=== PATIENT | male | born 1955 | race Two or more races ===

== ENCOUNTER 2020-05-31 10:53 | Outpatient (REF) | payer MEDICARE, SELFPAY ==
[2020-05-31 13:50] LABS: Hematocrit 40.1 % (42-52); Hemoglobin 13.6 g/dl (14.0-18.0); Mean Corpuscular HGB Conc 33.9 g/dl (31.0-36.0); Mean Corpuscular Hemoglobin 29.6 pg (27.0-33.0); Mean Corpuscular Volume 87.4 fL (80-98); Mean Platelet Volume 9.8 fL (9.4-12.4); Platelet Count 224 X10*3/uL (160-400); Red Blood Count 4.59 X10*6/uL (4.60-5.80); Red Cell Distribution Width 12.1 % (11.0-16.0); White Blood Count 5.6 X10*3/uL (4.8-10.8)
[2020-05-31 14:18] LABS: Alanine Aminotransferase 18 U/L (0-40); Albumin Level 4.2 g/dL (3.5-5.0); Alkaline Phosphatase 51 U/L (39-117); Amylase 64 U/L (28-100); Aspartate Amino Transferase 23 U/L (5-37); Bilirubin Direct 0.2 mg/dL (0.0-0.5); Bilirubin Total 0.4 mg/dL (0.0-1.0); Lipase 28 U/L (8-78)
== END 2020-05-31 10:54 | disposition home or self-care (01) ==
LOC: HO.10HDL 10:53
PROVIDERS: Visit Provider Internal Medicine Gastroenterology
DX: R10.9 Unspecified abdominal pain (principal)
CPT/HCPCS: 36415; 80076; 82150; 83690; 85027

== ENCOUNTER 2020-06-09 15:01 | Outpatient (REF) | payer MEDICARE, SELFPAY | END 2020-06-09 15:02 | disposition home or self-care (01) | LOC: HO.LAB 15:01 | PROVIDERS: Visit Provider Internal Medicine | DX: Z20.822 Contact with and (suspected) exposure to COVID-19 (principal) | CPT/HCPCS: 36415; C9803; U0003 ==

== ENCOUNTER 2020-12-20 09:57 | Outpatient (REF) | payer MEDICARE, SELFPAY ==
[2020-12-20 14:44] LABS: PSA,Total (Free>4and<10) 0.65 ng/mL (0.00-4.00)
== END 2020-12-20 09:58 | disposition home or self-care (01) ==
LOC: HO.10HDL 09:57
PROVIDERS: Visit Provider Urology
DX: Z12.5 Encounter for screening for malignant neoplasm of prostate (principal); N40.0 Benign prostatic hyperplasia without lower urinary tract symptoms
CPT/HCPCS: 36415; 84153

== ENCOUNTER 2020-12-27 07:37 | Outpatient (REF) | payer MEDICARE, SELFPAY ==
--- NOTE | ~2020-12-27 | US_ITS ---
EXAMINATION: US ABDOMEN COMPLETE CLINICAL INFORMATION: Right upper quadrant pain. COMPARISON: Ultrasound abdomen complete 03/03/2017. Renal ultrasound 05/02/2015. KUB 11/17/2013. CT abdomen and pelvis 10/28/2012. TECHNIQUE: Real-time imaging of the abdominal viscera. FINDINGS: PANCREAS: The entire pancreas is obscured by overlying gas. ABDOMINAL AORTA: The proximal and distal abdominal aorta is normal caliber. The midsegment aorta is not seen. INFERIOR VENA CAVA: Visualized portions are normal. LIVER: Normal. The liver is normal in size. The liver contour is normal. Parenchymal echogenicity is normal. No focal hepatic lesion. There is no intrahepatic biliary duct dilatation seen. GALLBLADDER: The gallbladder is physiologically distended. Multiple mobile gallstones are present. No evidence of gallbladder wall thickening or pericholecystic fluid. There are small non-shadowing nonmobile echogenic areas in the gallbladder wall measuring 2 to 3 mm suggestive of adenomyomatosis. COMMON BILE DUCT: Normal in caliber measuring 0.6 cm in diameter. RIGHT KIDNEY: Normal. No hydronephrosis. No renal calculi or focal parenchymal lesions. The kidney measures 11.0 cm in maximum dimension. LEFT KIDNEY: No hydronephrosis or renal calculi. The kidney measures 10.7 cm in maximum dimension. There are anechoic cyst. A lower pole cyst measures 0.4 x 0.3 x 0.3 cm. A midpole cyst measures 0.6 x 1.2 x 0.8 cm. SPLEEN: Normal. The spleen measures 9.3 cm in maximum dimension. FREE FLUID: None. US/US abdomen complete IMPRESSION: Left renal cysts. No echogenic stones. Gallstones. Adenomyomatosis of gallbladder. Rest of the abdominal ultrasound is unremarkable.
== END 2020-12-27 07:38 | disposition home or self-care (01) ==
LOC: HO.US 07:37
PROVIDERS: Visit Provider Internal Medicine Gastroenterology
DX: R10.11 Right upper quadrant pain (principal)
CPT/HCPCS: 76700

== ENCOUNTER → 2020-12-28 12:58 | Outpatient (BNVA) | payer MEDICARE, SELFPAY | PROVIDERS: Visit Provider Urology | DX: N40.1 Benign prostatic hyperplasia with lower urinary tract symptoms (principal); R35.1 Nocturia | CPT/HCPCS: 99212 ==

== ENCOUNTER → 2021-02-02 11:11 | Outpatient (BNVA) | payer MEDICARE, SELFPAY | PROVIDERS: PCP General Practice; Visit Provider Surgery | DX: R10.32 Left lower quadrant pain (principal) | CPT/HCPCS: 99202 ==

== ENCOUNTER 2021-02-13 09:43 | Outpatient (REF) | payer MEDICARE, SELFPAY ==
[2021-02-13 11:24] LABS: Blood Urea Nitrogen 12 mg/dL (9-16); Estimated Glomerular Filt Rate > 60
== END 2021-02-13 09:44 | disposition home or self-care (01) ==
LOC: HO.LAB 09:43
PROVIDERS: PCP General Practice; Referring Provider Surgery; Visit Provider Surgery
DX: R10.32 Left lower quadrant pain (principal)
CPT/HCPCS: 36415; 82565; 84520

== ENCOUNTER 2021-02-19 11:01 | Outpatient (REF) | payer MEDICARE, SELFPAY ==
--- NOTE | ~2021-02-19 | CT_ITS ---
EXAMINATION: CT ABDOMEN AND PELVIS WITH CONTRAST CLINICAL INFORMATION: Left lower quadrant pain COMPARISON: Previous abdominal ultrasound December 2020 CT of the abdomen and pelvis October 2012 TECHNIQUE: Multidetector volumetric images were obtained from the superior aspect of the liver through the pubic symphysis following administration 85 mL of Omnipaque 350 intravenous contrast. Sagittal and coronal reformatted images were obtained on the technologist's workstation. Oral contrast: Yes This CT examination was performed using dose optimization techniques as appropriate, variously including the following: *Automated exposure control *Adjustment of mA and/or kV according to patient size (this includes techniques or standardized protocols for targeted exams where dose is matched to indication/reason for exam; i.e. extremities or head) *Use of iterative reconstruction technique DLP: 533 mGy-cm FINDINGS: LUNG BASES: The visualized lung bases are unremarkable. LIVER, GALLBLADDER, AND BILIARY TREE: The liver is normal in size, shape, and attenuation. No focal hepatic lesion or biliary ductal dilatation is present. There is a gallstone in the gallbladder. The gallbladder is otherwise unremarkable. PANCREAS: Unremarkable. SPLEEN: Unremarkable. ADRENAL GLANDS: Unremarkable. KIDNEYS AND URETERS: There is a 1 cm low-attenuation lesion in the midpole the left kidney probably representing a cyst. Unchanged from prior exams. No imaging follow-up dedicated. BLADDER: There may be a TURP defect. The bladder is otherwise unremarkable. GASTROINTESTINAL TRACT: There is stool throughout the colon suggestive of constipation. Small and large bowel is otherwise unremarkable. The appendix is unremarkable. ABDOMINAL WALL: No significant hernia is appreciated. LYMPH NODES: Normal. VASCULAR: Unremarkable. PELVIC VISCERA: There is a mobile TURP defect. The prostate gland is slightly enlarged measuring 4 x 4 0.5 cm in AP and transverse dimension. OSSEOUS STRUCTURES: There are degenerative changes of the spine and hip joints. CT/CT abdomen pelvis w con IMPRESSION: Gallstone. Small left renal cyst. Stool throughout the colon suggestive of constipation.
[2021-02-19] MEDS: iohexoL 350 MG/ML 100 ML INFUS..BTL IV (14:53)
[2021-02-19] MEDS: Barium Sulfate Oral (Berry) 450 ML ORAL.SUSP 900 ML PO (14:55)
== END 2021-02-19 11:02 | disposition home or self-care (01) ==
LOC: HO.CT 11:01
PROVIDERS: PCP General Practice; Visit Provider Surgery
DX: R10.32 Left lower quadrant pain (principal)
CPT/HCPCS: 74177; Q9967

== ENCOUNTER → 2021-03-02 09:23 | Outpatient (BNVA) | payer MEDICARE, SELFPAY | PROVIDERS: PCP General Practice; Referring Provider General Practice; Visit Provider Surgery | DX: R10.32 Left lower quadrant pain (principal) | CPT/HCPCS: 99212 ==

== ENCOUNTER 2021-04-13 13:05 | Outpatient (REF) | payer MEDICARE, SELFPAY | END 2021-04-13 13:06 | disposition home or self-care (01) | LOC: HO.LAB 13:05 | PROVIDERS: PCP General Practice; Visit Provider Internal Medicine | DX: Z20.822 Contact with and (suspected) exposure to COVID-19 (principal) | CPT/HCPCS: C9803; U0003; U0005 ==

== ENCOUNTER → 2021-06-29 13:07 | Outpatient (BNVA) | payer MEDICARE, SELFPAY | PROVIDERS: Visit Provider Urology | DX: N40.1 Benign prostatic hyperplasia with lower urinary tract symptoms (principal); R35.1 Nocturia | CPT/HCPCS: 51798; 99212 ==

== ENCOUNTER → 2021-07-24 12:39 | Outpatient (BNVA) | payer MEDICARE, SELFPAY | PROVIDERS: PCP General Practice; Visit Provider Urology | DX: N40.1 Benign prostatic hyperplasia with lower urinary tract symptoms (principal); R35.1 Nocturia; N52.9 Male erectile dysfunction, unspecified | CPT/HCPCS: 52000; 99212 ==

== ENCOUNTER 2021-08-02 09:48 | Outpatient (REF) | payer MEDICARE, SELFPAY ==
--- NOTE | ~2021-08-02 | XR_ITS ---
EXAMINATION: XR knee LT 3V CLINICAL INFORMATION: Pain COMPARISON: None TECHNIQUE: 3 views of the knee XR/XR knee LT 3V FINDINGS/IMPRESSION: No acute fracture or dislocation. Joint spaces are maintained. Quadriceps tendon enthesopathy. Small suprapatellar joint effusion. Soft tissues are unremarkable.
== END 2021-08-02 09:49 | disposition home or self-care (01) ==
LOC: HO.XRAY 09:48
PROVIDERS: PCP General Practice; Visit Provider General Practice
DX: M25.562 Pain in left knee (principal)
CPT/HCPCS: 73562

== ENCOUNTER 2021-12-01 04:40 | Emergency (ER) | payer OTHER, SELFPAY ==
--- NOTE | ~2021-12-01 | XR_ITS ---
EXAMINATION: XR LUMBOSACRAL SPINE CLINICAL INFORMATION: Pain COMPARISON: 03/01/2021 TECHNIQUE: Three views of the lumbosacral spine. FINDINGS: There is anatomic alignment of the lumbar vertebral bodies and posterior elements. Vertebral body heights are maintained. No acute fracture is seen. There is mild disc space narrowing of the lower lumbar spine. Mild multilevel endplate osteophytes are present. There is suspected mild facet arthropathy in the lower lumbar spine. XR/XR lumbar spine 2-3V IMPRESSION: No acute findings identified. Mild degenerative changes.
--- NOTE | ~2021-12-01 | XR_ITS ---
EXAMINATION: XR PELVIS CLINICAL INFORMATION: Left-sided pain COMPARISON: 02/19/2021 TECHNIQUE: AP view of the pelvis. FINDINGS: Alignment across the hips is anatomic. There is mild joint space narrowing bilaterally and osteophyte formation along the acetabula and right femoral head. No acute fracture is seen. Sacroiliac joints and pubic symphysis are intact. XR/XR pelvis 1-2V IMPRESSION: No acute findings identified. Chronic appearing/degenerative changes.
[2021-12-01 05:01] VITALS: BP 158/84; PULSE 69; RESP 18; TEMP 36.4; O2SAT 97; BMI 27.2
--- NOTE | 2021-12-01 07:12 | ED.BACK ---
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 Symptoms started about 2 weeks ago as low back pain radiates down to the left buttock and left thigh and left leg, patient declined any recent back injury, no recent heavy lifting. No urinary or stool incontinence, no weakness to the left lower extremities feeling tingling to the lateral aspect of the left lower part of the leg. Related Data Home Medications Medication Instructions Recorded Confirmed amlodipine 2.5 mg tablet 2.5 mg PO DAILY 12/28/20 12/28/20 aspirin 81 mg tablet,delayed 81 mg PO DAILY 12/28/20 12/28/20 release cholecalciferol (vitamin D3) 50 0 mcg PO 12/28/20 12/28/20 mcg (2,000 unit) capsule cyanocobalamin (vitamin B-12) 1,000 mcg IM 12/28/20 12/28/20 1,000 mcg/mL injection solution fluticasone propionate 50 2 spray intranasal BEDTIME 12/28/20 12/28/20 mcg/actuation nasal spray,suspension lisinopril 30 mg tablet 30 mg PO DAILY 12/28/20 12/28/20 loratadine 10 mg tablet 10 mg PO DAILY 12/28/20 12/28/20 omeprazole 20 mg capsule,delayed 20 mg PO QAM 12/28/20 12/28/20 release pravastatin 40 mg tablet 40 mg PO BEDTIME 12/28/20 12/28/20 tamsulosin 0.4 mg capsule 0.4 mg PO DAILY 12/28/20 12/28/20 sennosides 8.6 mg tablet (senna) 17.2 mg PO DAILY PRN constipation 06/29/21 Previous Rx's Medication Instructions Recorded polyethylene glycol 3350 17 17 g PO BID Constipation 1 month 03/02/21 gram/dose oral powder (Miralax) #1,020 grams oxycodone 5 mg tablet 5 mg PO TID PRN pain #10 tabs 12/01/21 prednisone 20 mg tablet 20 mg PO BID #10 tabs 12/01/21 Allergies Allergy/AdvReac Type Severity Reaction Status Date / Time No Known Allergies Allergy Verified 07/24/21 12:50 [No Known Allergies*] Review of Systems Review of Systems: A all other systems are reviewed and are negative Constitutional: Reports as per HPI and Reports no additional constitutional complaints Eyes: Reports as per HPI and Reports no additional eye complaints Reports system reviewed and no additional complaints, except as documented Cardiovascular: Reports as per HPI and Reports no additional cardiovascular complaints Respiratory: Reports as per HPI and Reports no additional respiratory complaints Gastrointestinal: Reports as per HPI and Reports no additional gastrointestinal complaints Genitourinary: Reports no additional female genitourinary complaints Musculoskeletal: Reports no additional musculoskeletal complaints Skin/Breast: Reports system reviewed and no additional complaints, except as docu Psychiatric: Reports no additional psychiatric complaints Endocrine: Reports no additional endocrine complaints Hematologic/Lymphatic: Reports no additional hematologic/lymphatic complaints Allergic/Immunologic: Reports no additional allergic/immunologic complaints Reports system reviewed and no additional complaints, except as documented and Reports Abnormal speech present [facility] Past Medical History Medical History BPH w/o urinary obs/LUTS Epididymitis Erectile dysfunction History of kidney stones HTN (hypertension) Hyperlipidemia Nocturia Surgical History History of extraction of renal calculus History of surgery Social History Social History Patient Tobacco Use Status: Never used Tobacco Advance Directives: No Advance Directives Information Provided: Yes Physical Exam Vital Signs: Vital Signs: Last Vital Signs Temp 97.6 F 12/01/21 05:01 Pulse 69 12/01/21 05:01 Resp 18 12/01/21 05:01 BP 158/84 H 12/01/21 05:01 Pulse Ox 97 12/01/21 05:01 O2 Del Method 12/01/21 05:01 BMI result Body Mass Index 27.2 Vital signs have been reviewed as appeared to be correct. Blood pressure normal. Heart rate normal. Respiration rate normal. Temperature normal. Oxygen saturation normal. Appearance: Alert. Oriented X3. No acute distress. Head: Normal external exam. Normocephalic. Atraumatic. No Alba signs noted. No raccoon eyes noted Eyes: PERRLA. EOMI. Conjunctiva and sclera normal. Eyelids normal. ENT: TM's Normal. Pharynx normal. Uvula midline. Moist mucous membranes. No trismus noted. No drooling noted. No muffled voice noted. Neck: Normal inspection. Neck supple. FROM. No adenopathy. Thyroid Normal. No meningeal signs. No neck mass noted. CVS: Normal heart rate and rhythm. Heart sound normal. No murmurs noted. Pulses normal throughout. Respiratory: No respiratory distress. Painless inspiration. Breath sounds normal. No wheezes/rales/rhonchi noted. Chest nontender. No accessory muscle usage noted or decreased air movement noted. Abdomen: Soft and nontender. Bowel sounds normal in all 4 quadrants. No distention noted. No organomegaly noted. No visible injury noted. Back: No CVA tenderness. Full range of motion noted. Skin: Skin warm and dry. Normal skin color. Normal skin turgor. No rashes/lesions/lacerations noted. Extremities: No lower extremity edema. Extremities exhibit normal range of motion. Extremities nontender. Neuro: Oriented X 3. Cranial nerve exam: II-XII are grossly intact No motor deficit. No sensory deficit. Reflexes normal. Able to ambulate on toes and heels, perianal sensation is intact. Course Course Course Narrative: Assessment and plan. 66-year-old male presented with left lower back pain radiating down to the left lower extremities physical exam and history are consistent with lumbar radiculopathy. As discussed with the patient to bedrest using short course of steroid/pain medication. MDM - Back Pain/Injury Imaging Data Lumbar spine/pelvis x-ray: Attestation: I personally reviewed and interpreted this imaging study as follows: Radiologist's impression: No acute findings identified. Chronic appearing/degenerative changes. Discharge Plan Discharge Clinical Impression: Lumbar radiculopathy Patient Disposition: Home, Self-Care Instructions: Lumbar Radiculopathy (ED) Prescriptions: New prednisone 20 mg tablet 20 mg PO BID Qty: 10 0RF oxycodone 5 mg tablet 5 mg PO TID PRN (Reason: pain) Qty: 10 0RF Rx Instructions: Partial Fill upon patient request. No Action omeprazole 20 mg capsule,delayed release(DR/EC) 20 mg PO QAM cholecalciferol (vitamin D3) 50 mcg (2,000 unit) capsule 0 mcg PO fluticasone propionate 50 mcg/actuation spray,suspension 2 spray intranasal BEDTIME lisinopril 30 mg tablet 30 mg PO DAILY amlodipine 2.5 mg tablet 2.5 mg PO DAILY cyanocobalamin (vitamin B-12) 1,000 mcg/mL solution 1,000 mcg IM pravastatin 40 mg tablet 40 mg PO BEDTIME tamsulosin 0.4 mg capsule 0.4 mg PO DAILY aspirin 81 mg tablet,delayed release (DR/EC) 81 mg PO DAILY loratadine 10 mg tablet 10 mg PO DAILY sennosides [senna] 8.6 mg tablet 17.2 mg PO DAILY PRN (Reason: constipation) polyethylene glycol 3350 [Miralax] 17 gram/dose powder 17 g PO BID 30 Days Qty: 1020 0RF Rx Instructions: Hold for diarrhea Referrals: Romina Staples MD [Primary Care Provider] -
[2021-12-01] MEDS: predniSONE 20 MG TABLET PO (07:26)
[2021-12-01] MEDS: oxyCODONE HCl Immed Release 5 MG TABLET PO (07:26)
[2021-12-01] MEDS: Ibuprofen 600 MG TABLET PO (07:27)
[2021-12-01 07:28] VITALS: BP 155/75; PULSE 59; O2SAT 96
--- NOTE | 2021-12-01 07:34 | PC.NURSE ---
PT C/O 10/10 LL BACK PAIN THAT HAS BEEN GOING ON FOR ABOUT 3 WKS AND HAS BEEN GETTING WORSE OVER TIME. DENIES FALL/ANY INJURIES.
== END 2021-12-01 07:45 | disposition home or self-care (01) ==
PROVIDERS: Emergency Provider Emergency Medicine; PCP General Practice
DX: M54.16 Radiculopathy, lumbar region (principal); I10 Essential (primary) hypertension; E78.5 Hyperlipidemia, unspecified; Z87.442 Personal history of urinary calculi; Z79.82 Long term (current) use of aspirin; Z79.899 Other long term (current) drug therapy; Z79.02 Long term (current) use of antithrombotics/antiplatelets
CPT/HCPCS: 72100; 72170; 99283; 99284

== ENCOUNTER 2021-12-09 05:37 | Emergency (ER) | payer MEDICARE, SELFPAY ==
[2021-12-09 05:43] VITALS: BP 162/90; PULSE 79; O2SAT 96
[2021-12-09 05:52] VITALS: BP 116/70; PULSE 73; RESP 16; TEMP 36.5; O2SAT 97; BMI 28.2
--- NOTE | 2021-12-09 08:26 | ED_ITS ---
HPI - General Adult General Chief complaint: Extremity Problem Stated complaint: leg pain Time Seen by Provider: 12/09/21 08:13 History of Present Illness HPI narrative: 66 years old male presented to the emergency department with a chief complaint of left lower extremity pain, the pain started in the left gluteal area and radiated to the left lower extremity down to the foot. He arrives ambulatory to the emergency department, he was seen in the emergency department on December 01 and the urgent care on December 05 the pain continue. Onset (ago): week(s) (3) Location: lower extremity (Left lower extremity) Severity: moderate Quality: burning Pain Consistency: constant Relieving factors: none Exacerbating factors: none Related Data Home Medications Medication Instructions Recorded Confirmed amlodipine 2.5 mg tablet 2.5 mg PO DAILY 12/28/20 12/28/20 aspirin 81 mg tablet,delayed 81 mg PO DAILY 12/28/20 12/28/20 release cholecalciferol (vitamin D3) 50 0 mcg PO 12/28/20 12/28/20 mcg (2,000 unit) capsule cyanocobalamin (vitamin B-12) 1,000 mcg IM 12/28/20 12/28/20 1,000 mcg/mL injection solution fluticasone propionate 50 2 spray intranasal BEDTIME 12/28/20 12/28/20 mcg/actuation nasal spray,suspension lisinopril 30 mg tablet 30 mg PO DAILY 12/28/20 12/28/20 loratadine 10 mg tablet 10 mg PO DAILY 12/28/20 12/28/20 omeprazole 20 mg capsule,delayed 20 mg PO QAM 12/28/20 12/28/20 release pravastatin 40 mg tablet 40 mg PO BEDTIME 12/28/20 12/28/20 tamsulosin 0.4 mg capsule 0.4 mg PO DAILY 12/28/20 12/28/20 sennosides 8.6 mg tablet (senna) 17.2 mg PO DAILY PRN constipation 06/29/21 Previous Rx's Medication Instructions Recorded polyethylene glycol 3350 17 17 g PO BID Constipation 1 month 03/02/21 gram/dose oral powder (Miralax) #1,020 grams oxycodone 5 mg tablet 5 mg PO TID PRN pain #10 tabs 12/01/21 prednisone 20 mg tablet 20 mg PO BID #10 tabs 12/01/21 cyclobenzaprine 10 mg tablet 10 mg PO BEDTIME #14 tabs 12/07/21 meloxicam 15 mg tablet 15 mg PO DAILY #14 tabs 12/07/21 oxycodone 5 mg capsule 5 mg PO Q8H PRN pain #12 caps 12/09/21 Allergies Allergy/AdvReac Type Severity Reaction Status Date / Time No Known Allergies Allergy Verified 12/05/21 15:39 [No Known Allergies*] Review of Systems ENT: Reports system reviewed and no additional complaints, except as documented Musculoskeletal: Musculoskeletal: Denies numbness Integumentary/Breasts: Skin/Breast: Reports system reviewed and no additional complaints, except as docu Neurologic: Denies focal weakness, Denies numbness and Reports radicular pain PMFSH Past Medical History Medical History BPH w/o urinary obs/LUTS Epididymitis Erectile dysfunction History of kidney stones HTN (hypertension) Hyperlipidemia Nocturia Surgical History History of extraction of renal calculus History of surgery Social History Social History Alcohol intake: never Patient Tobacco Use Status: Never used Tobacco Advance Directives: No Advance Directives Information Provided: Yes Physical Exam ED Vital Signs: Vital Signs - 24 hr 12/09/21 05:52 12/09/21 08:54 Temperature 97.7 F Pulse Rate 73 61 Respiratory Rate 16 Blood Pressure 116/70 138/74 Pulse Oximetry 97 99 Oxygen Delivery Method Room Air Room Air BMI result Body Mass Index 28.2 Const Other: No toxic-appearing Orientation/consciousness: patient oriented x3 Limitations: no limitations HENMT Head: Yes normal to inspection Face and sinus: Yes normal facial exam Mouth: Normal oral and palatal mucosa present Neck Neck: Yes normal visual inspection Chest Chest palpation & inspection: normal inspection of the chest Resp Effort & Inspection: normal respiratory effort Auscultation: clear to auscultation bilaterally Cardio Jugular venous distension: no JVD Rate: regular rate Rhythm: regular rhythm GI Inspection: Yes normal to inspection Palpation (GI): Soft to palpation, not firm, nontender and no guarding Skin General skin exam: no rashes or lesions noted Neuro Other: On neuro examination he is able to ambulate without any problem, no deficit in strength noted in the lower extremity, he has symmetrical reflexes, left straight leg raising test is positive 45 degree General: patient oriented x3 Course Reevaluation(s) Reevaluation #1: I did speak with the covering primary care physician Teresa Hernández NP he will stephanie the pt and arrange follow up and schedule outpatient MRI. I think it is a very resonable plan,I do not think he need one done To he is able to walk ,he has no deficit of strenght and sensation and he has no bladder/bowel incontinence. and pt are very confortable with this plan of care. Medical Decision Making MDM Narrative Medical decision making narrative: Clearly this patient has left radicular pain consistent with sciatica, however he is able to ambulate, he has no deficit in strength or sensation he has reflexes present. Clearly he will need an MRI at some point which I think it can be done as outpatient given the lack of weakness and numbness at this point; I have paged his primary care physician to discuss the case. Lab Data Result diagrams: 12/09/21 09:27 12/09/21 09:27 Labs: Lab Results 12/09/21 12/09/21 Range/Units 09:27 09:27 WBC 9.1 (4.8-10.8) X10*3/uL RBC 4.91 (4.60-5.80) X10*6/uL Hgb 14.1 (14.0-18.0) g/dl Hct 42.6 (42.0-52.0) % MCV 86.8 (80.0-98.0) fL MCH 28.7 (27.0-33.0) pg MCHC 33.1 (31.0-36.0) g/dl RDW 12.6 (11.0-16.0) % Plt Count 220 (160-400) X10*3/uL MPV 8.9 L (9.4-12.4) fL Immature Gran % (Auto) 1.0 H (0.0-0.4) % Neut % (Auto) 60.4 (45-73) % Lymph % (Auto) 28.8 (20-40) % [place] % (Auto) 7.5 (2-11) % Eos % (Auto) 2.1 (0-4) % Baso % (Auto) 0.2 (0-2) % Lymph # (Auto) 2.6 (1.2-4.9) X10*3/uL [place] # (Auto) 0.7 (0.1-1.2) X10*3/uL Eos # (Auto) 0.2 (0.0-0.4) X10*3/uL Baso # (Auto) 0.0 (0.0-0.2) X10*3/uL Abs Immat Gran (auto) 0.09 H (0.00-0.03) X10*3/uL Absolute Neuts (auto) 5.5 (2.0-8.3) x10*3/uL Absolute Nucleated RBC 0.000 (0.0-0.012) X10*3/uL Nucleated RBC % (auto) 0.0 (0.0-0.2) /100WBC Sodium 139 (135-145) mmol/L Potassium 4.3 (3.3-5.1) mmol/L Chloride 101 (96-108) mmol/L Carbon Dioxide 35 H (22-29) mmol/L Anion Gap 7 L (12-20) BUN 17 H (9-16) mg/dL Creatinine 0.91 (0.5-1.4) mg/dL Estim Creat Clear Calc 79.5 Estimated GFR > 60 Random Glucose 96 (60-115) mg/dL Calcium 8.8 (8.4-10.2) mg/dL Total Bilirubin 0.2 (0.0-1.0) mg/dL AST 32 (5-37) U/L ALT 31 (0-40) U/L Alkaline Phosphatase 49 (39-117) U/L Total Protein 6.7 (6.5-8.0) g/dL Albumin 3.9 (3.5-5.0) g/dL Discharge Plan Discharge Clinical Impression: Sciatica of left side Patient Disposition: Home, Self-Care Instructions: Sciatica (ED) Additional Instructions: Follow-up with your primary care physician tomorrow we did speak with you primary care physician, they will schedule an MRI as outpatient return if you worse review of of weakness in the legs numbness in the legs, incontinence to urine or stools Prescriptions: New oxycodone 5 mg capsule 5 mg PO Q8H PRN (Reason: pain) Qty: 12 0RF Rx Instructions: Partial Fill upon patient request. No Action meloxicam 15 mg tablet 15 mg PO DAILY Qty: 14 0RF cyclobenzaprine 10 mg tablet 10 mg PO BEDTIME Qty: 14 0RF prednisone 20 mg tablet 20 mg PO BID Qty: 10 0RF oxycodone 5 mg tablet 5 mg PO TID PRN (Reason: pain) Qty: 10 0RF Rx Instructions: Partial Fill upon patient request. omeprazole 20 mg capsule,delayed release(DR/EC) 20 mg PO QAM cholecalciferol (vitamin D3) 50 mcg (2,000 unit) capsule 0 mcg PO fluticasone propionate 50 mcg/actuation spray,suspension 2 spray intranasal BEDTIME lisinopril 30 mg tablet 30 mg PO DAILY amlodipine 2.5 mg tablet 2.5 mg PO DAILY cyanocobalamin (vitamin B-12) 1,000 mcg/mL solution 1,000 mcg IM pravastatin 40 mg tablet 40 mg PO BEDTIME tamsulosin 0.4 mg capsule 0.4 mg PO DAILY aspirin 81 mg tablet,delayed release (DR/EC) 81 mg PO DAILY loratadine 10 mg tablet 10 mg PO DAILY sennosides [senna] 8.6 mg tablet 17.2 mg PO DAILY PRN (Reason: constipation) polyethylene glycol 3350 [Miralax] 17 gram/dose powder 17 g PO BID 30 Days Qty: 1020 0RF Rx Instructions: Hold for diarrhea Referrals: Romina Staples MD [Primary Care Provider] - 1 day Interventions: ED Discharge Assessment Last Done: 12/09/21 10:57 Discharge Date/Time: 12/09/21 10:57
[2021-12-09 08:54] VITALS: BP 138/74; PULSE 61; O2SAT 99
[2021-12-09] MEDS: oxyCODONE HCl Immed Release 5 MG TABLET 10 MG PO (08:56)
[2021-12-09 09:31] LABS: MANUAL DIFF FLAG NO
[2021-12-09 09:50] LABS: Basophils Percent Auto 0.2 % (0-2); Eosinophils Absolute Auto 0.2 X10*3/uL (0.0-0.4); Eosinophils Percent Auto 2.1 % (0-4); Hematocrit 42.6 % (42.0-52.0); Hemoglobin 14.1 g/dl (14.0-18.0); Imm Gran Abs Auto 0.09 X10*3/uL (0.00-0.03); Lymphocytes Absolute Auto 2.6 X10*3/uL (1.2-4.9); Lymphocytes Percent Auto 28.8 % (20-40); Mean Corpuscular HGB Conc 33.1 g/dl (31.0-36.0); Mean Corpuscular Hemoglobin 28.7 pg (27.0-33.0); Mean Corpuscular Volume 86.8 fL (80.0-98.0); Mean Platelet Volume 8.9 fL (9.4-12.4); Monocytes Absolute Auto 0.7 X10*3/uL (0.1-1.2); Monocytes Percent Auto 7.5 % (2-11); Neutrophils Absolute Auto 5.5 x10*3/uL (2.0-8.3); Neutrophils Percent Auto 60.4 % (45-73); Platelet Count 220 X10*3/uL (160-400); Red Blood Count 4.91 X10*6/uL (4.60-5.80); Red Cell Distribution Width 12.6 % (11.0-16.0); White Blood Count 9.1 X10*3/uL (4.8-10.8)
[2021-12-09 10:05] LABS: Alanine Aminotransferase 31 U/L (0-40); Albumin Level 3.9 g/dL (3.5-5.0); Alkaline Phosphatase 49 U/L (39-117); Anion Gap 7 (12-20); Aspartate Amino Transferase 32 U/L (5-37); Bilirubin Total 0.2 mg/dL (0.0-1.0); Blood Urea Nitrogen 17 mg/dL (9-16); Calcium 8.8 mg/dL (8.4-10.2); Carbon Dioxide 35 mmol/L (22-29); Chloride 101 mmol/L (96-108); Creatinine Clr Calc Pharmacy 79.5; Estimated Glomerular Filt Rate > 60; Glucose Random 96 mg/dL (60-115); Potassium 4.3 mmol/L (3.3-5.1); Sodium 139 mmol/L (135-145); Total Protein 6.7 g/dL (6.5-8.0)
== END 2021-12-09 10:57 | disposition home or self-care (01) ==
PROVIDERS: Emergency Provider Emergency Medicine; PCP General Practice
DX: M54.42 Lumbago with sciatica, left side (principal); Z79.899 Other long term (current) drug therapy
CPT/HCPCS: 36415; 80053; 85025; 99284

== ENCOUNTER 2021-12-17 11:35 | Outpatient (REF) | payer OTHER, SELFPAY ==
--- NOTE | ~2021-12-17 | XR_ITS ---
EXAMINATION: ORBITS CLINICAL INFORMATION: Pre-MRI COMPARISON: None TECHNIQUE: 3 views orbits FINDINGS: No Radiopaque metallic foreign bodies are seen overlying the orbits. Dental implants are present. The visualized paranasal sinuses are well aerated. No bony destructive lesions. XR/XR pre mri screening IMPRESSION: No radiopaque metallic foreign bodies.
--- NOTE | ~2021-12-17 | MR_ITS ---
MR LUMBAR SPINE WITHOUT IV CONTRAST CLINICAL INFORMATION: Lumbago with left-sided sciatica. COMPARISON: Lumbar spine radiographs 12/01/2021. TECHNIQUE: MRI of the lumbar spine was obtained using routine sequences without contrast. FINDINGS: There is transitional anatomy. For the purposes of this report, S1 is lumbarized, sharing a nearly completely developed intervertebral disc with S2 and L1 exhibits an articulating transverse process on the left side. There are 5 lumbar type vertebral bodies. Please correlate with plain films prior to any percutaneous or surgical intervention. There is grade 1 retrolisthesis of L2 on L3, L3 on L4, and L4 and L5. Bone marrow signal is homogenous and normal. Multilevel endplate osteophytes. There is moderate disc volume loss at L5-S1. Disc desiccation at all lumbar levels. No bone marrow edema. No acute fractures. Modic type II endplate signal changes at L5-S1. Conus terminates at the L1-L2 level. No significant extraspinal soft tissue findings. L1-L2: Small right paracentral annular fissure. No significant disc contour abnormality. No central canal stenosis and no foraminal stenosis. L2-L3: Shallow central disc protrusion mildly narrows the central canal. Background annular disc bulge. No foraminal stenosis. L3-L4: Diffuse annular disc bulge exhibiting a dorsal annular fissure and mild bilateral facet arthropathy and ligamentum flavum thickening. No central canal stenosis. Mild foraminal encroachment bilaterally. L4-L5: There is an inferiorly migrating left paracentral disc extrusion that compresses the traversing left L5 nerve root within the left L5 lateral recess on image 21 of series 5. Background annular disc bulge and moderate bilateral facet arthropathy and ligamentum flavum thickening. Mild narrowing of the central canal. Mild to moderate bilateral foraminal stenosis. L5-S1: Diffuse annular disc bulges in part disc osteophyte with a superimposed right lateral disc osteophyte protrusion that along with facet arthropathy result in severe right-sided foraminal stenosis with compression of the exiting right L5 nerve root. Mild left foraminal encroachment. S1-S2: At the transitional level, there is a small far right lateral disc osteophyte protrusion and a background annular disc bulge along with mild bilateral facet arthropathy. No central canal stenosis and no foraminal stenosis. MR/MR lumbar spine wo con IMPRESSION: - There is transitional anatomy. For the purposes of this report, S1 is lumbarized, sharing a nearly completely developed intervertebral disc with S2 and L1 exhibits an articulating transverse process on the left side. There are 5 lumbar type vertebral bodies. Please correlate with plain films prior to any percutaneous or surgical intervention. - Using this counting system, at L4-L5 there is an inferiorly migrating left paracentral disc extrusion that compresses the traversing left L5 nerve root within the left L5 lateral recess on image 21 of series 5. - At L5-S1, a right lateral disc osteophyte protrusion results in severe right-sided foraminal stenosis with compression of the exiting right L5 nerve root
== END 2021-12-17 11:36 | disposition home or self-care (01) ==
LOC: HO.MRI 11:35
PROVIDERS: PCP General Practice; Visit Provider Internal Medicine
DX: M54.42 Lumbago with sciatica, left side (principal)
CPT/HCPCS: 72148

== ENCOUNTER 2021-12-25 07:59 | Emergency (ER) | payer OTHER, MEDICAID, SELFPAY ==
[2021-12-25 08:40] VITALS: BP 155/77; PULSE 80; RESP 16; TEMP 36.8; O2SAT 97; BMI 27.2
[2021-12-25] MEDS: oxyCODONE HCl Immed Release 5 MG TABLET PO (09:45)
[2021-12-25] MEDS: predniSONE 20 MG TABLET 60 MG PO (09:45)
[2021-12-25] MEDS: Ketorolac Tromethamine 30 MG/ML VIAL IM (09:46)
--- NOTE | 2021-12-25 09:46 | ED_ITS ---
HPI - General Adult General Chief complaint: Back Pain/Injury Stated complaint: L flank pain Time Seen by Provider: 12/25/21 09:26 Source: patient Mode of arrival: ambulatory Limitations: no limitations History of Present Illness HPI narrative: 66-year-old male with history of sciatica and lumbar radiculopathy presents to the ED for medication refill and back pain. Patient states left lower back gluteal pain radiating down legs without any exacerbation. Patient states he ran out of his oxycodone prescription from his primary care provider and would like a refill. Patient has appointment with back surgeon this upcoming Friday. Patient denies any urinary/bowel incontinence. Patient denies any dysuria, he maturia, flank pain, nausea, vomiting, abdominal pain. Patient denies any recent trauma. Patient denies any history of IV drug use or immunocompromise diseases. Related Data Home Medications Medication Instructions Recorded Confirmed amlodipine 2.5 mg tablet 2.5 mg PO DAILY 12/28/20 12/28/20 aspirin 81 mg tablet,delayed 81 mg PO DAILY 12/28/20 12/28/20 release cholecalciferol (vitamin D3) 50 0 mcg PO 12/28/20 12/28/20 mcg (2,000 unit) capsule cyanocobalamin (vitamin B-12) 1,000 mcg IM 12/28/20 12/28/20 1,000 mcg/mL injection solution fluticasone propionate 50 2 spray intranasal BEDTIME 12/28/20 12/28/20 mcg/actuation nasal spray,suspension lisinopril 30 mg tablet 30 mg PO DAILY 12/28/20 12/28/20 loratadine 10 mg tablet 10 mg PO DAILY 12/28/20 12/28/20 omeprazole 20 mg capsule,delayed 20 mg PO QAM 12/28/20 12/28/20 release pravastatin 40 mg tablet 40 mg PO BEDTIME 12/28/20 12/28/20 tamsulosin 0.4 mg capsule 0.4 mg PO DAILY 12/28/20 12/28/20 sennosides 8.6 mg tablet (senna) 17.2 mg PO DAILY PRN constipation 06/29/21 Previous Rx's Medication Instructions Recorded polyethylene glycol 3350 17 17 g PO BID Constipation 1 month 03/02/21 gram/dose oral powder (Miralax) #1,020 grams oxycodone 5 mg tablet 5 mg PO TID PRN pain #10 tabs 12/01/21 prednisone 20 mg tablet 20 mg PO BID #10 tabs 12/01/21 cyclobenzaprine 10 mg tablet 10 mg PO BEDTIME #14 tabs 12/07/21 meloxicam 15 mg tablet 15 mg PO DAILY #14 tabs 12/07/21 oxycodone 5 mg capsule 5 mg PO Q8H PRN pain #12 caps 12/09/21 ketorolac 10 mg tablet 10 mg PO QID PRN pain 5 days #20 12/25/21 tabs oxycodone 5 mg capsule 5 mg PO TID PRN pain 3 days #9 caps 12/25/21 prednisone 20 mg tablet 40 mg PO DAILY 5 days #10 tabs 12/25/21 Allergies Allergy/AdvReac Type Severity Reaction Status Date / Time No Known Allergies Allergy Verified 12/05/21 15:39 [No Known Allergies*] Review of Systems Review of Systems: Sciatica exacerbation Yes all other systems are reviewed and are negative PMFSH Past Medical History Medical History BPH w/o urinary obs/LUTS Epididymitis Erectile dysfunction History of kidney stones HTN (hypertension) Hyperlipidemia Nocturia Surgical History History of extraction of renal calculus History of surgery Social History Social History Alcohol intake: never Patient Tobacco Use Status: Never used Tobacco Advance Directives: Yes Advance Directives Information Provided: Yes Advance Directives on File: No Physical Exam ED Vital Signs: Vital Signs - 24 hr 12/25/21 08:40 Temperature 98.3 F Pulse Rate 80 Respiratory Rate 16 Blood Pressure 155/77 H Pulse Oximetry 97 Oxygen Delivery Method Room Air BMI result Body Mass Index 27.2 Const General: cooperative, healthy appearing, well developed, alert, awake, Physically active and acute distress mild Orientation/consciousness: patient oriented x3 HENMT Head: Yes normal to inspection, Yes No palpable skull fracture present, Yes no rmocephalic and Yes atraumatic Eyes General: appearance normal, both eyes and all related structures Neck Neck: Yes normal visual inspection, Yes full ROM, Yes no lymphadenopathy, Yes no meningeal signs, Yes trachea midline, Yes supple, No anterior neck swelling and No tender Chest Chest palpation & inspection: normal inspection of the chest and normal palpation of entire chest wall Resp Effort & Inspection: normal respiratory effort and able to speak in complete sentences Auscultation: clear to auscultation bilaterally Cardio Jugular venous distension: no JVD Heart sounds: S1 normal heart sound present and S2 normal heart sound present GI Inspection: Yes normal to inspection and No abdominal wall ecchymosis Palpation (GI): Soft to palpation, not firm, nontender, no guarding and not rigid General: No CVA tenderness and Yes no CVA tenderness Back/Spine/Pelvis Other: positive for left straight leg test Back: no CVA tenderness, No CVA tenderness and No back tenderness Back/spine/pelvis image: 1. Positive for left gluteal francisco side for tenderness on palpation. Negative for erthyema, ecchymosis, fluctuant mass. Skin General skin exam: no rashes or lesions noted and elasticity normal Neuro General: patient oriented x3, gait normal, tone normal and no meningeal signs Cranial nerves: Yes CN's II-XII intact bilaterally Extrem General: Yes normal to inspection and Yes full ROM Psych Appearance: grossly normal, well kempt and not disheveled Course Course Course Narrative: No imaging needed. No new trauma. Not suspecting any cauda equinus syndrome or epidural abscess. Will order pain medication. Reevaluation(s) Reevaluation #1: Patient given Toradol, oxycodone, and prednisone Time: 21:52 Medical Decision Making [facility] Narrative Medical decision making narrative: Lumbar radiculopathy, Sciatica Discharge Plan Discharge Clinical Impression: Lumbar radiculopathy, Sciatica Patient Disposition: Home, Self-Care Instructions: Sciatica (ED), Lumbar Radiculopathy (ED) Additional Instructions: Please follow-up with the surgeon as soon as possible and primary care provider. Will be discharged with pain medication and steroids. Return to the ED immediately for any urinary/bowel incontinence, abdominal pain, nausea, vomiting, flank pain, fever, chills, dysuria, hematuria, paralysis of lower extremities, severe back pain, rash, or any other concerning symptoms. Prescriptions: New oxycodone 5 mg capsule 5 mg PO TID PRN (Reason: pain) 3 Days Qty: 9 0RF Rx Instructions: Partial Fill upon patient request. side effect is drowsiness. Do not take at work or while driving. prednisone 20 mg tablet 40 mg PO DAILY 5 Days Qty: 10 0RF ketorolac 10 mg tablet 10 mg PO QID PRN (Reason: pain) 5 Days Qty: 20 0RF Rx Instructions: Patient received 30mg IM toradol in the ED. No Action meloxicam 15 mg tablet 15 mg PO DAILY Qty: 14 0RF cyclobenzaprine 10 mg tablet 10 mg PO BEDTIME Qty: 14 0RF prednisone 20 mg tablet 20 mg PO BID Qty: 10 0RF oxycodone 5 mg tablet 5 mg PO TID PRN (Reason: pain) Qty: 10 0RF Rx Instructions: Partial Fill upon patient request. oxycodone 5 mg capsule 5 mg PO Q8H PRN (Reason: pain) Qty: 12 0RF Rx Instructions: Partial Fill upon patient request. omeprazole 20 mg capsule,delayed release(DR/EC) 20 mg PO QAM cholecalciferol (vitamin D3) 50 mcg (2,000 unit) capsule 0 mcg PO fluticasone propionate 50 mcg/actuation spray,suspension 2 spray intranasal BEDTIME lisinopril 30 mg tablet 30 mg PO DAILY amlodipine 2.5 mg tablet 2.5 mg PO DAILY cyanocobalamin (vitamin B-12) 1,000 mcg/mL solution 1,000 mcg IM pravastatin 40 mg tablet 40 mg PO BEDTIME tamsulosin 0.4 mg capsule 0.4 mg PO DAILY aspirin 81 mg tablet,delayed release (DR/EC) 81 mg PO DAILY loratadine 10 mg tablet 10 mg PO DAILY sennosides [senna] 8.6 mg tablet 17.2 mg PO DAILY PRN (Reason: constipation) polyethylene glycol 3350 [Miralax] 17 gram/dose powder 17 g PO BID 30 Days Qty: 1020 0RF Rx Instructions: Hold for diarrhea Interventions: ED Discharge Assessment Last Done: 12/25/21 10:38 Discharge Date/Time: 12/25/21 10:40 Print Language: Citizen Of [place]
== END 2021-12-25 10:40 | disposition home or self-care (01) ==
PROVIDERS: Emergency Provider Student in an Organized Health Care Education/Training Program; PCP General Practice
DX: M54.16 Radiculopathy, lumbar region (principal); M54.42 Lumbago with sciatica, left side
CPT/HCPCS: 96372; 99283; 99284; J1885

== ENCOUNTER 2022-01-01 14:11 | Emergency (ER) | payer OTHER, SELFPAY ==
[2022-01-01] VITALS (7 sets, daily range): BP systolic 128–162; BP diastolic 74–86; PULSE 68–81; RESP 16–18; TEMP 37.1; O2SAT 96–98; BMI 26.6
--- NOTE | ~2022-01-01 | CT_ITS ---
EXAMINATION: CT ABDOMEN AND PELVIS WITHOUT CONTRAST CLINICAL INFORMATION: Upper abdominal pain COMPARISON: CT abdomen pelvis 02/19/2021 TECHNIQUE: Multidetector volumetric imaging was performed from the superior aspect of the liver through the pubic symphysis. Sagittal and coronal reformatted images were obtained on the technologist's workstation. This CT examination was performed using dose optimization techniques as appropriate, variously including the following: *Automated exposure control *Adjustment of mA and/or kV according to patient size (this includes techniques or standardized protocols for targeted exams where dose is matched to indication/reason for exam; i.e. extremities or head) *Use of iterative reconstruction technique DLP: 603 mGy-cm FINDINGS: LUNG BASES: The lung bases are clear. The heart size is normal. LIVER, GALLBLADDER, AND BILIARY TREE: The liver is normal in size, shape, and attenuation. No focal hepatic lesion or biliary ductal dilatation is present. The gallbladder is nondistended with small radiopaque gallstone. No wall thickening seen. PANCREAS: Unremarkable. SPLEEN: The spleen is unremarkable. A small accessory splenule along the superior pole of the spleen similar previous study. ADRENAL GLANDS: Unremarkable. KIDNEYS AND URETERS: The kidneys are normal in size, shape, and attenuation. No hydronephrosis, hydroureter, or calculi seen. No perinephric stranding. BLADDER: Unremarkable. GASTROINTESTINAL TRACT: There is moderate scattered stool seen throughout the entire colon without distention. The small bowel loops are normal caliber. No free air or free fluid seen. There is no inflammatory process. ABDOMINAL WALL: No significant hernia is appreciated. LYMPH NODES: There are small shotty lymph nodes in the retroperitoneum. VASCULAR: There is atherosclerotic calcification abdominal aorta. PELVIC VISCERA: The prostate is mildly enlarged with central gland calcification. No free fluid seen. No abnormal pelvic or inguinal lymph nodes. No evidence of hernia. OSSEOUS STRUCTURES: Degenerative L4-L5 disc changes with ventral spondylosis. Mild ventral spondylosis mid to lower dorsal spine. No aggressive lytic or sclerotic process seen. CT/CT abdomen pelvis wo con IMPRESSION: No acute intra-abdominal process seen Moderate constipation without obstruction. No radiopaque urolith or hydroureteronephrosis. Solitary gallstone without wall thickening. It is unchanged to previous CT exam 02/21/2021. Fleischner guidelines were followed.
[2022-01-01 15:08] LABS: MANUAL DIFF FLAG NO
[2022-01-01 15:10] LABS: Basophils Percent Auto 0.4 % (0-2); Eosinophils Absolute Auto 0.2 X10*3/uL (0.0-0.4); Eosinophils Percent Auto 2.1 % (0-4); Hematocrit 42.1 % (42.0-52.0); Hemoglobin 14.4 g/dl (14.0-18.0); Imm Gran Abs Auto 0.27 X10*3/uL (0.00-0.03); Imm Gran Pct Auto 2.9 % (0.0-0.4); Lymphocytes Absolute Auto 2.1 X10*3/uL (1.2-4.9); Lymphocytes Percent Auto 22.8 % (20-40); Mean Corpuscular HGB Conc 34.2 g/dl (31.0-36.0); Mean Corpuscular Hemoglobin 28.9 pg (27.0-33.0); Mean Corpuscular Volume 84.4 fL (80.0-98.0); Mean Platelet Volume 8.9 fL (9.4-12.4); Monocytes Absolute Auto 0.8 X10*3/uL (0.1-1.2); Monocytes Percent Auto 8.1 % (2-11); Neutrophils Percent Auto 63.7 % (45-73); Platelet Count 276 X10*3/uL (160-400); Red Blood Count 4.99 X10*6/uL (4.60-5.80); Red Cell Distribution Width 12.4 % (11.0-16.0); White Blood Count 9.4 X10*3/uL (4.8-10.8)
[2022-01-01 15:16] LABS: Appearance Urine Clear; Color Urine Yellow; Glucose Urine UA Negative (Negative); Leukocyte Esterase Urine Negative (Negative); Nitrite Urine Negative (Negative); PH 7.5 (5.0-8.0); Urine Blood Small (1+) (Negative); Urine Ketones Negative (Negative); Urine Protein Negative (Neg-Trace)
[2022-01-01 15:22] LABS: Bacteria Urine None Seen (None Seen); Hyaline Casts Urine 0-2 /LPF (0-2); Squamous Epithelial Cell Urine 0-2 /HPF (0-2); WBC Urine 0-5 /HPF (0-5)
[2022-01-01 15:25] LABS: Alanine Aminotransferase 20 U/L (0-40); Alkaline Phosphatase 55 U/L (39-117); Anion Gap 15 (12-20); Aspartate Amino Transferase 14 U/L (5-37); Bilirubin Direct < 0.2 mg/dL (0.0-0.5); Bilirubin Total 0.2 mg/dL (0.0-1.0); Blood Urea Nitrogen 16 mg/dL (9-16); Calcium 8.6 mg/dL (8.4-10.2); Carbon Dioxide 27 mmol/L (22-29); Chloride 98 mmol/L (96-108); Creatinine Clr Calc Pharmacy 78.5; Estimated Glomerular Filt Rate > 60; Glucose Random 117 mg/dL (60-115); Sodium 136 mmol/L (135-145)
--- NOTE | 2022-01-01 18:55 | ED.ABDPAIN ---
HPI - Abdominal Pain General Chief Complaint: Abdominal Pain Stated Complaint: ABD PAIN Time Seen by Provider: 01/01/22 18:55 Source: patient and family Mode of arrival: ambulatory Limitations: no limitations History of Present Illness HPI narrative: Patient history of chronic back pain been followed by pain clinic on oxycodone which he finished today complaining of increasing pain for last few days also does not feel hungry no without any appetite has constipation diffuse abdominal discomfort++ no fever or chills Related Data Home Medications Medication Instructions Recorded Confirmed amlodipine 2.5 mg tablet 2.5 mg PO DAILY 12/28/20 12/28/20 aspirin 81 mg tablet,delayed 81 mg PO DAILY 12/28/20 12/28/20 release cholecalciferol (vitamin D3) 50 0 mcg PO 12/28/20 12/28/20 mcg (2,000 unit) capsule cyanocobalamin (vitamin B-12) 1,000 mcg IM 12/28/20 12/28/20 1,000 mcg/mL injection solution fluticasone propionate 50 2 spray intranasal BEDTIME 12/28/20 12/28/20 mcg/actuation nasal spray,suspension lisinopril 30 mg tablet 30 mg PO DAILY 12/28/20 12/28/20 loratadine 10 mg tablet 10 mg PO DAILY 12/28/20 12/28/20 omeprazole 20 mg capsule,delayed 20 mg PO QAM 12/28/20 12/28/20 release pravastatin 40 mg tablet 40 mg PO BEDTIME 12/28/20 12/28/20 tamsulosin 0.4 mg capsule 0.4 mg PO DAILY 12/28/20 12/28/20 sennosides 8.6 mg tablet (senna) 17.2 mg PO DAILY PRN constipation 06/29/21 Previous Rx's Medication Instructions Recorded polyethylene glycol 3350 17 17 g PO BID Constipation 1 month 03/02/21 gram/dose oral powder (Miralax) #1,020 grams oxycodone 5 mg tablet 5 mg PO TID PRN pain #10 tabs 12/01/21 prednisone 20 mg tablet 20 mg PO BID #10 tabs 12/01/21 cyclobenzaprine 10 mg tablet 10 mg PO BEDTIME #14 tabs 12/07/21 meloxicam 15 mg tablet 15 mg PO DAILY #14 tabs 12/07/21 oxycodone 5 mg capsule 5 mg PO Q8H PRN pain #12 caps 12/09/21 ketorolac 10 mg tablet 10 mg PO QID PRN pain 5 days #20 12/25/21 tabs oxycodone 5 mg capsule 5 mg PO TID PRN pain 3 days #9 caps 12/25/21 prednisone 20 mg tablet 40 mg PO DAILY 5 days #10 tabs 12/25/21 oxycodone-acetaminophen 5 mg-325 1 tab PO Q6H PRN pain #30 tabs 01/01/22 mg tablet (Percocet) Allergies Allergy/AdvReac Type Severity Reaction Status Date / Time No Known Allergies Allergy Verified 12/05/21 15:39 [No Known Allergies*] Review of Systems Review of Systems Yes all other systems are reviewed and are negative [facility] Past Medical History Medical History BPH w/o urinary obs/LUTS Epididymitis Erectile dysfunction History of kidney stones HTN (hypertension) Hyperlipidemia Nocturia Surgical History History of extraction of renal calculus History of surgery Social History Social History Alcohol intake: never Patient Tobacco Use Status: Never used Tobacco Use of substances other than those prescribed or required for medical reasons: No Advance Directives: No Advance Directives Information Provided: No Physical Exam ED Vital Signs: Vital Signs - 24 hr 01/01/22 14:43 01/01/22 19:23 01/01/22 19:24 Temperature 98.7 F Pulse Rate 72 75 72 Respiratory Rate 18 18 Blood Pressure 132/78 135/77 140/78 H Pulse Oximetry 96 98 Oxygen Delivery Method Room Air Room Air 01/01/22 19:25 01/01/22 19:26 01/01/22 21:05 Temperature Pulse Rate 80 81 68 Respiratory Rate 16 Blood Pressure 146/86 H 146/82 H 128/74 Pulse Oximetry 96 Oxygen Delivery Method Room Air BMI result Body Mass Index 26.6 Appearance: Alert. Oriented X3. No acute distress. Eyes: No pallor ENT: Pharynx normal. Oral Mucosa moist Neck: Normal inspection. Neck supple. CVS: Normal heart rate and rhythm. Pulses normal. Respiratory: No respiratory distress. Equal air entry bilateral, no wheezing/rales/rhonchi Abdomen: Soft mild epigastric tenderness Bowel sounds are present, no mass palpable, no CVA tenderness Skin: Skin warm and dry. Normal skin color. Normal skin turgor. Extremities: No lower extremity edema. No calf tenderness diffuse lumbar spine tenderness Neuro: Oriented X 3. No motor deficit. No sensory deficit.No cerebellar signs , cranial nerves II-XII intact patient ambulatory MDM - Abdominal Pain MDM Narrative Medical decision making narrative: Patient chronic back pain CT scan abdomen done which essentially negative except for constipation discharge patient home on Percocet and Dulcolax patient already has MiraLax at home Lab Data Attestation: I reviewed the patient's lab results. Result diagrams: 01/01/22 14:57 01/01/22 14:57 Labs: Lab Results 01/01/22 01/01/22 01/01/22 Range/Units 14:57 14:57 14:57 WBC 9.4 (4.8-10.8) X10*3/uL RBC 4.99 (4.60-5.80) X10*6/uL Hgb 14.4 (14.0-18.0) g/dl Hct 42.1 (42.0-52.0) % MCV 84.4 (80.0-98.0) fL MCH 28.9 (27.0-33.0) pg MCHC 34.2 (31.0-36.0) g/dl RDW 12.4 (11.0-16.0) % Plt Count 276 D (160-400) X10*3/uL MPV 8.9 L (9.4-12.4) fL Immature Gran % (Auto) 2.9 H (0.0-0.4) % Neut % (Auto) 63.7 (45-73) % Lymph % (Auto) 22.8 (20-40) % [place] % (Auto) 8.1 (2-11) % Eos % (Auto) 2.1 (0-4) % Baso % (Auto) 0.4 (0-2) % Lymph # (Auto) 2.1 (1.2-4.9) X10*3/uL [place] # (Auto) 0.8 (0.1-1.2) X10*3/uL Eos # (Auto) 0.2 (0.0-0.4) X10*3/uL Baso # (Auto) 0.0 (0.0-0.2) X10*3/uL Abs Immat Gran (auto) 0.27 H (0.00-0.03) X10*3/uL Absolute Neuts (auto) 6.0 (2.0-8.3) x10*3/uL Absolute Nucleated RBC 0.000 (0.0-0.012) X10*3/uL Nucleated RBC % (auto) 0.0 (0.0-0.2) /100WBC Sodium 136 (135-145) mmol/L Potassium 4.0 (3.3-5.1) mmol/L Chloride 98 (96-108) mmol/L Carbon Dioxide 27 (22-29) mmol/L Anion Gap 15 (12-20) BUN 16 (9-16) mg/dL Creatinine 0.83 (0.5-1.4) mg/dL Estim Creat Clear Calc 78.5 Estimated GFR > 60 Random Glucose 117 H (60-115) mg/dL Calcium 8.6 (8.4-10.2) mg/dL Total Bilirubin 0.2 (0.0-1.0) mg/dL Direct Bilirubin < 0.2 (0.0-0.5) mg/dL AST 14 D (5-37) U/L ALT 20 (0-40) U/L Alkaline Phosphatase 55 (39-117) U/L Total Protein 7.0 (6.5-8.0) g/dL Albumin 4.0 (3.5-5.0) g/dL Lipase 22 (8-78) U/L Urine Color Yellow Urine Appearance Clear Urine pH 7.5 (5.0-8.0) Ur Specific [place] 1.010 (1.005-1.025) Urine Protein Negative (Neg-Trace) mg/dL Urine Glucose (UA) Negative (Negative) mg/dL Urine Ketones Negative (Negative) mg/dL Urine Blood Small (1+) H (Negative) Urine Nitrite Negative (Negative) Ur Leukocyte Esterase Negative (Negative) Urine RBC 6-10 H (0-2) /HPF Urine WBC 0-5 (0-5) /HPF Ur Squamous Epith Cells 0-2 (0-2) /HPF Urine Bacteria None Seen (None Seen) Hyaline Casts 0-2 (0-2) /LPF Discharge Plan Discharge Clinical Impression: Chronic back pain, Constipation Patient Disposition: Home, Self-Care Instructions: Constipation (ED), Chronic Back Pain (DC) Additional Instructions: Drink plenty of fluids Stool softener as advised Pain medication as prescribed Follow-up with PCP Beace currieo l?quido Suavizante de heces seg?n lo recomendado Medicamentos para el dolor seg?n lo prescrito Seguimiento con PCP Prescriptions: New oxycodone-acetaminophen [Percocet] 5-325 mg tablet 1 tab PO Q6H PRN (Reason: pain) Qty: 30 0RF Rx Instructions: Partial Fill upon patient request. No Action meloxicam 15 mg tablet 15 mg PO DAILY Qty: 14 0RF cyclobenzaprine 10 mg tablet 10 mg PO BEDTIME Qty: 14 0RF prednisone 20 mg tablet 20 mg PO BID Qty: 10 0RF oxycodone 5 mg tablet 5 mg PO TID PRN (Reason: pain) Qty: 10 0RF Rx Instructions: Partial Fill upon patient request. oxycodone 5 mg capsule 5 mg PO Q8H PRN (Reason: pain) Qty: 12 0RF Rx Instructions: Partial Fill upon patient request. oxycodone 5 mg capsule 5 mg PO TID PRN (Reason: pain) 3 Days Qty: 9 0RF Rx Instructions: Partial Fill upon patient request. side effect is drowsiness. Do not take at work or while driving. prednisone 20 mg tablet 40 mg PO DAILY 5 Days Qty: 10 0RF ketorolac 10 mg tablet 10 mg PO QID PRN (Reason: pain) 5 Days Qty: 20 0RF Rx Instructions: Patient received 30mg IM toradol in the ED. omeprazole 20 mg capsule,delayed release(DR/EC) 20 mg PO QAM cholecalciferol (vitamin D3) 50 mcg (2,000 unit) capsule 0 mcg PO fluticasone propionate 50 mcg/actuation spray,suspension 2 spray intranasal BEDTIME lisinopril 30 mg tablet 30 mg PO DAILY amlodipine 2.5 mg tablet 2.5 mg PO DAILY cyanocobalamin (vitamin B-12) 1,000 mcg/mL solution 1,000 mcg IM pravastatin 40 mg tablet 40 mg PO BEDTIME tamsulosin 0.4 mg capsule 0.4 mg PO DAILY aspirin 81 mg tablet,delayed release (DR/EC) 81 mg PO DAILY loratadine 10 mg tablet 10 mg PO DAILY sennosides [senna] 8.6 mg tablet 17.2 mg PO DAILY PRN (Reason: constipation) polyethylene glycol 3350 [Miralax] 17 gram/dose powder 17 g PO BID 30 Days Qty: 1020 0RF Rx Instructions: Hold for diarrhea Print Language: Nepalese
[2022-01-01 19:35] LABS: Lipase 22 U/L (8-78)
[2022-01-01] MEDS: oxyCODONE HCl Immed Release 5 MG TABLET PO (19:48)
[2022-01-01] MEDS: Magnesium Hydrox/Alum Hydrox 30 ML ORAL.SUSP PO (19:48)
[2022-01-01] MEDS: Milk of Magnesia 30 ML ORAL.SUSP PO (22:23)
== END 2022-01-01 22:30 | disposition home or self-care (01) ==
PROVIDERS: Emergency Provider Internal Medicine; PCP General Practice
DX: M54.50 Low back pain, unspecified (principal); K59.00 Constipation, unspecified; R10.9 Unspecified abdominal pain; Z79.899 Other long term (current) drug therapy
CPT/HCPCS: 36415; 74176; 80048; 80076; 81001; 83690; 85025; 99284

== ENCOUNTER 2022-01-07 06:18 | Emergency (ER) | payer OTHER, SELFPAY ==
--- NOTE | ~2022-01-07 | XR_ITS ---
EXAMINATION: XR CHEST CLINICAL INFORMATION: Chest pain, acid reflux, anxiety. COMPARISON: 09/04/2016 chest radiographs. TECHNIQUE: 2 views of the chest were obtained. FINDINGS: No significant abnormality is noted involving the heart, lungs, mediastinum, bony thorax or soft tissues. XR/XR chest 2V IMPRESSION: No acute cardiopulmonary process.
--- NOTE | 2022-01-07 06:25 | ECG_ITS ---
Test Reason : GERD Blood Pressure : / mmHG Vent. Rate : 071 BPM Atrial Rate : 071 BPM P-R Int : 186 ms QRS Dur : 092 ms QT Int : 386 ms P-R-T Axes : 014 -49 017 degrees QTc Int : 419 ms Normal sinus rhythm Left anterior fascicular block Moderate voltage criteria for LVH, may be normal variant ( R in aVL , [place] product ) Abnormal ECG When compared with ECG of 28-SEP-2018 19:24, QRS axis Shifted left Heart rate has increased Referred By: Generic ED Physician Electronically Signed By:RHETT VANN
[2022-01-07 06:33] VITALS: BP 155/80; PULSE 74; RESP 16; TEMP 36.8; O2SAT 97; BMI 18.8
--- NOTE | 2022-01-07 10:02 | ECG_ITS ---
Test Reason : palpitations Blood Pressure : / mmHG Vent. Rate : 078 BPM Atrial Rate : 078 BPM P-R Int : 146 ms QRS Dur : 084 ms QT Int : 396 ms P-R-T Axes : 069 051 025 degrees QTc Int : 451 ms Normal sinus rhythm Right atrial enlargement Nonspecific ST abnormality Abnormal ECG When compared with ECG of 07-JAN-2022 06:34, Left anterior fascicular block is no longer Present Non-specific change in ST segment in Inferior leads Referred By: Ashwini Nelson Electronically Signed By:
[2022-01-07] MEDS: hydrOXYzine HCL 50 MG TABLET PO (10:16)
[2022-01-07] MEDS: Ondansetron ODT 4 MG TAB.RAPDIS TRANSLINGU (10:17)
[2022-01-07 10:18] VITALS: BP 150/82; PULSE 69; RESP 20; TEMP 36.6; O2SAT 95
--- NOTE | 2022-01-07 10:20 | PC.NURSE ---
patient assessed with use of data processing consultant . patient a/ox4 . pearrla . heart rate regular 68. lungs clear . skin moist , appropriate for ethnicity . abdomen soft non tender . positive bowel sounds . patient reports 0/10 pain level . reports stopping oxycoden last week for back pain because he didn't like the way he felt tacking the medication and has progressively felt worse over the week . now being able to sleep or eat . very anxious . patient medicated with atarax and zofran . patient aware of plan of care .
[2022-01-07 11:21] LABS: Appearance Urine Clear; Color Urine Yellow; Glucose Urine UA 100 mg/dL (Negative); Leukocyte Esterase Urine Negative (Negative); Nitrite Urine Negative (Negative); Specific Gravity - Urine 1.015 (1.005-1.025); Urine Blood Moderate (2+) (Negative); Urine Ketones Negative (Negative); Urine Protein Negative (Neg-Trace)
[2022-01-07 11:27] LABS: Bacteria Urine None Seen (None Seen); Hyaline Casts Urine 0-2 /LPF (0-2); Squamous Epithelial Cell Urine 0-2 /HPF (0-2); WBC Urine 0-5 /HPF (0-5)
--- NOTE | 2022-01-07 11:39 | ED_ITS ---
HPI - Anxiety General Chief Complaint: Abdominal Pain Stated Complaint: acid reflex through nose Time Seen by Provider: 01/07/22 09:51 Source: patient and family ( at bedside) Mode of arrival: ambulatory Limitations: language barrier (Sammarinese-speaking) History of Present Illness HPI narrative: 67-year-old male with a past medical history of BPH, epididymitis, erectile dysfunction, kidney stones, hypertension, hyperlipidemia, nocturia and chronic back pain with sciatica presenting to the ED with complaints of chest burning sensation/acid reflex over the past week worse in the past 3 days. Reports that he was being treated with oxycodone 5 mg every 6-8 hours over the past few weeks for his sciatica/chronic back pain and he did not want to continue taking the oxycodone due to his pain was improved therefore he abruptly stop this oxycodone after taking it for approximately 2-3 weeks daily every 6-8 hours. He reports since then he has been having acid reflex, unable to eat, chest burning sensation across entire chest and restlessness. He reports he has never felt this way. He reports he is currently on omeprazole though not taking as prescribed reports it is not helping his symptoms and it never has. Reports associated nausea. He denies any fevers, chills, dizziness, headaches, neck pain/stiffness, trouble swallowing or breathing, vomiting, dyspnea on exertion, orthopnea, palpitations, paresthesias, abdominal pain, back pain, flank pain, radiation of the chest pain, diarrhea constipation, black or bloody stools, lower extremity edema or calf tenderness, recent travel or sick contacts, SI/HI/auditory visualizations thoughts of self-injury, IV drug use, alcohol usage, recent travel or sick contacts, rashes, recent falls or trauma or any other symptoms complaints concerns at this time MD complaint: anxiety and heart racing Onset (ago): week(s) (One week worsened past 3 days) Symptoms: chest pain and other (See above) Severity: mild Quality: constant Place: home History of similar episodes: No Provoking factors: medication change (See above) Relieving factors: nothing Exacerbating factors: nothing Associated symptoms: chest pain Related Data Home Medications Medication Instructions Recorded Confirmed amlodipine 2.5 mg tablet 2.5 mg PO DAILY 12/28/20 12/28/20 aspirin 81 mg tablet,delayed 81 mg PO DAILY 12/28/20 12/28/20 release cholecalciferol (vitamin D3) 50 0 mcg PO 12/28/20 12/28/20 mcg (2,000 unit) capsule cyanocobalamin (vitamin B-12) 1,000 mcg IM 12/28/20 12/28/20 1,000 mcg/mL injection solution fluticasone propionate 50 2 spray intranasal BEDTIME 12/28/20 12/28/20 mcg/actuation nasal spray,suspension lisinopril 30 mg tablet 30 mg PO DAILY 12/28/20 12/28/20 loratadine 10 mg tablet 10 mg PO DAILY 12/28/20 12/28/20 omeprazole 20 mg capsule,delayed 20 mg PO QAM 12/28/20 12/28/20 release pravastatin 40 mg tablet 40 mg PO BEDTIME 12/28/20 12/28/20 tamsulosin 0.4 mg capsule 0.4 mg PO DAILY 12/28/20 12/28/20 sennosides 8.6 mg tablet (senna) 17.2 mg PO DAILY PRN constipation 06/29/21 Previous Rx's Medication Instructions Recorded polyethylene glycol 3350 17 17 g PO BID Constipation 1 month 03/02/21 gram/dose oral powder (Miralax) #1,020 grams oxycodone 5 mg tablet 5 mg PO TID PRN pain #10 tabs 12/01/21 prednisone 20 mg tablet 20 mg PO BID #10 tabs 12/01/21 cyclobenzaprine 10 mg tablet 10 mg PO BEDTIME #14 tabs 12/07/21 meloxicam 15 mg tablet 15 mg PO DAILY #14 tabs 12/07/21 oxycodone 5 mg capsule 5 mg PO Q8H PRN pain #12 caps 12/09/21 ketorolac 10 mg tablet 10 mg PO QID PRN pain 5 days #20 12/25/21 tabs oxycodone 5 mg capsule 5 mg PO TID PRN pain 3 days #9 caps 12/25/21 prednisone 20 mg tablet 40 mg PO DAILY 5 days #10 tabs 12/25/21 oxycodone-acetaminophen 5 mg-325 1 tab PO Q6H PRN pain #30 tabs 01/01/22 mg tablet (Percocet) hydroxyzine HCl 50 mg tablet 50 mg PO Q8H PRN anxiety #14 tabs 01/07/22 ondansetron 4 mg disintegrating 4 mg PO Q8H #14 tabs 01/07/22 tablet Allergies Allergy/AdvReac Type Severity Reaction Status Date / Time No Known Allergies Allergy Verified 01/07/22 06:33 [No Known Allergies*] Review of Systems Review of Systems: Constitutional : No Weight loss, No Fever, No Chills, No Night Sweats, No Fatigue, No Malaise ENT/Mouth : No Hearing loss, No Ear Pain, No Nasal Congestion, No Sinus Pain, No Hoarseness, No sore throat, No Rhinorrhea, No Swallowing Difficulty Eyes: No Eye Pain, No Swelling, No Redness, No Foreign Body, No Discharge, No Vision Changes Cardiovascular : + Chest Pain, No SOB, No Dyspnea on Exertion, No Orthopnea, No Edema, No Palpitations Respiratory : No Cough, No Sputum, No Wheezing, No Smoke Exposure, No Dyspnea Gastrointestinal : + Nausea, No Vomiting, No Diarrhea, No Constipation, No abdominal Pain, No Hematochezia, No Melena Genitourinary : no irregular bleeding, No Dysuria, No Urinary Frequency, No Hematuria, No Urinary Incontinence, No Urgency, No Flank Pain, No Urinary Flow Changes, No Hesitancy Musculoskeletal : No joint pain, No Myalgias, No Joint Swelling Skin : No Skin Lesions, No rash Neuro : No Weakness, No Numbness, No Paresthesias, No Loss of Consciousness, No Dizziness, No Headache Psych : + Anxiety/Panic, No Depression, No SI/HI/AH/VH, No Social Issues, Heme/Lymph: No Bruising, No Bleeding,No Lymphadenopathy Endocrine : No Polyuria, No Polydipsia, No Temperature Intolerance Yes all other systems are reviewed and are negative FORMERLY [facility], [facility] Past Medical History Attestation statement: The following information was validated with the patient. Source: old records reviewed and nursing notes reviewed Medical History BPH w/o urinary obs/LUTS Epididymitis Erectile dysfunction History of kidney stones HTN (hypertension) Hyperlipidemia Nocturia Surgical History History of extraction of renal calculus History of surgery Social History Social History Alcohol intake: never Patient Tobacco Use Status: Never used Tobacco Advance Directives: No Advance Directives Information Provided: Yes Physical Exam Vital Signs: Vital Signs: Last Vital Signs Temp 98.4 F 01/07/22 11:51 Pulse 68 01/07/22 11:51 Resp 17 01/07/22 11:51 BP 135/73 01/07/22 11:51 Pulse Ox 97 01/07/22 11:51 O2 Del Method 01/07/22 11:51 BMI result Body Mass Index 18.8 vital signs have been reviewed as normal and appeared to be correct. Blood pressure 155/80. Heart rate normal. Respiration rate normal. Temperature normal. Oxygen saturation normal. Appearance: Alert. Oriented X3. No acute distress. Head: Normal external exam. Normocephalic. Atraumatic. Eyes: PERRLA. EOMI. Conjunctiva and sclera normal. Eyelids normal. ENT: Pharynx normal. Uvula midline. Moist mucous membranes. No lesions/ulcerations or masses noted on the tongue. Normal voice. No trismus noted. No drooling noted. No muffled voice noted. Neck: Normal inspection. Neck supple. FROM. No adenopathy. Thyroid Normal. No tracheal deviation noted. No crepitus is noted. No meningeal signs. No neck mass noted. No signs of trauma noted. CVS: Normal heart rate and rhythm. Heart sound normal. Pulses normal throughout. No murmurs/rales/gallops. Respiratory: No respiratory distress. Painless inspiration. Breath sounds normal. No wheezes/rales/rhonchi noted. Chest nontender. No crepitus is noted. No accessory muscle usage noted or decreased air movement noted. Abdomen: Soft and nontender. Bowel sounds normal in all 4 quadrants. No distention noted. No organomegaly noted. No visible injury noted. Back: No CVA tenderness. Full range of motion noted. Nontender. No signs of trauma. Patient neuro intact bilaterally and distally on all 4 extremities. Patient's reflexes intact bilaterally and distally on all 4 extremities. No rashes/lesion/induration/fluctuance or signs of infection noted. Skin: Skin warm and dry. Normal skin color. Normal skin turgor. No rashes/lesions/lacerations noted. Extremities: No lower extremity edema. No calf tenderness is noted. Extremiti es exhibit normal range of motion and nontender. Neuro: Oriented X 3. No motor deficit. No sensory deficit. Reflexes normal. Normal steady gait. No focal neuro deficits noted. CN's II-XII intact bilaterally? Vascular: + radial pulses/+ 2 distal pedal pulses/+2 dorsalis pedis b/l. Normal cap refill. No cyanosis noted to upper extremity nails and lower extremity toes nails. Course Course Course Narrative: 10am - 67-year-old male with a past medical history of BPH, epididymitis, erectile dysfunction, kidney stones, hypertension, hyperlipidemia, nocturia and chronic back pain with sciatica presenting to the ED with complaints of chest burning sensation/acid reflex over the past week worse in the past 3 days. Reports that he was being treated with oxycodone 5 mg every 6-8 hours over the past few weeks for his sciatica/chronic back pain and he did not want to continue taking the oxycodone due to his pain was improved therefore he abruptly stop this oxycodone after taking it for approximately 2-3 weeks daily every 6-8 hours. He reports since then he has been having acid reflex, unable to eat, chest burning sensation across entire chest and restlessness. Reports associated nausea. He reports he has never felt this way. He reports he is currently on omeprazole though not taking as prescribed reports it is not helping his symptoms and it never has. I believe that the patient may be suffering from opioid withdrawal. Plan: Will obtain labs, chest x-ray, EKG. Provide Zofran 4 mg, Atarax and re- evaluate. Reevaluation(s) Reevaluation #1: - labs reviewed and all labs are within normal limits. Negative troponin. Patient's urine revealed 100 glucose and moderate blood otherwise no evidence of UTI. - chest x-ray within normal limits no acute processes noted. - therefore patient most likely anxiety/opioid withdrawal. Patient reports he feels much better after the Atarax He no longer feels anxiety and does not have any tremors. Will d/c home with zofran and and Atarax and instructions return if any new or worsening symptoms follow up with primary care provider. Patient and at bedside understand agree this plan. Time: 12:38 MDM - Anxiety Medical Records Attestation: I reviewed the patient's medical records. Lab Data Attestation: I reviewed the patient's lab results. Result diagrams: 08/22/22 11:48 01/07/22 11:48 Labs: Lab Results 01/07/22 01/07/22 01/07/22 Range/Units 11:08 11:48 11:48 WBC 10.7 (4.8-10.8) X10*3/uL RBC 4.94 (4.60-5.80) X10*6/uL Hgb 14.2 (14.0-18.0) g/dl Hct 41.2 L (42.0-52.0) % MCV 83.4 (80.0-98.0) fL MCH 28.7 (27.0-33.0) pg MCHC 34.5 (31.0-36.0) g/dl RDW 12.0 (11.0-16.0) % Plt Count 220 (160-400) X10*3/uL MPV 8.7 L (9.4-12.4) fL Immature Gran % (Auto) 0.5 H (0.0-0.4) % Neut % (Auto) 73.0 (45-73) % Lymph % (Auto) 19.6 L (20-40) % Barber % (Auto) 6.0 (2-11) % Eos % (Auto) 0.7 (0-4) % Baso % (Auto) 0.2 (0-2) % Lymph # (Auto) 2.1 (1.2-4.9) X10*3/uL Barber # (Auto) 0.6 (0.1-1.2) X10*3/uL Eos # (Auto) 0.1 (0.0-0.4) X10*3/uL Baso # (Auto) 0.0 (0.0-0.2) X10*3/uL Abs Immat Gran (auto) 0.05 H (0.00-0.03) X10*3/uL Absolute Neuts (auto) 7.8 (2.0-8.3) x10*3/uL Absolute Nucleated RBC 0.000 (0.0-0.012) X10*3/uL Nucleated RBC % (auto) 0.0 (0.0-0.2) /100WBC Sodium 139 (135-145) mmol/L Potassium 4.4 (3.3-5.1) mmol/L Chloride 101 (96-108) mmol/L Carbon Dioxide 30 H (22-29) mmol/L Anion Gap 12 (12-20) BUN 13 (9-16) mg/dL Creatinine 0.94 (0.5-1.4) mg/dL Estim Creat Clear Calc 55.6 Estimated GFR > 60 Random Glucose 104 (60-115) mg/dL Calcium 9.1 (8.4-10.2) mg/dL Magnesium 1.9 (1.6-2.6) mg/dL Total Bilirubin 0.7 (0.0-1.0) mg/dL AST 15 (5-37) U/L ALT 16 (0-40) U/L Alkaline Phosphatase 53 (39-117) U/L Troponin I High Sens (<3.5-35.0) ng/L Total Protein 6.7 (6.5-8.0) g/dL Albumin 4.0 (3.5-5.0) g/dL Urine Color Yellow Urine Appearance Clear Urine pH 7.0 (5.0-8.0) Ur Specific [place] 1.015 (1.005-1.025) Urine Protein Negative (Neg-Trace) mg/dL Urine Glucose (UA) 100 H (Negative) mg/dL Urine Ketones Negative (Negative) mg/dL Urine Blood Moderate (2+) H (Negative) Urine Nitrite Negative (Negative) Ur Leukocyte Esterase Negative (Negative) Urine RBC 6-10 H (0-2) /HPF Urine WBC 0-5 (0-5) /HPF Ur Squamous Epith Cells 0-2 (0-2) /HPF Urine Bacteria None Seen (None Seen) Hyaline Casts 0-2 (0-2) /LPF 01/07/22 Range/Units 11:48 WBC (4.8-10.8) X10*3/uL RBC (4.60-5.80) X10*6/uL Hgb (14.0-18.0) g/dl Hct (42.0-52.0) % MCV (80.0-98.0) fL MCH (27.0-33.0) pg MCHC (31.0-36.0) g/dl RDW (11.0-16.0) % Plt Count (160-400) X10*3/uL MPV (9.4-12.4) fL Immature Gran % (Auto) (0.0-0.4) % Neut % (Auto) (45-73) % Lymph % (Auto) (20-40) % Barber % (Auto) (2-11) % Eos % (Auto) (0-4) % Baso % (Auto) (0-2) % Lymph # (Auto) (1.2-4.9) X10*3/uL Barber # (Auto) (0.1-1.2) X10*3/uL Eos # (Auto) (0.0-0.4) X10*3/uL Baso # (Auto) (0.0-0.2) X10*3/uL Abs Immat Gran (auto) (0.00-0.03) X10*3/uL Absolute Neuts (auto) (2.0-8.3) x10*3/uL Absolute Nucleated RBC (0.0-0.012) X10*3/uL Nucleated RBC % (auto) (0.0-0.2) /100WBC Sodium (135-145) mmol/L Potassium (3.3-5.1) mmol/L Chloride (96-108) mmol/L Carbon Dioxide (22-29) mmol/L Anion Gap (12-20) BUN (9-16) mg/dL Creatinine (0.5-1.4) mg/dL Estim Creat Clear Calc Estimated GFR Random Glucose (60-115) mg/dL Calcium (8.4-10.2) mg/dL Magnesium (1.6-2.6) mg/dL Total Bilirubin (0.0-1.0) mg/dL AST (5-37) U/L ALT (0-40) U/L Alkaline Phosphatase (39-117) U/L Troponin I High Sens < 3.5 (<3.5-35.0) ng/L Total Protein (6.5-8.0) g/dL Albumin (3.5-5.0) g/dL Urine Color Urine Appearance Urine pH (5.0-8.0) Ur Specific [place] (1.005-1.025) Urine Protein (Neg-Trace) mg/dL Urine Glucose (UA) (Negative) mg/dL Urine Ketones (Negative) mg/dL Urine Blood (Negative) Urine Nitrite (Negative) Ur Leukocyte Esterase (Negative) Urine RBC (0-2) /HPF Urine WBC (0-5) /HPF Ur Squamous Epith Cells (0-2) /HPF Urine Bacteria (None Seen) Hyaline Casts (0-2) /LPF Imaging Data Chest x-ray: Attestation: I personally reviewed and interpreted this imaging study as follows: Radiologist's impression: FINDINGS: No significant abnormality is noted involving the heart, lungs, mediastinum, bony thorax or soft tissues. XR/XR chest 2V IMPRESSION: No acute cardiopulmonary process. ECG Data Attestation: I personally reviewed and interpreted this ECG as follows: ECG interpretation date: 01/07/22 ECG interpretation time: 06:34 Interpretation: Normal sinus rhythm with ventricular rate of 71 with left anterior fascicular block and moderate voltage criteria for LVH may be normal variant otherwise no acute ischemic change are noted. Similar compared to prior EKG 09/28/2018. Critical Care Time Critical Care Time Critical Care Time: Yes Total Critical Care Time: 60 Attestation: I personally attest to this time spent taking care of the patient Discharge Plan Discharge Clinical Impression: Anxiety, Opioid withdrawal, GERD (gastroesophageal reflux disease) Patient Disposition: Home, Self-Care Instructions: Gastroesophageal Reflux Disease (ED), Opioid Withdrawal (ED), Anxiety (ED) Prescriptions: New ondansetron 4 mg tablet,disintegrating 4 mg PO Q8H Qty: 14 0RF hydroxyzine HCl 50 mg tablet 50 mg PO Q8H PRN (Reason: anxiety) Qty: 14 0RF No Action meloxicam 15 mg tablet 15 mg PO DAILY Qty: 14 0RF cyclobenzaprine 10 mg tablet 10 mg PO BEDTIME Qty: 14 0RF prednisone 20 mg tablet 20 mg PO BID Qty: 10 0RF oxycodone 5 mg tablet 5 mg PO TID PRN (Reason: pain) Qty: 10 0RF Rx Instructions: Partial Fill upon patient request. oxycodone-acetaminophen [Percocet] 5-325 mg tablet 1 tab PO Q6H PRN (Reason: pain) Qty: 30 0RF Rx Instructions: Partial Fill upon patient request. oxycodone 5 mg capsule 5 mg PO Q8H PRN (Reason: pain) Qty: 12 0RF Rx Instructions: Partial Fill upon patient request. oxycodone 5 mg capsule 5 mg PO TID PRN (Reason: pain) 3 Days Qty: 9 0RF Rx Instructions: Partial Fill upon patient request. side effect is drowsiness. Do not take at work or while driving. prednisone 20 mg tablet 40 mg PO DAILY 5 Days Qty: 10 0RF ketorolac 10 mg tablet 10 mg PO QID PRN (Reason: pain) 5 Days Qty: 20 0RF Rx Instructions: Patient received 30mg IM toradol in the ED. omeprazole 20 mg capsule,delayed release(DR/EC) 20 mg PO QAM cholecalciferol (vitamin D3) 50 mcg (2,000 unit) capsule 0 mcg PO fluticasone propionate 50 mcg/actuation spray,suspension 2 spray intranasal BEDTIME lisinopril 30 mg tablet 30 mg PO DAILY amlodipine 2.5 mg tablet 2.5 mg PO DAILY cyanocobalamin (vitamin B-12) 1,000 mcg/mL solution 1,000 mcg IM pravastatin 40 mg tablet 40 mg PO BEDTIME tamsulosin 0.4 mg capsule 0.4 mg PO DAILY aspirin 81 mg tablet,delayed release (DR/EC) 81 mg PO DAILY loratadine 10 mg tablet 10 mg PO DAILY sennosides [senna] 8.6 mg tablet 17.2 mg PO DAILY PRN (Reason: constipation) polyethylene glycol 3350 [Miralax] 17 gram/dose powder 17 g PO BID 30 Days Qty: 1020 0RF Rx Instructions: Hold for diarrhea Referrals: Romina Staples MD [Primary Care Provider] - 2 days Print Language: Sammarinese
[2022-01-07 11:51] VITALS: BP 135/73; PULSE 68; RESP 17; TEMP 36.9; O2SAT 97
[2022-01-07 11:51] LABS: MANUAL DIFF FLAG NO
[2022-01-07 11:56] LABS: Basophils Percent Auto 0.2 % (0-2); Eosinophils Absolute Auto 0.1 X10*3/uL (0.0-0.4); Eosinophils Percent Auto 0.7 % (0-4); Hematocrit 41.2 % (42.0-52.0); Hemoglobin 14.2 g/dl (14.0-18.0); Imm Gran Abs Auto 0.05 X10*3/uL (0.00-0.03); Imm Gran Pct Auto 0.5 % (0.0-0.4); Lymphocytes Absolute Auto 2.1 X10*3/uL (1.2-4.9); Lymphocytes Percent Auto 19.6 % (20-40); Mean Corpuscular HGB Conc 34.5 g/dl (31.0-36.0); Mean Corpuscular Hemoglobin 28.7 pg (27.0-33.0); Mean Corpuscular Volume 83.4 fL (80.0-98.0); Mean Platelet Volume 8.7 fL (9.4-12.4); Monocytes Absolute Auto 0.6 X10*3/uL (0.1-1.2); Neutrophils Absolute Auto 7.8 x10*3/uL (2.0-8.3); Platelet Count 220 X10*3/uL (160-400); Red Blood Count 4.94 X10*6/uL (4.60-5.80); White Blood Count 10.7 X10*3/uL (4.8-10.8)
[2022-01-07 12:15] LABS: Alanine Aminotransferase 16 U/L (0-40); Alkaline Phosphatase 53 U/L (39-117); Anion Gap 12 (12-20); Aspartate Amino Transferase 15 U/L (5-37); Bilirubin Total 0.7 mg/dL (0.0-1.0); Blood Urea Nitrogen 13 mg/dL (9-16); Calcium 9.1 mg/dL (8.4-10.2); Carbon Dioxide 30 mmol/L (22-29); Chloride 101 mmol/L (96-108); Creatinine Clr Calc Pharmacy 55.6; Estimated Glomerular Filt Rate > 60; Glucose Random 104 mg/dL (60-115); Magnesium 1.9 mg/dL (1.6-2.6); Potassium 4.4 mmol/L (3.3-5.1); Sodium 139 mmol/L (135-145); Total Protein 6.7 g/dL (6.5-8.0)
[2022-01-07 12:18] LABS: Troponin-I High Sensitivity < 3.5 ng/L (<3.5-35.0)
== END 2022-01-07 13:13 | disposition home or self-care (01) ==
PROVIDERS: Physician Assistant Medical; Emergency Provider Emergency Medicine; PCP General Practice
DX: F11.93 Opioid use, unspecified with withdrawal (principal); K21.9 Gastro-esophageal reflux disease without esophagitis; F41.9 Anxiety disorder, unspecified; I10 Essential (primary) hypertension; E78.5 Hyperlipidemia, unspecified
CPT/HCPCS: 36415; 71046; 80053; 81001; 83735; 84484; 85025; 93005; 99283; 99284

== ENCOUNTER 2022-01-29 12:50 | Outpatient (REF) | payer OTHER, SELFPAY | END 2022-01-29 12:51 | disposition home or self-care (01) | LOC: HO.LAB 12:50 | PROVIDERS: PCP General Practice; Visit Provider Urology | DX: N40.0 Benign prostatic hyperplasia without lower urinary tract symptoms (principal) | CPT/HCPCS: 51798; 99212 ==

== ENCOUNTER 2022-01-29 16:56 | Outpatient (REF) | payer OTHER, SELFPAY ==
[2022-01-29 16:59] LABS: Urine Cytology See Pathology rpt
== END 2022-01-29 16:57 | disposition home or self-care (01) ==
LOC: HO.LNP 16:56
PROVIDERS: Visit Provider Urology
DX: R31.29 Other microscopic hematuria (principal)
CPT/HCPCS: 88112

== ENCOUNTER 2022-03-05 09:11 | Outpatient (REF) | payer OTHER, SELFPAY ==
--- NOTE | ~2022-03-05 | FL_ITS ---
EXAMINATION: XR GI SERIES CLINICAL INFORMATION: Gastroesophageal reflux disease without esophagitis. COMPARISON: None TECHNIQUE: Routine upper GI air-contrast study was performed. FINDINGS: Following oral administration of thick barium and effervescent granules there is normal propagation bolus from the oral cavity through the pharynx, esophagus into stomach without any evidence of obstruction, narrowing or stricture. There is evidence of fundoplication with narrowing patent GE junction. No gastroesophageal reflux or hiatal hernia seen. On placing the patient supine and lying prone, the course, caliber and peristalsis of stomach, duodenal bulb and the sweep is normal. There is no gastroesophageal reflux or hiatal hernia. FLUOROSCOPY TIME: 2.5 minutes DOSE AREA PRODUCT: 24.5 uGy-m2 (microgray-meter squared) FL/FL upper GI series IMPRESSION: Evidence of previous fundoplication. No gastroesophageal reflux or hiatal hernia seen. The upper GI exam appears unremarkable.
== END 2022-03-05 09:12 | disposition home or self-care (01) ==
LOC: HO.XRAY 09:11
PROVIDERS: Visit Provider Internal Medicine Gastroenterology
DX: K21.9 Gastro-esophageal reflux disease without esophagitis (principal)
CPT/HCPCS: 74240

== ENCOUNTER → 2022-04-10 10:10 | Outpatient (REF) | payer OTHER, SELFPAY ==
--- NOTE | 2022-04-10 10:13 | CA_ITS ---
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 The visually estimated ejection fraction is between 55-60%. - Trace to mild aortic regurgitation. - There is mild tricuspid valve regurgitation. - There is mild dilatation of the ascending aorta measuring 4.00 cm. Findings Left Ventricle Normal left ventricular cavity size. The left ventricular systolic function is normal. The visually estimated ejection fraction is between 55-60%. There is no evidence of regional wall motion abnormalities. Diastolic function is normal for age. There is mild septal asymmetric hypertrophy. Right Ventricle Normal right ventricular cavity size and systolic function. Atria Both atria are normal in size. Aortic Valve There is a normal trileaflet aortic valve. There is no aortic valve stenosis. Trace to mild aortic regurgitation. Mitral Valve The mitral valve appears normal. There is no mitral valve regurgitation. There is no mitral valve stenosis. Pulmonic Valve The pulmonic valve is likely normal. Tricuspid Valve There is mild tricuspid valve regurgitation. There is no evidence of pulmonary hypertension. Great Vessels There is mild dilatation of the ascending aorta measuring 4.00 cm. Venous The inferior vena cava is normal in size and collapses greater than 50% with inspiration. Pericardium/Pleural There is no evidence of pericardial effusion. Prior Study Comparison Changes noted compared to prior study dated: 01/26/2020. Slight increase in ascending aortic size. Measurements 2D Linear Measurements IVSd: 1.10 0.6-0.9/0.6-1.0 cm LVIDd: 3.84 3.9-5.3/4.2-5.9 cm LVIDd Index: 2.03 2.4-3.2/2.2-3.1 cm/m2 LVIDs: 3.14 2.0-3.6 cm LVPWd: 0.95 0.7-1.1 cm LA Diam: 2.60 2.7-3.8/3.0-4.0 cm LAIDs Index: 1.38 1.5-2.3 cm/m2 LV Mass: 153.30 67-162/88-224 g LV Mass Index: 81.11 43-95/49-115 g/m2 LVOT Diam: 2.00 3.0+(-)1.3 cm 2D Systolic Function EF 4C: 53.80 >55% EF 2C: 56.80 >55% EF BiP: 55.00 >55% Mitral Valve MV Pk E: 0.90 MV PK A: 0.94 MV Decel Time: 252.00 E/A: 1.00 E'Lateral: 8.38 E'Medial: 6.31 E/E' Med: 14.30 E/E' Lat: 10.70 PHT: 74.00 MVA PHT: 2.97 Decel Larimer: 3.58 Aortic Valve AoV Pk Jerzy: 1.71 AoV Mn Jerzy: 1.11 AoV VTI: 0.36 AoV Pk Grad: 12.00 Aov Mn Grad: 6.00 LEVI Cont.VTI: 2.12 AI Pk Jerzy: 3.95 AI Larimer: 1.67 LVOT LVOT Pk Jerzy: 1.20 LVOT Mn Jerzy: 0.83 LVOT VTI: 0.24 LVOT Pk Grad: 6.00 LVOT Mn Grad: 3.00 LVOT Diam: 2.00 LVOT Area: 3.14 Diastolic Function MV Pk E: 0.90 MV Pk A: 0.94 E/A: 1.00 E'Medial: 6.31 E/E' Med: 14.30 E' Laterial: 8.38 E/E' Lat: 10.70 Right Ventricle TAPSE (mm): 20.70 TVS' Jerzy: 11.00 Tricuspid Valve TR Pk Jerzy: 2.36 TR Pk Grad: 22.00 RA Press: 3.00 RVSP: 25.00 Great Vessels Aorta Sinus of Valsalva: 4.00 2.0-3.5 cm Ao Asc: 4.00 2.1-3.4 cm Pulmonary Valve PV Pk Jerzy: 1.21 Peak PV Grad: 6.00 Updated in Other Vendor System with Status of Final Kalyan Pittman MD electronically signed on 04/13/2022 1:22:39 PM with status of Final
== END ==
LOC: HO.CARD 10:10
PROVIDERS: PCP General Practice; Visit Provider General Practice
DX: R01.1 Cardiac murmur, unspecified (principal)
CPT/HCPCS: 93306

== ENCOUNTER 2022-04-15 12:19 | Outpatient (REF) | payer OTHER, SELFPAY ==
[2022-04-15 12:39] LABS: COVID-19 Test Positive (Negative); IDNOW Serial# BCCEAD1C
== END 2022-04-15 12:20 | disposition home or self-care (01) ==
LOC: HO.LAB 12:19
PROVIDERS: Visit Provider Internal Medicine
DX: Z20.822 Contact with and (suspected) exposure to COVID-19 (principal)
CPT/HCPCS: 87635; C9803

== ENCOUNTER 2022-04-16 21:15 | Emergency (ER) | payer OTHER, SELFPAY ==
--- NOTE | ~2022-04-16 | US_ITS ---
EXAMINATION: US ABDOMEN LIMITED CLINICAL INFORMATION: Pain, gallbladder stones. COMPARISON: CT 01/01/2022 TECHNIQUE: Real-time imaging of the right upper quadrant abdominal viscera with attention to the gallbladder. FINDINGS: GALLBLADDER: Single gallstone measuring 1.2 cm identified towards the gallbladder fundus. Gallbladder wall thickness is within normal limits. No pericholecystic fluid. Comet tail artifact noted along the gallbladder wall near the fundus, in keeping with adenomyomatosis. COMMON BILE DUCT: Normal in caliber measuring 0.4 cm in diameter. FREE FLUID: None. US/US abdomen limited IMPRESSION: Cholelithiasis without additional specific findings of cholecystitis.
[2022-04-16 21:41] VITALS: BP 183/104; PULSE 94; RESP 20; TEMP 36.7; O2SAT 97; BMI 26.6
--- OUTSIDE RECORDS SUMMARY | 2022-04-16 21:52 | XMS_ITS | Continuity of Care Document ---
:1955 Author Organization [address], [address] [place] [address]- Care Team Providers Name Role Phone Romina Staples MD Primary Care Physician [place] [facility] [place](s): 01/03/22 - 02/02/[address], [address] [place], [place] [address] Allergies, Adverse Reactions, Alerts No Known Allergies Medications Aspirin Low Dose 81 mg oral enteric coated tablet 1 tablet = 81 mg, By Mouth, Daily, 0 Refills, Maintenance, 12/16/13 13:30:05 Start Date: 12/16/13 Status: OrderedFlomax Capsule 0.4 mg, By Mouth, Daily, Maintenance, 06/21/11 11:13:14 Start Date: 06/21/11 Status: Orderedlisinopril 20 mg oral tablet 1 tablet = 20 mg, By Mouth, Daily, # 30 tablet, 0 Refills, Maintenance, 10/14/13 11:14:40, Tablet Start Date: 10/14/13 Status: Orderednortriptyline 10 mg oral capsule 10 mg, 1, capsule, By Mouth, Daily at bedtime, # 30 capsule, Refills 11, Tot. Refills 11, Maintenance, 11/01/15 15:14:16, Route to Pharmacy Electronically, [id number], [facility]/pharmacy #[id number] Start Date: 11/01/15 Stop Date: 10/26/16 Status: OrderedZocor 20 mg oral tablet 1 tablet = 20 mg, By Mouth, Daily at bedtime, 0 Refills, Maintenance Start Date: 02/27/10 Status: Ordered Problem List Condition Effective Dates Status Health Status Informant Mcguire's esophagus(Confirmed) Active Hypertension(Confirmed) Active BPH(Confirmed) Active Reflux(Confirmed) Active Social History Social History Type Response Tobacco Other: Lifetime non-smoker. Sex Care Team PersonnelName: Romina Staples MD [address]: [address] [place] [address]
--- OUTSIDE RECORDS SUMMARY | 2022-04-16 21:52 | XMS_ITS | Continuity of Care Document ---
:1955 Author Organization [address], [address] [place] [address]- Care Team Providers Name Role Phone Jhoan SIMONS, Romina Fields Primary Care Physician Encounter [facility] [place] Date(s): 04/08/22 - 04/15/[address], [address] [place], [place] [address] Attending Physician: Damaso SIMONS, Kem Valdivia Allergies, Adverse Reactions, Alerts No Known Allergies Medications Aspirin Low Dose 81 mg oral enteric coated tablet 1 tablet = 81 mg, By Mouth, Daily, 0 Refills, Maintenance, 12/16/13 13:30:05 Start Date: 12/16/13 Status: OrderedB Complex 100 0 Refills, Maintenance, 02/11/22 11:47:00 EDT, Partial fill upon patient request if the prescriptionis for a schedule II opioid drug. Start Date: 02/11/22 Status: OrderedFlomax Capsule 0.4 mg, By Mouth, Daily, Maintenance, 06/21/11 11:13:14 Start Date: 06/21/11 Status: Orderedlisinopril 20 mg oral tablet 1 tablet = 20 mg, By Mouth, Daily, # 30 tablet, 0 Refills, Maintenance, 10/14/13 11:14:40, Tablet Start Date: 10/14/13 Status: OrderedMedrol 4 mg oral tablet 1 pack/packet, By Mouth, Daily, as directed on package labeling, # 21 tablet, 0 Refills, Maintenance, 02/11/22 12:16:00 EDT, Tablet, [facility]/pharmacy #[id number], Partial fill upon patient request if the prescription is for a schedule II opioid drug., 168, cm,... Start Date: 02/11/22 Stop Date: 02/17/22 Status: Orderednortriptyline 10 mg oral capsule 10 mg, 1, capsule, By Mouth, Daily at bedtime, # 30 capsule, Refills 11, Tot. Refills 11, Maintenance, 11/01/15 15:14:16, Route to Pharmacy Electronically, [id number], [facility]/pharmacy #[id number] Start Date: 11/01/15 Stop Date: 10/26/16 Status: OrderedPantoprazole Daily, 0 Refills, Maintenance, 02/11/22 11:47:00 EDT Start Date: 02/11/22 Status: OrderedZocor 20 mg oral tablet 1 tablet = 20 mg, By Mouth, Daily at bedtime, 0 Refills, Maintenance Start Date: 02/27/10 Status: Ordered Problem List Condition Confirmation Course Effective Dates Status Health Stat us Informant Mcguire's esophagus Confirmed Active Hypertension Confirmed Active BPH Confirmed Active Reflux Confirmed Active Vital Signs Most recent to oldest [Reference Range]: 1 Height 168 cm (04/08/22 3:30 PM) Weight 77 kg (04/08/22 3:30 PM) Body Mass Index [18.5-24.99 kg/m2] 27.28 kg/m2 *H* (04/08/22 3:30 PM) Social History Social History Type Response Tobacco Other: Lifetime non-smoker. Sex Patient Care team information Care Team PersonnelName: Romina Staples MD Position: [facility] Physician (General Medicine) Member Role: PCP Address: Address: [address] [place] [address]- Care Team Related PersonsName: REESE GASTELUM Name: KJ GRIFFIN Address: home [address] [place] [address]
--- OUTSIDE RECORDS SUMMARY | 2022-04-16 21:52 | XMS_ITS | Continuity of Care Document ---
:1955 Author Organization [address], [address] [place] [address]- Care Team Providers Name Role Phone Romina Staples MD Primary Care Physician [place] [facility] [place] 12/31/21 - 01/07/[address], [address] [place], [place] [address] Attending Physician: Kem Petit MD Referring Physician: Romina Staples MD Allergies, Adverse Reactions, Alerts No Known Allergies [...] Maintenance, 11/01/15 15:14:16, Route to Pharmacy Electronically, [id number], [facility]/pharmacy #[id number] Start Date: 11/01/15 Stop Date: 10/26/16 Status: OrderedOxycodone By Mouth, 0 Refills, Maintenance, 12/31/21 13:19:00 EDT, Partial fill upon patient request if the prescription is for a schedule II opioid drug. Start Date: 12/31/21 Status: OrderedZocor 20 mg oral tablet 1 tablet = 20 mg, By Mouth, Daily at bedtime, 0 Refills, Maintenance Start Date: 02/27/10 Status: Ordered Problem List Condition Effective Dates Status Health Status Informant Mcguire's esophagus(Confirmed) Active Reflux(Confirmed) Active Vital Signs Most recent to oldest [Reference Range]: 1 Height 170.00 cm (12/31/21 1:14 PM) Weight 79 kg (12/31/21 1:14 PM) Body Mass Index [18.5-24.99] 27.34 *H* (12/31/21 1:14 PM) Social History Social History Type Response Smoking Status Never smoker entered on: 11/29/14 Sex
--- OUTSIDE RECORDS SUMMARY | 2022-04-16 21:52 | XMS_ITS | Continuity of Care Document ---
:1955 Author Organization [facility] Address [address] [place] [address]- Care Team Providers Name Role Phone Jhoan SIMONS, Romina Fields Primary Care Physician [place] [facility] [id number] Date(s): 01/01/22 - 01/31/22 [facility] [address] [place], [place] [address] Attending Physician: Jamie Hackett MD Admitting Physician: Jamie Hackett MD Allergies, Adverse Reactions, Alerts No Known [...] Maintenance, 11/01/15 15:14:16, Route to Pharmacy Electronically, [id number], [facility]/pharmacy #[id number] Start Date: 11/01/15 Stop Date: 10/26/16 Status: [...] Care Team PersonnelName: Romina Staples MD Address: [address] [place] [address]
--- OUTSIDE RECORDS SUMMARY | 2022-04-16 21:52 | XMS_ITS | Continuity of Care Document ---
:1955 Author Organization [address], [address] [place] [address]- Care Team Providers Name Role Phone Romina Staples MD Primary Care Physician [place] [facility] [place](s): 02/11/22 - 02/18/[address], [address] [place], [place] [address] Attending Physician: Not on Staff, Attending MD Referring Physician: Romina Staples MD Allergies, [...] 0 Refills, Maintenance, 02/11/22 12:16:00 EDT, Tablet, [facility]/pharmacy #[id number], Partial fill upon patient request if the prescription is for a schedule II opioid drug., 168, cm,... Start Date: 02/11/22 Stop Date: 02/17/22 Status: Orderednortriptyline 10 mg oral capsule 10 mg, 1, capsule, By Mouth, Daily at bedtime, # 30 capsule, Refills 11, Tot. Refills 11, Maintenance, 11/01/15 15:14:16, Route to Pharmacy Electronically, [id number], [facility]/pharmacy #[id number] Start Date: 11/01/15 Stop Date: 10/26/16 Status: [...] oldest [Reference Range]: 1 Height 168 cm (02/11/22 11:46 AM) Weight 77 kg (02/11/22 11:46 AM) Body Mass Index [18.5-24.99 kg/m2] 27.28 kg/m2 *H* (02/11/22 11:46 AM) Social History Social History Type Response Tobacco Other: Lifetime non-smoker. Sex Patient Care team information PersonnelName: Romina Stapels MD Address: Address: [address] [place] [address]
--- OUTSIDE RECORDS SUMMARY | 2022-04-16 21:52 | XMS_ITS | Continuity of Care Document ---
:1955 Author Organization [address], [address] [place] [address]- Care Team Providers Name Role Phone Romina Staples MD Primary Care Physician Encounter [facility] [place] Date(s): 02/11/22 - 03/13/[address], [address] [place], [place] [address] Attending Physician: Jaqueline Grubbs Admitting Physician: Jaqueline Grubbs Referring Physician: AdmtrJaqueline Allergies, Adverse Reactions, Alerts No Known Allergies [...] Maintenance, 11/01/15 15:14:16, Route to Pharmacy Electronically, [id number], [facility]/pharmacy #[id number] Start Date: 11/01/15 Stop Date: 10/26/16 Status: [...] Active BPH Confirmed Active Reflux Confirmed Active Social History Social History Type Response Tobacco Other: Lifetime non-smoker. Sex Patient Care team information PersonnelName: Romina Staples MD Address: Address: [address] [place] [address]
--- OUTSIDE RECORDS SUMMARY | 2022-04-16 21:52 | XMS_ITS ---
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 4 96344808 Problem Constipation, K59.00 Active 166789 08 unspecified constipation type Problem Barretts esophagus K22.70 Active 3 05463663 without dysplasia Problem Gastroesophageal K21.9 Active reflux disease without esophagitis Problem Mcguire's esophagus K22.70 Active without dysplasia Problem Right upper quadrant R10.11 Active 677387809 pain ALLERGIES No Known Allergies ENCOUNTERS Encounter Location Date Diagnosis [address] Feb, [facility] [address] [place] [address] [place] [address] Jan, [facility] [address] [place] [address] Jan, [facility] [address] [place] disease [place] thout esophagitis [address] K21.9 ; Constipa tion, unspecified cons tipation type K59.00 and Gustatory rhinitis J31.[address] [place] [address] Dec, [facility] [address] [place] [address] [facility] [address] Nov, [facility] [address] [place] [address] [facility] [address] Nov, [facility] [address] [place] disease wi thout esophagitis [address] K21.9 and Right upper quadrant pain R1 0.11 [facility] [address] May, [facility] [address] [place] [address] [facility] [address] May, Mcguire' s esophagus without [facility] [address] [place] dysplasia K22.70 and [address] Gastroesophageal reflux disease without esophagitis K21.9 [facility] [address] May, [facility] [address] [place] [address] [facility] [address] September, [facility] [address] [place] disease [place] thout esophagitis [address] K21.9 [facility] Outpatient [address] [place] [address] Jul, [place] [id number] [facility] [address] Apr, Barretts esophagus without [facility] [address] [place] dysplasia K22.70 and Colon [address] cancer screening Z12.11 [facility] [address] Jan, [facility] [address] [place] [address] [facility] [address] Jan, [facility] [address] [place] disease wi thout esophagitis [address] K21.9 and Left u pper quadrant pain R1 0.12 [facility] [address] Jul, [facility] [address] [place] disease wi thout esophagitis [address] K21.9 [facility] [address] Apr, [facility] [address] [place] disease wi thout esophagitis [address] K21.9 IMMUNIZATIONS No Known Immunizations SOCIAL HISTORY Never Assessed REASON FOR REFERRAL FUNCTIONAL STATUS PLAN OF CARE Activity Details Follow Up 1 Year Reason: Pending Test XR GI SERIES Pending Test LIVER PROFILE Pending Test LIPASE Pending Test CBC w/o DIFF Future/Pending Procedure UPPER GI ENDOSCOPY [id number] Future/Pending Procedure COLONOSCOPY [id number] VITAL SIGNS Weight 173 lbs 2022-01-31 Weight 169 lbs 2020-11-30 Weight 178 lbs 2020-05-31 Weight 169 lbs 2018-10-14 Weight 173 lbs 2018-05-07 Weight 175 lbs 2017-02-13 Weight 170 lbs 2016-08-08 Weight 171 lbs 2016-05-02 Height 67 in 2022-01-31 Height 67 in 2020-11-30 Height 67 in 2020-05-31 Height 67 in 2018-10-14 Height 67 in 2018-05-07 Height 67 in 2017-02-13 Height 67 in 2016-08-08 Height 67 in 2016-05-02 BMI 27.09 kg/m2 2022-01-31 BMI 26.47 kg/m2 2020-11-30 BMI 27.88 kg/m2 2020-05-31 BMI 26.47 kg/m2 2018-10-14 BMI 27.09 kg/m2 2018-05-07 BMI 27.41 kg/m2 2017-02-13 BMI 26.62 kg/m2 2016-08-08 BMI 26.78 kg/m2 2016-05-02 Heart Rate 64 /min 2016-05-02 Temperature 98.5 degrees Fahrenheit 2022-01-31 Temperature 98.4 degrees Fahrenheit 2020-11-30 Temperature 98.0 degrees Fahrenheit 2020-05-31 Blood pressure systolic 000 mm Hg 2022-01-31 Blood pressure diastolic 00 mm Hg 2022-01-31 MEDICATIONS Medication Instructions Dosage Frequency Start End Duration Statu s Date Date Vitamin D3 Active Tamsulosin HCl Active Lisinopril 20 MG Orally QD 1 24h Activ e Pravastatin Sodium Orally Once a 1 tablet 24h Active 40 MG day Loratadine Active Fluticasone Active Propionate Flomax 0.4 MG Orally Once a 1 capsule 24h Ac tive day 30 minutes after the same meal each day Pantoprazole Orally Once a 1 tablet 24h Jan, day(s) Ac tive Sodium 40 MG day 2021 Aspir-81 81 MG Orally Once a 1 tablet 24h Ac tive day Cyanocobalamin Active amLODIPine Active Besylate PROCEDURES Procedure Date Ordered Result Body Site COLORECTAL CA SCREEN DOC REV Jan 31, 2022 BP SCR PRFRM RCMDD DEFIND SCR INTVL October 14, 2018 COLORECTAL CA SCREEN DOC REV November 30, 2020 COLORECTAL CA SCREEN DOC REV October 14, 2018 DOC RSN FOR NOT SCREEN/REC F/U HBP November 30, 2020 TOBACCO NON-USER May 31, 2020 DOC MEDS VERIFIED W/PT OR RE Jan 31, 2022 DOC MEDS VERIFIED W/PT OR RE October 14, 2018 DOC MEDS VERIFIED W/PT OR RE November 30, 2020 COLORECTAL CA SCREEN DOC REV May 31, 2020 BP NOT ASSESS PATIENT NOT ELIGIBLE May 31, 2020 TOBACCO NON-USER October 14, 2018 Pt scrn tbco id as non user November 30, 2020 Pt scrn tbco id as non user Jan 31, 2022 DOC MEDS VERIFIED W/PT OR RE May 31, 2020 RESULTS Name Result Date Reference Range FL upper GI series 2022-03-05 US abdomen complete 2020-12-27 Complete Blood Count no Diff 2020-05-31 White Blood Count 5.6 4.8-10.8 Red Blood Count 4.59 4.60-5.80 Hemoglobin 13.6 14.0-18.0 Hematocrit 40.1 42-52 Mean Corpuscular Volume 87.4 80-98 Mean Corpuscular Hemoglobin 29.6 27.0 -33.0 Mean Corpuscular HGB Conc 33.9 31.0-3 6.0 Red Cell Distribution Width 12.1 11.0 -16.0 Platelet Count 224 160-400 Mean Platelet Volume 9.8 9.4-12.4 NRBC Pct Auto 0.0 0.0-0.2 NRBC Abs Auto 0.000 0.0-0.012 Liver Panel 2020-05-31 Bilirubin Total 0.4 0.0-1.0 Bilirubin Direct 0.2 0.0-0.5 Aspartate Amino Transferase 23 5-37 Alanine Aminotransferase 18 0-40 Total Protein 7.0 6.5-8.0 Albumin Level 4.2 3.5-5.0 Alkaline Phosphatase 51 39-117 Amylase 2020-05-31 Amylase 64 28-100 Lipase 2020-05-31 Lipase 28 8-78 GI BIOPSY 2018-08-14 G.I. BIOPSY US ABD 2017-03-04 REASON FOR VISIT GI series, ov recall, Patient presents today for acid coming out of his nose everytime he eats. , ultrasound, ov recall, PATIENT PRESENTS TODAY FOR abdominal pain, labs, patient presents today for abd pain. meds not working, COVBAR [place]. , patient presents today for Barretts, Barretts, screening, PATIENT PRESENTS TODAY FOR Yearly follow up, Put on one year OV follow up, patient presents today for 6 month f/u reflux, patient presents today for 3 month follow up gerd, patient presents today for CHRONICGERD Insurance Providers [facility] Health Health Member Patient Patient Patient Patient Patient Subscriber Subscriber Subscriber Group Insurance Plan Plan Plan Plan ID Relationship Address Phone Name Date of ID Name Date of No Type Insurance Insurance Insurance Coverage to Subscriber Address Phone Name Dates [place] [phone] [place] self [place] 1 [id number] [facility] [place] [address] [facility] [address] O MEDICARE [address] MEDICARE self [place] [id number] [place] [address] [place] [address] O MEDICAID [address] MEDICAID self [place] [id number] OF [facility] [id number] [address] O [facility] [id number] HEALTH NEW self [place] [id number] GARY MONARCH [address] [facility] [address] [place] [address]
--- OUTSIDE RECORDS SUMMARY | 2022-04-16 21:52 | XMS_ITS | Continuity of Care Document ---
:1955 Author Organization [facility] Address [address] [place] [address]- Care Team Providers Name Role Phone Romina Staples MD Primary Care Physician Encounter [facility] [place] Date(s): 01/15/22 - 01/15/[address] [address]- Discharge Disposition: A-D/C Home Attending Physician: Kem Petit MD Admitting Physician: Kem Petit MD Referring Physician: Kem Petit MD Allergies, Adverse Reactions, Alerts No Known Allergies Medications acetaminophen-hydrocodone 325 mg-10 mg oral tablet 1 tablet, By Mouth, Every 6 hours, PRN as needed for pain, for 7 days, tablets can be cut in half ifneeded, # 28 tablet, 0 Refills, Acute 01/22/22 11:38:00 EDT, 01/15/22 11:38:00 EDT, Tablet, [facility] 3, Partial fill upon patient reques... Start Date: 01/15/22 Stop Date: 01/22/22 Status: OrderedAspirin Low Dose 81 mg oral enteric coated [...] Maintenance, 11/01/15 15:14:16, Route to Pharmacy Electronically, [id number], [facility]/pharmacy #[id number] Start Date: 11/01/15 Stop Date: 10/26/16 Status: OrderedZocor 20 mg oral tablet 1 tablet = 20 mg, By Mouth, Daily at bedtime, 0 Refills, Maintenance Start Date: 02/27/10 Status: Ordered Problem List Condition Effective Dates Status Health Status Informant Mcguire's esophagus(Confirmed) Active Hypertension(Confirmed) Active BPH(Confirmed) Active Reflux(Confirmed) Active Results Radiology Reports Exam Date Time Procedure Performing Provider Status 01/15/22 8:00 AM C-Arm > 1 Hour Junie Neal; Delfina (Veri ed) Notes:(C-Arm > 1 Hour) Reason For Exam: Left Stenosis [id number] FT:5.3 2.52 mGYRESULT: C-Arm > 1 Hour Spine Single View, C-Arm > 1 Hour INDICATION: Left Stenosis Lumbar COMPARISONS: MRI lumbar spine 06/29/2014. TECHNIQUE: Fluoroscopy support was provided. There was no radiologist in attendance. FLUOROSCOPY TIME: 5.3 seconds EXPOSURE: 2.52 mGy TECHNOLOGIST TIME: 1 hour 10 minutes FINDINGS: Single fluoroscopic images obtained during posterior approach partial medial facetectomy and microdiscectomy. Instrumentation projecting posteriorly at L3-L4 disc level. Please see operative report for detail. IMPRESSION: See above. I have personally reviewed the images and I agree with this report. WSN: [id number] Ordering Physician: Kem Petit Dictated By: Sindhu Ortega DO Dictated Date/Time: 01/15/22 11:15 a Reviewed By: Omero Bolivar MD Signed By: Omero Bolivar MD Signed Date/Time: 01/15/22 11:20 am Transcribed By: AURORA Transcribed Date/Time: 01/15/22 11:00 am Exam Date Time Procedure Performing Provider Status 01/15/22 8:00 AM Spine Single View Junie Neal; Delfina ([facility]) Notes:(Spine Single View) Reason For Exam: Left Stenosis Lumbar Metrix [id number] FT:5.3sec 2.52 mGyRESULT: Spine Single View Spine Single View, C-Arm > 1 Hour INDICATION: Left Stenosis Lumbar COMPARISONS: MRI lumbar spine 06/29/2014. TECHNIQUE: Fluoroscopy support was provided. There was no radiologist in attendance. FLUOROSCOPY TIME: 5.3 seconds EXPOSURE: 2.52 mGy TECHNOLOGIST TIME: 1 hour 10 minutes FINDINGS: Single fluoroscopic images obtained during posterior approach partial medial facetectomy and microdiscectomy. Instrumentation projecting posteriorly at L3-L4 disc level. Please see operative report for detail. IMPRESSION: See above. I have personally reviewed the images and I agree with this report. WSN: [id number] Ordering Physician: Kem Petit Dictated By: Sindhu Ortega DO Dictated Date/Time: 01/15/22 11:15 a Reviewed By: Omero Bolivar MD Signed By: Omero Bolivar MD Signed Date/Time: 01/15/22 11:20 am Transcribed By: AURORA Transcribed Date/Time: 01/15/22 11:00 am Vital Signs Most recent to oldest 1 2 3 [Reference Range]: Oxygen Saturation [94-100 %] 100 % 98 % 98 % (01/15/22 11:00 AM) (01/15/22 10:15 AM) (01/15/22 1 0:00 AM) Pulse Rate [55-90 bpm] 62 bpm (01/15/22 7:13 AM) Blood Pressure [90-138/55-84 135/79 mm Hg 140/83 mm Hg 134 /88 mm Hg mm Hg] (01/15/22 11:00 AM) *H* (01/15/22 10:0 0 AM) (01/15/22 10:15 AM) Respiratory Rate [16-30 20 br/min 16 br/min 10 br/mi n br/min] (01/15/22 11:00 AM) (01/15/22 10:15 AM) *L* (01/15/22 10:00 A M) Temperature [96.8-100.4 98.0 DegF 98 DegF 98.2 Deg F DegF] (01/15/22 11:00 AM) (01/15/22 10:00 AM) (01/15/22 9 :00 AM) Liters per Minute 6 L/min (01/15/22 9:00 AM) Mode of Delivery (Oxygen) Room air Room air Room a ir (01/15/22 11:00 AM) (01/15/22 10:00 AM) (01/15/22 9 :15 AM) Blood pressure sites Arm, right Arm, right Arm, right (01/15/22 10:15 AM) (01/15/22 10:00 AM) (01/15/22 9 :45 AM) Temperature Route Temporal Temporal Temporal (01/15/22 10:00 AM) (01/15/22 9:00 AM) (01/15/22 7: 13 AM) Dry Weight 75.6 kg (01/15/22 7:13 AM) Dry Weight Obtained Via Standing scale (01/15/22 7:13 AM) Social History Social History Type Response Tobacco Other: Lifetime non-smoker. Sex Note [facility] , CIS S: TRANSCRIBE Omero Bolivar MD: VERIFY Sindhu Ortega DO P: SIGN Event Display: Result: Authored Date: Spine Single View, C-Arm > 1 Hour INDICATION: Left Stenosis Lumbar COMPARISONS: MRI lumbar spine 06/29/2014. TECHNIQUE: Fluoroscopy support was provided. There was no radiologist in attendance. FLUOROSCOPY TIME: 5.3 seconds EXPOSURE: 2.52 mGy TECHNOLOGIST TIME: 1 hour 10 minutes FINDINGS: Single fluoroscopic images obtained during posterior approach partial medial facetectomy and microdiscectomy. Instrumentation projecting posteriorly at L3-L4 disc level. Please see operative report for detail. IMPRESSION: See above. I have personally reviewed the images and I agree with this report. WSN: [id number] Ordering Physician: Kem Petit Dictated By: Sindhu Ortega DO Dictated Date/Time: 01/15/22 11:15 a Reviewed By: Omero Bolivar MD Signed By: Omero Bolivar MD Signed Date/Time: 01/15/22 11:20 am Transcribed By: AURORA Transcribed Date/Time: 01/15/22 11:00 amBHSPowerscribe , CIS S: TRANSCRIBE Omero Bolivar MD: VERIFY Sindhu Ortega DO P: SIGN Event Display: Result: Authored Date: [id number] Spine Single View, C-Arm > 1 Hour INDICATION: Left Stenosis Lumbar COMPARISONS: MRI lumbar spine 06/29/2014. TECHNIQUE: Fluoroscopy support was provided. There was no radiologist in attendance. FLUOROSCOPY TIME: 5.3 seconds EXPOSURE: 2.52 mGy TECHNOLOGIST TIME: 1 hour 10 minutes FINDINGS: Single fluoroscopic images obtained during posterior approach partial medial facetectomy and microdiscectomy. Instrumentation projecting posteriorly at L3-L4 disc level. Please see operative report for detail. IMPRESSION: See above. I have personally reviewed the images and I agree with this report. WSN: [id number] Ordering Physician: Kem Petit Dictated By: Sindhu Ortega DO Dictated Date/Time: 01/15/22 11:15 a Reviewed By: Omero Bolivar MD Signed By: Omero Bolivar MD Signed Date/Time: 01/15/22 11:20 am Transcribed By: AURORA Transcribed Date/Time: 01/15/22 11:00 am Care Team PersonnelName: Romina Staples MD Address: [address] [place] [address]
--- OUTSIDE RECORDS SUMMARY | 2022-04-16 21:52 | XMS_ITS | Continuity of Care Document ---
:1955 Author Organization [facility] Address [address] [place] [address]- Care Team Providers Name Role Phone Jhoan SIMONS, Romina Fields Primary Care Physician Encounter [facility] [place] Date(s): 01/11/22 - 02/10/22 [facility] [address] [place] [address] Attending Physician: Jaqueline Grubbs Admitting Physician: AdmJaqueline walker Referring Physician: AdmtrJaqueline Allergies, Adverse Reactions, Alerts [...] Maintenance, 11/01/15 15:14:16, Route to Pharmacy Electronically, [id number], [facility]/pharmacy #[id number] Start Date: 11/01/15 Stop Date: 10/26/16 Status: [...] Care Team PersonnelName: Romina Staples MD Address: [address] [place] [address]
[2022-04-16 22:01] LABS: MANUAL DIFF FLAG NO
[2022-04-16 22:02] LABS: Basophils Percent Auto 0.3 % (0-2); Eosinophils Absolute Auto 0.3 X10*3/uL (0.0-0.4); Eosinophils Percent Auto 3.8 % (0-4); Hematocrit 42.2 % (42.0-52.0); Hemoglobin 14.8 g/dl (14.0-18.0); Imm Gran Abs Auto 0.03 X10*3/uL (0.00-0.03); Imm Gran Pct Auto 0.4 % (0.0-0.4); Lymphocytes Absolute Auto 1.6 X10*3/uL (1.2-4.9); Lymphocytes Percent Auto 23.8 % (20-40); Mean Corpuscular HGB Conc 35.1 g/dl (31.0-36.0); Mean Corpuscular Hemoglobin 29.7 pg (27.0-33.0); Mean Corpuscular Volume 84.6 fL (80.0-98.0); Mean Platelet Volume 9.1 fL (9.4-12.4); Monocytes Absolute Auto 0.5 X10*3/uL (0.1-1.2); Monocytes Percent Auto 7.1 % (2-11); Neutrophils Absolute Auto 4.4 x10*3/uL (2.0-8.3); Neutrophils Percent Auto 64.6 % (45-73); Platelet Count 219 X10*3/uL (160-400); Red Blood Count 4.99 X10*6/uL (4.60-5.80); Red Cell Distribution Width 12.2 % (11.0-16.0); White Blood Count 6.8 X10*3/uL (4.8-10.8)
[2022-04-16 22:04] LABS: Appearance Urine Clear; Color Urine Yellow; Glucose Urine UA Negative (Negative); Leukocyte Esterase Urine Negative (Negative); Nitrite Urine Negative (Negative); UMIC TRIGGER UACC YES; Urine Blood Moderate (2+) (Negative); Urine Ketones Negative (Negative); Urine Protein Negative (Neg-Trace)
[2022-04-16 22:07] LABS: Bacteria Urine None Seen (None Seen); Hyaline Casts Urine 0-2 /LPF (0-2); Squamous Epithelial Cell Urine 0-2 /HPF (0-2); WBC Urine 0-5 /HPF (0-5)
[2022-04-16 22:18] LABS: Alanine Aminotransferase 24 U/L (0-40); Albumin Level 4.4 g/dL (3.5-5.0); Alkaline Phosphatase 70 U/L (39-117); Anion Gap 15 (12-20); Aspartate Amino Transferase 27 U/L (5-37); Bilirubin Total 0.2 mg/dL (0.0-1.0); Blood Urea Nitrogen 19 mg/dL (9-16); Calcium 9.5 mg/dL (8.4-10.2); Carbon Dioxide 28 mmol/L (22-29); Chloride 100 mmol/L (96-108); Creatinine Clr Calc Pharmacy 69.3; Estimated Glomerular Filt Rate > 60; Glucose Random 203 mg/dL (60-115); Lipase 35 U/L (8-78); Potassium 4.1 mmol/L (3.3-5.1); Sodium 139 mmol/L (135-145); Total Protein 7.9 g/dL (6.5-8.0)
[2022-04-17 00:15] VITALS: BP 166/80; PULSE 87; RESP 20; TEMP 36.6; O2SAT 97
--- NOTE | 2022-04-17 00:41 | ED.ABDPAIN ---
HPI - Abdominal Pain General Chief Complaint: Abdominal Pain Stated Complaint: right side pain Time Seen by Provider: 04/17/22 00:03 Source: patient Mode of arrival: ambulatory Limitations: no limitations History of Present Illness HPI narrative: Patient has a gallstone complaining of right upper quadrant abdominal pain for last 2 days no nausea no vomiting no fever or chills patient able to eat since yesterday no abdominal fullness been constipated otherwise for last few days Related Data Home Medications Medication Instructions Recorded Confirmed amlodipine 2.5 mg tablet 2.5 mg PO DAILY 12/28/20 12/28/20 aspirin 81 mg tablet,delayed 81 mg PO DAILY 12/28/20 12/28/20 release cholecalciferol (vitamin D3) 50 0 mcg PO 12/28/20 12/28/20 mcg (2,000 unit) capsule cyanocobalamin (vitamin B-12) 1,000 mcg IM 12/28/20 12/28/20 1,000 mcg/mL injection solution fluticasone propionate 50 2 spray intranasal BEDTIME 12/28/20 12/28/20 mcg/actuation nasal spray,suspension lisinopril 30 mg tablet 30 mg PO DAILY 12/28/20 12/28/20 loratadine 10 mg tablet 10 mg PO DAILY 12/28/20 12/28/20 omeprazole 20 mg capsule,delayed 20 mg PO QAM 12/28/20 12/28/20 release pravastatin 40 mg tablet 40 mg PO BEDTIME 12/28/20 12/28/20 tamsulosin 0.4 mg capsule 0.4 mg PO DAILY 12/28/20 12/28/20 sennosides 8.6 mg tablet (senna) 17.2 mg PO DAILY PRN constipation 06/29/21 sertraline 25 mg tablet 25 mg PO DAILY 01/29/22 Previous Rx's Medication Instructions Recorded polyethylene glycol 3350 17 17 g PO BID Constipation 1 month 03/02/21 gram/dose oral powder (Miralax) #1,020 grams oxycodone 5 mg tablet 5 mg PO TID PRN pain #10 tabs 12/01/21 prednisone 20 mg tablet 20 mg PO BID #10 tabs 12/01/21 cyclobenzaprine 10 mg tablet 10 mg PO BEDTIME #14 tabs 12/07/21 meloxicam 15 mg tablet 15 mg PO DAILY #14 tabs 12/07/21 oxycodone 5 mg capsule 5 mg PO Q8H PRN pain #12 caps 12/09/21 ketorolac 10 mg tablet 10 mg PO QID PRN pain 5 days #20 12/25/21 tabs oxycodone 5 mg capsule 5 mg PO TID PRN pain 3 days #9 caps 12/25/21 prednisone 20 mg tablet 40 mg PO DAILY 5 days #10 tabs 12/25/21 oxycodone-acetaminophen 5 mg-325 1 tab PO Q6H PRN pain #30 tabs 01/01/22 mg tablet (Percocet) hydroxyzine HCl 50 mg tablet 50 mg PO Q8H PRN anxiety #14 tabs 01/07/22 ondansetron 4 mg disintegrating 4 mg PO Q8H #14 tabs 01/07/22 tablet omeprazole 40 mg capsule,delayed 40 mg PO DAILY #30 caps 04/17/22 release tramadol 50 mg tablet 50 mg PO Q6H PRN pain #20 tabs 04/17/22 Allergies Allergy/AdvReac Type Severity Reaction Status Date / Time No Known Allergies Allergy Verified 04/16/22 21:44 [No Known Allergies*] Review of Systems Review of Systems Yes all other systems are reviewed and are negative PMFSH Past Medical History Medical History BPH w/o urinary obs/LUTS Epididymitis Erectile dysfunction History of kidney stones HTN (hypertension) Hyperlipidemia Nocturia Surgical History History of extraction of renal calculus History of surgery Social History Social History Alcohol intake: former Patient Tobacco Use Status: Never used Tobacco Smoked in Last 30 Days: No Use of substances other than those prescribed or required for medical reasons: No Advance Directives: No Physical Exam ED Vital Signs: Vital Signs - 24 hr 04/16/22 21:41 04/17/22 00:15 Temperature 98.1 F 97.8 F Pulse Rate 94 87 Respiratory Rate 20 20 Blood Pressure 183/104 H 166/80 H Pulse Oximetry 97 97 Oxygen Delivery Method Room Air Room Air BMI result Body Mass Index 26.6 Appearance: Alert. Oriented X3. No acute distress. Eyes: No pallor or icterus ENT: Pharynx normal. Oral Mucosa moist Neck: Normal inspection. Neck supple. CVS: Normal heart rate and rhythm. Pulses normal. Respiratory: No respiratory distress. Equal air entry bilateral, no wheezing/rales/rhonchi Abdomen: Soft tenderness right upper quadrant no rebound tenderness or guarding. Bowel sounds are present, no mass palpable, no CVA tenderness Skin: Skin warm and dry. Normal skin color. Normal skin turgor. Extremities: No lower extremity edema. No calf tenderness Neuro: Oriented X 3. No motor deficit. Medications Administered Discontinued Medications Generic Name Dose Route Start Last Admin Trade Name Freq PRN Reason Stop Dose Admin Famotidine 20 mg 04/17/22 00:47 04/17/22 01:01 Famotidine/Pf 20 Mg/2 Ml Vial IVPUSH 04/17/22 00:48 20 mg ONCE ONE Administration Sodium Chloride 1,000 mls @ 999 mls/hr 04/17/22 00:44 04/17/22 01:02 Ns IV 04/17/22 01:44 999 mls/hr .Q1H1M ONE Administration Ketorolac Tromethamine 30 mg 04/17/22 00:44 04/17/22 01:01 Ketorolac Tromethamine 30 Mg/Ml Vial IVPUSH 04/17/22 00:45 30 mg ONCE ONE Administration MDM - Abdominal Pain MDM Narrative Medical decision making narrative: Patient ultrasound revealed cholelithiasis without any changes of cholecystitis labs are stable patient has this pain for few months advised to follow with surgeon Differential Diagnosis Differential diagnosis: Likely abdominal pain Medical Records Attestation: I reviewed the patient's medical records. Lab Data Attestation: I reviewed the patient's lab results. Result diagrams: 04/16/22 21:47 04/16/22 21:47 Labs: Lab Results 04/16/22 04/16/22 04/16/22 Range/Units 21:47 21:47 21:54 WBC 6.8 (4.8-10.8) X10*3/uL RBC 4.99 (4.60-5.80) X10*6/uL Hgb 14.8 (14.0-18.0) g/dl Hct 42.2 (42.0-52.0) % MCV 84.6 (80.0-98.0) fL MCH 29.7 (27.0-33.0) pg MCHC 35.1 (31.0-36.0) g/dl RDW 12.2 (11.0-16.0) % Plt Count 219 (160-400) X10*3/uL MPV 9.1 L (9.4-12.4) fL Immature Gran % (Auto) 0.4 (0.0-0.4) % Neut % (Auto) 64.6 (45-73) % Lymph % (Auto) 23.8 (20-40) % Nicholas % (Auto) 7.1 (2-11) % Eos % (Auto) 3.8 (0-4) % Baso % (Auto) 0.3 (0-2) % Lymph # (Auto) 1.6 (1.2-4.9) X10*3/uL Nicholas # (Auto) 0.5 (0.1-1.2) X10*3/uL Eos # (Auto) 0.3 (0.0-0.4) X10*3/uL Baso # (Auto) 0.0 (0.0-0.2) X10*3/uL Abs Immat Gran (auto) 0.03 (0.00-0.03) X10*3/uL Absolute Neuts (auto) 4.4 (2.0-8.3) x10*3/uL Absolute Nucleated RBC 0.000 (0.0-0.012) X10*3/uL Nucleated RBC % (auto) 0.0 (0.0-0.2) /100WBC Sodium 139 (135-145) mmol/L Potassium 4.1 (3.3-5.1) mmol/L Chloride 100 (96-108) mmol/L Carbon Dioxide 28 (22-29) mmol/L Anion Gap 15 (12-20) BUN 19 H (9-16) mg/dL Creatinine 0.94 (0.5-1.4) mg/dL Estim Creat Clear Calc 69.3 Estimated GFR > 60 Random Glucose 203 H D (60-115) mg/dL Calcium 9.5 (8.4-10.2) mg/dL Total Bilirubin 0.2 (0.0-1.0) mg/dL AST 27 D (5-37) U/L ALT 24 (0-40) U/L Alkaline Phosphatase 70 D (39-117) U/L Total Protein 7.9 (6.5-8.0) g/dL Albumin 4.4 (3.5-5.0) g/dL Lipase 35 (8-78) U/L Urine Color Yellow Urine Appearance Clear Urine pH 6.0 (5.0-9.0) Ur Specific [place] 1.020 (1.005-1.025) Urine Protein Negative (Neg-Trace) mg/dL Urine Glucose (UA) Negative (Negative) mg/dL Urine Ketones Negative (Negative) mg/dL Urine Blood Moderate (2+) H (Negative) Urine Nitrite Negative (Negative) Ur Leukocyte Esterase Negative (Negative) Urine RBC 6-10 H (0-2) /HPF Urine WBC 0-5 (0-5) /HPF Ur Squamous Epith Cells 0-2 (0-2) /HPF Urine Bacteria None Seen (None Seen) Hyaline Casts 0-2 (0-2) /LPF Discharge Plan Discharge Clinical Impression: Gall stones Patient Disposition: Home, Self-Care Instructions: Gallstones (ED) Additional Instructions: Drink plenty of fluids Avoid fried food Pain medication as prescribed Report to the ER if worsening of the pain/vomiting/fever Follow-up with surgeon Yoon jhaveri?quido Estefany la comida frita Medicamentos para el dolor seg?n lo prescrito Informar a urgencias si empeora el dolor/v?mitos/fiebre Seguimiento con el cirujano Prescriptions: New tramadol 50 mg tablet 50 mg PO Q6H PRN (Reason: pain) Qty: 20 0RF omeprazole 40 mg capsule,delayed release(DR/EC) 40 mg PO DAILY Qty: 30 0RF No Action meloxicam 15 mg tablet 15 mg PO DAILY Qty: 14 0RF cyclobenzaprine 10 mg tablet 10 mg PO BEDTIME Qty: 14 0RF prednisone 20 mg tablet 20 mg PO BID Qty: 10 0RF oxycodone 5 mg tablet 5 mg PO TID PRN (Reason: pain) Qty: 10 0RF Rx Instructions: Partial Fill upon patient request. oxycodone-acetaminophen [Percocet] 5-325 mg tablet 1 tab PO Q6H PRN (Reason: pain) Qty: 30 0RF Rx Instructions: Partial Fill upon patient request. oxycodone 5 mg capsule 5 mg PO Q8H PRN (Reason: pain) Qty: 12 0RF Rx Instructions: Partial Fill upon patient request. oxycodone 5 mg capsule 5 mg PO TID PRN (Reason: pain) 3 Days Qty: 9 0RF Rx Instructions: Partial Fill upon patient request. side effect is drowsiness. Do not take at work or while driving. prednisone 20 mg tablet 40 mg PO DAILY 5 Days Qty: 10 0RF ketorolac 10 mg tablet 10 mg PO QID PRN (Reason: pain) 5 Days Qty: 20 0RF Rx Instructions: Patient received 30mg IM toradol in the ED. ondansetron 4 mg tablet,disintegrating 4 mg PO Q8H Qty: 14 0RF hydroxyzine HCl 50 mg tablet 50 mg PO Q8H PRN (Reason: anxiety) Qty: 14 0RF omeprazole 20 mg capsule,delayed release(DR/EC) 20 mg PO QAM cholecalciferol (vitamin D3) 50 mcg (2,000 unit) capsule 0 mcg PO fluticasone propionate 50 mcg/actuation spray,suspension 2 spray intranasal BEDTIME lisinopril 30 mg tablet 30 mg PO DAILY amlodipine 2.5 mg tablet 2.5 mg PO DAILY cyanocobalamin (vitamin B-12) 1,000 mcg/mL solution 1,000 mcg IM pravastatin 40 mg tablet 40 mg PO BEDTIME tamsulosin 0.4 mg capsule 0.4 mg PO DAILY aspirin 81 mg tablet,delayed release (DR/EC) 81 mg PO DAILY loratadine 10 mg tablet 10 mg PO DAILY sennosides [senna] 8.6 mg tablet 17.2 mg PO DAILY PRN (Reason: constipation) polyethylene glycol 3350 [Miralax] 17 gram/dose powder 17 g PO BID 30 Days Qty: 1020 0RF Rx Instructions: Hold for diarrhea sertraline 25 mg tablet 25 mg PO DAILY Referrals: Robert Neal MD [Physician] - 2 weeks Discharge Date/Time: 04/17/22 02:58 Print Language: Estonian
[2022-04-17] MEDS: Ketorolac Tromethamine 30 MG/ML VIAL IVPUSH (01:01)
[2022-04-17] MEDS: Famotidine/PF 20 MG/2 ML VIAL IVPUSH (01:01)
[2022-04-17] MEDS: 0.9 % Sodium Chloride 1,000 ML 999 ML IV (01:02)
== END 2022-04-17 02:58 | disposition home or self-care (01) ==
PROVIDERS: Emergency Provider Internal Medicine
DX: K80.20 Calculus of gallbladder without cholecystitis without obstruction (principal); R10.11 Right upper quadrant pain; Z79.899 Other long term (current) drug therapy
CPT/HCPCS: 36415; 76705; 80053; 81001; 83690; 85025; 96374; 96375; 99284; 99285; J1885

== ENCOUNTER → 2022-04-22 09:48 | Outpatient (BNVA) | payer OTHER, SELFPAY | PROVIDERS: PCP General Practice; Visit Provider Surgery | DX: K80.20 Calculus of gallbladder without cholecystitis without obstruction (principal); R73.09 Other abnormal glucose; N40.0 Benign prostatic hyperplasia without lower urinary tract symptoms; M54.30 Sciatica, unspecified side; M94.0 Chondrocostal junction syndrome [Tietze] | CPT/HCPCS: 99202 ==

== ENCOUNTER → 2022-05-21 12:47 | Outpatient (BNVA) | payer OTHER, SELFPAY | PROVIDERS: PCP General Practice; Visit Provider Surgery | DX: K80.20 Calculus of gallbladder without cholecystitis without obstruction (principal); M94.0 Chondrocostal junction syndrome [Tietze]; I10 Essential (primary) hypertension; E78.5 Hyperlipidemia, unspecified | CPT/HCPCS: 99212 ==

== ENCOUNTER → 2022-06-20 13:58 | Outpatient (BNVA) | payer OTHER, SELFPAY | PROVIDERS: PCP General Practice; Referring Provider General Practice; Visit Provider Internal Medicine Cardiovascular Disease | DX: I71.20 Thoracic aortic aneurysm, without rupture, unspecified (principal); I10 Essential (primary) hypertension | CPT/HCPCS: 99202 ==

== ENCOUNTER → 2022-07-11 15:28 | Outpatient (REF) | payer OTHER, SELFPAY | LOC: HO.SL 15:28 | PROVIDERS: PCP Internal Medicine; Visit Provider Internal Medicine Cardiovascular Disease | DX: G47.10 Hypersomnia, unspecified (principal); R06.81 Apnea, not elsewhere classified; I10 Essential (primary) hypertension | CPT/HCPCS: 95806 ==

== ENCOUNTER 2022-07-23 12:51 | Outpatient (REF) | payer OTHER, SELFPAY ==
[2022-07-23 15:31] LABS: Estimated Average Glucose 126 mg/dL; Hemoglobin A1C 148.4888 umol/L
== END 2022-07-23 12:52 | disposition home or self-care (01) ==
LOC: HO.LAB 12:51
PROVIDERS: PCP General Practice; Visit Provider Surgery
DX: M94.0 Chondrocostal junction syndrome [Tietze] (principal); K80.20 Calculus of gallbladder without cholecystitis without obstruction; R73.09 Other abnormal glucose; R10.32 Left lower quadrant pain; I10 Essential (primary) hypertension; E78.5 Hyperlipidemia, unspecified
CPT/HCPCS: 36415; 83036; 99212

== ENCOUNTER 2022-07-28 16:12 | Emergency (ER) | payer OTHER, SELFPAY ==
--- NOTE | ~2022-07-28 | XR_ITS ---
EXAMINATION: PORTABLE CHEST 1 VIEW CLINICAL INFORMATION: chest pain . COMPARISON: 01/07/2022. TECHNIQUE: Portable frontal view of the chest was obtained. FINDINGS: The lungs are hypoexpanded with minimal basilar atelectasis. No focal infiltrate, effusion, edema, or pneumothorax. Cardiac and mediastinal silhouettes are within normal limits for technique. No acute bony abnormality seen. Degenerative changes in the spine and shoulders. XR/XR chest 1V IMPRESSION: Hypoexpanded with minimal basilar atelectasis.
--- NOTE | ~2022-07-28 | CT_ITS ---
EXAMINATION: CT ABDOMEN AND PELVIS WITHOUT CONTRAST CLINICAL INFORMATION: upper abd pain . COMPARISON: 01/01/2022. TECHNIQUE: Multidetector volumetric imaging was performed from the superior aspect of the liver through the pubic symphysis without contrast per request. Sagittal and coronal reformatted images were obtained on the technologist workstation. This CT examination was performed using dose optimization techniques as appropriate, variously including the following: *Automated exposure control *Adjustment of mA and/or kV according to patient size (this includes techniques or standardized protocols for targeted exams where dose is matched to indication/reason for exam; i.e. extremities or head) *Use of iterative reconstruction technique DLP: 556 mGy-cm. FINDINGS: LUNG BASES: Minimal dependent atelectasis. LIVER, GALLBLADDER, BILIARY TREE: The non-contrast liver is normal in size, shape, and attenuation. No focal hepatic lesion or biliary ductal dilatation is present. Tiny gallstone seen within the contracted but otherwise unremarkable gallbladder. No gallbladder wall thickening or pericholecystic inflammatory changes. PANCREAS: Unremarkable. SPLEEN: Unremarkable. ADRENAL GLANDS: Unremarkable. KIDNEYS AND URETERS: Punctate intrarenal calculi seen bilaterally. I do not appreciate any obstructive changes. No hydronephrosis or hydroureter. No perinephric stranding. No ureteric calculi. BLADDER: Unremarkable. GASTROINTESTINAL TRACT: The small and large bowel are unremarkable. The appendix is unremarkable. ABDOMINAL WALL: No significant hernia is appreciated. LYMPHOVASCULAR STRUCTURES: Mild vascular calcification within the aorta iliac system. No bulky adenopathy.. PELVIC VISCERA: Unremarkable. OSSEUS STRUCTURES: Degenerative changes in the spine more so at L4/L5, similar to the prior study. No acute bony abnormality. CT/CT abdomen pelvis wo IV con IMPRESSION: Chronic appearing changes similar to the 01/01/2022 study. I do not appreciate any acute intra-abdominal process.
--- NOTE | 2022-07-28 16:15 | ED.CHESTPAIN ---
HPI - Chest Pain General Chief Complaint: Chest Pain <LETICIA Ferreira - Last Filed: 07/28/22 16:19> Stated Complaint: chest pain <LETICIA Ferreira - Last Filed: 07/28/22 16:19> Time Seen by Provider: 07/28/22 16:58 <LETICIA Ferreira - Last Filed: 07/28/22 16:19> Source: patient, family (Spouse) and historical interpreter <Maira Dobson MD - Last Filed: 07/28/22 20:12> Mode of arrival: ambulatory <Maira Dobson MD - Last Filed: 07/28/22 20:12> Limitations: no limitations <Maira Dobson MD - Last Filed: 07/28/22 20:12> History of Present Illness HPI narrative: 67 year male walked in complaining upper abdominal pain/lower chest wall pain for the past 6 days, pain is constant for the past 6 days but wean and wax, pain is usually getting worse with regular food pain is localized to bilateral upper abdominal quadrant area and radiates down to both sides of the abdomen worsening with food nothing relieves the pain, <Maira Dobson MD - Last Filed: 07/28/22 20:12> Related Data Home Medications: Home Medications Medication Instructions Recorded Confirmed aspirin 81 mg tablet,delayed 81 mg PO DAILY 12/28/20 06/20/22 release cholecalciferol (vitamin D3) 50 0 mcg PO 12/28/20 06/20/22 mcg (2,000 unit) capsule cyanocobalamin (vitamin B-12) 1,000 mcg IM 12/28/20 06/20/22 1,000 mcg/mL injection solution fluticasone propionate 50 2 spray intranasal BEDTIME 12/28/20 06/20/22 mcg/actuation nasal spray,suspension lisinopril 30 mg tablet 30 mg PO DAILY 12/28/20 06/20/22 tamsulosin 0.4 mg capsule 0.4 mg PO DAILY 12/28/20 06/20/22 pantoprazole 40 mg tablet,delayed 40 mg PO DAILY 04/22/22 06/20/22 release meloxicam 7.5 mg tablet 7.5 mg PO DAILY 07/23/22 Previous Rx's Medication Instructions Recorded polyethylene glycol 3350 17 17 g PO BID Constipation 1 month 03/02/21 gram/dose oral powder (Miralax) #1,020 grams amlodipine 5 mg tablet 5 mg PO DAILY #30 tabs 06/20/22 <LETICIA Ferreira - Last Filed: 07/28/22 16:19> Allergies/Adverse Reactions: Allergies Allergy/AdvReac Type Severity Reaction Status Date / Time No Known Allergies Allergy Verified 07/23/22 12:59 [No Known Allergies*] <LETICIA Ferreira - Last Filed: 07/28/22 16:19> Review of Systems Review of Systems: All other systems are reviewed and are negative Constitutional: Reports as per HPI and Reports no additional constitutional complaints Eyes: Reports as per HPI and Reports no additional eye complaints Reports system reviewed and no additional complaints, except as documented Cardiovascular: Reports as per HPI and Reports no additional cardiovascular complaints Respiratory: Reports as per HPI and Reports no additional respiratory complaints Gastrointestinal: Reports as per HPI and Reports no additional gastrointestinal complaints Genitourinary: Reports no additional female genitourinary complaints Musculoskeletal: Reports no additional musculoskeletal complaints Skin/Breast: Reports system reviewed and no additional complaints, except as docu Psychiatric: Reports no additional psychiatric complaints Endocrine: Reports no additional endocrine complaints Hematologic/Lymphatic: Reports no additional hematologic/lymphatic complaints Allergic/Immunologic: Reports no additional allergic/immunologic complaints Reports system reviewed and no additional complaints, except as documented and Reports Abnormal speech present <Maira Dobson MD - Last Filed: 07/28/22 20:12> [facility] Past Medical History Medical History: Medical History BPH w/o urinary obs/LUTS Epididymitis Erectile dysfunction History of kidney stones HTN (hypertension) Hyperlipidemia Nocturia <LETICIA Ferreira - Last Filed: 07/28/22 16:19> Surgical History: Surgical History History of extraction of renal calculus History of surgery <LETICIA Ferreira - Last Filed: 07/28/22 16:19> Social History Social History: Social History Alcohol intake: never Patient Tobacco Use Status: Never used Tobacco Smoked in Last 30 Days: No Use of substances other than those prescribed or required for medical reasons: No Advance Directives: No Advance Directives Information Provided: No <LETICIA Ferreira - Last Filed: 07/28/22 16:19> Physical Exam Vital Signs: Vital Signs: Last Vital Signs Temp 98.3 F 07/28/22 19:51 Pulse 74 07/28/22 19:51 Resp 16 07/28/22 19:51 BP 138/72 07/28/22 19:51 Pulse Ox 98 07/28/22 19:51 O2 Del Method 07/28/22 19:51 BMI result Body Mass Index 28.0 <LETICIA Ferreira - Last Filed: 07/28/22 16:19> Vital Signs: Last Vital Signs Temp 98.3 F 07/28/22 19:51 Pulse 74 07/28/22 19:51 Resp 16 07/28/22 19:51 BP 138/72 07/28/22 19:51 Pulse Ox 98 07/28/22 19:51 O2 Del Method 07/28/22 19:51 BMI result Body Mass Index 28.0 Vital signs have been reviewed as appeared to be correct. Blood pressure normal. Heart rate normal. Respiration rate normal. Temperature normal. Oxygen saturation normal. <Maira Dobson MD - Last Filed: 07/28/22 20:12> Appearance: Alert. Oriented X3. No acute distress. Head: Normal external exam. Normocephalic. Atraumatic. No Alba signs noted. No raccoon eyes noted Eyes: PERRLA. EOMI. Conjunctiva and sclera normal. Eyelids normal. ENT: TM's Normal. Pharynx normal. Uvula midline. Moist mucous membranes. No trismus noted. No drooling noted. No muffled voice noted. Neck: Normal inspection. Neck supple. FROM. No adenopathy. Thyroid Normal. No meningeal signs. No neck mass noted. CVS: Normal heart rate and rhythm. Heart sound normal. No murmurs noted. Pulses normal throughout. Respiratory: No respiratory distress. Painless inspiration. Breath sounds normal. No wheezes/rales/rhonchi noted. Chest nontender. No accessory muscle usage noted or decreased air movement noted. Abdomen: Soft and nontender. Bowel sounds normal in all 4 quadrants. No distention noted. No organomegaly noted. No visible injury noted. Back: No CVA tenderness. Full range of motion noted. Skin: Skin warm and dry. Normal skin color. Normal skin turgor. No rashes/lesions/lacerations noted. Extremities: No lower extremity edema. Extremities exhibit normal range of motion. Extremities nontender. Neuro: Oriented X 3. Cranial nerve exam: II-XII are grossly intact No motor deficit. No sensory deficit. Reflexes normal. <Maira Dobson MD - Last Filed: 07/28/22 20:12> Course Course Course Narrative: RME - 67 y/o Sami speaking male with history of HTN, HLD, thoracic aortic aneurysm, sciatica, & BPH who presents to the ER for evaluation of bilateral rib pain, feeling sick when he eats and chest pains along with runny nose, palpitations w/ increased anxiety for the last 1.5 weeks. Reports lower rib pain bilaterally right now, radiates down into the abdomen. BP 180/80s in triage, HR 90s. No fever. Plan: start w/ EKG, CXR, basic lab workup. <LETICIA Ferreira - Last Filed: 07/28/22 16:19> Medical Decision Making Differential Diagnosis Differential Diagnoses: The differential diagnosis associated with the presentation includes (ACS, pneumonia, pancreatitis, gallbladder disease, kidney stones, kidney infection.) <Maira Dobson MD - Last Filed: 07/28/22 20:12> Lab Data MDM Lab Attestation statement: I reviewed the patient's lab results. <Maira Dobson MD - Last Filed: 07/28/22 20:12> Result Diagrams: 07/28/22 16:54 07/28/22 16:54 <LETICIA Ferreira - Last Filed: 07/28/22 16:19> Labs: Lab Results 07/28/22 07/28/22 07/28/22 Range/Units 16:53 16:54 16:54 WBC 8.5 (4.8-10.8) X10*3/uL RBC 5.18 (4.60-5.80) X10*6/uL Hgb 15.0 (14.0-18.0) g/dl Hct 44.1 (42.0-52.0) % MCV 85.1 (80.0-98.0) fL MCH 29.0 (27.0-33.0) pg MCHC 34.0 (31.0-36.0) g/dl RDW 12.4 (11.0-16.0) % Plt Count 266 (160-400) X10*3/uL MPV 9.3 L (9.4-12.4) fL Immature Gran % (Auto) 1.2 H (0.0-0.4) % Neut % (Auto) 78.1 H (45-73) % Lymph % (Auto) 14.4 L (20-40) % [place] % (Auto) 5.4 (2-11) % Eos % (Auto) 0.5 (0-4) % Baso % (Auto) 0.4 (0-2) % Lymph # (Auto) 1.2 (1.2-4.9) X10*3/uL [place] # (Auto) 0.5 (0.1-1.2) X10*3/uL Eos # (Auto) 0.0 (0.0-0.4) X10*3/uL Baso # (Auto) 0.0 (0.0-0.2) X10*3/uL Abs Immat Gran (auto) 0.10 H (0.00-0.03) X10*3/uL Absolute Neuts (auto) 6.6 (2.0-8.3) x10*3/uL Absolute Nucleated RBC 0.000 (0.0-0.012) X10*3/uL Nucleated RBC % (auto) 0.0 (0.0-0.2) /100WBC PT 12.9 (10.0-13.1) SEC INR 1.1 (0.9-1.1) APTT 28.8 (26.0-36.4) SEC Sodium (135-145) mmol/L Potassium (3.3-5.1) mmol/L Chloride (96-108) mmol/L Carbon Dioxide (22-29) mmol/L Anion Gap (12-20) BUN (9-16) mg/dL Creatinine (0.5-1.4) mg/dL Estim Creat Clear Calc Estimated GFR Random Glucose (60-115) mg/dL Calcium (8.4-10.2) mg/dL Magnesium (1.6-2.6) mg/dL Total Bilirubin (0.0-1.0) mg/dL Direct Bilirubin (0.0-0.5) mg/dL AST (5-37) U/L ALT (0-40) U/L Alkaline Phosphatase (39-117) U/L Troponin I High Sens (<3.5-35.0) ng/L Total Protein (6.5-8.0) g/dL Albumin (3.5-5.0) g/dL Lipase (8-78) U/L Urine Color Urine Appearance Urine pH (5.0-9.0) Ur Specific [place] (1.005-1.025) Urine Protein (Neg-Trace) mg/dL Urine Glucose (UA) (Negative) mg/dL Urine Ketones (Negative) mg/dL Urine Blood (Negative) Urine Nitrite (Negative) Ur Leukocyte Esterase (Negative) Urine RBC (0-2) /HPF Urine WBC (0-5) /HPF Ur Squamous Epith Cells (0-2) /HPF Urine Bacteria (None Seen) Hyaline Casts (0-2) /LPF COVID-19 (JANICE) (Negative) COVID-19 Clin Com 07/28/22 07/28/22 07/28/22 Range/Units 16:54 16:57 17:16 WBC (4.8-10.8) X10*3/uL RBC (4.60-5.80) X10*6/uL Hgb (14.0-18.0) g/dl Hct (42.0-52.0) % MCV (80.0-98.0) fL MCH (27.0-33.0) pg MCHC (31.0-36.0) g/dl RDW (11.0-16.0) % Plt Count (160-400) X10*3/uL MPV (9.4-12.4) fL Immature Gran % (Auto) (0.0-0.4) % Neut % (Auto) (45-73) % Lymph % (Auto) (20-40) % [place] % (Auto) (2-11) % Eos % (Auto) (0-4) % Baso % (Auto) (0-2) % Lymph # (Auto) (1.2-4.9) X10*3/uL [place] # (Auto) (0.1-1.2) X10*3/uL Eos # (Auto) (0.0-0.4) X10*3/uL Baso # (Auto) (0.0-0.2) X10*3/uL Abs Immat Gran (auto) (0.00-0.03) X10*3/uL Absolute Neuts (auto) (2.0-8.3) x10*3/uL Absolute Nucleated RBC (0.0-0.012) X10*3/uL Nucleated RBC % (auto) (0.0-0.2) /100WBC PT (10.0-13.1) SEC INR (0.9-1.1) APTT (26.0-36.4) SEC Sodium 138 (135-145) mmol/L Potassium 4.3 (3.3-5.1) mmol/L Chloride 103 (96-108) mmol/L Carbon Dioxide 25 (22-29) mmol/L Anion Gap 14 (12-20) BUN 14 (9-16) mg/dL Creatinine 0.85 (0.5-1.4) mg/dL Estim Creat Clear Calc 83.6 Estimated GFR > 60 Random Glucose 160 H (60-115) mg/dL Calcium 8.8 D (8.4-10.2) mg/dL Magnesium 2.0 (1.6-2.6) mg/dL Total Bilirubin 0.3 (0.0-1.0) mg/dL Direct Bilirubin < 0.2 (0.0-0.5) mg/dL AST 22 (5-37) U/L ALT 26 (0-40) U/L Alkaline Phosphatase 64 (39-117) U/L Troponin I High Sens (<3.5-35.0) ng/L Total Protein 7.1 (6.5-8.0) g/dL Albumin 4.1 (3.5-5.0) g/dL Lipase 27 (8-78) U/L Urine Color Yellow Urine Appearance Clear Urine pH 7.0 (5.0-9.0) Ur Specific [place] 1.015 (1.005-1.025) Urine Protein Negative (Neg-Trace) mg/dL Urine Glucose (UA) Negative (Negative) mg/dL Urine Ketones Negative (Negative) mg/dL Urine Blood Moderate (2+) H (Negative) Urine Nitrite Negative (Negative) Ur Leukocyte Esterase Negative (Negative) Urine RBC 6-10 H (0-2) /HPF Urine WBC 0-5 (0-5) /HPF Ur Squamous Epith Cells 0-2 (0-2) /HPF Urine Bacteria None Seen (None Seen) Hyaline Casts 3-5 (0-2) /LPF COVID-19 (JANICE) Negative (Negative) COVID-19 Clin Com See Note 07/28/22 Range/Units 17:16 WBC (4.8-10.8) X10*3/uL RBC (4.60-5.80) X10*6/uL Hgb (14.0-18.0) g/dl Hct (42.0-52.0) % MCV (80.0-98.0) fL MCH (27.0-33.0) pg MCHC (31.0-36.0) g/dl RDW (11.0-16.0) % Plt Count (160-400) X10*3/uL MPV (9.4-12.4) fL Immature Gran % (Auto) (0.0-0.4) % Neut % (Auto) (45-73) % Lymph % (Auto) (20-40) % [place] % (Auto) (2-11) % Eos % (Auto) (0-4) % Baso % (Auto) (0-2) % Lymph # (Auto) (1.2-4.9) X10*3/uL [place] # (Auto) (0.1-1.2) X10*3/uL Eos # (Auto) (0.0-0.4) X10*3/uL Baso # (Auto) (0.0-0.2) X10*3/uL Abs Immat Gran (auto) (0.00-0.03) X10*3/uL Absolute Neuts (auto) (2.0-8.3) x10*3/uL Absolute Nucleated RBC (0.0-0.012) X10*3/uL Nucleated RBC % (auto) (0.0-0.2) /100WBC PT (10.0-13.1) SEC INR (0.9-1.1) APTT (26.0-36.4) SEC Sodium (135-145) mmol/L Potassium (3.3-5.1) mmol/L Chloride (96-108) mmol/L Carbon Dioxide (22-29) mmol/L Anion Gap (12-20) BUN (9-16) mg/dL Creatinine (0.5-1.4) mg/dL Estim Creat Clear Calc Estimated GFR Random Glucose (60-115) mg/dL Calcium (8.4-10.2) mg/dL Magnesium (1.6-2.6) mg/dL Total Bilirubin (0.0-1.0) mg/dL Direct Bilirubin (0.0-0.5) mg/dL AST (5-37) U/L ALT (0-40) U/L Alkaline Phosphatase (39-117) U/L Troponin I High Sens < 3.5 (<3.5-35.0) ng/L Total Protein (6.5-8.0) g/dL Albumin (3.5-5.0) g/dL Lipase (8-78) U/L Urine Color Urine Appearance Urine pH (5.0-9.0) Ur Specific [place] (1.005-1.025) Urine Protein (Neg-Trace) mg/dL Urine Glucose (UA) (Negative) mg/dL Urine Ketones (Negative) mg/dL Urine Blood (Negative) Urine Nitrite (Negative) Ur Leukocyte Esterase (Negative) Urine RBC (0-2) /HPF Urine WBC (0-5) /HPF Ur Squamous Epith Cells (0-2) /HPF Urine Bacteria (None Seen) Hyaline Casts (0-2) /LPF COVID-19 (JANICE) (Negative) COVID-19 Clin Com <LETICIA Ferreira - Last Filed: 07/28/22 16:19> Lab Results 07/28/22 07/28/22 07/28/22 Range/Units 16:53 16:54 16:54 WBC 8.5 (4.8-10.8) X10*3/uL RBC 5.18 (4.60-5.80) X10*6/uL Hgb 15.0 (14.0-18.0) g/dl Hct 44.1 (42.0-52.0) % MCV 85.1 (80.0-98.0) fL MCH 29.0 (27.0-33.0) pg MCHC 34.0 (31.0-36.0) g/dl RDW 12.4 (11.0-16.0) % Plt Count 266 (160-400) X10*3/uL MPV 9.3 L (9.4-12.4) fL Immature Gran % (Auto) 1.2 H (0.0-0.4) % Neut % (Auto) 78.1 H (45-73) % Lymph % (Auto) 14.4 L (20-40) % [place] % (Auto) 5.4 (2-11) % Eos % (Auto) 0.5 (0-4) % Baso % (Auto) 0.4 (0-2) % Lymph # (Auto) 1.2 (1.2-4.9) X10*3/uL [place] # (Auto) 0.5 (0.1-1.2) X10*3/uL Eos # (Auto) 0.0 (0.0-0.4) X10*3/uL Baso # (Auto) 0.0 (0.0-0.2) X10*3/uL Abs Immat Gran (auto) 0.10 H (0.00-0.03) X10*3/uL Absolute Neuts (auto) 6.6 (2.0-8.3) x10*3/uL Absolute Nucleated RBC 0.000 (0.0-0.012) X10*3/uL Nucleated RBC % (auto) 0.0 (0.0-0.2) /100WBC PT 12.9 (10.0-13.1) SEC INR 1.1 (0.9-1.1) APTT 28.8 (26.0-36.4) SEC Sodium (135-145) mmol/L Potassium (3.3-5.1) mmol/L Chloride (96-108) mmol/L Carbon Dioxide (22-29) mmol/L Anion Gap (12-20) BUN (9-16) mg/dL Creatinine (0.5-1.4) mg/dL Estim Creat Clear Calc Estimated GFR Random Glucose (60-115) mg/dL Calcium (8.4-10.2) mg/dL Magnesium (1.6-2.6) mg/dL Total Bilirubin (0.0-1.0) mg/dL Direct Bilirubin (0.0-0.5) mg/dL AST (5-37) U/L ALT (0-40) U/L Alkaline Phosphatase (39-117) U/L Troponin I High Sens (<3.5-35.0) ng/L Total Protein (6.5-8.0) g/dL Albumin (3.5-5.0) g/dL Lipase (8-78) U/L Urine Color Urine Appearance Urine pH (5.0-9.0) Ur Specific [place] (1.005-1.025) Urine Protein (Neg-Trace) mg/dL Urine Glucose (UA) (Negative) mg/dL Urine Ketones (Negative) mg/dL Urine Blood (Negative) Urine Nitrite (Negative) Ur Leukocyte Esterase (Negative) Urine RBC (0-2) /HPF Urine WBC (0-5) /HPF Ur Squamous Epith Cells (0-2) /HPF Urine Bacteria (None Seen) Hyaline Casts (0-2) /LPF COVID-19 (JANICE) (Negative) COVID-19 Clin Com 07/28/22 07/28/22 07/28/22 Range/Units 16:54 16:57 17:16 WBC (4.8-10.8) X10*3/uL RBC (4.60-5.80) X10*6/uL Hgb (14.0-18.0) g/dl Hct (42.0-52.0) % MCV (80.0-98.0) fL MCH (27.0-33.0) pg MCHC (31.0-36.0) g/dl RDW (11.0-16.0) % Plt Count (160-400) X10*3/uL MPV (9.4-12.4) fL Immature Gran % (Auto) (0.0-0.4) % Neut % (Auto) (45-73) % Lymph % (Auto) (20-40) % [place] % (Auto) (2-11) % Eos % (Auto) (0-4) % Baso % (Auto) (0-2) % Lymph # (Auto) (1.2-4.9) X10*3/uL [place] # (Auto) (0.1-1.2) X10*3/uL Eos # (Auto) (0.0-0.4) X10*3/uL Baso # (Auto) (0.0-0.2) X10*3/uL Abs Immat Gran (auto) (0.00-0.03) X10*3/uL Absolute Neuts (auto) (2.0-8.3) x10*3/uL Absolute Nucleated RBC (0.0-0.012) X10*3/uL Nucleated RBC % (auto) (0.0-0.2) /100WBC PT (10.0-13.1) SEC INR (0.9-1.1) APTT (26.0-36.4) SEC Sodium 138 (135-145) mmol/L Potassium 4.3 (3.3-5.1) mmol/L Chloride 103 (96-108) mmol/L Carbon Dioxide 25 (22-29) mmol/L Anion Gap 14 (12-20) BUN 14 (9-16) mg/dL Creatinine 0.85 (0.5-1.4) mg/dL Estim Creat Clear Calc 83.6 Estimated GFR > 60 Random Glucose 160 H (60-115) mg/dL Calcium 8.8 D (8.4-10.2) mg/dL Magnesium 2.0 (1.6-2.6) mg/dL Total Bilirubin 0.3 (0.0-1.0) mg/dL Direct Bilirubin < 0.2 (0.0-0.5) mg/dL AST 22 (5-37) U/L ALT 26 (0-40) U/L Alkaline Phosphatase 64 (39-117) U/L Troponin I High Sens (<3.5-35.0) ng/L Total Protein 7.1 (6.5-8.0) g/dL Albumin 4.1 (3.5-5.0) g/dL Lipase 27 (8-78) U/L Urine Color Yellow Urine Appearance Clear Urine pH 7.0 (5.0-9.0) Ur Specific [place] 1.015 (1.005-1.025) Urine Protein Negative (Neg-Trace) mg/dL Urine Glucose (UA) Negative (Negative) mg/dL Urine Ketones Negative (Negative) mg/dL Urine Blood Moderate (2+) H (Negative) Urine Nitrite Negative (Negative) Ur Leukocyte Esterase Negative (Negative) Urine RBC 6-10 H (0-2) /HPF Urine WBC 0-5 (0-5) /HPF Ur Squamous Epith Cells 0-2 (0-2) /HPF Urine Bacteria None Seen (None Seen) Hyaline Casts 3-5 (0-2) /LPF COVID-19 (JANICE) Negative (Negative) COVID-19 Clin Com See Note 07/28/22 Range/Units 17:16 WBC (4.8-10.8) X10*3/uL RBC (4.60-5.80) X10*6/uL Hgb (14.0-18.0) g/dl Hct (42.0-52.0) % MCV (80.0-98.0) fL MCH (27.0-33.0) pg MCHC (31.0-36.0) g/dl RDW (11.0-16.0) % Plt Count (160-400) X10*3/uL MPV (9.4-12.4) fL Immature Gran % (Auto) (0.0-0.4) % Neut % (Auto) (45-73) % Lymph % (Auto) (20-40) % [place] % (Auto) (2-11) % Eos % (Auto) (0-4) % Baso % (Auto) (0-2) % Lymph # (Auto) (1.2-4.9) X10*3/uL [place] # (Auto) (0.1-1.2) X10*3/uL Eos # (Auto) (0.0-0.4) X10*3/uL Baso # (Auto) (0.0-0.2) X10*3/uL Abs Immat Gran (auto) (0.00-0.03) X10*3/uL Absolute Neuts (auto) (2.0-8.3) x10*3/uL Absolute Nucleated RBC (0.0-0.012) X10*3/uL Nucleated RBC % (auto) (0.0-0.2) /100WBC PT (10.0-13.1) SEC INR (0.9-1.1) APTT (26.0-36.4) SEC Sodium (135-145) mmol/L Potassium (3.3-5.1) mmol/L Chloride (96-108) mmol/L Carbon Dioxide (22-29) mmol/L Anion Gap (12-20) BUN (9-16) mg/dL Creatinine (0.5-1.4) mg/dL Estim Creat Clear Calc Estimated GFR Random Glucose (60-115) mg/dL Calcium (8.4-10.2) mg/dL Magnesium (1.6-2.6) mg/dL Total Bilirubin (0.0-1.0) mg/dL Direct Bilirubin (0.0-0.5) mg/dL AST (5-37) U/L ALT (0-40) U/L Alkaline Phosphatase (39-117) U/L Troponin I High Sens < 3.5 (<3.5-35.0) ng/L Total Protein (6.5-8.0) g/dL Albumin (3.5-5.0) g/dL Lipase (8-78) U/L Urine Color Urine Appearance Urine pH (5.0-9.0) Ur Specific [place] (1.005-1.025) Urine Protein (Neg-Trace) mg/dL Urine Glucose (UA) (Negative) mg/dL Urine Ketones (Negative) mg/dL Urine Blood (Negative) Urine Nitrite (Negative) Ur Leukocyte Esterase (Negative) Urine RBC (0-2) /HPF Urine WBC (0-5) /HPF Ur Squamous Epith Cells (0-2) /HPF Urine Bacteria (None Seen) Hyaline Casts (0-2) /LPF COVID-19 (JANICE) (Negative) COVID-19 Clin Com <Maira Dobson MD - Last Filed: 07/28/22 20:12> Independent Interpretation I performed an independent interpretation of an: EKG (Normal sinus rhythm at 83 beats per minutes, LVH, left axis deviation, normal intervals, no change from previous EKG.) and CT Scan (Abdomen and pelvis: No acute pathology.) <Maira Dobson MD - Last Filed: 07/28/22 20:12> Radiology Impression Discussion of test interpretation with radiology: I have reviewed the radiologist's reading. <Maira Dobson MD - Last Filed: 07/28/22 20:12> Discharge Plan Discharge Clinical Impression: Abdominal pain <LETICIA Ferreira - Last Filed: 07/28/22 16:19> Patient Disposition: Home, Self-Care <LETICIA Ferreira - Last Filed: 07/28/22 16:19> Instructions: Abdominal Pain (ED) <LETICIA Ferreira - Last Filed: 07/28/22 16:19> Prescriptions: No Action cholecalciferol (vitamin D3) 50 mcg (2,000 unit) capsule 0 mcg PO fluticasone propionate 50 mcg/actuation spray,suspension 2 spray intranasal BEDTIME lisinopril 30 mg tablet 30 mg PO DAILY cyanocobalamin (vitamin B-12) 1,000 mcg/mL solution 1,000 mcg IM tamsulosin 0.4 mg capsule 0.4 mg PO DAILY aspirin 81 mg tablet,delayed release (DR/EC) 81 mg PO DAILY amlodipine 5 mg tablet 5 mg PO DAILY Qty: 30 3RF polyethylene glycol 3350 [Miralax] 17 gram/dose powder 17 g PO BID 30 Days Qty: 1020 0RF Rx Instructions: Hold for diarrhea pantoprazole 40 mg tablet,delayed release (DR/EC) 40 mg PO DAILY meloxicam 7.5 mg tablet 7.5 mg PO DAILY <LETICIA Ferreira - Last Filed: 07/28/22 16:19> Referrals: Romina Staples MD [Primary Care Provider] - <LETICIA Ferreira - Last Filed: 07/28/22 16:19>
[2022-07-28 16:17] VITALS: BP 184/87; PULSE 95; RESP 18; TEMP 36.5; O2SAT 97; BMI 28.0
--- NOTE | 2022-07-28 16:17 | ECG_ITS ---
Test Reason : CHEST PAIN Blood Pressure : / mmHG Vent. Rate : 083 BPM Atrial Rate : 083 BPM P-R Int : 194 ms QRS Dur : 088 ms QT Int : 358 ms P-R-T Axes : 013 -47 018 degrees QTc Int : 420 ms Normal sinus rhythm Left anterior fascicular block Moderate voltage criteria for LVH, may be normal variant ( R in aVL , Da product ) Septal infarct , age undetermined Abnormal ECG When compared with ECG of 07-JAN-2022 06:34, No significant change was found Referred By: Ashleigh Prater Electronically Signed By:Justin Norman
[2022-07-28 17:03] LABS: MANUAL DIFF FLAG NO
[2022-07-28 17:05] VITALS: PULSE 79
[2022-07-28 17:09] VITALS: BP 163/90; PULSE 93; RESP 20; O2SAT 96
[2022-07-28 17:11] LABS: Appearance Urine Clear; Color Urine Yellow; Glucose Urine UA Negative (Negative); Leukocyte Esterase Urine Negative (Negative); Nitrite Urine Negative (Negative); Specific Gravity - Urine 1.015 (1.005-1.025); UMIC TRIGGER UACC YES; Urine Blood Moderate (2+) (Negative); Urine Ketones Negative (Negative); Urine Protein Negative (Neg-Trace)
[2022-07-28 17:12] LABS: INTERNATIONAL NORM RATIO 1.1 (0.9-1.1); Prothrombin Time 12.9 SEC (10.0-13.1)
[2022-07-28 17:15] LABS: Partial Thromboplastin Time 28.8 SEC (26.0-36.4)
[2022-07-28 17:16] LABS: Bacteria Urine None Seen (None Seen); Squamous Epithelial Cell Urine 0-2 /HPF (0-2); WBC Urine 0-5 /HPF (0-5)
[2022-07-28 17:28] LABS: COVID-19 Test Negative (Negative); IDNOW Serial# 55D5AD1C
[2022-07-28 17:29] LABS: Basophils Percent Auto 0.4 % (0-2); Eosinophils Percent Auto 0.5 % (0-4); Hematocrit 44.1 % (42.0-52.0); Imm Gran Pct Auto 1.2 % (0.0-0.4); Lymphocytes Absolute Auto 1.2 X10*3/uL (1.2-4.9); Lymphocytes Percent Auto 14.4 % (20-40); Mean Corpuscular Volume 85.1 fL (80.0-98.0); Mean Platelet Volume 9.3 fL (9.4-12.4); Monocytes Absolute Auto 0.5 X10*3/uL (0.1-1.2); Monocytes Percent Auto 5.4 % (2-11); Neutrophils Absolute Auto 6.6 x10*3/uL (2.0-8.3); Neutrophils Percent Auto 78.1 % (45-73); Platelet Count 266 X10*3/uL (160-400); Red Blood Count 5.18 X10*6/uL (4.60-5.80); Red Cell Distribution Width 12.4 % (11.0-16.0); White Blood Count 8.5 X10*3/uL (4.8-10.8)
[2022-07-28 17:44] LABS: Troponin-I High Sensitivity < 3.5 ng/L (<3.5-35.0)
[2022-07-28 17:54] LABS: Alanine Aminotransferase 26 U/L (0-40); Albumin Level 4.1 g/dL (3.5-5.0); Alkaline Phosphatase 64 U/L (39-117); Anion Gap 14 (12-20); Aspartate Amino Transferase 22 U/L (5-37); Bilirubin Direct < 0.2 mg/dL (0.0-0.5); Bilirubin Total 0.3 mg/dL (0.0-1.0); Blood Urea Nitrogen 14 mg/dL (9-16); Calcium 8.8 mg/dL (8.4-10.2); Carbon Dioxide 25 mmol/L (22-29); Chloride 103 mmol/L (96-108); Creatinine Clr Calc Pharmacy 83.6; Estimated Glomerular Filt Rate > 60; Glucose Random 160 mg/dL (60-115); Potassium 4.3 mmol/L (3.3-5.1); Sodium 138 mmol/L (135-145); Total Protein 7.1 g/dL (6.5-8.0)
--- NOTE | 2022-07-28 19:14 | PC.NURSE ---
assumed care of pt pt ambulated to restroom independently/safely pt already in hospital attire prior to this nurse assuming care provided pt w/ no slip socks provided by [facility] aox4, no apparent distress, resting quietly while at bedside
[2022-07-28 19:47] LABS: Lipase 27 U/L (8-78)
[2022-07-28 19:51] VITALS: BP 138/72; PULSE 74; RESP 16; TEMP 36.8; O2SAT 98
--- NOTE | 2022-07-28 19:52 | MHC.EDTECH ---
PT VITALS SIGN TAKEN ,PT AT BED SIDE .
== END 2022-07-28 21:29 | disposition home or self-care (01) ==
PROVIDERS: Physician Assistant; Emergency Provider Emergency Medicine; PCP General Practice
DX: R07.89 Other chest pain (principal); R10.11 Right upper quadrant pain; Z79.899 Other long term (current) drug therapy; Z20.822 Contact with and (suspected) exposure to COVID-19; Z20.828 Contact with and (suspected) exposure to other viral communicable diseases
CPT/HCPCS: 36415; 71045; 74176; 80048; 80076; 81001; 83690; 83735; 84484; 85025; 85610; 85730; 87635; 93005; 99284

== ENCOUNTER 2022-08-03 12:20 | Emergency (ER) | payer OTHER, SELFPAY ==
[2022-08-03 12:27] VITALS: BP 145/81; PULSE 75; RESP 17; TEMP 36.7; O2SAT 96; BMI 28.1
--- NOTE | 2022-08-03 12:27 | ED.GENADULT ---
HPI - General Adult General Chief complaint: Abdominal Pain <LETICIA Kapoor - Last Filed: 08/03/22 12:28> Stated complaint: stomach pain, can't eat or drink <LETICIA Kapoor - Last Filed: 08/03/22 12:28> Time Seen by Provider: 08/03/22 13:11 <LETICIA Kapoor - Last Filed: 08/03/22 12:28> Source: patient and family (Spouse) <Maira Dobson MD - Last Filed: 08/03/22 16:42> Mode of arrival: ambulatory <Maira Dobson MD - Last Filed: 08/03/22 16:42> Limitations: no limitations <Maira Dobson MD - Last Filed: 08/03/22 16:42> History of Present Illness HPI narrative: 67-year-old male came in for evaluation of upper abdominal pain/epigastric pain, any food will make the pain worse, patient was seen and evaluated for similar symptoms last week has had CT of the abdomen and pelvis which was unremarkable patient was instructed to follow-up with treatment supervisor, patient has an appointment with the treatment supervisor in 2 weeks. Spouse stated that patient gets very anxious anemia as the pain, patient try not to eat because pain after food. <Maira Dobson MD - Last Filed: 08/03/22 16:42> Related Data Home medications: Home Medications Medication Instructions Recorded Confirmed aspirin 81 mg tablet,delayed 81 mg PO DAILY 12/28/20 06/20/22 release cholecalciferol (vitamin D3) 50 0 mcg PO 12/28/20 06/20/22 mcg (2,000 unit) capsule cyanocobalamin (vitamin B-12) 1,000 mcg IM 12/28/20 06/20/22 1,000 mcg/mL injection solution fluticasone propionate 50 2 spray intranasal BEDTIME 12/28/20 06/20/22 mcg/actuation nasal spray,suspension lisinopril 30 mg tablet 30 mg PO DAILY 12/28/20 06/20/22 tamsulosin 0.4 mg capsule 0.4 mg PO DAILY 12/28/20 06/20/22 pantoprazole 40 mg tablet,delayed 40 mg PO DAILY 04/22/22 06/20/22 release meloxicam 7.5 mg tablet 7.5 mg PO DAILY 07/23/22 Previous Rx's Medication Instructions Recorded polyethylene glycol 3350 17 17 g PO BID Constipation 1 month 03/02/21 gram/dose oral powder (Miralax) #1,020 grams amlodipine 5 mg tablet 5 mg PO DAILY #30 tabs 06/20/22 lorazepam 0.5 mg tablet (Ativan) 0.5 mg PO TID PRN anxiety #14 tabs 08/03/22 <LETICIA Kapoor - Last Filed: 08/03/22 12:28> Allergies/adverse reactions: Allergies Allergy/AdvReac Type Severity Reaction Status Date / Time No Known Allergies Allergy Verified 07/23/22 12:59 [No Known Allergies*] <LETICIA Kapoor - Last Filed: 08/03/22 12:28> Review of Systems Review of Systems: All other systems are reviewed and are negative Constitutional: Reports as per HPI and Reports no additional constitutional complaints Eyes: Reports as per HPI and Reports no additional eye complaints Reports system reviewed and no additional complaints, except as documented Cardiovascular: Reports as per HPI and Reports no additional cardiovascular complaints Respiratory: Reports as per HPI and Reports no additional respiratory complaints Gastrointestinal: Reports as per HPI and Reports no additional gastrointestinal complaints Genitourinary: Reports no additional female genitourinary complaints Musculoskeletal: Reports no additional musculoskeletal complaints Skin/Breast: Reports system reviewed and no additional complaints, except as docu Psychiatric: Reports no additional psychiatric complaints Endocrine: Reports no additional endocrine complaints Hematologic/Lymphatic: Reports no additional hematologic/lymphatic complaints Allergic/Immunologic: Reports no additional allergic/immunologic complaints Reports system reviewed and no additional complaints, except as documented and Reports Abnormal speech present <Maira Dobson MD - Last Filed: 08/03/22 16:42> [facility] Past Medical History Medical History: Medical History BPH w/o urinary obs/LUTS Epididymitis Erectile dysfunction History of kidney stones HTN (hypertension) Hyperlipidemia Nocturia <LETICIA Kapoor - Last Filed: 08/03/22 12:28> Surgical History: Surgical History History of extraction of renal calculus History of surgery <LETICIA Kapoor - Last Filed: 08/03/22 12:28> Social History Social History: Social History Alcohol intake: never Patient Tobacco Use Status: Never used Tobacco Use of substances other than those prescribed or required for medical reasons: No Advance Directives: No Advance Directives Information Provided: No <LETICIA Kapoor - Last Filed: 08/03/22 12:28> Physical Exam ED Vital Signs: Vital Signs - 24 hr 08/03/22 12:27 Temperature 98.0 F Pulse Rate 75 Respiratory Rate 17 Blood Pressure 145/81 H Pulse Oximetry 96 Oxygen Delivery Method Room Air BMI result Body Mass Index 28.1 <LETICIA Kapoor - Last Filed: 08/03/22 12:28> Vital Signs - 24 hr 08/03/22 12:27 Temperature 98.0 F Pulse Rate 75 Respiratory Rate 17 Blood Pressure 145/81 H Pulse Oximetry 96 Oxygen Delivery Method Room Air BMI result Body Mass Index 28.1 Vital signs have been reviewed as appeared to be correct. Blood pressure normal. Heart rate normal. Respiration rate normal. Temperature normal. Oxygen saturation normal. <Maira Dobson MD - Last Filed: 08/03/22 16:42> Appearance: Alert. Oriented X3. No acute distress. Head: Normal external exam. Normocephalic. Atraumatic. No [place] signs noted. No raccoon eyes noted Eyes: PERRLA. EOMI. Conjunctiva and sclera normal. Eyelids normal. ENT: TM's Normal. Pharynx normal. Uvula midline. Moist mucous membranes. No trismus noted. No drooling noted. No muffled voice noted. Neck: Normal inspection. Neck supple. FROM. No adenopathy. Thyroid Normal. No meningeal signs. No neck mass noted. CVS: Normal heart rate and rhythm. Heart sound normal. No murmurs noted. Pulses normal throughout. Respiratory: No respiratory distress. Painless inspiration. Breath sounds normal. No wheezes/rales/rhonchi noted. Chest nontender. No accessory muscle usage noted or decreased air movement noted. Abdomen: Soft and nontender. Bowel sounds normal in all 4 quadrants. No distention noted. No organomegaly noted. No visible injury noted. Back: No CVA tenderness. Full range of motion noted. Skin: Skin warm and dry. Normal skin color. Normal skin turgor. No rashes/lesions/lacerations noted. Extremities: No lower extremity edema. Extremities exhibit normal range of motion. Extremities nontender. Neuro: Oriented X 3. Cranial nerve exam: II-XII are grossly intact No motor deficit. No sensory deficit. Reflexes normal. <Maira Dobson MD - Last Filed: 08/03/22 16:42> Course Course Course Narrative: RME performed by Carolyn Liang PA-C. Patient is a 67 year old male presenting to the emergency department with abdominal pain. Patient states that the pain has gotten to the point where when he eats, it hurts much worse. Labs ordered. Patient placed back in the waiting room pending room availability and results. <LETICIA Kapoor - Last Filed: 08/03/22 12:28> Reevaluation(s) Reevaluation #1: 67-year-old male appear anxious presented for 2nd time for abdominal pain physical exam and workup is suggesting gastritis patient have an appointment with GI in 2 weeks. As per patient gets very agitated and anxious when he has the pain we will help with Ativan until he get fully evaluated by GI. <Maira Dobson MD - Last Filed: 08/03/22 16:42> Time: 16:42 <Maira Dobson MD - Last Filed: 08/03/22 16:42> Medications Administered Discontinued Medications Generic Name Dose Route Start Last Admin Trade Name Freq PRN Reason Stop Dose Admin Lorazepam 1 mg 08/03/22 13:35 08/03/22 13:46 Lorazepam 1 Mg Tablet PO 08/03/22 13:36 1 mg ONCE ONE Administration <LETICIA Kapoor - Last Filed: 08/03/22 12:28> Medications Administered Discontinued Medications Generic Name Dose Route Start Last Admin Trade Name Freq PRN Reason Stop Dose Admin Lorazepam 1 mg 08/03/22 13:35 08/03/22 13:46 Lorazepam 1 Mg Tablet PO 08/03/22 13:36 1 mg ONCE ONE Administration <Maira Dobson MD - Last Filed: 08/03/22 16:42> Medical Decision Making Differential Diagnosis Differential Diagnoses: The differential diagnosis associated with the presentation includes (Gastritis, electrolyte disturbance, dehydration, anemia, anxiety.) <Maira Dobson MD - Last Filed: 08/03/22 16:42> Lab Data MDM Lab Attestation statement: I reviewed the patient's lab results. <Maira Dobson MD - Last Filed: 08/03/22 16:42> Result Diagrams: 08/03/22 12:42 08/03/22 12:42 <LETICIA Kapoor - Last Filed: 08/03/22 12:28> Labs: Lab Results 08/03/22 08/03/22 08/03/22 Range/Units 12:42 12:42 12:42 WBC 8.4 (4.8-10.8) X10*3/uL RBC 5.02 (4.60-5.80) X10*6/uL Hgb 15.0 (14.0-18.0) g/dl Hct 42.0 (42.0-52.0) % MCV 83.7 (80.0-98.0) fL MCH 29.9 (27.0-33.0) pg MCHC 35.7 (31.0-36.0) g/dl RDW 12.6 (11.0-16.0) % Plt Count 268 (160-400) X10*3/uL MPV 9.3 L (9.4-12.4) fL Immature Gran % (Auto) 0.4 (0.0-0.4) % Neut % (Auto) 75.9 H (45-73) % Lymph % (Auto) 16.8 L (20-40) % [place] % (Auto) 5.7 (2-11) % Eos % (Auto) 1.0 (0-4) % Baso % (Auto) 0.2 (0-2) % Lymph # (Auto) 1.4 (1.2-4.9) X10*3/uL [place] # (Auto) 0.5 (0.1-1.2) X10*3/uL Eos # (Auto) 0.1 (0.0-0.4) X10*3/uL Baso # (Auto) 0.0 (0.0-0.2) X10*3/uL Abs Immat Gran (auto) 0.03 (0.00-0.03) X10*3/uL Absolute Neuts (auto) 6.3 (2.0-8.3) x10*3/uL Absolute Nucleated RBC 0.000 (0.0-0.012) X10*3/uL Nucleated RBC % (auto) 0.0 (0.0-0.2) /100WBC Sodium 139 (135-145) mmol/L Potassium 3.8 (3.3-5.1) mmol/L Chloride 103 (96-108) mmol/L Carbon Dioxide 27 (22-29) mmol/L Anion Gap 13 (12-20) BUN 12 (9-16) mg/dL Creatinine 0.96 (0.5-1.4) mg/dL Estim Creat Clear Calc 74.2 Estimated GFR > 60 Random Glucose 130 H (60-115) mg/dL Calcium 9.3 (8.4-10.2) mg/dL Magnesium 2.0 (1.6-2.6) mg/dL Total Bilirubin 0.5 (0.0-1.0) mg/dL AST 17 (5-37) U/L ALT 21 (0-40) U/L Alkaline Phosphatase 67 (39-117) U/L Total Protein 7.0 (6.5-8.0) g/dL Albumin 4.2 (3.5-5.0) g/dL Lipase 33 (8-78) U/L Urine Color Yellow Urine Appearance Clear Urine pH 7.5 (5.0-9.0) Ur Specific [place] 1.015 (1.005-1.025) Urine Protein Negative (Neg-Trace) mg/dL Urine Glucose (UA) Negative (Negative) mg/dL Urine Ketones Negative (Negative) mg/dL Urine Blood Small (1+) H (Negative) Urine Nitrite Negative (Negative) Ur Leukocyte Esterase Negative (Negative) Urine RBC 6-10 H (0-2) /HPF Urine WBC 0-5 (0-5) /HPF Ur Squamous Epith Cells 0-2 (0-2) /HPF Urine Bacteria None Seen (None Seen) Hyaline Casts 0-2 (0-2) /LPF <LETICIA Kapoor - Last Filed: 08/03/22 12:28> Lab Results 08/03/22 08/03/22 08/03/22 Range/Units 12:42 12:42 12:42 WBC 8.4 (4.8-10.8) X10*3/uL RBC 5.02 (4.60-5.80) X10*6/uL Hgb 15.0 (14.0-18.0) g/dl Hct 42.0 (42.0-52.0) % MCV 83.7 (80.0-98.0) fL MCH 29.9 (27.0-33.0) pg MCHC 35.7 (31.0-36.0) g/dl RDW 12.6 (11.0-16.0) % Plt Count 268 (160-400) X10*3/uL MPV 9.3 L (9.4-12.4) fL Immature Gran % (Auto) 0.4 (0.0-0.4) % Neut % (Auto) 75.9 H (45-73) % Lymph % (Auto) 16.8 L (20-40) % [place] % (Auto) 5.7 (2-11) % Eos % (Auto) 1.0 (0-4) % Baso % (Auto) 0.2 (0-2) % Lymph # (Auto) 1.4 (1.2-4.9) X10*3/uL [place] # (Auto) 0.5 (0.1-1.2) X10*3/uL Eos # (Auto) 0.1 (0.0-0.4) X10*3/uL Baso # (Auto) 0.0 (0.0-0.2) X10*3/uL Abs Immat Gran (auto) 0.03 (0.00-0.03) X10*3/uL Absolute Neuts (auto) 6.3 (2.0-8.3) x10*3/uL Absolute Nucleated RBC 0.000 (0.0-0.012) X10*3/uL Nucleated RBC % (auto) 0.0 (0.0-0.2) /100WBC Sodium 139 (135-145) mmol/L Potassium 3.8 (3.3-5.1) mmol/L Chloride 103 (96-108) mmol/L Carbon Dioxide 27 (22-29) mmol/L Anion Gap 13 (12-20) BUN 12 (9-16) mg/dL Creatinine 0.96 (0.5-1.4) mg/dL Estim Creat Clear Calc 74.2 Estimated GFR > 60 Random Glucose 130 H (60-115) mg/dL Calcium 9.3 (8.4-10.2) mg/dL Magnesium 2.0 (1.6-2.6) mg/dL Total Bilirubin 0.5 (0.0-1.0) mg/dL AST 17 (5-37) U/L ALT 21 (0-40) U/L Alkaline Phosphatase 67 (39-117) U/L Total Protein 7.0 (6.5-8.0) g/dL Albumin 4.2 (3.5-5.0) g/dL Lipase 33 (8-78) U/L Urine Color Yellow Urine Appearance Clear Urine pH 7.5 (5.0-9.0) Ur Specific [place] 1.015 (1.005-1.025) Urine Protein Negative (Neg-Trace) mg/dL Urine Glucose (UA) Negative (Negative) mg/dL Urine Ketones Negative (Negative) mg/dL Urine Blood Small (1+) H (Negative) Urine Nitrite Negative (Negative) Ur Leukocyte Esterase Negative (Negative) Urine RBC 6-10 H (0-2) /HPF Urine WBC 0-5 (0-5) /HPF Ur Squamous Epith Cells 0-2 (0-2) /HPF Urine Bacteria None Seen (None Seen) Hyaline Casts 0-2 (0-2) /LPF <Maira Dobson MD - Last Filed: 08/03/22 16:42> Discharge Plan Discharge Clinical Impression: Abdominal pain, Gastritis, Anxiety <LETCIIA Kapoor - Last Filed: 08/03/22 12:28> Patient Disposition: Home, Self-Care <LETICIA Kapoor - Last Filed: 08/03/22 12:28> Instructions: Gastritis (ED) <LETICIA Kapoor - Last Filed: 08/03/22 12:28> Prescriptions: New lorazepam [Ativan] 0.5 mg tablet 0.5 mg PO TID PRN (Reason: anxiety) Qty: 14 0RF No Action cholecalciferol (vitamin D3) 50 mcg (2,000 unit) capsule 0 mcg PO fluticasone propionate 50 mcg/actuation spray,suspension 2 spray intranasal BEDTIME lisinopril 30 mg tablet 30 mg PO DAILY cyanocobalamin (vitamin B-12) 1,000 mcg/mL solution 1,000 mcg IM tamsulosin 0.4 mg capsule 0.4 mg PO DAILY aspirin 81 mg tablet,delayed release (DR/EC) 81 mg PO DAILY amlodipine 5 mg tablet 5 mg PO DAILY Qty: 30 3RF polyethylene glycol 3350 [Miralax] 17 gram/dose powder 17 g PO BID 30 Days Qty: 1020 0RF Rx Instructions: Hold for diarrhea pantoprazole 40 mg tablet,delayed release (DR/EC) 40 mg PO DAILY meloxicam 7.5 mg tablet 7.5 mg PO DAILY <LETICIA Kapoor - Last Filed: 08/03/22 12:28> Referrals: Carol Leon MD [Physician] - Romina Staples MD [Primary Care Provider] - <LETICIA Kapoor - Last Filed: 08/03/22 12:28>
--- NOTE | 2022-08-03 12:28 | ECG_ITS ---
Test Reason : ABD PAIN Blood Pressure : / mmHG Vent. Rate : 068 BPM Atrial Rate : 068 BPM P-R Int : 188 ms QRS Dur : 090 ms QT Int : 368 ms P-R-T Axes : -10 -48 018 degrees QTc Int : 391 ms Sinus rhythm with Premature supraventricular complexes Left anterior fascicular block Moderate voltage criteria for LVH, may be normal variant ( R in aVL , [place] product ) Septal infarct (cited on or before 28-JUL-2022) Abnormal ECG When compared with ECG of 28-JUL-2022 16:32, Premature supraventricular complexes are now Present Referred By: Carolyn Liang Electronically Signed By:Justin Norman
[2022-08-03 12:46] LABS: MANUAL DIFF FLAG NO
[2022-08-03 12:47] LABS: Basophils Percent Auto 0.2 % (0-2); Eosinophils Absolute Auto 0.1 X10*3/uL (0.0-0.4); Imm Gran Abs Auto 0.03 X10*3/uL (0.00-0.03); Imm Gran Pct Auto 0.4 % (0.0-0.4); Lymphocytes Absolute Auto 1.4 X10*3/uL (1.2-4.9); Lymphocytes Percent Auto 16.8 % (20-40); Mean Corpuscular HGB Conc 35.7 g/dl (31.0-36.0); Mean Corpuscular Hemoglobin 29.9 pg (27.0-33.0); Mean Corpuscular Volume 83.7 fL (80.0-98.0); Mean Platelet Volume 9.3 fL (9.4-12.4); Monocytes Absolute Auto 0.5 X10*3/uL (0.1-1.2); Monocytes Percent Auto 5.7 % (2-11); Neutrophils Absolute Auto 6.3 x10*3/uL (2.0-8.3); Neutrophils Percent Auto 75.9 % (45-73); Platelet Count 268 X10*3/uL (160-400); Red Blood Count 5.02 X10*6/uL (4.60-5.80); Red Cell Distribution Width 12.6 % (11.0-16.0); White Blood Count 8.4 X10*3/uL (4.8-10.8)
[2022-08-03 12:56] LABS: Appearance Urine Clear; Color Urine Yellow; Glucose Urine UA Negative (Negative); Leukocyte Esterase Urine Negative (Negative); Nitrite Urine Negative (Negative); PH 7.5 (5.0-9.0); Specific Gravity - Urine 1.015 (1.005-1.025); UMIC TRIGGER UACC YES; Urine Blood Small (1+) (Negative); Urine Ketones Negative (Negative); Urine Protein Negative (Neg-Trace)
[2022-08-03 12:58] LABS: Bacteria Urine None Seen (None Seen); Hyaline Casts Urine 0-2 /LPF (0-2); Squamous Epithelial Cell Urine 0-2 /HPF (0-2); WBC Urine 0-5 /HPF (0-5)
[2022-08-03 13:02] LABS: Alanine Aminotransferase 21 U/L (0-40); Albumin Level 4.2 g/dL (3.5-5.0); Alkaline Phosphatase 67 U/L (39-117); Anion Gap 13 (12-20); Aspartate Amino Transferase 17 U/L (5-37); Bilirubin Total 0.5 mg/dL (0.0-1.0); Blood Urea Nitrogen 12 mg/dL (9-16); Calcium 9.3 mg/dL (8.4-10.2); Carbon Dioxide 27 mmol/L (22-29); Chloride 103 mmol/L (96-108); Creatinine Clr Calc Pharmacy 74.2; Estimated Glomerular Filt Rate > 60; Glucose Random 130 mg/dL (60-115); Potassium 3.8 mmol/L (3.3-5.1); Sodium 139 mmol/L (135-145)
[2022-08-03] MEDS: LORazepam 1 MG TABLET PO (13:46)
[2022-08-03 13:56] LABS: Lipase 33 U/L (8-78)
[2022-08-03 16:49] VITALS: BP 145/85; PULSE 64; RESP 17; O2SAT 97
== END 2022-08-04 10:30 | disposition home or self-care (01) ==
PROVIDERS: Physician Assistant Medical; Emergency Provider Emergency Medicine; PCP General Practice
DX: R10.10 Upper abdominal pain, unspecified (principal); K29.70 Gastritis, unspecified, without bleeding; F41.9 Anxiety disorder, unspecified; I10 Essential (primary) hypertension; E78.5 Hyperlipidemia, unspecified; Z79.899 Other long term (current) drug therapy; Z79.82 Long term (current) use of aspirin
CPT/HCPCS: 36415; 80053; 81001; 83690; 83735; 85025; 93005; 99283; 99284

== ENCOUNTER → 2022-08-22 13:24 | Outpatient (BNVA) | payer OTHER, SELFPAY | PROVIDERS: PCP Internal Medicine; Referring Provider Internal Medicine; Visit Provider Nurse Practitioner Family | DX: I71.20 Thoracic aortic aneurysm, without rupture, unspecified (principal); I10 Essential (primary) hypertension | CPT/HCPCS: 99212 ==

== ENCOUNTER → 2022-08-23 10:30 | Day surgery (SDC) | payer OTHER, SELFPAY ==
[2022-08-23 11:05] VITALS: BMI 27.3
[2022-08-23] MEDS: Lactated Ringers 1,000 ML 50 ML IVCONT (11:21)
[2022-08-23 11:28] VITALS: BP 153/78; PULSE 67; RESP 18; TEMP 36.4; O2SAT 97
--- NOTE | 2022-08-23 11:58 | P.CONAN_ITS ---
[facility] Active Problems Active Problems: All Active Problems (Updated 08/22/22 @ 12:47 by Lizett Murcia RN) Nocturia more than twice per night (Acute) Left lower quadrant abdominal pain (Acute) Sciatica (Acute) Gallstones (Acute) Elevated glucose level (Acute) Costochondritis (Acute) Thoracic aortic aneurysm (Acute) Hyperlipidemia (Acute) HTN (hypertension) (Acute) BPH w/o urinary obs/LUTS (Acute) Past Medical History Medical History BPH (benign prostatic hyperplasia) BPH w/o urinary obs/LUTS Epididymitis Erectile dysfunction History of eye prosthesis History of kidney stones HTN (hypertension) Hyperlipidemia Nocturia Pernicious anemia Seasonal allergies Surgical History Surgical History H/O colonoscopy History of back surgery History of extraction of renal calculus History of Darrius fundoplication History of surgery Social History Social History Alcohol intake: never Patient Tobacco Use Status: Never used Tobacco Are you DNR?: No Advance Directives: No Advance Directives Information Provided: Yes Nutrition Risks: No Nutritional Risk Meds Allergies Allergy/AdvReac Type Severity Reaction Status Date / Time No Known Allergies Allergy Verified 08/23/22 11:07 [No Known Allergies*] Active Medications: Current Medications Lactated Ringer's (Lr) 1,000 mls @ 50 mls/hr IVCONT .Q20H KHURRAM Last Admin: 08/23/22 11:21 Dose: 50 mls/hr Home Medications Medication Instructions Recorded Confirmed Last Taken Type aspirin 81 mg tablet,delayed 81 mg PO DAILY 12/28/20 08/23/22 08/18/22 History release cholecalciferol (vitamin D3) 50 0 mcg PO 12/28/20 08/22/22 Unknown History mcg (2,000 unit) capsule cyanocobalamin (vitamin B-12) 1,000 mcg IM 12/28/20 08/22/22 Unknown History 1,000 mcg/mL injection solution fluticasone propionate 50 2 spray intranasal BEDTIME 12/28/20 08/23/22 Unknown History mcg/actuation nasal spray,suspension lisinopril 30 mg tablet 30 mg PO DAILY 12/28/20 08/23/2208/23/23 History tamsulosin 0.4 mg capsule 0.4 mg PO DAILY 12/28/20 08/23/22 Unknown History pantoprazole 40 mg tablet,delayed 40 mg PO DAILY 04/22/22 08/23/22 Unknown History release Exam Exam Date and Time: August 23, 2022 1158 Height,Weight and Vital Signs: Height 5 ft 7 in Weight 79.379 kg Last Vital Signs Temp 97.6 F 08/23/22 11:28 Pulse 67 08/23/22 11:28 Resp 18 08/23/22 11:28 BP 153/78 H 08/23/22 11:28 Pulse Ox 97 08/23/22 11:28 O2 Del Method Room Air 08/23/22 11:28 Airway Mallampati Class: II TM Dist: >3cm Neck ROM: Full Loose/Missing/Broken Teeth: Yes and Upper Heart: RRR
--- NOTE | 2022-08-23 12:17 | HO.ANESPROP2 ---
[facility] Active Problems Active Problems: All Active Problems Nocturia more than twice per night (Acute) Left lower quadrant abdominal pain (Acute) Sciatica (Acute) Gallstones (Acute) Elevated glucose level (Acute) Costochondritis (Acute) Thoracic aortic aneurysm (Acute) Hyperlipidemia (Acute) HTN (hypertension) (Acute) BPH w/o urinary obs/LUTS (Acute) Past Medical History Medical History BPH (benign prostatic hyperplasia) BPH w/o urinary obs/LUTS Epididymitis Erectile dysfunction History of eye prosthesis History of kidney stones HTN (hypertension) Hyperlipidemia Nocturia Pernicious anemia Seasonal allergies Surgical History Surgical History H/O colonoscopy History of back surgery History of extraction of renal calculus History of Darrius fundoplication History of surgery History of Problems with Anesthesia: No Social History Social History Alcohol intake: never Patient Tobacco Use Status: Never used Tobacco Are you DNR?: No Advance Directives: No Advance Directives Information Provided: Yes Nutrition Risks: No Nutritional Risk Meds Allergies Allergy/AdvReac Type Severity Reaction Status Date / Time No Known Allergies Allergy Verified 08/23/22 11:07 [No Known Allergies*] Active Medications: Current Medications Lactated Ringer's (Lr) 1,000 mls @ 50 mls/hr IVCONT .Q20H KHURRAM Last Admin: 08/23/22 11:21 Dose: 50 mls/hr Home Medications Medication Instructions Recorded Confirmed Last Taken Type aspirin 81 mg tablet,delayed 81 mg PO DAILY 12/28/20 08/23/22 08/18/22 History release cholecalciferol (vitamin D3) 50 0 mcg PO 12/28/20 08/22/22 Unknown History mcg (2,000 unit) capsule cyanocobalamin (vitamin B-12) 1,000 mcg IM 12/28/20 08/22/22 Unknown History 1,000 mcg/mL injection solution fluticasone propionate 50 2 spray intranasal BEDTIME 12/28/20 08/23/22 Unknown History mcg/actuation nasal spray,suspension lisinopril 30 mg tablet 30 mg PO DAILY 12/28/20 08/23/22 08/23/22 History tamsulosin 0.4 mg capsule 0.4 mg PO DAILY 12/28/20 08/23/22 Unknown History pantoprazole 40 mg tablet,delayed 40 mg PO DAILY 04/22/22 08/23/22 Unknown History release Exam Exam Date and Time: August 23, 2022 1217 Height,Weight and Vital Signs: Height 5 ft 7 in Weight 79.379 kg Last Vital Signs Temp 97.6 F 08/23/22 11:28 Pulse 67 08/23/22 11:28 Resp 18 08/23/22 11:28 BP 153/78 H 08/23/22 11:28 Pulse Ox 97 08/23/22 11:28 O2 Del Method Room Air 08/23/22 11:28 Airway Mallampati Class: II TM Dist: >3cm Neck ROM: Full Loose/Missing/Broken Teeth: Yes and Upper Heart: RRR Lungs: CTA Assessment and Plan Assessment Anesthesia Assessment: Anesthesia Plan Discussed and Chart Reviewed Final Anesthetic Review History of Problems with Anesthesia: No NPO: Yes ASA Class: II Final Preanesthetic Review: Meds/Allgs Chart Reviewed, Consent Obtained/Reviewed and Anes Risks/Benef Reviewed Patient Risk: Low Procedure Risk: Intermediate Anesthetic Plan Anesthetic Plan: MAC: Disposition: Standard PACU
--- NOTE | 2022-08-23 12:40 | MHC.SHP ---
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 No changes have occurred unless specified. Time Spent With Patient Time: Total time managing care of this patient today ____ minutes.
--- NOTE | 2022-08-23 13:07 | PM.OP ---
Brief Operative Note Date of Service: 08/23/22 Pre-op diagnosis: gerd Post-op diagnosis: same Procedure: egd Surgeon: Nicola Nolasco Anesthesia: MAC Was an Candy Catcher used for this Procedure?: No Estimated blood loss (mL): 5 Pathology: other Condition: stable Disposition: PACU
[2022-08-23 13:10] VITALS: BP 115/59; PULSE 61; RESP 18; TEMP 36.9; O2SAT 100
[2022-08-23 13:31] VITALS: BP 126/69; PULSE 73; RESP 18; TEMP 36.9; O2SAT 100
--- NOTE | 2022-08-23 13:43 | OP_ITS ---
DATE OF SERVICE: 08/23/2022 SURGEON: Nicola Nolasco MD INDICATIONS: Gastroesophageal reflux disease. PREOPERATIVE DIAGNOSIS: POSTOPERATIVE DIAGNOSIS: PROCEDURE PERFORMED: Upper endoscopy with biopsy. ESTIMATED BLOOD LOSS: COMPLICATIONS: ANESTHESIA: Monitored anesthesia care. ASSISTANTS: SPECIMENS: DESCRIPTION OF PROCEDURE: A history and physical was performed. The risks and benefits of the procedure were explained to the patient. Informed consent was obtained. The patient was placed in the left lateral decubitus position. The Olympus video gastroscope was introduced into the esophagus, stomach, and duodenum. Examination was performed. The scope was removed. He tolerated the procedure well and was returned to the recovery area in stable condition. FINDINGS: Esophagus: The esophagus was normal. There was no esophagitis. There was a 1 cm area suspicious for possible underlying Mcguire esophagus. Biopsies were obtained at the EG junction at 37 cm. Stomach: The stomach was normal. Antral biopsies were obtained. Duodenum: The bulb and 2nd portion were normal. IMPRESSION: Gastroesophageal reflux disease. RECOMMENDATION: Follow up the biopsy results. MD BLANCA Lea/MODL / [id number]
== END | disposition home or self-care (01) ==
PROVIDERS: PCP General Practice; Visit Provider Internal Medicine Gastroenterology
PROC: 0DJ08ZZ Inspection of Upper Intestinal Tract, Via Natural or Artificial Opening Endoscopic (ICD-10-PCS; CPT 43235; principal; 2022-08-23 12:10)
DX: K22.70 Barrett's esophagus without dysplasia (principal); K21.9 Gastro-esophageal reflux disease without esophagitis; I10 Essential (primary) hypertension; E78.5 Hyperlipidemia, unspecified; D51.0 Vitamin B12 deficiency anemia due to intrinsic factor deficiency; J30.2 Other seasonal allergic rhinitis; N40.0 Benign prostatic hyperplasia without lower urinary tract symptoms; Z79.82 Long term (current) use of aspirin; Z79.899 Other long term (current) drug therapy; Z98.890 Other specified postprocedural states
CPT/HCPCS: 43239; 88305; 88342

== ENCOUNTER → 2022-09-03 13:13 | Outpatient (BNVA) | payer OTHER, SELFPAY | PROVIDERS: PCP General Practice; Visit Provider Surgery | DX: K80.20 Calculus of gallbladder without cholecystitis without obstruction (principal); E78.5 Hyperlipidemia, unspecified | CPT/HCPCS: 99212 ==

== ENCOUNTER 2022-09-03 22:51 | Emergency (ER) | payer OTHER, SELFPAY ==
--- NOTE | ~2022-09-03 | XR_ITS ---
EXAMINATION: XR CHEST CLINICAL INFORMATION: Shortness of breath COMPARISON: 07/28/2022 TECHNIQUE: Frontal view of the chest was obtained. FINDINGS: There is slight elevation of the left hemidiaphragm, similar to prior. No focal consolidation is seen. No evidence of pneumothorax, pleural effusion, or pulmonary edema. The cardiomediastinal contour is unremarkable. No acute osseous findings are seen. XR/XR chest 1V IMPRESSION: No acute cardiopulmonary findings.
[2022-09-03 22:52] VITALS: BP 174/90; PULSE 70; RESP 18; TEMP 36.3; O2SAT 95; BMI 23.6
--- NOTE | 2022-09-03 22:56 | ECG_ITS ---
Test Reason : CHEST PAIN Blood Pressure : / mmHG Vent. Rate : 070 BPM Atrial Rate : 070 BPM P-R Int : 182 ms QRS Dur : 090 ms QT Int : 388 ms P-R-T Axes : 021 -43 036 degrees QTc Int : 419 ms Normal sinus rhythm Left axis deviation Moderate voltage criteria for LVH, may be normal variant ( R in aVL , [place] product ) Abnormal ECG (seems duplicate identical EKG, identical time) Referred By: Ashlyn Youssef Electronically Signed By:JACQUELINE GARCIA
[2022-09-03 23:29] LABS: MANUAL DIFF FLAG NO
[2022-09-03 23:36] LABS: Basophils Percent Auto 0.3 % (0-2); Eosinophils Absolute Auto 0.1 X10*3/uL (0.0-0.4); Eosinophils Percent Auto 1.1 % (0-4); Hematocrit 39.7 % (42.0-52.0); Hemoglobin 13.9 g/dl (14.0-18.0); Imm Gran Abs Auto 0.02 X10*3/uL (0.00-0.03); Imm Gran Pct Auto 0.3 % (0.0-0.4); Lymphocytes Percent Auto 26.1 % (20-40); Mean Corpuscular Hemoglobin 29.2 pg (27.0-33.0); Mean Corpuscular Volume 83.4 fL (80.0-98.0); Mean Platelet Volume 9.2 fL (9.4-12.4); Monocytes Absolute Auto 0.5 X10*3/uL (0.1-1.2); Neutrophils Percent Auto 66.2 % (45-73); Platelet Count 233 X10*3/uL (160-400); Red Blood Count 4.76 X10*6/uL (4.60-5.80); Red Cell Distribution Width 12.6 % (11.0-16.0); White Blood Count 7.5 X10*3/uL (4.8-10.8)
[2022-09-03 23:42] LABS: Anion Gap 12 (12-20); Blood Urea Nitrogen 6 mg/dL (9-16); Calcium 9.1 mg/dL (8.4-10.2); Carbon Dioxide 27 mmol/L (22-29); Chloride 105 mmol/L (96-108); Creatinine Clr Calc Pharmacy 87.1; Estimated Glomerular Filt Rate > 60; Glucose Random 104 mg/dL (60-115); Potassium 3.7 mmol/L (3.3-5.1); Sodium 140 mmol/L (135-145)
[2022-09-03 23:56] LABS: Troponin-I High Sensitivity < 2.7 ng/L (<3.5-35.0)
--- NOTE | 2022-09-04 00:27 | ECG_ITS ---
Test Reason : CHEST PAIN Blood Pressure : / mmHG Vent. Rate : 070 BPM Atrial Rate : 070 BPM P-R Int : 182 ms QRS Dur : 090 ms QT Int : 388 ms P-R-T Axes : 021 -43 036 degrees QTc Int : 419 ms Normal sinus rhythm Left axis deviation Moderate voltage criteria for LVH, may be normal variant ( R in aVL , [place] product ) Abnormal ECG No previous ECGs available Referred By: Ashlyn Youssef Electronically Signed By:JACQUELINE GARCIA
--- NOTE | 2022-09-04 00:37 | ED_ITS ---
HPI - Chest Pain General Chief Complaint: Chest Pain Stated Complaint: High blood pressure Time Seen by Provider: 09/04/22 00:26 Source: patient Mode of arrival: ambulatory Limitations: no limitations History of Present Illness HPI narrative: Patient comes to the emergency room complaining of burning epigastric pain. Patient states that he has had this burning epigastric pain for several years. Patient states that he has had endoscopy, recently done by Dr. Nolasco. Patient was told that he has inflammation. Patient taking pantoprazole daily. Patient states that the acidity at night makes him feel extremely anxious and that is what happened tonight, came to the emergency room. Patient states that he has no chest pain. When patient is very anxious, he states that his blood pressure increases quite a bit. Patient takes lisinopril for blood pressure 30 mg. Related Data Home Medications Medication Instructions Recorded Confirmed aspirin 81 mg tablet,delayed 81 mg PO DAILY 12/28/20 09/03/22 release cholecalciferol (vitamin D3) 50 0 mcg PO 12/28/20 09/03/22 mcg (2,000 unit) capsule cyanocobalamin (vitamin B-12) 1,000 mcg IM 12/28/20 09/03/22 1,000 mcg/mL injection solution fluticasone propionate 50 2 spray intranasal BEDTIME 12/28/20 09/03/22 mcg/actuation nasal spray,suspension lisinopril 30 mg tablet 30 mg PO DAILY 12/28/20 09/03/22 tamsulosin 0.4 mg capsule 0.4 mg PO DAILY 12/28/20 09/03/22 pantoprazole 40 mg tablet,delayed 40 mg PO DAILY 04/22/22 09/03/22 release Previous Rx's Medication Instructions Recorded polyethylene glycol 3350 17 17 g PO BID Constipation 1 month 03/02/21 gram/dose oral powder (Miralax) #1,020 grams amlodipine 5 mg tablet 5 mg PO DAILY #30 tabs 06/20/22 lorazepam 0.5 mg tablet (Ativan) 0.5 mg PO TID PRN anxiety #14 tabs 08/03/22 Allergies Allergy/AdvReac Type Severity Reaction Status Date / Time No Known Allergies Allergy Verified 09/03/22 13:28 [No Known Allergies*] Review of Systems Review of Systems: Constitutional : No Weight loss, No Fever, No Chills, No Night Sweats, No Fatigue, No Malaise ENT/Mouth : No Hearing loss, No Ear Pain, No Nasal Congestion, No Sinus Pain, No Hoarseness, No sore throat, No Rhinorrhea, No Swallowing Difficulty Eyes: No Eye Pain, No Swelling, No Redness, No Foreign Body, No Discharge, No Vision Changes Cardiovascular : No Chest Pain, No SOB, No Dyspnea on Exertion, No Orthopnea, No Edema, No Palpitations Respiratory : No Cough, No Sputum, No Wheezing, No Smoke Exposure, No Dyspnea Gastrointestinal : Complaining of chronic reflux, No Nausea, No Vomiting, No Diarrhea, No Constipation, No abdominal Pain, No Hematochezia, No Melena Genitourinary : no irregular bleeding, No Dysuria, No Urinary Frequency, No Hematuria, No Urinary Incontinence, No Urgency, No Flank Pain, No Urinary Flow Changes, No Hesitancy Musculoskeletal : No joint pain, No Myalgias, No Joint Swelling Skin : No Skin Lesions, No rash Neuro : No Weakness, No Numbness, No Paresthesias, No Loss of Consciousness, No Dizziness, No Headache Psych : Complaining of anxiety No Depression, No SI/HI/AH/VH, No Social Issues, Heme/Lymph: No Bruising, No Bleeding,No Lymphadenopathy Endocrine : No Polyuria, No Polydipsia, No Temperature Intolerance PMFSH Past Medical History Medical History BPH (benign prostatic hyperplasia) BPH w/o urinary obs/LUTS Epididymitis Erectile dysfunction History of eye prosthesis History of kidney stones HTN (hypertension) Hyperlipidemia Nocturia Pernicious anemia Seasonal allergies Surgical History H/O colonoscopy History of back surgery History of extraction of renal calculus History of Darrius fundoplication History of surgery Social History Social History Alcohol intake: never Patient Tobacco Use Status: Never used Tobacco Advance Directives: No Advance Directives Information Provided: Yes Physical Exam Vital Signs: Vital Signs: Last Vital Signs Temp 97.3 F 09/03/22 22:52 Pulse 70 09/03/22 22:52 Resp 18 09/03/22 22:52 BP 174/90 H 09/03/22 22:52 Pulse Ox 95 09/03/22 22:52 O2 Del Method Room Air 09/03/22 22:52 BMI result Body Mass Index 23.6 Const: Other: Appearance: Alert. Oriented X3. No acute distress. Eyes: Pupils equal, round and reactive to light. ENT: Pharynx normal. Neck: Normal inspection. Neck supple. No lymph nodes noted. No crepitus CVS: Normal heart rate and rhythm. Pulses normal. Normal S1 and S2 Respiratory: No respiratory distress. Breath sounds normal. No Wheezing. No rales Abdomen: Soft and nontender. No rigidity. No distention. Skin: Skin warm and dry. Normal skin color. Normal skin turgor. Extremities: No lower extremity edema. No Lacerations. No Rash Neuro: Oriented X 3. No motor deficit. No sensory deficit. Moving all e xtremities. No slurred speech. CN 2 through 12 grossly intact Psych: calm, cooperative, normal affect Medications Administered Discontinued Medications Generic Name Dose Route Start Last Admin Trade Name Freq PRN Reason Stop Dose Admin Al Hydroxide/Mg Hydroxide 30 ml 09/04/22 00:35 09/04/22 00:59 Magnesium Hydrox/Alum Hydrox 30 Ml Oral.Susp PO 09/04/22 00:36 30 ml ONCE ONE Administration Lidocaine HCl 15 ml 09/04/22 00:35 09/04/22 00:59 Lidocaine Hcl Viscous 2 % 15 Ml Solution MUCOUS MEM 09/04/22 00:36 15 ml ONCE ONE Administration Lorazepam 1 mg 09/04/22 00:35 09/04/22 00:59 Lorazepam 1 Mg Tablet PO 09/04/22 00:36 1 mg ONCE ONE Administration Medical Decision Making Medical Decision Making MDM Narrative: -EKG interpreted by me: Sinus rhythm, 170, no ST segment depression or elevation, no T-wave inversion, QTC 419 --troponin negative, patient has been having chronic constant pain since the morning, almost 18 hours now. -patient getting Maalox, viscous lidocaine an Ativan. my interpretation of CXR: no pneumonia, no pneumothorax, rib fractures -patient's blood pressure initially 174/90, when patient got into his room in the main ED, down to 150 systolic. Patient reported no chest pain Lab Data 09/03/22 23:13 09/03/22 23:13 Labs: Lab Results 04/18/23 04/18/23 04/18/23 Range/Units 23:13 23:13 23:13 WBC 7.5 (4.8-10.8) X10*3/uL RBC 4.76 (4.60-5.80) X10*6/uL Hgb 13.9 L (14.0-18.0) g/dl Hct 39.7 L (42.0-52.0) % MCV 83.4 (80.0-98.0) fL MCH 29.2 (27.0-33.0) pg MCHC 35.0 (31.0-36.0) g/dl RDW 12.6 (11.0-16.0) % Plt Count 233 (160-400) X10*3/uL MPV 9.2 L (9.4-12.4) fL Immature Gran % (Auto) 0.3 (0.0-0.4) % Neut % (Auto) 66.2 (45-73) % Lymph % (Auto) 26.1 (20-40) % [place] % (Auto) 6.0 (2-11) % Eos % (Auto) 1.1 (0-4) % Baso % (Auto) 0.3 (0-2) % Lymph # (Auto) 2.0 (1.2-4.9) X10*3/uL [place] # (Auto) 0.5 (0.1-1.2) X10*3/uL Eos # (Auto) 0.1 (0.0-0.4) X10*3/uL Baso # (Auto) 0.0 (0.0-0.2) X10*3/uL Abs Immat Gran (auto) 0.02 (0.00-0.03) X10*3/uL Absolute Neuts (auto) 5.0 (2.0-8.3) x10*3/uL Absolute Nucleated RBC 0.000 (0.0-0.012) X10*3/uL Nucleated RBC % (auto) 0.0 (0.0-0.2) /100WBC Sodium 140 (135-145) mmol/L Potassium 3.7 (3.3-5.1) mmol/L Chloride 105 (96-108) mmol/L Carbon Dioxide 27 (22-29) mmol/L Anion Gap 12 (12-20) BUN 6 L (9-16) mg/dL Creatinine 0.80 (0.5-1.4) mg/dL Estim Creat Clear Calc 87.1 Estimated GFR > 60 Random Glucose 104 (60-115) mg/dL Calcium 9.1 (8.4-10.2) mg/dL Troponin I High Sens < 2.7 (<3.5-35.0) ng/L Independent Interpretation I performed an independent interpretation of an: Plain X-Ray Interpretation: FINDINGS: There is slight elevation of the left hemidiaphragm, similar to prior. No focal consolidation is seen. No evidence of pneumothorax, pleural effusion, or pulmonary edema. The cardiomediastinal contour is unremarkable. No acute osseous findings are seen. XR/XR chest 1V IMPRESSION: No acute cardiopulmonary findings. Discharge Plan Discharge Clinical Impression: Chronic gastroesophageal reflux disease, Anxiety Patient Disposition: Home, Self-Care Instructions: Diet for Stomach Ulcers and Gastritis (ED), Gastroesophageal Reflux Disease (ED), Anxiety (ED) Additional Instructions: Please follow-up with your primary care physician tomorrow. If you have any worsening or new symptoms, please return to the emergency room or call 911 Prescriptions: No Action lorazepam [Ativan] 0.5 mg tablet 0.5 mg PO TID PRN (Reason: anxiety) Qty: 14 0RF cholecalciferol (vitamin D3) 50 mcg (2,000 unit) capsule 0 mcg PO fluticasone propionate 50 mcg/actuation spray,suspension 2 spray intranasal BEDTIME lisinopril 30 mg tablet 30 mg PO DAILY cyanocobalamin (vitamin B-12) 1,000 mcg/mL solution 1,000 mcg IM tamsulosin 0.4 mg capsule 0.4 mg PO DAILY aspirin 81 mg tablet,delayed release (DR/EC) 81 mg PO DAILY amlodipine 5 mg tablet 5 mg PO DAILY Qty: 30 3RF polyethylene glycol 3350 [Miralax] 17 gram/dose powder 17 g PO BID 30 Days Qty: 1020 0RF Rx Instructions: Hold for diarrhea pantoprazole 40 mg tablet,delayed release (DR/EC) 40 mg PO DAILY
[2022-09-04] MEDS: LORazepam 1 MG TABLET PO (00:59)
[2022-09-04] MEDS: Lidocaine HCl Viscous 2 % 15 ML SOLUTION MUCOUS MEM (00:59)
[2022-09-04] MEDS: Magnesium Hydrox/Alum Hydrox 30 ML ORAL.SUSP PO (00:59)
[2022-09-04 01:29] VITALS: BP 132/72; PULSE 60; RESP 21; TEMP 36.4; O2SAT 96
== END 2022-09-04 01:57 | disposition home or self-care (01) ==
PROVIDERS: Emergency Provider Emergency Medicine; PCP General Practice
DX: R07.89 Other chest pain (principal); K21.9 Gastro-esophageal reflux disease without esophagitis; F41.1 Generalized anxiety disorder; F43.0 Acute stress reaction; Z79.899 Other long term (current) drug therapy
CPT/HCPCS: 36415; 71045; 80048; 84484; 85025; 93005; 99284

== ENCOUNTER → 2022-10-15 12:49 | Outpatient (BNVA) | payer OTHER, SELFPAY | PROVIDERS: PCP General Practice; Visit Provider Surgery | DX: K80.20 Calculus of gallbladder without cholecystitis without obstruction (principal); I10 Essential (primary) hypertension; E78.5 Hyperlipidemia, unspecified; I71.20 Thoracic aortic aneurysm, without rupture, unspecified; R73.09 Other abnormal glucose; R73.03 Prediabetes | CPT/HCPCS: 99212 ==

== ENCOUNTER 2023-01-15 14:56 | Outpatient (REF) | payer OTHER, SELFPAY ==
[2023-01-15 17:00] LABS: Prostate Specific Antigen 0.79 ng/mL (<0.05-4.0)
== END 2023-01-15 14:57 | disposition home or self-care (01) ==
LOC: HO.LAB 14:56
PROVIDERS: PCP General Practice; Visit Provider Urology
DX: Z12.5 Encounter for screening for malignant neoplasm of prostate (principal); N40.0 Benign prostatic hyperplasia without lower urinary tract symptoms
CPT/HCPCS: 36415; 84153

== ENCOUNTER 2023-01-29 13:29 | Outpatient (REF) | payer OTHER, SELFPAY ==
[2023-01-29 16:48] LABS: Urine Cytology See Pathology rpt
== END 2023-01-29 13:30 | disposition home or self-care (01) ==
LOC: HO.LAB 13:29
PROVIDERS: Visit Provider Urology
DX: R31.29 Other microscopic hematuria (principal); R35.1 Nocturia
CPT/HCPCS: 51798; 81003; 88112; 99212

== ENCOUNTER 2023-01-29 13:29 | Outpatient (AMB) | payer OTHER, SELFPAY ==
--- NOTE | 2023-01-29 13:33 | A.OFFVIS_ITS ---
Intake Intake Visit Reasons: 1Y PSA(set) Intake Note: Patient is present for PVR/PSA Urology Med: Tamsulosin Antibiotic Allergy: none Blood Thinner: Aspirin Pharmacy: [facility] PVR: 0ML Allergies No Known Allergies [No Known Allergies*] Allergy (Verified 01/29/23 13:39) HPI HPI Comments History of Present Illness Details Jovi is a pleasant male. He is a patient of Dr. Staples. He is seen for the following urologic conditions - lower urinary tract symptoms - erectile dysfunction English translation provided in office by his Significant improvement with nocturia following back surgery 2021 Had two herniated discs repaired at [facility] with Dr. Corado Currently nocturia x2 Would prefer to switch from tamsulosin capsule to another medication Will exchange for terazosin 5 mg 6 month follow-up Lower urinary tract symptoms Longstanding Prior laser prostatectomy Current medications tamsulosin 0.4 mg q.h.s. 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 Erectile dysfunction Not currently a concern [facility] Medical History BPH (benign prostatic hyperplasia) Pernicious anemia Seasonal allergies History of eye prosthesis Epididymitis History of kidney stones Nocturia Hyperlipidemia HTN (hypertension) Erectile dysfunction BPH w/o urinary obs/LUTS Surgical History H/O colonoscopy History of Darrius fundoplication History of back surgery History of surgery History of extraction of renal calculus Social History Alcohol intake: never Patient Tobacco Use Status: Never used Tobacco Review of Systems Const Denies chills and Denies fever(s) Card Reports no additional complaints and Denies syncope Resp Denies cough GI Denies abdominal pain and Denies heartburn Reports as per HPI and Denies change in libido Neuro Denies syncope Psych Denies change in libido Endo Denies change in libido Physical Exam Const General: cooperative, healthy appearing, comfortable and no acute distress Orientation/consciousness: patient oriented x3 HEENT Face and sinus: Yes normal facial exam Mouth: moist mucous membranes Neck Neck: Yes normal visual inspection, Yes full ROM and Yes trachea midline Chest Chest palpation & inspection: normal inspection of the chest Resp Effort & Inspection: normal respiratory effort, able to speak in complete sentences and no respiratory distress GI Inspection: Yes normal to inspection Back/Spine/Pelvis Cervical Spine: normal cervical lordosis Thoracic/Lumbar Spine: thoracic and lumbar spine normal to inspection Skin General skin exam: no rashes or lesions noted Neuro General: patient oriented x3, gait normal, tone normal and moves all extremities Extrem General: Yes normal to inspection and Yes capillary refill normal Office Procedures Post Void Residual Post Residual Void Post Void Residual (PVR): 0 30774-Ccap Void Residual by ultrasound Results AMB Urinalysis, Automated UA Leukoctes 0 Remberto/uL Last Edit by Liana Tavarez [facility] on 01/29/23 13:48 UA Nitrite Negative Last Edit by Liana Tavarez [facility] on 01/29/23 13:48 UA Urobilinogen 0.2 mg/dL Last Edit by Liana Tavarez [facility] on 01/29/23 13:4 8 UA Protein 15 mg/dL Last Edit by Liana Tavarez [facility] on 01/29/23 13:48 UA pH 6.0 Last Edit by Liana Tavarez [facility] on 01/29/23 13:48 UA Blood 200 Anshul/uL Last Edit by Liana Tavarez [facility] on 01/29/23 13:48 UA Specific [place] 1.020 Last Edit by Liana Tavarez [facility] on 01/29/23 13: 48 UA Ketone Negative Last Edit by Liana Tavarez [facility] on 01/29/23 13:48 UA Bilirubin 0 mg/dL Last Edit by Liana Tavarez [facility] on 01/29/23 13:48 UA Glucose 0 mg/dL Last Edit by Liana Tavarez [facility] on 01/29/23 13:48 Results Reviewed Results Reviewed: Laboratory Last Values Urine pH (Auto) 6.0 01/29/23 13:40 Specific [place] (Auto) 1.020 01/29/23 13:40 Urine Protein (Auto) 15 mg/dL 01/29/23 13:40 Glucose (UA)(Auto) 0 mg/dL 01/29/23 13:40 Urine Ketones (Auto) Negative 01/29/23 13:40 Urine Blood (Auto) 200 Anshul/uL 01/29/23 13:40 Urine Nitrite (Auto) Negative 01/29/23 13:40 Urine Bilirubin (Auto) 0 mg/dL 01/29/23 13:40 Urine Urobilinogen (Auto) 0.2 mg/dL 01/29/23 13:40 Leukocyte Esterase (Auto) 0 Remberto/uL 01/29/23 13:40 Assessment & Plan Assessment & Plan (1) Nocturia more than twice per night: Code(s): R35.1 - Nocturia Plan Switch to terazosin Orders: Orders AMB Post Void Residual by ultrasound Today R35.1 - Nocturia AMB Urinalysis Automated Today Z13.9 - Encounter for screening, unspecified Urine Cytology Today R31.29 - Other microscopic hematuria Patient Instructions: Imaging studies, laboratory and physical exam results were discussed and reviewed in detail. No major barriers to patient understanding were identified. An opportunity to ask questions regarding the treatment plan was provided. All questions were answered. The patient expressed understanding and agreement with the above treatment plan. The patient is aware they should contact our office by phone for worsening of their current condition or the appearance of new urologic symptoms. Compliance is encouraged with any medications and followup testing that is ordered. It is a privilege to participate in the urologic care of your patient. If you have any questions or concerns regarding treatment for the above conditions, or other urologic issues, please do not hesitate to contact me. The office telephone contact is [phone]. This note is constructed using voice recognition software. While every effort has been made to ensure accuracy dry cell battery assembler errors may have been included. Yours sincerely, Dr Tito Guerra MD, [facility] - Urology Providers of Expert, Compassionate Care for the Genitourinary System Coding Level of Care Code Est Pt Level 3 (16831) Diagnoses Nocturia more than twice per night R35.1 CPT Codes Post Residual Void - PVR CPT Code: 11760-Mstb Void Residual by ultrasound ([id number])
== END 2023-01-29 14:01 | disposition home or self-care (01) ==
PROVIDERS: PCP General Practice; Visit Provider Urology
DX: R35.1 Nocturia (principal); Z13.9 Encounter for screening, unspecified
CPT/HCPCS: 99213

== ENCOUNTER → 2023-04-07 13:36 | Outpatient (REF) | payer OTHER, SELFPAY ==
--- NOTE | 2023-04-07 13:42 | CA_ITS ---
Transthoracic Echocardiogram Patient (Last, First, Middle): Jovi Mcknight, Gender: Male Date of : 1955 Age: 68 Procedure Date: 04/07/2023 Procedure Type: Transthoracic Echocardiogram Location: OP Height: 167.64 cm Weight: 77.11 kg BSA: 1.87 m2 Heart Rate: bpm BP: 138 / 65 mmHg A R Specialist: ÁNGELA Referring MD: Valencia Rojas DIE PRESSERDainC Symptoms: I71.20 - Thoracic aortic aneurysm, without rupture, unspecified Study Quality: Fair ECG Rhythm: Sinus Conclusions: - The left ventricular systolic function is normal. The calculated ejection fraction is 57% by biplane method. - There is mild aortic valve regurgitation. - The aorta was not well visualized. Sinus of Valsalva about 4.4 cm and ascending aorta about 4.2 cm. - Consider chest CTA. Findings Left Ventricle Normal left ventricular cavity size. There is normal left ventricular wall thickness. The left ventricular systolic function is normal. The calculated ejection fraction is 57% by biplane method. There is no evidence of regional wall motion abnormalities. Diastolic function is normal for age. Right Ventricle Normal right ventricular cavity size and systolic function. Atria Both atria are normal in size. Aortic Valve There is a normal trileaflet aortic valve. There is no aortic valve stenosis. There is mild aortic valve regurgitation. Mitral Valve The mitral valve appears normal. There is trace mitral valve regurgitation. There is no mitral valve stenosis. Pulmonic Valve The pulmonic valve is likely normal. Tricuspid Valve There is mild tricuspid valve regurgitation. There is no evidence of pulmonary hypertension. Great Vessels The aorta was not well visualized. Sinus of Valsalva about 4.4 cm and ascending aorta about 4.2 cm. Venous The inferior vena cava was not well visualized. Pericardium/Pleural There is no evidence of pericardial effusion. Prior Study Comparison Changes noted compared to prior study dated: 04/10/2022. Increase in ascending aortic size but visualization is suboptimal. Measurements 2D Linear Measurements IVSd: 0.78 0.6-0.9/0.6-1.0 cm LVIDd: 3.79 3.9-5.3/4.2-5.9 cm LVIDd Index: 2.03 2.4-3.2/2.2-3.1 cm/m2 LVIDs: 2.92 2.0-3.6 cm LVPWd: 0.98 0.7-1.1 cm LA Diam: 3.40 2.7-3.8/3.0-4.0 cm LAIDs Index: 1.82 1.5-2.3 cm/m2 LV Mass: 120.60 67-162/88-224 g LV Mass Index: 64.49 43-95/49-115 g/m2 LVOT Diam: 1.90 3.0+(-)1.3 cm 2D Systolic Function EF 4C: 50.90 >55% EF 2C: 63.30 >55% EF BiP: 57.20 >55% Mitral Valve MV Pk E: 0.92 MV PK A: 0.90 MV Decel Time: 244.00 E/A: 1.00 E'Lateral: 7.18 E'Medial: 6.42 E/E' Med: 14.30 E/E' Lat: 12.80 PHT: 72.00 MVA PHT: 3.06 Decel Bradford: 3.75 Aortic Valve AoV Pk Jerzy: 1.50 AoV Mn Jerzy: 1.09 AoV VTI: 0.34 AoV Pk Grad: 9.00 Aov Mn Grad: 5.00 LEVI Cont.VTI: 2.08 AI Pk Jerzy: 4.17 AI Bradford: 2.46 LVOT LVOT Pk Jerzy: 1.23 LVOT Mn Jerzy: 0.89 LVOT VTI: 0.25 LVOT Pk Grad: 6.00 LVOT Mn Grad: 4.00 LVOT Diam: 1.90 LVOT Area: 2.84 Diastolic Function MV Pk E: 0.92 MV Pk A: 0.90 E/A: 1.00 E'Medial: 6.42 E/E' Med: 14.30 E' Laterial: 7.18 E/E' Lat: 12.80 Right Ventricle TAPSE (mm): 20.40 TVS' Jerzy: 11.60 Tricuspid Valve TR Pk Jerzy: 2.17 TR Pk Grad: 19.00 Great Vessels Aorta Sinus of Valsalva: 3.70 2.0-3.5 cm Ao Asc: 4.30 2.1-3.4 cm Pulmonary Valve PV Pk Jerzy: 1.09 Peak PV Grad: 5.00 Updated in Other Vendor System with Status of Final Kalyan Pittman MD electronically signed on 04/07/2023 4:25:17 PM with status of Final
== END ==
LOC: HO.CARD 13:36
PROVIDERS: PCP General Practice; Visit Provider Nurse Practitioner Family
DX: I71.20 Thoracic aortic aneurysm, without rupture, unspecified (principal); I10 Essential (primary) hypertension
CPT/HCPCS: 93306

== ENCOUNTER → 2023-04-07 13:42 | Outpatient (BNV) | payer OTHER, SELFPAY | PROVIDERS: PCP General Practice; Visit Provider Internal Medicine | DX: I36.1 Nonrheumatic tricuspid (valve) insufficiency (principal); I35.1 Nonrheumatic aortic (valve) insufficiency | CPT/HCPCS: 93306 ==

== ENCOUNTER 2023-04-12 11:29 | Emergency (ER) | payer OTHER, SELFPAY ==
--- NOTE | ~2023-04-12 | XR_ITS ---
EXAMINATION: XR CHEST CLINICAL INFORMATION: Dry cough COMPARISON: None available. TECHNIQUE: 2 views of the chest were obtained. FINDINGS: No significant abnormality is noted involving the heart, lungs, mediastinum, bony thorax or soft tissues. XR/XR chest 2V IMPRESSION: Unremarkable chest examination.
[2023-04-12 12:01] VITALS: BP 139/71; PULSE 81; RESP 16; TEMP 36.8; O2SAT 95; BMI 26.5
--- NOTE | 2023-04-12 12:01 | ED_ITS ---
HPI - General Adult General Chief complaint: Upper Respiratory Symptoms Stated complaint: throat pain Time Seen by Provider: 04/12/23 12:27 Source: patient, RN notes reviewed and old records reviewed Mode of arrival: ambulatory History of Present Illness HPI narrative: 68-year-old male with past medical history of BPH, and anemia, HLD, HTN, presenting to the ED complaining of sore throat, nasal congestion, postnasal drip, and dry cough x3 days. Reports chronic chest tightness/SOB, unchanged. Admits with similar symptoms. Denies fever, chills, recent travel, abdominal pain, pedal edema Related Data Home Medications Medication Instructions Recorded Confirmed aspirin 81 mg tablet,delayed 81 mg PO DAILY 12/28/20 01/29/23 release cholecalciferol (vitamin D3) 50 0 mcg PO 12/28/20 01/29/23 mcg (2,000 unit) capsule cyanocobalamin (vitamin B-12) 1,000 mcg IM 12/28/20 01/29/23 1,000 mcg/mL injection solution fluticasone propionate 50 2 spray intranasal BEDTIME 12/28/20 01/29/23 mcg/actuation nasal spray,suspension lisinopril 30 mg tablet 30 mg PO DAILY 12/28/20 01/29/23 pantoprazole 40 mg tablet,delayed 40 mg PO DAILY 04/22/22 01/29/23 release Previous Rx's Medication Instructions Recorded polyethylene glycol 3350 17 17 g PO BID Constipation 1 month 03/02/21 gram/dose oral powder (Miralax) #1,020 grams lorazepam 0.5 mg tablet (Ativan) 0.5 mg PO TID PRN anxiety #14 tabs 08/03/22 amlodipine 5 mg tablet 5 mg PO DAILY 90 days #90 tabs 12/18/22 terazosin 5 mg capsule 5 mg PO BEDTIME 90 days #90 caps 01/29/23 tamsulosin 0.4 mg capsule 0.4 mg PO BID 90 days #180 caps 02/28/23 benzonatate 100 mg capsule 100 mg PO TID PRN cough #14 caps 04/12/23 fluticasone propionate 50 2 spray intranasal DAILY #16 grams 04/12/23 mcg/actuation nasal spray,suspension (Flonase Allergy Relief) Allergies Allergy/AdvReac Type Severity Reaction Status Date / Time No Known Allergies Allergy Verified 04/12/23 12:05 [No Known Allergies*] Review of Systems Review of Systems: Constitutional: No Fever, No Chills ENT/Mouth: No Ear Pain, +Nasal Congestion, No Sinus Pain, No Hoarseness, + sore throat, + Rhinorrhea, No Swallowing Difficulty Cardiovascular: +Chest tightness (chronic), + SOB (chronic) Respiratory: + Cough, No Sputum, No Wheezing Gastrointestinal: No Nausea, No Vomiting, No Diarrhea, No Constipation, No Abdominal pain Musculoskeletal: No joint pain, No Myalgias, No Joint Swelling Skin: No Skin Lesions, No rash Neuro: No Weakness Yes all other systems are reviewed and are negative Constitutional: Constitutional: Reports as per [facility] Past Medical History Attestation statement: The following information was validated with the patient. Source: old records reviewed Medical History BPH (benign prostatic hyperplasia) Pernicious anemia Seasonal allergies History of eye prosthesis Epididymitis History of kidney stones Nocturia Hyperlipidemia HTN (hypertension) Erectile dysfunction BPH w/o urinary obs/LUTS Surgical History H/O colonoscopy History of Darrius fundoplication History of back surgery History of surgery History of extraction of renal calculus Social History Alcohol intake: never Patient Tobacco Use Status: Never used Tobacco Advance Directives: No Advance Directives Information Provided: Yes Physical Exam ED Vital Signs: Vital Signs - 24 hr 04/12/23 12:01 Temperature 98.2 F Pulse Rate 81 Respiratory Rate 16 Blood Pressure 139/71 Pulse Oximetry 95 Oxygen Delivery Method Room Air BMI result Body Mass Index 26.5 Const General: cooperative, healthy appearing and no acute distress Orientation/consciousness: patient oriented x3 Limitations: no limitations HENMT Head: Yes normal to inspection and Yes atraumatic Ears: hearing grossly normal bilaterally, external ears normal, TM's normal bilaterally and mastoids normal General nose exam: Normal external nose present Face and sinus: Yes normal facial exam Mouth: Normal oral and palatal mucosa present Throat: Yes tonsils normal, Yes uvula midline, No peritonsillar mass, Yes posterior oropharynx abnormal (Mildly erythematous), No uvula laterally displaced and No uvular edema Eyes General: appearance normal, both eyes and all related structures EOM: EOMs intact bilaterally Neck Neck: Yes normal visual inspection and Yes no meningeal signs Resp Effort & Inspection: normal respiratory effort, no respiratory distress and no stridor Auscultation: clear to auscultation bilaterally, no crackles, no rales, no rhonchi and no wheezes Cardio Rate: regular rate Heart sounds: S1 normal heart sound present and S2 normal heart sound present GI Inspection: Yes normal to inspection Palpation (GI): Soft to palpation, nontender, no guarding and not rigid Skin Rashes: no rashes Wounds: no wounds Neuro General: patient oriented x3, tone normal and no meningeal signs Cranial nerves: Yes CN's II-XII intact bilaterally Gait exam (Neuro): Normal gait present Extrem General: Yes normal to inspection Course Course Course Narrative: RME:?68 yo male with pmhx of HTN, BPH presents with sore throat, pain with swallowing, dry cough, nasal congestion, chest tightness x3 days. at home with same symptoms. Denies fever, chills, difficulty breathing, N/V. PE: lungs CTA b/l, posterior oropharynx with erythema, no edema or exudates. uvula midline. controlling secretions, speaking in complete sentences. Plan: serology, CXR Full HPI, ROS and PE to be performed by the primary ED provider. -RSV positive 1413--XR chest 2V IMPRESSION: Unremarkable chest examination Results discussed with patient including worrisome signs and symptoms and strict return precautions, and when to return to the emergency department. They verbalized understanding and feel safe for discharge at this time. Medical Decision Making Medical Decision Making [facility] Narrative: 68-year-old male with past medical history of BPH, and anemia, HLD, HTN, presenting to the ED complaining of sore throat, nasal congestion, postnasal drip, and dry cough x3 days. On exam vital signs stable, NAD, nontoxic appearing, lungs CTA, oropharynx mildly erythematous. Uvula midline, tonsils WNL, no stridor. Concern for viral illness. Rule out pneumonia vs bronchitis. Lower suspicion for ACS/PE with chronicity/unchanged symptoms. Unlikely dissection/DVT Plan: EKG, viral testing, CXR Please refer to course for remaining clinical decision making, interpretation of labs/imaging results, and discussions with consultants and/or family members. Differential Diagnosis Differential Diagnoses: The differential diagnosis associated with the presentation includes As above Lab Data MDM Lab Attestation statement: I reviewed the patient's lab results. Labs: Lab Results 04/12/23 Range/Units 12:19 Influenza Type A (PCR) NEGATIVE (Negative) Influenza Type B (PCR) NEGATIVE (Negative) RSV RNA Qual (PCR) POSITIVE A (Negative) SARS-CoV-2 RNA (RT-PCR) NEGATIVE (Negative) S. pyogenes GrpA ANTONELLA Negative (Negative) Independent Interpretation I performed an independent interpretation of an: EKG (My interpretation EKG normal sinus rhythm rate of 67. QRS 84. QTC 414. No STEMI) External Record Review External record reviewed: Inpatient record, Office record, Outpatient record, Prior outpatient labs, Prior outpatient radiology, Primary care record and Outside ED record Tests considered The following testing was considered but not selected: As above Prescription Management I considered prescription management with: Pain Medication, Antiviral and Antibiotic Chronic Conditions Patient?s care impacted by: Other Discharge Plan Discharge Clinical Impression: Respiratory syncytial virus (RSV) Patient Disposition: Home, Self-Care Instructions: Respiratory Syncytial Virus (ED) Additional Instructions: You have RSV. This is a contagious virus. Wash her hands, cover her mouth Tessalon Perles over cough when take as needed Flonase is a nasal decongestant Follow-up up with her doctor If symptoms persist or worsen return to the ED Tienes VRS. Rika es un virus contagioso. L?vese las emma, t?pese la boca. Tessalon Perles para la tos cuando se kalli seg?n sea necesario Flonase es un descongestionante nasal Seguimiento con quiles m?dico. Si los s?ntomas persisten o empeoran, regrese al servicio de urgencias. Prescriptions: New benzonatate 100 mg capsule 100 mg PO TID PRN (Reason: cough) Qty: 14 0RF fluticasone propionate [Flonase Allergy Relief] 50 mcg/actuation spray,ariana pension 2 spray intranasal DAILY Qty: 16 0RF Rx Instructions: administer into each nostril No Action amlodipine 5 mg tablet 5 mg PO DAILY 90 Days Qty: 90 3RF tamsulosin 0.4 mg capsule 0.4 mg PO BID 90 Days Qty: 180 1RF lorazepam [Ativan] 0.5 mg tablet 0.5 mg PO TID PRN (Reason: anxiety) Qty: 14 0RF cholecalciferol (vitamin D3) 50 mcg (2,000 unit) capsule 0 mcg PO fluticasone propionate 50 mcg/actuation spray,suspension 2 spray intranasal BEDTIME lisinopril 30 mg tablet 30 mg PO DAILY cyanocobalamin (vitamin B-12) 1,000 mcg/mL solution 1,000 mcg IM aspirin 81 mg tablet,delayed release (DR/EC) 81 mg PO DAILY polyethylene glycol 3350 [Miralax] 17 gram/dose powder 17 g PO BID 30 Days Qty: 1020 0RF Rx Instructions: Hold for diarrhea terazosin 5 mg capsule 5 mg PO BEDTIME 90 Days Qty: 90 1RF pantoprazole 40 mg tablet,delayed release (DR/EC) 40 mg PO DAILY Referrals: Romina Staples MD [Primary Care Provider] - 5 days Print Language: Slovak
--- NOTE | 2023-04-12 12:06 | ECG_ITS ---
Test Reason : SOB Blood Pressure : / mmHG Vent. Rate : 067 BPM Atrial Rate : 067 BPM P-R Int : 194 ms QRS Dur : 084 ms QT Int : 392 ms P-R-T Axes : 013 -37 004 degrees QTc Int : 414 ms Normal sinus rhythm Left anterior fascicular block Abnormal ECG When compared with ECG of 03-SEP-2022 23:05, No significant change was found Referred By: Iwona Barajas Electronically Signed By:NONA PARSONS MD
[2023-04-12 12:40] LABS: IDNOW Serial# 6674DD1D; Strep A Nucleic Acid Negative (Negative)
[2023-04-12 13:07] LABS: Influenza A PCR NEGATIVE (Negative); Influenza B PCR NEGATIVE (Negative); Resp Syncy Virus RNA Qual PCR POSITIVE (Negative); SARS COV2 PCR INHOUSE NEGATIVE (Negative)
[2023-04-12 14:40] VITALS: BP 138/74; PULSE 80; RESP 20; TEMP 36.8; O2SAT 97
== END 2023-04-12 14:56 | disposition home or self-care (01) ==
PROVIDERS: Physician Assistant Medical; Emergency Provider Emergency Medicine; PCP General Practice
DX: R05.9 Cough, unspecified (principal); B97.4 Respiratory syncytial virus as the cause of diseases classified elsewhere; Z20.822 Contact with and (suspected) exposure to COVID-19; Z20.828 Contact with and (suspected) exposure to other viral communicable diseases; I10 Essential (primary) hypertension; J02.9 Acute pharyngitis, unspecified; E78.5 Hyperlipidemia, unspecified; Z79.82 Long term (current) use of aspirin; Z79.899 Other long term (current) drug therapy
CPT/HCPCS: 0241U; 71046; 87651; 93005; 99283

== ENCOUNTER 2023-04-21 10:27 | Outpatient (REF) | payer OTHER, SELFPAY ==
[2023-04-21 10:44] LABS: MANUAL DIFF FLAG NO
[2023-04-21 11:04] LABS: Basophils Percent Auto 0.3 % (0-2); Eosinophils Absolute Auto 0.2 X10*3/uL (0.0-0.4); Eosinophils Percent Auto 3.2 % (0-4); Hematocrit 43.2 % (42.0-52.0); Hemoglobin 14.7 g/dl (14.0-18.0); Imm Gran Abs Auto 0.04 X10*3/uL (0.00-0.03); Imm Gran Pct Auto 0.5 % (0.0-0.4); Lymphocytes Percent Auto 27.9 % (20-40); Mean Corpuscular Hemoglobin 28.8 pg (27.0-33.0); Mean Corpuscular Volume 84.7 fL (80.0-98.0); Mean Platelet Volume 9.5 fL (9.4-12.4); Monocytes Absolute Auto 0.5 X10*3/uL (0.1-1.2); Neutrophils Absolute Auto 4.5 x10*3/uL (2.0-8.3); Neutrophils Percent Auto 61.1 % (45-73); Platelet Count 241 X10*3/uL (160-400); Red Cell Distribution Width 12.5 % (11.0-16.0); White Blood Count 7.3 X10*3/uL (4.8-10.8)
[2023-04-21 11:31] LABS: Alanine Aminotransferase 13 U/L (0-40); Alkaline Phosphatase 73 U/L (39-117); Aspartate Amino Transferase 17 U/L (5-37); Bilirubin Direct 0.1 mg/dL (0.0-0.5); Bilirubin Total 0.4 mg/dL (0.0-1.0); Blood Urea Nitrogen 10 mg/dL (9-16); Estimated Glomerular Filt Rate > 60; Lipase 27 U/L (8-78); Total Protein 7.2 g/dL (6.5-8.0)
== END 2023-04-21 10:28 | disposition home or self-care (01) ==
LOC: HO.LAB 10:27
PROVIDERS: PCP General Practice; Visit Provider Internal Medicine Gastroenterology
DX: R10.9 Unspecified abdominal pain (principal)
CPT/HCPCS: 36415; 80076; 82565; 83690; 84520; 85025

== ENCOUNTER 2023-04-22 11:11 | Outpatient (REF) | payer OTHER, SELFPAY ==
--- NOTE | ~2023-04-22 | CT_ITS ---
EXAMINATION: CTA OF THE CHEST WITHOUT AND WITH CONTRAST CLINICAL INFORMATION: Aortic aneurysm. COMPARISON: Chest x-ray 04/12/2023. CT abdomen 07/28/2022. TECHNIQUE: CT angiography of the chest was performed without and with contrast. 80 mL Omnipaque 350 administered intravenously without complication. 3D POSTPROCESSIN-D MIP images were processed from the initial data set by the senior nuclear medicine technologist on the technologist workstation under concurrent physician supervision. DOSE LOWERING TECHNIQUES: This CT examination was performed using dose optimization techniques as appropriate, variously including the following: - Automated exposure control - Adjustment of mA and/or kV according to patient size (this includes techniques or standardized protocols for targeted exams where dose is matched to indication/reason for exam; i.e. extremities or head) - Use of iterative construction technique DOSE-LENGTH PRODUCT: 122 mGycm FINDINGS: CORONARY ARTERIES: No significant calcium demonstrated. ASCENDING AORTA: The ascending aorta measures approximately 4.0 x 3.7 cm with some limitation due to pulsation artifact. AORTIC ARCH: Normal caliber. Three-vessel aortic arch with minimal atherosclerotic disease. No hemodynamically significant stenosis. DESCENDING AORTA: Normal caliber with minimal atherosclerosis. INCLUDED UPPER ABDOMINAL AORTA: Normal caliber. PULMONARY ARTERIES: The exam was performed in the systemic arterial phase and not timed to evaluate the pulmonary arteries. NONVASCULAR: Arterial phase imaging limits evaluation of nonvascular structures. LUNG: No suspicious lung nodules. No focal consolidation. PLEURA: No pleural effusion or pneumothorax. MEDIASTINUM: No adenopathy. No pericardial effusion. CHEST WALL/AXILLA: No axillary or internal mammary lymphadenopathy. OSSEOUS STRUCTURES: Degenerative changes in the spine. UPPER ABDOMEN: Unremarkable. CT/CT angio chest aorta IMPRESSION: Mildly dilated ascending aorta measure 4.0 x 3.7 cm with some limitation in measurement due to pulsation artifact. Fleischner guidelines were followed.
[2023-04-22] MEDS: iohexoL 350 MG/ML 100 ML INFUS..BTL 80 ML IV (12:27)
== END 2023-04-22 11:12 | disposition home or self-care (01) ==
LOC: HO.CT 11:11
PROVIDERS: PCP General Practice; Visit Provider Nurse Practitioner Family
DX: I71.20 Thoracic aortic aneurysm, without rupture, unspecified (principal)
CPT/HCPCS: 71275; Q9967

== ENCOUNTER 2023-04-29 13:19 | Outpatient (AMB) | payer OTHER, SELFPAY ==
[2023-04-29 13:22] VITALS: BP 120/80; PULSE 70; BMI 26.6
--- NOTE | 2023-04-29 13:22 | MHC.OFFVIS ---
Intake Vital Signs 04/29/23 13:22 Height 5 ft 7 in Weight 169 lb 12.095 oz BMI 26.6 BP 120/80 Blood Pressure Location Lt brachial Position Sitting Pulse 70 Intake Visit Reasons: f/up echo in NOV per dc Intake Note: Follow-up after echo c/o daily chest pressure Boiler Attendant Required: Yes Boiler Attendant Name: Sandi trejo Airline Reservationist: Airline Reservationist Present Accompanied by: Spouse Allergies No Known Allergies [No Known Allergies*] Allergy (Verified 04/12/23 12:05) Medication List - Last Reconciled 04/29/23 by Isaac Zamorano MD amlodipine 5 mg PO DAILY 90 days aspirin 81 mg PO DAILY benzonatate 100 mg PO TID PRN cholecalciferol (vitamin D3) 0 mcg PO cyanocobalamin (vitamin B-12) 1,000 mcg IM esomeprazole magnesium mg PO fluticasone propionate 50 mcg/actuation (Flonase Allergy Relief) 2 sprays intranasal DAILY lisinopril 30 mg PO DAILY lorazepam (Ativan) 0.5 mg PO TID PRN polyethylene glycol 3350 (Miralax) 17 grams PO BID 1 month terazosin 5 mg PO BEDTIME 90 days HPI HPI Comments History of Present Illness Details Kem comes back after recent chest CTA due to suboptimal ascending aorta evaluation. History was obtained with help of welfare project manager. Patient says over the last few months he has been getting retrosternal chest discomfort which she describes as pressure like sensation but mostly happening at rest. Despite the welfare project manager he is not a very good historian very difficult to obtain history. The symptoms last for 5-10 minutes and then dissipate by itself. There is no clear aggravating or relieving factor. Multiple repeat questioning it is not clear if he is not having any exertional symptoms although this sounds like he is okay with exertion as per the . [facility] Medical History BPH (benign prostatic hyperplasia) Pernicious anemia Seasonal allergies History of eye prosthesis Epididymitis History of kidney stones Nocturia Hyperlipidemia HTN (hypertension) Erectile dysfunction BPH w/o urinary obs/LUTS Surgical History H/O colonoscopy History of Darrius fundoplication History of back surgery History of surgery History of extraction of renal calculus Social History Alcohol intake: never Patient Tobacco Use Status: Never used Tobacco Review of Systems Const Denies chills, Denies fatigue, Denies fever(s), Denies frequent falls, Denies weakness, Denies weight gain and Denies weight loss ENT Denies dizziness Card Denies chest pain, Denies leg edema, Denies lightheadedness, Denies palpitations, Denies dyspnea, Denies dyspnea on exertion, Denies orthopnea and Denies other (loss of consciousness) Resp Denies cough, Denies dyspnea and Denies dyspnea on exertion GI Denies hematochezia and Denies change in stool character Musc Denies abnormal gait, Denies muscle weakness, Denies numbness, Denies radiating pain into limb and Denies tingling Neuro Denies Abnormal speech present, Denies abnormal gait, Denies dizziness, Denies frequent falls, Denies numbness, Denies tingling and Denies weakness Endo Denies fatigue and Denies palpitations Physical Exam Vital Signs: Last Vital Signs Pulse 70 04/29/23 13:22 BP 120/80 04/29/23 13:22 BMI result Body Mass Index 26.6 Const General: cooperative, comfortable, no acute distress, alert, awake, Physically active and well groomed Nutritional Appearance: overweight Orientation/consciousness: patient oriented x3 Limitations: no limitations HEENT Head: Yes normocephalic and Yes atraumatic Neck Neck: Yes trachea midline, Yes supple and Yes no JVD Chest Chest palpation & inspection: normal inspection of the chest Resp Effort & Inspection: normal respiratory effort Auscultation: clear to auscultation bilaterally Cardio Jugular venous distension: no JVD Palpation: normal PMI Rate: regular rate Rhythm: regular rhythm Heart sounds: S1 normal heart sound present, S2 normal heart sound present, no click, no gallops, no murmurs and no rubs GI Auscultation: normal bowel sounds Skin General skin exam: no rashes or lesions noted Neuro General: patient oriented x3 and no focal motor deficits Speech: No Abnormal speech present Extrem General: Yes no clubbing, cyanosis or edema Assessment & Plan Assessment & Plan (1) Atypical chest pain: Code(s): R07.89 - Other chest pain Plan: Patient is atypical chest pain with recent onset precordial/retrosternal chest discomfort without any clear trigger events. Unsure if this is under stressful situation. He has multiple risk factors for coronary artery disease. Would suggest exercise myocardial perfusion imaging to further evaluate for his symptoms. Further treatment based on the findings. If this is within normal limits, alternative etiology for chest discomfort including GI etiology (2) Thoracic aortic aneurysm: Code(s): I71.20 - Thoracic aortic aneurysm, without rupture, unspecified Plan: Mild thoracic aortic aneurysm which has remained stable. No further interventions required from that perspective. Continue monitor annually by echocardiogram. Continue aggressive control blood pressure which is currently well optimized. Advised to monitor blood pressure at home maintain a log. Aggressive control of diabetes as well. Target goal LDL less than 70 mg/dL. Advised to avoid sudden strenuous isometric exercise. Will follow up in the clinic in 1 year's time, sooner p.r.n.. Thank you for allowing me to partake in his care Orders: Orders CA stress test 04/29/23 R07.89 - Other chest pain NM cardiolite stress test 2 Weeks R07.89 - Other chest pain CA echo transthoracic complete 50 Weeks I71.20 - Thoracic aortic aneurysm, without rupture, unspecified Medications: Changed From benzonatate 100 mg PO TID PRN 14 caps 0RF cough To benzonatate 100 mg PO TID PRN cough Coding Level of Care Code Est Pt Level 4 (28038) Diagnoses Atypical chest pain R07.89 Thoracic aortic aneurysm I71.20
== END 2023-04-29 14:34 | disposition home or self-care (01) ==
PROVIDERS: Visit Provider Internal Medicine Cardiovascular Disease
DX: R07.89 Other chest pain (principal); I71.20 Thoracic aortic aneurysm, without rupture, unspecified
CPT/HCPCS: 99214

== ENCOUNTER → 2023-04-29 13:19 | Outpatient (BNVA) | payer OTHER, SELFPAY | PROVIDERS: Visit Provider Internal Medicine Cardiovascular Disease | DX: I71.20 Thoracic aortic aneurysm, without rupture, unspecified (principal); R07.89 Other chest pain | CPT/HCPCS: 99212 ==

== ENCOUNTER 2023-05-07 13:23 | Outpatient (REF) | payer OTHER, SELFPAY ==
[2023-05-07 14:45] LABS: Appearance Urine Clear; Color Urine Yellow; Glucose Urine UA Negative (Negative); Leukocyte Esterase Urine Negative (Negative); Nitrite Urine Negative (Negative); PH 7.5 (5.0-9.0); Specific Gravity - Urine 1.015 (1.005-1.025); UMIC TRIGGER UA YES; Urine Blood Small (1+) (Negative); Urine Ketones Negative (Negative); Urine Protein Negative (Neg-Trace)
[2023-05-07 14:48] LABS: Bacteria Urine None Seen (None Seen); Hyaline Casts Urine 0-2 /LPF (0-2); Squamous Epithelial Cell Urine 0-2 /HPF (0-2); WBC Urine 0-5 /HPF (0-5)
== END 2023-05-07 13:24 | disposition home or self-care (01) ==
LOC: HO.LAB 13:23
PROVIDERS: Visit Provider Internal Medicine Gastroenterology
DX: R10.9 Unspecified abdominal pain (principal)
CPT/HCPCS: 81001

== ENCOUNTER 2023-05-08 13:42 | Outpatient (REF) | payer OTHER, SELFPAY ==
[2023-05-09 13:58] LABS: OBS Int Ctl Valid YES; OBS1 NEGATIVE (NEGATIVE)
[2023-05-09 13:59] LABS: OBS Lot 50322
== END 2023-05-08 13:43 | disposition home or self-care (01) ==
LOC: HO.LNP 13:42
PROVIDERS: Visit Provider Internal Medicine Gastroenterology
DX: Z13.89 Encounter for screening for other disorder (principal)
CPT/HCPCS: 82272

== ENCOUNTER 2023-05-08 17:43 | Outpatient (REF) | payer OTHER, SELFPAY | END 2023-05-08 17:44 | disposition home or self-care (01) | LOC: HO.LNP 17:43 | PROVIDERS: Visit Provider Emergency Medicine | DX: R30.0 Dysuria (principal) | CPT/HCPCS: 87086 ==

== ENCOUNTER → 2023-06-23 08:16 | Outpatient (REF) | payer OTHER, SELFPAY ==
--- NOTE | ~2023-06-23 | NM_ITS ---
EXERCISE MYOCARDIAL PERFUSION STUDY INDICATION: Chest pain, assess for coronary disease and ischemia TECHNIQUE: The patient was brought in for an exercise perfusion study on 06/23/2023. Patient performed exercise as per Esteban protocol and was injected 25 mCi of sestamibi once target heart rate was achieved. Images were obtained using the SPECT gamma camera interlaced with the gating device. Images were obtained in supine position. Resting perfusion study was performed on 06/25/2023. Patient was administered 25 mCi of sestamibi intravenously at rest. Images were then obtained in supine position. Images were processed with the software and compared side to side in short axis, horizontal long axis and vertical long axis views. Total DLP 81mGy-cm. FINDINGS: Raw images were reviewed. The stress perfusion study showed diminished tracer uptake in the basal inferoseptal wall. There is persistence with CT attenuation correction. The gated study shows normal LV systolic function with calculated LVEF of 72%. LV cavity is normal in size. The gated study shows basal inferoseptal akinesis. Resting study shows diminished tracer uptake in the basal part of inferoseptal wall but slightly improved. There is further improvement with CT attenuation correction and hence could have components of diaphragmatic attenuation artifact. Gating at rest reveals normal wall motion with ejection fraction at 68%. The findings are consistent with basal inferoseptal/inferior ischemia/infarct pattern. NM/NM cardiolite stress test IMPRESSION: 1. Myocardial perfusion imaging study shows mixed finding ischemia/infarct in the basal inferoseptal/inferior wall. 2. Gated LVEF is 72% during stress and 68% during rest. 3. Transient ischemic dilatation not present. EKG component of the test reported separately.
--- NOTE | 2023-06-23 08:21 | CA_ITS ---
Acquisition Time: 2023-06-23 08:32:01 Total Exercise Time: 00:06:29 Test Indications: CP Medications: SEE H Protocol: NANCY Max HR: 151 BPM 100% of Pred: 150 BPM Max BP: 170/064 mmHG Max Work Load: 7.7 METS Exercise stress test exercise 6 min 29 sec of Nancy protocol 102% MPHR, without anginal symptoms, with isolated PACs and PVCs, with normotensive response to exercise, without EKG changes. Nuclear images pending. Test reviewed with Dr. Pittman. Referred By: Isaac Zamorano Overread By: Cintia Stover
== END ==
LOC: HO.CARD 08:16
PROVIDERS: PCP General Practice; Visit Provider Internal Medicine Cardiovascular Disease
DX: R07.89 Other chest pain (principal)
CPT/HCPCS: 78452; 93017; A9500

== ENCOUNTER → 2023-06-23 08:21 | Outpatient (BNV) | payer OTHER, SELFPAY | PROVIDERS: PCP General Practice; Visit Provider Nurse Practitioner | DX: I25.10 Atherosclerotic heart disease of native coronary artery without angina pectoris (principal) | CPT/HCPCS: 78452; 93016; 93018 ==

== ENCOUNTER 2023-06-25 13:52 | Outpatient (REF) | payer OTHER, SELFPAY ==
[2023-06-25 15:36] LABS: Blood Urea Nitrogen 15 mg/dL (9-16); Estimated Glomerular Filt Rate > 60
== END 2023-06-25 13:53 | disposition home or self-care (01) ==
LOC: HO.LAB 13:52
PROVIDERS: Visit Provider Internal Medicine Gastroenterology
DX: R10.84 Generalized abdominal pain (principal)
CPT/HCPCS: 36415; 82565; 84520

== ENCOUNTER 2023-07-08 08:37 | Outpatient (REF) | payer OTHER, SELFPAY ==
[2023-07-08 09:58] LABS: Anion Gap 9 (12-20); Blood Urea Nitrogen 14 mg/dL (9-16); Calcium 9.4 mg/dL (8.4-10.2); Carbon Dioxide 33 mmol/L (22-29); Chloride 106 mmol/L (96-108); Estimated Glomerular Filt Rate > 60; Glucose Random 123 mg/dL (60-115); Potassium 4.1 mmol/L (3.3-5.1); Sodium 144 mmol/L (135-145)
== END 2023-07-08 08:38 | disposition home or self-care (01) ==
LOC: HO.LAB 08:37
PROVIDERS: PCP General Practice; Visit Provider Nurse Practitioner Family
DX: I10 Essential (primary) hypertension (principal); I71.20 Thoracic aortic aneurysm, without rupture, unspecified
CPT/HCPCS: 36415; 80048

== ENCOUNTER 2023-07-10 13:45 | Outpatient (REF) | payer OTHER, SELFPAY ==
--- NOTE | ~2023-07-10 | CT_ITS ---
EXAMINATION: CT ABDOMEN AND PELVIS WITH CONTRAST CLINICAL INFORMATION: Abdominal pain COMPARISON: None available. TECHNIQUE: Multidetector volumetric images were obtained from the superior aspect of the liver through the pubic symphysis following administration 85 mL of Omnipaque 350 intravenous contrast. Sagittal and coronal reformatted images were obtained on the technologist's workstation. Oral contrast: No This CT examination was performed using dose optimization techniques as appropriate, variously including the following: *Automated exposure control *Adjustment of mA and/or kV according to patient size (this includes techniques or standardized protocols for targeted exams where dose is matched to indication/reason for exam; i.e. extremities or head) *Use of iterative reconstruction technique DLP: 345 mGy-cm FINDINGS: GLUE CLAMP OPERATOR: Dilated stomach. Nonspecific bowel pattern. Fecal retention. LUNG BASES: The visualized lung bases are unremarkable. Heart size within normal limits. No pericardial effusion. LIVER, GALLBLADDER, AND BILIARY TREE: The liver is normal in size, shape, and attenuation. No focal hepatic lesion or biliary ductal dilatation is present. The gallbladder is decompressed with no evidence of radiopaque gallstones, gallbladder wall thickening, or obvious pericholecystic inflammatory changes. PANCREAS: Unremarkable. SPLEEN: Unremarkable. Splenule. ADRENAL GLANDS: Unremarkable. KIDNEYS AND URETERS: The kidneys are normal in size, shape, and attenuation. In comparison with previous studies, mild bilateral intrarenal collecting system fullness without hydronephrosis and mild left ureteral prominence. Vascular calcification again identified in the right kidney. No definite renal calculi. Too small to characterize renal hypodensities, likely cysts. No perinephric stranding. BLADDER: Decompressed but otherwise unremarkable. GASTROINTESTINAL TRACT: Distended contrast and debris filled stomach. Unchanged GE junction thickening. Nonobstructive bowel pattern. Unremarkable terminal ileum. No CT evidence of acute appendicitis. Severe fecal retention. Redundant sigmoid colon. ABDOMINAL WALL: No significant hernia is appreciated. LYMPH NODES: Normal. VASCULAR: Atherosclerotic calcifications nonaneurysmal aorta and tortuous iliac arteries. Unremarkable inferior vena cava and iliac veins. Patent portal system. PELVIC VISCERA: Unremarkable. OSSEOUS STRUCTURES: L4-L5 disc disease. CT/CT abdomen pelvis w IV con IMPRESSION: Severe fecal retention. In comparison with previous studies, mild bilateral intrarenal collecting system and left ureteral prominence. GE junction thickening and gastric distention. Fleischner guidelines were followed.
[2023-07-10] MEDS: iohexoL 350 MG/ML 100 ML INFUS..BTL IV (16:32)
[2023-07-10] MEDS: Barium Sulfate Oral (Berry) 450 ML ORAL.SUSP 900 ML PO (16:33)
== END 2023-07-10 13:46 | disposition home or self-care (01) ==
LOC: HO.CT 13:45
PROVIDERS: PCP General Practice; Visit Provider Internal Medicine Gastroenterology
DX: R10.9 Unspecified abdominal pain (principal)
CPT/HCPCS: 74177

== ENCOUNTER 2023-07-31 14:04 | Outpatient (AMB) | payer OTHER, SELFPAY ==
--- NOTE | 2023-07-31 14:09 | A.OFFVIS_ITS ---
Intake Intake Visit Reasons: 6m/PVR Intake Note: Patient presents today for a follow-up on PVR Meds- Terazosin Allergies to Antibiotic- No Known Allergies Blood Thinner- Aspirin Post Void Residual:0ml Spinner Cap Frame Required: Yes Accompanied by: and grandson Allergies No Known Allergies [No Known Allergies*] Allergy (Verified 07/31/23 21:29) Medication List - Last Reconciled 07/31/23 by MAURIZIO Quiñoenz-BLANCA amlodipine 5 mg PO DAILY 90 days aspirin 81 mg PO DAILY cholecalciferol (vitamin D3) 0 mcg PO cyanocobalamin (vitamin B-12) 1,000 mcg IM lisinopril 30 mg PO DAILY polyethylene glycol 3350 (Miralax) 17 grams PO BID 1 month terazosin 5 mg PO BEDTIME 90 days HPI HPI Comments History of Present Illness Details Jovi is a 68-year-old Argentine-speaking patient of Dr. Staples. He has a past medical history of BPH with prior prostate procedure, pernicious anemia, seasonal allergies, epididymitis, nephrolithiasis, nocturia, hyperlipidemia, hypertension, and erectile dysfunction. He presents to the office today for follow-up of his lower urinary tract symptoms. Of note, patient was last seen approximately [address] Guerra at which time his Flomax was changed to terazosin 5 mg at bedtime. In discussion with the patient today he reports to be happy with current voiding parameters. He does report intermittent episodes of nocturia however relates this to his consumption of fluid prior to bed. He otherwise denies urinary urgency, urinary frequency, incontinence, nocturia, hematuria, dysuria, foul smelling urine, changes to urinary stream, flank pain, fever, and or chills. In office urinalysis results reviewed with the patient today 3+ microscopic hematuria in review of patient's chart it appears cytology 02/08 Negative for high-grade urothelial carcinoma. When asked he denies any previous smoking history and or or any known chemical exposure. He otherwise denies any bothersome urinary issues or concerns. Lower urinary tract symptoms Longstanding Prior laser prostatectomy Current medications tamsulosin 0.4 mg q.h.s. 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 Erectile dysfunction Not currently a concern PFS Medical History BPH (benign prostatic hyperplasia) Pernicious anemia Seasonal allergies History of eye prosthesis Epididymitis History of kidney stones Nocturia Hyperlipidemia HTN (hypertension) Erectile dysfunction BPH w/o urinary obs/LUTS Surgical History H/O colonoscopy History of Darrius fundoplication History of back surgery History of surgery History of extraction of renal calculus Social History Alcohol intake: never Patient Tobacco Use Status: Never used Tobacco Review of Systems Const Reports no additional complaints Eyes Reports no additional complaints ENT Reports no additional complaints Card Reports as per HPI Resp Reports no additional complaints GI Reports as per HPI Reports as per HPI Musc Reports as per [facility] Neuro Reports no additional complaints Psych Reports no additional complaints Endo Reports no additional complaints Harshal/Lymph Reports no additional complaints Aller/Immun Reports as per [facility] Physical Exam Const General: cooperative, healthy appearing, comfortable, no acute distress, well developed, alert and awake Orientation/consciousness: patient oriented x3 Limitations: no limitations HEENT Head: Yes normal to inspection, Yes normocephalic and Yes atraumatic Ears: hearing grossly normal bilaterally Eyes General: appearance normal, both eyes and all related structures Neck Neck: Yes normal visual inspection and Yes trachea midline Chest Chest palpation & inspection: normal inspection of the chest Resp Effort & Inspection: normal respiratory effort and able to speak in complete sentences Cardio Rate: regular rate GI Inspection: Yes normal to inspection General: Yes no CVA tenderness Back/Spine/Pelvis Back: no CVA tenderness Skin General skin exam: no rashes or lesions noted Neuro General: patient oriented x3 Extrem General: Yes normal to inspection Psych Appearance: grossly normal and well kempt Mental Status: mental status grossly normal Speech and movement: Normal speech and movement present and Clear speech present Affect: normal affect Attitude: cooperative Thought process: Normal thought process present Thought content: Normal thought content present Insight: Fair insight present (Psych) Judgement: Fair judgement present (Psych) Office Procedures Post Void Residual Post Residual Void Post Void Residual (PVR): 0 [id number]-[id number] Void Residual by ultrasound Results AMB Urinalysis, Automated UA Leukoctes 0 Remberto/uL Last Edit by Flavia Alvarenga [facility] on 07/31/23 14 :31 UA Nitrite Negative Last Edit by Flavia Alvarenga [facility] on 07/31/23 14: 31 UA Urobilinogen 0.2 mg/dL Last Edit by Flavia Alvarenga [facility] on 4 14:31 UA Protein 15 mg/dL Last Edit by Flavia Alvarengacristina Alvarenga [facility] on 07/31/23 14:3 1 UA pH 6.0 Last Edit by Flavia Alvarenga [facility] on 07/31/23 14:31 UA Blood 200 Anshul/uL Last Edit by Flavia Alvarenga [facility] on 07/31/23 14:3 1 UA Specific Uehling 1.015 Last Edit by Flavia Alvarenga [facility] on 14:31 UA Ketone Negative Last Edit by Flavia Alvarenga [facility] on 07/31/23 14:3 1 UA Bilirubin 0 mg/dL Last Edit by Flavia Alvarenga [facility] on 07/31/23 14: 31 UA Glucose 0 mg/dL Last Edit by Flavia Alvarengacristina Alvarenga [facility] on 07/31/23 14:31 Results Reviewed Results Reviewed: Laboratory Last Values Urine pH (Auto) 6.0 07/31/23 14:28 Specific Uehling (Auto) 1.015 07/31/23 14:28 Urine Protein (Auto) 15 mg/dL 07/31/23 14:28 Glucose (UA)(Auto) 0 mg/dL 07/31/23 14:28 Urine Ketones (Auto) Negative 07/31/23 14:28 Urine Blood (Auto) 200 Anshul/uL 07/31/23 14:28 Urine Nitrite (Auto) Negative 07/31/23 14:28 Urine Bilirubin (Auto) 0 mg/dL 07/31/23 14:28 Urine Urobilinogen (Auto) 0.2 mg/dL 07/31/23 14:28 Leukocyte Esterase (Auto) 0 Remberto/uL 07/31/23 14:28 Assessment & Plan Assessment & Plan (1) Microscopic hematuria: Code(s): R31.29 - Other microscopic hematuria (2) Nocturia more than twice per night: Code(s): R35.1 - Nocturia (3) BPH w/o urinary obs/LUTS: Comment: Prior prostate laser Code(s): N40.0 - Benign prostatic hyperplasia without lower urinary tract symptoms Plan In office urinalysis results reviewed with the patient today will; as noted above; will send for urine cytology. Patient reports be happy with current voiding parameters on 5 mg of terazosin; will continue; refill provided. Patient denies any bothersome urinary issues or concerns. Discussed at length importance of limiting fluids 3-4 hours prior to bed to assist with decreasing episodes of nocturia. Discussed at length potential causes of microscopic hematuria Will obtain PSA in 6 months. Follow-up in 6 months with PSA to be completed prior and PVR at next office visit; or sooner with any issues, concerns, and or questions. Orders: Orders 2 AMB Post Void Residual by ultrasound Today R33.9 - Retention of urine, unspecified AMB Post Void Residual by ultrasound Today R33.9 - Retention of urine, unspecified AMB Urinalysis Automated Today R31.29 - Other microscopic hematuria Urine Cytology Today R31.29 - Other microscopic hematuria Patient Instructions: The patient had an opportunity to ask questions regarding the treatment plan. All questions were answered. Physical exam, labs, and imaging were discussed and reviewed in detail. As well as risks, benefits, and discussion of treatment choices. No major barriers to understanding were identified. The patient expressed understanding and agreement with the above treatment plan. The patient was made aware they should contact our office by phone for worsening of their current condition, the appearance of new symptoms, or with any questions or concerns. Compliance is encouraged with any medications and follow up testing that is ordered. It is a privilege to be allowed the opportunity to participate in? your urological care.? Again, if you have any questions or concerns If you have any questions or concerns please do not hesitate to contact me. The office is [phone]. This note is constructed using voice recognition software. While every effort has been made to ensure accuracy special agent errors may have been included. Yours sincerely, Maggi Strickland, BLOOM CONVEYOR OPERATOR-BC Coding Level of Care Code Est Pt Level 3 (75661) Diagnoses Microscopic hematuria R31.29 Nocturia more than twice per night R35.1 BPH w/o urinary obs/LUTS N40.0 CPT Codes Post Residual Void - PVR CPT Code: 92169-[id number] Void Residual by ultrasound ([id number])
== END 2023-07-31 14:43 | disposition home or self-care (01) ==
PROVIDERS: PCP General Practice; Visit Provider Nurse Practitioner Family
DX: R31.29 Other microscopic hematuria (principal); R35.1 Nocturia; N40.0 Benign prostatic hyperplasia without lower urinary tract symptoms
CPT/HCPCS: 99213

== ENCOUNTER 2023-07-31 14:04 | Outpatient (REF) | payer OTHER, SELFPAY ==
[2023-07-31 16:49] LABS: Urine Cytology See Pathology rpt
== END 2023-07-31 14:05 | disposition home or self-care (01) ==
LOC: HO.LAB 14:04
PROVIDERS: PCP General Practice; Visit Provider Nurse Practitioner Family
DX: R31.29 Other microscopic hematuria (principal); R33.9 Retention of urine, unspecified; R35.1 Nocturia; N40.0 Benign prostatic hyperplasia without lower urinary tract symptoms
CPT/HCPCS: 51798; 81003; 88112; 99212

== ENCOUNTER 2023-12-15 10:26 | Emergency (ER) | payer OTHER, SELFPAY ==
--- NOTE | ~2023-12-15 | CT_ITS ---
EXAMINATION: CT CERVICAL SPINE WITHOUT CONTRAST CLINICAL INFORMATION: Right-sided neck pain COMPARISON: X-ray cervical spine on 11/19/2012 TECHNIQUE: Multiple 2.0 mm axial images were obtained from base of skull to T1 levels without IV contrast enhancement. Sagittal and coronal 2.0 mm bone window images were reconstructed from axial image data. This CT examination was performed using dose optimization techniques as appropriate, variously including the following: *Automated exposure control *Adjustment of mA and/or kV according to patient size (this includes techniques or standardized protocols for targeted exams where dose is matched to indication/reason for exam; i.e. extremities or head) *Use of iterative reconstruction technique DLP: 353.64 mGy-cm FINDINGS: C1/C2: Bony structures are intact with normal alignment. There is no spinal stenosis. C2/C3: Bony structures are intact with normal alignment. There is no spinal stenosis. Bilateral C2/C3 neuroforamina are patent. Bilateral apophyseal joints are intact with normal alignment. C3/C4: Bony structures are intact with normal alignment. There is no spinal stenosis. Bilateral C3/C4 neuroforamina are patent. Bilateral apophyseal joints are intact with normal alignment. C4/C5: Bony structures are intact with normal alignment. Large sharp anterior inferior C4 syndesmophyte is present. There is no spinal stenosis. There is marked asymmetric left C4/C5 neural foraminal stenosis. Bilateral apophyseal joints are intact with normal alignment. C5/C6: Bony structures are intact with normal alignment. Large sharp anterior bridging syndesmophytes are present. There is no spinal stenosis. Bilateral C5/C6 neuroforamina are patent. Bilateral apophyseal joints are intact with normal alignment. C6/C7: Bony structures are intact with normal alignment. There is no spinal stenosis. Bilateral C6/C7 neuroforamina are patent. Bilateral apophyseal joints are intact with normal alignment. C7/T1: Bony structures are intact with normal alignment. There is no spinal stenosis. Bilateral C7/T1 neuroforamina are patent. Bilateral apophyseal joints are intact with normal alignment. Multilevel bilateral apophyseal joint and uncovertebral joint osteoarthritis with loss of joint space, sclerosis, facet hypertrophy and osteophytosis are seen. Prominent ossifications are seen in the ligamentum nuchae from C5 to C7. CT/CT cervical spine wo IV con IMPRESSION: 1. No evidence of acute fracture or dislocation. 2. 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 3. Sharp anterior syndesmophytes are seen from C4 to C6. Fleischner guidelines were followed.
[2023-12-15 11:18] VITALS: BP 159/70; PULSE 60; RESP 18; TEMP 36; O2SAT 98; BMI 27.5
--- NOTE | 2023-12-15 11:24 | ED_ITS ---
HPI - General Adult General Chief complaint: Neck Pain/Injury Stated complaint: L Side Neck Pain Time Seen by Provider: 12/15/23 11:26 Source: patient Mode of arrival: ambulatory Limitations: no limitations History of Present Illness ED Provider: Jose Prater PA-C HPI narrative: 68 year old man with a history of hypertension, hyperlipidemia, prediabetes, and BPH presents today with his with complaints about right upper shoulder and neck pain that radiates down to the clavicle. Patient states that he has had this pain for about 2 months and it seems to be worsening slightly. Over the last 2 months he has been lifting heavy bikes and restoring them more often as well as helping a friend move heavy boxes into storage areas that are above shoulder level. The states that he has been lifting heavy items repeatedly for the last 2 months even though she told him to slow down and stop lifting heavy objects so much . He states that 2 months ago he went to his PCP and he was diagnosed with an ear infection in which he was given oral antibiotics (Amoxicillin) and topical antibiotic eardrops to help with the ear infection. Patient states that he thought the antibiotics would help with the pain in the neck, but they did not. He is not endorsing any ear pain at this time. Patient states that the pain is constant, and when he moves the pain is slightly increased. 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 He states that there is not tingling or shooting pain, but upon PE he had slight shooting pain down his right arm. He does not endorse pain on the left upper extremity. He has taken aspirin for the pain, sometimes does a cold compression, but denies any other pain management. He currently is using a ice pack to help with the pain. MD complaint: Right sided neck pain, tightness Onset (ago): month(s) (2) Location: neck (right ) Radiation: neck (radaites from neck to lower clavicle on the right side) Severity: mild Severity scale (1-10): 7 Quality: stabbing, sharp and constant Pain Consistency: constant Relieving factors: none Exacerbating factors: movement Associated symptoms: denies other symptoms Treatments prior to arrival: aspirin and cold therapy Related Data Home Medications ?Medication ?Instructions ?Recorded ?Confirmed aspirin 81 mg tablet,delayed 81 mg PO DAILY 12/28/20 04/29/23 release cholecalciferol (vitamin D3) 50 0 mcg PO 12/28/20 04/29/23 mcg (2,000 unit) capsule cyanocobalamin (vitamin B-12) 1,000 mcg IM 12/28/20 04/29/23 1,000 mcg/mL injection solution lisinopril 30 mg tablet 30 mg PO DAILY 12/28/20 04/29/23 Previous Rx's ?Medication ?Instructions ?Recorded polyethylene glycol 3350 17 17 g PO BID Constipation 1 month 03/02/21 gram/dose oral powder (Miralax) #1,020 grams amlodipine 5 mg tablet 5 mg PO DAILY 90 days #90 tabs 12/18/22 terazosin 5 mg capsule 5 mg PO BEDTIME 90 days #90 caps 01/29/23 cyclobenzaprine 5 mg tablet 5 mg PO TID PRN muscle spasm #10 12/15/23 tabs lidocaine 5 % topical patch 1 patch topical DAILY #15 ea 12/15/23 naproxen 500 mg tablet 500 mg PO BID PRN pain #14 tabs 12/15/23 Allergies Allergy/AdvReac Type Severity Reaction Status Date / Time No Known Allergies Allergy Verified 12/15/23 11:23 [No Known Allergies*] Review of Systems Review of Systems: Yes all other systems are reviewed and are negative PMFSH Past Medical History Medical History BPH (benign prostatic hyperplasia) Pernicious anemia Seasonal allergies History of eye prosthesis Epididymitis History of kidney stones Nocturia Hyperlipidemia HTN (hypertension) Erectile dysfunction BPH w/o urinary obs/LUTS Surgical History H/O colonoscopy History of Darrius fundoplication History of back surgery History of surgery History of extraction of renal calculus Social History Social History Alcohol intake: never Patient Tobacco Use Status: Never used Tobacco Advance Directives: No Advance Directives Information Provided: Yes Do you have a plan to hurt others: No Plan Physical Exam ED Vital Signs: Vital Signs - 24 hr 12/15/23 11:18 12/15/23 14:47 Temperature 96.8 F 96.8 F Pulse Rate 60 54 Respiratory Rate 18 18 Blood Pressure 159/70 H 134/70 Pulse Oximetry 98 96 Oxygen Delivery Method Room Air Room Air BMI result Body Mass Index 27.5 Const General: cooperative, healthy appearing and comfortable Nutritional Appearance: average body habitus Orientation/consciousness: patient oriented x3 Limitations: no limitations HENMT Other: no difficulty breathing Neck Other: Neck pain with palpitation on the right side and radiating pain to lower right clavicle. Pain with radiculopathy with ROM of right upper extremity, endorses string muscle pain as well. No pain or radicular symptoms on left upper extremity. No difficulty breathing Neck: Yes normal visual inspection, Yes full ROM and Yes no lymphadenopathy Lymphatic: no lymphadenopathy noted Chest Chest palpation & inspection: normal inspection of the chest Resp Effort & Inspection: normal respiratory effort and able to speak in complete sentences Auscultation: clear to auscultation bilaterally Cardio Rate: regular rate Rhythm: regular rhythm Heart sounds: S1 normal heart sound present, S2 normal heart sound present and Murmur heart sound present (Slight regurgitation on auscultation, previous history of valve leak aorta ) Back/Spine/Pelvis Cervical Spine: normal cervical lordosis, cervical ROM normal and pain with cervical ROM Neuro General: patient oriented x3 Medications Administered Discontinued Medications Generic Name Dose Route Start Last Admin Trade Name Freq PRN Reason Stop Dose Admin Acetaminophen 975 mg 12/15/23 11:55 12/15/23 12:38 Acetaminophen 325 Mg Tablet PO 12/15/23 11:56 975 mg ONCE ONE Administration Ketorolac Tromethamine 15 mg 12/15/23 11:55 12/15/23 12:38 Ketorolac Tromethamine 15 Mg/Ml Vial IM 12/15/23 11:56 15 mg ONCE ONE Administration Lidocaine 1 patch 12/15/23 11:55 12/15/23 12:38 Lidocaine 4 % Patch Adh..Patch TRANSDERMA 12/15/23 11:56 1 patch ONCE ONE Administration Protocol Medical Decision Making Medical Decision Making MDM Narrative: 68 year old man with a history of hypertension, hyperlipidemia, prediabetes, and BPH presents today with his with complaints about right upper shoulder and neck pain that radiates down to the clavicle. Patient states that he has had this pain for about 2 months and it seems to be worsening slightly. Denies chest pain and tightness, no difficulty breathing. Heart and lungs sound normal to auscultation. Less likely cardiac related. It seems to be muscular based on physical exam, however there was radicular symptoms in the right upper extremity with movement. No pain or radicular symptoms in the left upper extremely. Could possibly be a pinched nerve or arthritis in the cervical region for overuse and lifting heavy objects, as well as increasing age. Will order CT scan to assess for nerve impingement or arthritis. CT scan showing neural foraminal stenosis on the left side and C4/5. This does not explain the patient's symptoms. His clinical presentation and examination are most consistent with muscle strain and spasm of the upper trapezius on the right side of the neck, soft tissue tenderness and spasm is present on examination. Will prescribe short course of NSAID and muscle relaxer. Encouraged follow up with his primary care doctor for further evaluation and treatment. Stable for discharge home Differential Diagnosis Differential Diagnoses: The differential diagnosis associated with the presentation includes Muscle pain, nerve impingement, Cervical arthritis, foramen narrowing causing nerve irritation, cervical radiculopathy, mass Independent Interpretation I performed an independent interpretation of an: CT Scan Interpretation: no appreciated cervical compression fx, agree w/ radiology read Radiology Impression Discussion of test interpretation with radiology: I have reviewed the radiologist's reading. Radiologist Impression: EXAMINATION: CT CERVICAL SPINE WITHOUT CONTRAST CLINICAL INFORMATION: Right-sided neck pain COMPARISON: X-ray cervical spine on 11/19/2012 TECHNIQUE: Multiple 2.0 mm axial images were obtained from base of skull to T1 levels without IV contrast enhancement. Sagittal and coronal 2.0 mm bone window images were reconstructed from axial image data. This CT examination was performed using dose optimization techniques as appropriate, variously including the following: *Automated exposure control *Adjustment of mA and/or kV according to patient size (this includes techniques or standardized protocols for targeted exams where dose is matched to indication/reason for exam; i.e. extremities or head) *Use of iterative reconstruction technique DLP: 353.64 mGy-cm FINDINGS: C1/C2: Bony structures are intact with normal alignment. There is no spinal stenosis. C2/C3: Bony structures are intact with normal alignment. There is no spinal stenosis. Bilateral C2/C3 neuroforamina are patent. Bilateral apophyseal joints are intact with normal alignment. C3/C4: Bony structures are intact with normal alignment. There is no spinal stenosis. Bilateral C3/C4 neuroforamina are patent. Bilateral apophyseal joints are intact with normal alignment. C4/C5: Bony structures are intact with normal alignment. Large sharp anterior inferior C4 syndesmophyte is present. There is no spinal stenosis. There is marked asymmetric left C4/C5 neural foraminal stenosis. Bilateral apophyseal joints are intact with normal alignment. C5/C6: Bony structures are intact with normal alignment. Large sharp anterior bridging syndesmophytes are present. There is no spinal stenosis. Bilateral C5/C6 neuroforamina are patent. Bilateral apophyseal joints are intact with normal alignment. C6/C7: Bony structures are intact with normal alignment. There is no spinal stenosis. Bilateral C6/C7 neuroforamina are patent. Bilateral apophyseal joints are intact with normal alignment. C7/T1: Bony structures are intact with normal alignment. There is no spinal stenosis. Bilateral C7/T1 neuroforamina are patent. Bilateral apophyseal joints are intact with normal alignment. Multilevel bilateral apophyseal joint and uncovertebral joint osteoarthritis with loss of joint space, sclerosis, facet hypertrophy and osteophytosis are seen. Prominent ossifications are seen in the ligamentum nuchae from C5 to C7. CT/CT cervical spine wo IV con IMPRESSION: 1. No evidence of acute fracture or dislocation. 2. 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 3. Sharp anterior syndesmophytes are seen from C4 to C6. Independent Historian Clinical information obtained from an independent historian. History obtained from or confirmed by: Spouse External Record Review External record reviewed: Outpatient record, Prior outpatient labs and Prior outpatient radiology Prescription Management I considered prescription management with: Pain Medication Chronic Conditions Patient?s care impacted by: Hypertension Critical Care Time Critical Care Time Critical Care Time: No Discharge Plan Discharge Clinical Impression: Cervical muscle strain Qualifiers: Encounter type: initial encounter Qualified Code(s): S16.1XXA - Strain of muscle, fascia and tendon at neck level, initial encounter Patient Disposition: Home, Self-Care Instructions: Cervical Strain (DC) Additional Instructions: Your pain is most likely due to muscle strain and spasm. Use ice several times per day for 20 minutes at a time for the next 48 hours and then change to heat. Take medications as prescribed to help with pain and discomfort. Follow up with your Primary Care Doctor this week. If you develop new or worsening symptoms call 911 or come back to the ER for further evaluation. CT/CT cervical spine wo IV con IMPRESSION: 1. No evidence of acute fracture or dislocation. 2. 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 3. Sharp anterior syndesmophytes are seen from C4 to C6. Prescriptions: New lidocaine 5 % adhesive patch,medicated 1 patch topical DAILY Qty: 15 0RF Rx Instructions: leave on most painful area for up to 12 hrs naproxen 500 mg tablet 500 mg PO BID PRN (Reason: pain) Qty: 14 0RF cyclobenzaprine 5 mg tablet 5 mg PO TID PRN (Reason: muscle spasm) Qty: 10 0RF No Action amlodipine 5 mg tablet 5 mg PO DAILY 90 Days Qty: 90 3RF cholecalciferol (vitamin D3) 50 mcg (2,000 unit) capsule 0 mcg PO lisinopril 30 mg tablet 30 mg PO DAILY cyanocobalamin (vitamin B-12) 1,000 mcg/mL solution 1,000 mcg IM aspirin 81 mg tablet,delayed release (DR/EC) 81 mg PO DAILY polyethylene glycol 3350 [Miralax] 17 gram/dose powder 17 g PO BID 30 Days Qty: 1020 0RF Rx Instructions: Hold for diarrhea terazosin 5 mg capsule 5 mg PO BEDTIME 90 Days Qty: 90 1RF Interventions: ED Discharge Assessment Last Done: 12/15/23 14:47 Discharge Date/Time: 12/15/23 14:48 Print Language: Indonesian
[2023-12-15] MEDS: Acetaminophen 325 MG TABLET 975 MG PO (12:38)
[2023-12-15] MEDS: Ketorolac Tromethamine 15 MG/ML VIAL IM (12:38)
[2023-12-15] MEDS: Lidocaine 4 % Patch ADH..PATCH 1 PATCH TRANSDERMA (12:38)
[2023-12-15 14:47] VITALS: BP 134/70; PULSE 54; RESP 18; TEMP 36; O2SAT 96
== END 2023-12-15 14:48 | disposition home or self-care (01) ==
PROVIDERS: Emergency Provider Emergency Medicine; PCP General Practice
DX: S16.1XXA Strain of muscle, fascia and tendon at neck level, initial encounter (principal); M54.2 Cervicalgia; I10 Essential (primary) hypertension; S19.9XXA Unspecified injury of neck, initial encounter; X50.0XXA Overexertion from strenuous movement or load, initial encounter; X50.9XXA Other and unspecified overexertion or strenuous movements or postures, initial encounter; Y93.89 Activity, other specified; Y92.89 Other specified places as the place of occurrence of the external cause; Y99.8 Other external cause status
CPT/HCPCS: 72125; 96372; 99283; 99284; J1885

== ENCOUNTER 2024-01-28 10:42 | Outpatient (REF) | payer OTHER, SELFPAY ==
[2024-01-28 12:32] LABS: Prostate Specific Antigen 0.82 ng/mL (<0.05-4.0)
== END 2024-01-28 10:43 | disposition home or self-care (01) ==
LOC: HO.LAB 10:42
PROVIDERS: PCP General Practice; Visit Provider Nurse Practitioner Family
DX: N40.0 Benign prostatic hyperplasia without lower urinary tract symptoms (principal); Z12.5 Encounter for screening for malignant neoplasm of prostate
CPT/HCPCS: 36415; 84153

== ENCOUNTER 2024-02-02 13:37 | Outpatient (REF) | payer OTHER, SELFPAY ==
[2024-02-02 17:00] LABS: Urine Cytology See Pathology rpt
== END 2024-02-02 13:38 | disposition home or self-care (01) ==
LOC: HO.LNP 13:37
PROVIDERS: PCP General Practice; Visit Provider Nurse Practitioner Family
DX: N40.1 Benign prostatic hyperplasia with lower urinary tract symptoms (principal); R31.29 Other microscopic hematuria; R35.1 Nocturia; N52.9 Male erectile dysfunction, unspecified; N13.8 Other obstructive and reflux uropathy; R35.0 Frequency of micturition; Z71.2 Person consulting for explanation of examination or test findings; Z79.899 Other long term (current) drug therapy
CPT/HCPCS: 51798; 81003; 88112; 99212

== ENCOUNTER 2024-02-02 13:37 | Outpatient (AMB) | payer OTHER, SELFPAY ==
--- NOTE | 2024-02-02 13:41 | A.OFFVIS_ITS ---
Intake Visit Reasons: 6m/PSA Intake Note: Patient presents today for a follow-up on: Nocturia, BPH, Microscopic Hematuria, and PSA lab results PSA: 0.82 Meds- Terazosin Allergies to Antibiotic- No Known Allergies Blood Thinner- Aspirin Post Void Residual: 48ml's Belt Fixer Required: Yes Belt Fixer Services: Belt Fixer Present Belt Fixer Name: MADIHA CASTAÑEDASLDAE Accompanied by: Allergies No Known Allergies [No Known Allergies*] Allergy (Verified 02/02/24 14:00) Medication List - Last Reconciled 02/02/24 by MAURIZIO Quiñonez- amlodipine 5 mg PO DAILY 90 days aspirin 81 mg PO DAILY cholecalciferol (vitamin D3) 0 mcg PO cyanocobalamin (vitamin B-12) 1,000 mcg IM cyclobenzaprine 5 mg PO TID PRN dicyclomine mg PO lidocaine 5% 1 patch topical DAILY lisinopril 30 mg PO DAILY loratadine 10 mg PO DAILY naproxen 500 mg PO BID PRN pantoprazole 40 mg PO DAILY polyethylene glycol 3350 (Miralax) 17 grams PO BID 1 month pravastatin 40 mg PO DAILY terazosin 5 mg PO BEDTIME 90 days HPI Comments Details: Jovi is a 69-year-old Citizen Of [place]-speaking patient of Dr. Staples who was accompanied by his significant other at today's office appointment. He has a past medical history of BPH with prior prostate procedure, pernicious anemia, seasonal allergies, epididymitis, nephrolithiasis, nocturia, hyperlipidemia, hypertension, and erectile dysfunction. He presents to the office today for follow-up of his lower urinary tract symptoms. In discussion with the patient today he reports since his last office visit here approximately 3 months ago he has since stopped terazosin as this made him dizzy. He switched back to Flomax. He discusses having attempt to increase Flomax to b.i.d. however felt this caused issues with GERD. He continues to report episodes of nocturia up to 4 times per night despite limiting fluids 3-4 hours prior to bed. He otherwise denies urinary urgency, urinary frequency, incontinence, nocturia, hematuria, dysuria, foul smelling urine, changes to urinary stream, flank pain, fever, and or chills. In office urinalysis results reviewed with the patient today 2+ microscopic hematuria otherwise within normal limits. PVR 48 mL. Urine cytology 02/08 and 02/09 Negative for high-grade urothelial carcinoma. When asked he denies any previous smoking history and or or any known chemical exposure. We discussed at length potential causes of nocturia as well as further treatment options. Recent PSA results reviewed with the patient today as noted and trended below. He otherwise denies any bothersome urinary issues or concerns. PSAs: 01/08 0.8, 02/09 0.8 Lower urinary tract symptoms Longstanding Prior laser prostatectomy Current medications tamsulosin 0.4 mg q.h.s. 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 Erectile dysfunction Not currently a concern [facility] Medical History BPH (benign prostatic hyperplasia) Pernicious anemia Seasonal allergies History of eye prosthesis Epididymitis History of kidney stones Nocturia Hyperlipidemia HTN (hypertension) Erectile dysfunction BPH w/o urinary obs/LUTS Surgical History H/O colonoscopy History of Darrius fundoplication History of back surgery History of surgery History of extraction of renal calculus Social History (Reviewed 07/31/23 @ 14:40 by Flavia Alvarenga [facility]) Alcohol intake: never Patient Tobacco Use Status: Never used Tobacco Review of Systems Const Reports no additional complaints Eyes Reports no additional complaints ENT Reports no additional complaints Card Reports as per HPI Resp Reports no additional complaints GI Reports as per HPI Reports as per HPI Musc Reports as per [facility] Neuro Reports no additional complaints Psych Reports no additional complaints Endo Reports no additional complaints Harshal/Lymph Reports no additional complaints Aller/Immun Reports as per HPI Physical Exam Const General: cooperative, healthy appearing, comfortable, no acute distress, well developed, alert and awake Orientation/consciousness: patient oriented x3 Limitations: no limitations HEENT Head: Yes normal to inspection, Yes normocephalic and Yes atraumatic Ears: hearing grossly normal bilaterally Eyes General: appearance normal, both eyes and all related structures Neck Neck: Yes normal visual inspection and Yes trachea midline Chest Chest palpation & inspection: normal inspection of the chest Resp Effort & Inspection: normal respiratory effort and able to speak in complete sentences Cardio Rate: regular rate GI Inspection: Yes normal to inspection General: Yes no CVA tenderness Back/Spine/Pelvis Back: no CVA tenderness Skin General skin exam: no rashes or lesions noted Neuro General: patient oriented x3 Extrem General: Yes normal to inspection Psych Appearance: grossly normal and well kempt Mental Status: mental status grossly normal Speech and movement: Normal speech and movement present and Clear speech present Affect: normal affect Attitude: cooperative Thought process: Normal thought process present Thought content: Normal thought content present Insight: Fair insight present (Psych) Judgement: Fair judgement present (Psych) Office Procedures Post Void Residual Post Residual Void Post Void Residual (PVR): 48 [id number] Void Residual by ultrasound Results AMB Urinalysis, Automated UA Leukoctes 0 Remberto/uL Last Edit by Waluzi on 02/02/24 14:05 UA Nitrite Last Edit by Waluzi on 02/02/24 14:05 UA Urobilinogen 0.2 mg/dL Last Edit by Waluzi on 02/02/24 14:05 UA Protein 15 mg/dL Last Edit by Waluzi on 02/02/24 14:05 UA pH 7.5 Last Edit by Waluzi on 02/02/24 14:05 UA Blood 80 Anshul/uL Last Edit by Waluzi on 02/02/24 14:05 UA Specific [place] 1.015 Last Edit by Waluzi on 02/02/24 14:05 UA Ketone Negative Last Edit by Waluzi on 02/02/24 14:05 UA Bilirubin 0 mg/dL Last Edit by Waluzi on 02/02/24 14:05 UA Glucose 0 mg/dL Last Edit by Waluzi on 02/02/24 14:05 Assessment & Plan Assessment & Plan (1) BPH w/o urinary obs/LUTS: Comment: Prior prostate laser Code(s): N40.0 - Benign prostatic hyperplasia without lower urinary tract symptoms Category: Medical (2) Nocturia more than twice per night: Code(s): R35.1 - Nocturia Category: Medical (3) Microscopic hematuria: Code(s): R31.29 - Other microscopic hematuria Category: Medical Plan In office urinalysis results reviewed with the patient today; as noted above. PVR 48 mL. Stop Flomax Start alfuzosin as discussed and prescribed. Continue limiting fluids 2-3 hours prior to bed to decrease episodes of nocturia. Discussed possible near future sleep study to rule out sleep apnea. Discussed at length potential causes of nocturia. Discussed bladder triggers/irritants. Follow-up in 3 months with PVR; or sooner with any issues, concerns, and or questions. Orders: Orders AMB Post Void Residual by ultrasound Today R35.1 - Nocturia AMB Urinalysis Automated Today Z13.9 - Encounter for screening, unspecified Medications: New alfuzosin ER administer after the same meal each day 10 mg PO DAILY 90 days 90 tabs 0RF N13.8 - Other obstructive and reflux uropathy, N40.1 - Benign prostatic hyperplasia with lower urinary tract symptoms Discontinued terazosin Discontinued Reason: Patient no longer taking 5 mg PO BEDTIME 90 days 90 caps 1RF N40.1 - Benign prostatic hyperplasia with lower urinary tract symptoms, R35.0 - Frequency of micturition, R35.1 - Nocturia Patient Instructions: The patient had an opportunity to ask questions regarding the treatment plan. All questions were answered. Physical exam, labs, and imaging were discussed and reviewed in detail. As well as risks, benefits, and discussion of treatment choices. No major barriers to understanding were identified. The patient expressed understanding and agreement with the above treatment plan. The patient was made aware they should contact our office by phone for worsening of their current condition, the appearance of new symptoms, or with any questions or concerns. Compliance is encouraged with any medications and follow up testing that is ordered. It is a privilege to be allowed the opportunity to participate in? your urological care.? Again, if you have any questions or concerns If you have any questions or concerns please do not hesitate to contact me. The office is [phone]. This note is constructed using voice recognition software. While every effort has been made to ensure accuracy kapok and cotton machine operator errors may have been included. Yours sincerely, SARITA Quiñonez Coding Level of Care Code Est Pt Level 4 (85010) Diagnoses BPH w/o urinary obs/LUTS N40.0 Nocturia more than twice per night R35.1 Microscopic hematuria R31.29 CPT Codes Post Residual Void - PVR CPT Code: 85026-Rjbi Void Residual by ultrasound ([id number])
== END 2024-02-02 14:12 | disposition home or self-care (01) ==
PROVIDERS: PCP General Practice; Visit Provider Nurse Practitioner Family
DX: N40.0 Benign prostatic hyperplasia without lower urinary tract symptoms (principal); R35.1 Nocturia; R31.29 Other microscopic hematuria; Z13.9 Encounter for screening, unspecified
CPT/HCPCS: 99214

== ENCOUNTER → 2024-04-13 12:54 | Outpatient (REF) | payer OTHER, SELFPAY ==
--- NOTE | 2024-04-13 12:57 | CA_ITS ---
Transthoracic Echocardiogram Patient (Last, First, Middle): Jovi Mcknight, Gender: Male Date of : 1955 Age: 69 Procedure Date: 04/13/2024 Procedure Type: Transthoracic Echocardiogram Location: OP Height: 170.18 cm Weight: 77.11 kg BSA: 1.89 m2 Heart Rate: bpm BP: 124 / 70 mmHg Control Cabinet Assembler: MARLO Referring MD: Isaac Zamorano MD Symptoms: I71.20 - Thoracic aortic aneurysm, without rupture, unspecified Study Quality: Adequate ECG Rhythm: Sinus Conclusions: - The left ventricular systolic function is normal. The calculated ejection fraction is 60% by biplane method. - There is mild to moderate tricuspid valve regurgitation. - There is mild dilatation of the ascending aorta measuring 4.20 cm. Findings Left Ventricle Normal left ventricular cavity size. There is normal left ventricular wall thickness. The left ventricular systolic function is normal. The calculated ejection fraction is 60% by biplane method. There is no evidence of regional wall motion abnormalities. Evidence suggests grade I (mild) diastolic dysfunction. Right Ventricle Mildly increased right ventricular cavity size. There is normal right ventricular systolic function. Atria Both atria are normal in size. Aortic Valve There is a normal trileaflet aortic valve. There is no aortic valve stenosis. There is mild aortic valve regurgitation. Mitral Valve The mitral valve appears normal. There is no mitral valve regurgitation. There is no mitral valve stenosis. Pulmonic Valve The pulmonic valve is likely normal. Tricuspid Valve Normal tricuspid valve structure. There is mild to moderate tricuspid valve regurgitation. There is no evidence of pulmonary hypertension. Great Vessels There is mild dilatation of the ascending aorta measuring 4.20 cm. Small plaque is seen in the sino tubular ridge. Venous The inferior vena cava is normal in size and collapses greater than 50% with inspiration. Pericardium/Pleural There is no evidence of pericardial effusion. Prior Study Comparison No significant change compared to prior study dated: 04/07/2023. Measurements 2D Linear Measurements IVSd: 0.92 0.6-0.9/0.6-1.0 cm LVIDd: 4.15 3.9-5.3/4.2-5.9 cm LVIDd Index: 2.20 2.4-3.2/2.2-3.1 cm/m2 LVIDs: 2.90 2.0-3.6 cm LVPWd: 0.91 0.7-1.1 cm LA Diam: 3.30 2.7-3.8/3.0-4.0 cm LAIDs Index: 1.75 1.5-2.3 cm/m2 LV Mass: 148.40 67-162/88-224 g LV Mass Index: 78.52 43-95/49-115 g/m2 LVOT Diam: 2.00 3.0+(-)1.3 cm 2D Systolic Function EF 4C: 59.20 >55% EF 2C: 58.20 >55% EF BiP: 59.50 >55% Mitral Valve MV Pk E: 1.09 MV PK A: 0.96 MV Decel Time: 203.00 E/A: 1.10 E'Lateral: 5.44 E'Medial: 6.31 E/E' Med: 17.30 E/E' Lat: 20.00 PHT: 59.00 MVA PHT: 3.73 Decel [place]: 5.37 Aortic Valve AoV Pk Jerzy: 1.55 AoV Mn Jerzy: 0.96 AoV VTI: 0.39 AoV Pk Grad: 10.00 Aov Mn Grad: 5.00 LEVI Cont.VTI: 2.39 LVOT LVOT Pk Jerzy: 1.27 LVOT Mn Jerzy: 0.79 LVOT VTI: 0.30 LVOT Pk Grad: 6.00 LVOT Mn Grad: 3.00 LVOT Diam: 2.00 LVOT Area: 3.14 Diastolic Function MV Pk E: 1.09 MV Pk A: 0.96 E/A: 1.10 E'Medial: 6.31 E/E' Med: 17.30 E' Laterial: 5.44 E/E' Lat: 20.00 Right Ventricle TAPSE (mm): 21.10 TVS' Jerzy: 12.50 Tricuspid Valve TR Pk Jerzy: 2.55 TR Pk Grad: 26.00 RA Press: 3.00 RVSP: 29.00 Great Vessels Aorta Sinus of Valsalva: 4.33 2.0-3.[address] [place]: 2.50 1.7-3.4 cm Ao Asc: 4.20 2.1-3.4 cm Updated in Other Vendor System with Status of Final Kalyan Pittman MD electronically signed on 04/15/2024 1:03:38 PM with status of Final
== END ==
LOC: HO.CARD 12:54
PROVIDERS: PCP General Practice; Visit Provider Internal Medicine Cardiovascular Disease
DX: I71.20 Thoracic aortic aneurysm, without rupture, unspecified (principal)
CPT/HCPCS: 93306

== ENCOUNTER → 2024-04-13 12:57 | Outpatient (BNV) | payer OTHER, SELFPAY | PROVIDERS: PCP General Practice; Visit Provider Internal Medicine | DX: I35.1 Nonrheumatic aortic (valve) insufficiency (principal); I36.1 Nonrheumatic tricuspid (valve) insufficiency; I51.89 Other ill-defined heart diseases | CPT/HCPCS: 93306 ==

== ENCOUNTER 2024-04-29 12:42 | Outpatient (AMB) | payer OTHER, SELFPAY ==
[2024-04-29 13:32] VITALS: BP 116/74; PULSE 66; BMI 28.2
--- NOTE | 2024-04-29 13:32 | A.OFFVIS_ITS ---
Vital Signs 04/29/24 13:32 Height 5 ft 5 in Weight 169 lb 12.095 oz BMI 28.2 BP 116/74 Blood Pressure Location Lt brachial Position Sitting Pulse 66 Intake Visit Reasons: 1 yr f/up Intake Note: 1 year follow-up with ekg feeling ok Plate Grainer Apprentice Required: Yes Plate Grainer Apprentice Services: Plate Grainer Apprentice Offered & Declined Fitter Machinist: Fitter Machinist Present Accompanied by: son in law Allergies No Known Allergies [No Known Allergies*] Allergy (Verified 02/02/24 14:00) Medication List - Last Reconciled 04/29/24 by Isaac Zamorano MD alfuzosin ER 10 mg PO DAILY 90 days amlodipine 5 mg PO DAILY 90 days aspirin 81 mg PO DAILY cholecalciferol (vitamin D3) 0 mcg PO cyanocobalamin (vitamin B-12) 1,000 mcg IM cyclobenzaprine 5 mg PO TID PRN dicyclomine mg PO lidocaine 5% 1 patch topical DAILY lisinopril 30 mg PO DAILY loratadine 10 mg PO DAILY naproxen 500 mg PO BID PRN pantoprazole 40 mg PO DAILY polyethylene glycol 3350 (Miralax) 17 grams PO BID 1 month HPI Comments Details: Jovi comes for follow-up, accompanied by his son-in-law. Patient complains of no new symptoms. He remains very active. Recent echocardiogram shows mildly enlarged thoracic aorta which is unchanged and [id number] tricuspid regurgitation. Denies any exertional chest pain or shortness of breath. Denies any prolonged palpitation irregular heartbeat. No heart failure symptoms. Takes all his medications. He said he has stopped taking pravastatin therapy due to GI side effects. [facility] Medical History BPH (benign prostatic hyperplasia) Pernicious anemia Seasonal allergies History of eye prosthesis Epididymitis History of kidney stones Nocturia Hyperlipidemia HTN (hypertension) Erectile dysfunction BPH w/o urinary obs/LUTS Surgical History H/O colonoscopy History of Darrius fundoplication History of back surgery History of surgery History of extraction of renal calculus Social History Alcohol intake: never Patient Tobacco Use Status: Never used Tobacco Review of Systems Const Denies chills, Denies fatigue, Denies fever(s), Denies frequent falls, Denies weakness, Denies weight gain and Denies weight loss ENT Denies dizziness Card Denies chest pain, Denies leg edema, Denies lightheadedness, Denies palpitations, Denies dyspnea, Denies dyspnea on exertion, Denies orthopnea and Denies other (loss of consciousness) Resp Denies cough, Denies dyspnea and Denies dyspnea on exertion GI Denies hematochezia and Denies change in stool character Musc Denies abnormal gait, Denies muscle weakness, Denies numbness, Denies radiating pain into limb and Denies tingling Neuro Denies Abnormal speech present, Denies abnormal gait, Denies dizziness, Denies frequent falls, Denies numbness, Denies tingling and Denies weakness Endo Denies fatigue and Denies palpitations Physical Exam Vital Signs: Last Vital Signs Pulse 66 04/29/24 13:32 BP 116/74 04/29/24 13:32 BMI result Body Mass Index 28.2 Const General: cooperative, comfortable, no acute distress, alert, awake, Physically active and well groomed Nutritional Appearance: overweight Orientation/consciousness: patient oriented x3 Limitations: no limitations HEENT Head: Yes normocephalic and Yes atraumatic Neck Neck: Yes trachea midline, Yes supple and Yes no JVD Chest Chest palpation & inspection: normal inspection of the chest Resp Effort & Inspection: normal respiratory effort Auscultation: clear to auscultation bilaterally Cardio Jugular venous distension: no JVD Palpation: normal PMI Rate: regular rate Rhythm: regular rhythm Heart sounds: S1 normal heart sound present, S2 normal heart sound present, no click, no gallops, no murmurs and no rubs GI Auscultation: normal bowel sounds Skin General skin exam: no rashes or lesions noted Neuro General: patient oriented x3 and no focal motor deficits Speech: No Abnormal speech present Extrem General: Yes no clubbing, cyanosis or edema Office Procedures EKG Details: EKG shows normal sinus rhythm with moderate voltage criteria for LVH [id number], Complete Assessment & Plan Assessment & Plan (1) Thoracic aortic aneurysm: Code(s): I71.20 - Thoracic aortic aneurysm, without rupture, unspecified Category: Medical Plan: Mild thoracic aortic aneurysm without any significant change in his size. We discussed about management. Continue aggressive medical management with aggressive blood pressure control, see below. Continue lipid modification. Will switch him to atorvastatin 10 mg a day to be taken the morning hours hopefully will prevent him from having GI side effects. Target goal LDL less than 100 mg/dL. Follow-up echocardiogram in 1 year's time. Follow-up lipid panel in 3 months time. Advised to avoid sudden strenuous isometric exercise. (2) HTN (hypertension): Code(s): I10 - Essential (primary) hypertension Category: Medical Plan: Hypertension which is currently well optimized advised to monitor blood pressure at home maintain a log. Goal blood pressure less than 130/84. Continue current therapy. Importance of good blood pressure control was discussed. Low-salt diet was discussed advised to maintain activity level as tolerated. Will follow up in the clinic in 1 year's time, sooner p.r.n.. Thank you for allowing me to partake in his care Coding Level of Care Code Est Pt Level 4 (94651) Complex EM visit Add On G2211 Diagnoses Thoracic aortic aneurysm I71.20 HTN (hypertension) I10 CPT Codes EKG - CPT: 58894-[id number], Complete ([id number])
== END 2024-04-29 13:59 | disposition home or self-care (01) ==
PROVIDERS: PCP General Practice; Visit Provider Internal Medicine Cardiovascular Disease
DX: I71.20 Thoracic aortic aneurysm, without rupture, unspecified (principal); I10 Essential (primary) hypertension
CPT/HCPCS: 93010; 99214; G2211

== ENCOUNTER → 2024-04-29 12:42 | Outpatient (BNVA) | payer OTHER, SELFPAY | PROVIDERS: PCP General Practice; Visit Provider Internal Medicine Cardiovascular Disease | DX: I71.20 Thoracic aortic aneurysm, without rupture, unspecified (principal); I10 Essential (primary) hypertension | CPT/HCPCS: 93005; 99212 ==

== ENCOUNTER 2024-05-03 15:37 | Outpatient (AMB) | payer OTHER, SELFPAY ==
--- NOTE | 2024-05-03 15:54 | A.OFFVIS_ITS ---
Intake Visit Reasons: 3 m PVR Intake Note: Patient presents today for a follow-up on: Nocturia, BPH, and Microscopic Hematuria Meds: Alfuzosin Allergies to Antibiotic- No Known Allergies Blood Thinner- Aspirin Post Void Residual: 25ml's Commander Internal Affairs Required: Yes Commander Internal Affairs Services: Commander Internal Affairs Present Commander Internal Affairs Name: Mic Accompanied by: Allergies No Known Allergies [No Known Allergies*] Allergy (Verified 05/03/24 20:12) Medication List - Last Reconciled 05/03/24 by MAURIZIO Quiñonez- amlodipine 5 mg PO DAILY 90 days aspirin 81 mg PO DAILY atorvastatin 10 mg PO DAILY cholecalciferol (vitamin D3) 0 mcg PO cyanocobalamin (vitamin B-12) 1,000 mcg IM cyclobenzaprine 5 mg PO TID PRN dicyclomine mg PO lidocaine 5% 1 patch topical DAILY lisinopril 30 mg PO DAILY loratadine 10 mg PO DAILY mirabegron ER (Myrbetriq) 25 mg PO DAILY 30 days naproxen 500 mg PO BID PRN pantoprazole 40 mg PO DAILY polyethylene glycol 3350 (Miralax) 17 grams PO BID 1 month HPI Comments Details: Jovi is a 69-year-old Wolof-speaking patient of Dr. Staples who was accompanied by his significant other at today's office appointment. He has a past medical history of BPH with prior prostate procedure, pernicious anemia, seasonal allergies, epididymitis, nephrolithiasis, nocturia, hyperlipidemia, hypertension, and erectile dysfunction. He presents to the office today for follow-up of his lower urinary tract symptoms. In discussion with the patient today he reports no improvement in nocturia and urinary frequency continues to experience. He has previously trialed terazosin and Flomax in the past however felt terazosin made him dizzy and Flomax caused issues with GERD. Therefore he was trialed on alfuzosin 10 mg daily however he continues to report today no improvement in lower urinary tract symptoms. He otherwise denies incontinence, nocturia, hematuria, dysuria, foul smelling urine, changes to urinary stream, flank pain, fever, and or chills. In office urinalysis results reviewed with the patient today 2+ microscopic hematuria otherwise within normal limits. PVR 25mL. Urine cytology 02/08 and 08/09 Negative for high-grade urothelial carcinoma. Urine cytology 02/09 Atypical urothelial cells. When asked he denies any previous smoking history and or or any known chemical exposure. We discussed at length potential causes of nocturia as well as further treatment options. Recent PSA results reviewed with the patient today as noted and trended below. He otherwise denies any bothersome urinary issues or concerns. PSAs: 01/08 0.8, 02/09 0.8 Lower urinary tract symptoms Longstanding Prior laser prostatectomy Current medications tamsulosin 0.4 mg q.h.s. 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 Erectile dysfunction Not currently a concern [facility] Medical History (Updated 05/03/24 @ 20:46 by Maggi Strickland [facility]) BPH (benign prostatic hyperplasia) Pernicious anemia Seasonal allergies History of eye prosthesis Epididymitis History of kidney stones Nocturia Hyperlipidemia HTN (hypertension) Erectile dysfunction BPH w/o urinary obs/LUTS Surgical History H/O colonoscopy History of Darrius fundoplication History of back surgery History of surgery History of extraction of renal calculus Social History Alcohol intake: never Patient Tobacco Use Status: Never used Tobacco Review of Systems Const Reports no additional complaints Eyes Reports no additional complaints ENT Reports no additional complaints Card Reports as per HPI Resp Reports no additional complaints GI Reports as per HPI Reports as per HPI Musc Reports as per HPI Neuro Reports no additional complaints Psych Reports no additional complaints Endo Reports no additional complaints Harhsal/Lymph Reports no additional complaints Aller/Immun Reports as per HPI Physical Exam Const General: cooperative, healthy appearing, comfortable, no acute distress, well d eveloped, alert and awake Orientation/consciousness: patient oriented x3 Limitations: no limitations HEENT Head: Yes normal to inspection, Yes normocephalic and Yes atraumatic Ears: hearing grossly normal bilaterally Eyes General: appearance normal, both eyes and all related structures Neck Neck: Yes normal visual inspection and Yes trachea midline Chest Chest palpation & inspection: normal inspection of the chest Resp Effort & Inspection: normal respiratory effort and able to speak in complete sentences Cardio Rate: regular rate GI Inspection: Yes normal to inspection General: Yes no CVA tenderness Back/Spine/Pelvis Back: no CVA tenderness Skin General skin exam: no rashes or lesions noted Neuro General: patient oriented x3 Extrem General: Yes normal to inspection Psych Appearance: grossly normal and well kempt Mental Status: mental status grossly normal Speech and movement: Normal speech and movement present and Clear speech present Affect: normal affect Attitude: cooperative Thought process: Normal thought process present Thought content: Normal thought content present Insight: Fair insight present (Psych) Judgement: Fair judgement present (Psych) Office Procedures Post Void Residual Post Residual Void Post Void Residual (PVR): 25 [id number] Void Residual by ultrasound Results AMB Urinalysis, Automated UA Leukoctes 0 Remberto/uL Last Edit by [employer] on 05/03/24 16:10 UA Nitrite Last Edit by [employer] on 05/03/24 16:10 UA Urobilinogen 0.2 mg/dL Last Edit by [employer] on 05/03/24 16:10 UA Protein 0 mg/dL Last Edit by [employer] on 05/03/24 16:10 UA pH 6.0 Last Edit by [employer] on 05/03/24 16:10 UA Blood 200 Anshul/uL Last Edit by [employer] on 05/03/24 16:10 UA Specific [place] 1.015 Last Edit by [employer] on 05/03/24 16:10 UA Ketone Last Edit by [employer] on 05/03/24 16:10 UA Bilirubin 0 mg/dL Last Edit by [employer] on 05/03/24 16:10 UA Glucose 0 mg/dL Last Edit by [employer] on 05/03/24 16:10 Results Reviewed Results Reviewed: Laboratory Last Values Urine pH (Auto) 6.0 05/03/24 16:09 Specific [place] (Auto) 1.015 05/03/24 16:09 Urine Protein (Auto) 0 mg/dL 05/03/24 16:09 Glucose (UA)(Auto) 0 mg/dL 05/03/24 16:09 Urine Blood (Auto) 200 Anshul/uL 05/03/24 16:09 Urine Bilirubin (Auto) 0 mg/dL 05/03/24 16:09 Urine Urobilinogen (Auto) 0.2 mg/dL 05/03/24 16:09 Leukocyte Esterase (Auto) 0 Remberto/uL 05/03/24 16:09 Assessment & Plan Assessment & Plan (1) Microscopic hematuria: Code(s): R31.29 - Other microscopic hematuria Category: Medical (2) BPH w/o urinary obs/LUTS: Comment: Prior prostate laser Code(s): N40.0 - Benign prostatic hyperplasia without lower urinary tract symptoms Category: Medical (3) Urinary frequency: Code(s): R35.0 - Frequency of micturition Category: Medical (4) Nocturia: Code(s): R35.1 - Nocturia Category: Medical Plan In office urinalysis results reviewed with the patient today; will send for urine cytology. PVR 25 mL Stop alfuzosin. Start Myrbetriq as discussed and prescribed. Discussed importance of limiting fluids 2-3 hours prior to bed to decrease episodes of nocturia. We discussed at length potential causes of lower urinary tract symptoms patient is experiencing. Discussed bladder triggers/irritants. Follow-up in 1-3 months with PVR; or sooner with any issues, concerns, and or questions. Orders: Orders AMB Urinalysis Automated Today Z13.9 - Encounter for screening, unspecified AMB Post Void Residual by ultrasound Today R35.1 - Nocturia Urine Cytology Today R31.29 - Other microscopic hematuria Medications: New mirabegron ER (Myrbetriq) 25 mg PO DAILY 30 days 30 tabs 3RF N30.10 - Interstitial cystitis (chronic) without hematuria, N32.81 - Overactive bladder, R35.1 - Nocturia, R39.15 - Urgency of urination Discontinued alfuzosin ER administer after the same meal each day Discontinued Reason: Doctor's Order 10 mg PO DAILY 90 days 90 tabs 0RF N13.8 - Other obstructive and reflux uropathy, N40.1 - Benign prostatic hyperplasia with lower urinary tract symptoms Patient Instructions: The patient had an opportunity to ask questions regarding the treatment plan. All questions were answered. Physical exam, labs, and imaging were discussed and reviewed in detail. As well as risks, benefits, and discussion of treatment choices. No major barriers to understanding were identified. The patient expressed understanding and agreement with the above treatment plan. The patient was made aware they should contact our office by phone for worsening of their current condition, the appearance of new symptoms, or with any questions or concerns. Compliance is encouraged with any medications and follow up testing that is ordered. It is a privilege to be allowed the opportunity to participate in? your urological care.? Again, if you have any questions or concerns If you have any questions or concerns please do not hesitate to contact me. The office is [phone]. This note is constructed using voice recognition software. While every effort has been made to ensure accuracy access service representative errors may have been included. Yours sincerely, SARITA Quiñonez Coding Level of Care Code Est Pt Level 4 (34231) Diagnoses Microscopic hematuria R31.29 BPH w/o urinary obs/LUTS N40.0 Urinary frequency R35.0 Nocturia R35.1 CPT Codes Post Residual Void - PVR CPT Code: 12656-Llbq Void Residual by ultrasound ([id number])
== END 2024-05-03 16:38 | disposition home or self-care (01) ==
PROVIDERS: PCP General Practice; Visit Provider Nurse Practitioner Family
DX: R31.29 Other microscopic hematuria (principal); N40.0 Benign prostatic hyperplasia without lower urinary tract symptoms; R35.0 Frequency of micturition; R35.1 Nocturia; Z13.9 Encounter for screening, unspecified
CPT/HCPCS: 99214

== ENCOUNTER 2024-05-03 15:37 | Outpatient (REF) | payer OTHER, SELFPAY ==
[2024-05-03 17:01] LABS: Urine Cytology See Pathology rpt
== END 2024-05-03 15:38 | disposition home or self-care (01) ==
LOC: HO.LNP 15:37
PROVIDERS: PCP General Practice; Visit Provider Nurse Practitioner Family
DX: N40.0 Benign prostatic hyperplasia without lower urinary tract symptoms (principal); R31.29 Other microscopic hematuria; R35.0 Frequency of micturition; R35.1 Nocturia
CPT/HCPCS: 51798; 81003; 88112; 99212

== ENCOUNTER 2024-06-01 21:45 | Emergency (ER) | payer OTHER, SELFPAY ==
--- NOTE | 2024-06-01 | ECG_ITS ---
Test Reason : CP Blood Pressure : */* mmHG Vent. Rate : 105 BPM Atrial Rate : 105 BPM P-R Int : 206 ms QRS Dur : 88 ms QT Int : 328 ms P-R-T Axes : 24 -35 56 degrees QTcB Int : 433 ms Sinus tachycardia Left axis deviation Moderate voltage criteria for LVH, may be normal variant ( R in aVL , [place] product ) Septal infarct (cited on or before 28-Jul-2022) Abnormal ECG When compared with ECG of 12-Apr-2023 14:28, Vent. rate has increased by 38 bpm Non-specific change in ST segment in Inferior leads Nonspecific T wave abnormality no longer evident in Inferior leads Referred By: Generic ED Physician Electronically Signed By: Justin Norman
--- NOTE | ~2024-06-01 | XR_ITS ---
CLINICAL HISTORY: chest pain 1 view chest x-ray Comparison: CT/OK/SR - CT ANGIO CHEST AORTA - 04/22/23 11:45 EST Findings: Prominent gaseous distention of the stomach with asymmetric elevation of the left hemidiaphragm. The lungs and pleural spaces are clear. Heart size normal. Bones intact. IMPRESSION: 1. No acute cardiopulmonary process. Prominent gaseous distention of the stomach with asymmetric elevation of the left hemidiaphragm. This document has been electronically signed by: Willy Trujillo MD on 06/01/2024 22:22:10
[2024-06-01 21:53] VITALS: BP 142/77; PULSE 103; RESP 18; TEMP 37.4; O2SAT 97; BMI 27.4
[2024-06-01 22:17] LABS: Hematocrit 41.9 % (42.0-52.0); Hemoglobin 14.9 g/dl (14.0-18.0); Mean Corpuscular HGB Conc 35.6 g/dl (31.0-36.0); Mean Corpuscular Hemoglobin 29.4 pg (27.0-33.0); Mean Corpuscular Volume 82.6 fL (80.0-98.0); Mean Platelet Volume 9.2 fL (9.4-12.4); Platelet Count 191 X10*3/uL (160-400); Red Blood Count 5.07 X10*6/uL (4.60-5.80); Red Cell Distribution Width 12.4 % (11.0-16.0); White Blood Count 13.9 X10*3/uL (4.8-10.8)
[2024-06-01 22:30] LABS: Alanine Aminotransferase 22 U/L (0-40); Albumin Level 4.3 g/dL (3.5-5.0); Alkaline Phosphatase 70 U/L (39-117); Anion Gap 12 (12-20); Aspartate Amino Transferase 31 U/L (5-37); Bilirubin Total 0.4 mg/dL (0.0-1.0); Blood Urea Nitrogen 20 mg/dL (9-16); Calcium 8.5 mg/dL (8.4-10.2); Carbon Dioxide 24 mmol/L (22-29); Chloride 104 mmol/L (96-108); Creatinine Clr Calc Pharmacy 67.5; Estimated Glomerular Filt Rate > 60; Glucose Random 225 mg/dL (60-115); Potassium 3.7 mmol/L (3.3-5.1); Sodium 136 mmol/L (135-145); Total Protein 7.4 g/dL (6.5-8.0)
[2024-06-01 22:37] LABS: Troponin-I High Sensitivity < 2.7 ng/L (<3.5-35.0)
[2024-06-01 22:37] LABS: SLIDE REVIEW MANUAL DIFF
[2024-06-01 22:44] LABS: Band Neutrophils Percent 7 % (3-5); Eosinophils Absolute Manual 0.4 X10*3/uL (0.0-0.4); Eosinophils Percent Manual 3 % (0-4); Lymphocytes Percent Manual 7 % (20-40); Monocytes Absolute Manual 0.6 X10*3/uL (0.1-1.2); Monocytes Percent Manual 4 % (2-11); Neutrophils Percent Manual 79 % (45-73)
[2024-06-01 22:45] LABS: Burr Cells 1+ (0-2) /OIF; Platelet Estimate NORMAL (NORMAL); Platelet Morphology Comment NORMAL; RBC Morphology NOTED; Toxic Granulation PRESENT; Toxic Vacuolation PRESENT
[2024-06-01 22:53] LABS: Influenza A PCR NEGATIVE (Negative); Influenza B PCR NEGATIVE (Negative); Resp Syncy Virus RNA Qual PCR NEGATIVE (Negative); SARS COV2 PCR INHOUSE NEGATIVE (Negative)
[2024-06-02 01:03] VITALS: BP 146/81; PULSE 107; RESP 20; TEMP 36.8; O2SAT 96
--- NOTE | 2024-06-02 01:03 | MHC.EDTECH ---
Patient brought in from the waiting room,changed pt into hospital attire,placed on the cafeteria monitor,vitals taken,family at bedside call [facility] in reach
--- NOTE | 2024-06-02 01:33 | ED_ITS ---
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 Rashard Lazo HPI narrative: 69-year-old male with a history diabetes mellitus, hypertension, sciatica who presents emergency department for evaluation of chest pain, nausea, abdominal pain and diarrhea. Patient became ill a proximally 2 hours prior to coming to the emergency department. He states he developed bilateral upper abdominal pain which she describes as a sharp, intermittent pain which was 10/10 at its worst and 6/10 at the time my evaluation. Patient had associated nausea with no vomiting. Patient states that he was constipated and took 3 days of MiraLax and prior to coming to the emergency department he developed 5-6 episodes of loose, diarrhea stool with no blood in the stool. Patient also states that he developed a sharp pain in his chest. He points to his upper anterior chest when asked to localize the pain. He states the pain was 5/10. Review of systems was negative for fever, sore throat, cough, shortness of breath, dyspnea on exertion. He did have shaking chills and rhinorrhea. He also states that he felt dizzy. He also had myalgias and arthralgias. Patient states he did have a surgical procedure many years ago and based on his description it sounds like he had GERD secondary to loose esophageal sphincter and may have had a fundoplication. Related Data Home Medications ?Medication ?Instructions ?Recorded ?Confirmed aspirin 81 mg tablet,delayed 81 mg PO DAILY 12/28/20 04/29/24 release cholecalciferol (vitamin D3) 50 0 mcg PO 12/28/20 04/29/24 mcg (2,000 unit) capsule cyanocobalamin (vitamin B-12) 1,000 mcg IM 12/28/20 04/29/24 1,000 mcg/mL injection solution lisinopril 30 mg tablet 30 mg PO DAILY 12/28/20 04/29/24 dicyclomine 10 mg capsule mg PO 02/02/24 04/29/24 loratadine 10 mg tablet 10 mg PO DAILY 02/02/24 04/29/24 pantoprazole 40 mg tablet,delayed 40 mg PO DAILY 02/02/24 04/29/24 release Previous Rx's ?Medication ?Instructions ?Recorded polyethylene glycol 3350 17 17 g PO BID Constipation 1 month 03/02/21 gram/dose oral powder (Miralax) #1,020 grams cyclobenzaprine 5 mg tablet 5 mg PO TID PRN muscle spasm #10 12/15/23 tabs lidocaine 5 % topical patch 1 patch topical DAILY #15 ea 12/15/23 naproxen 500 mg tablet 500 mg PO BID PRN pain #14 tabs 12/15/23 amlodipine 5 mg tablet 5 mg PO DAILY 90 days #90 tabs 12/23/23 atorvastatin 10 mg tablet 10 mg PO DAILY #30 tabs 04/29/24 mirabegron 25 mg tablet,extended 25 mg PO DAILY 30 days #30 tabs 05/03/24 release 24 hr (Myrbetriq) ondansetron 4 mg disintegrating 4 mg PO Q6-8H PRN nausea and 06/02/24 tablet vomiting #14 tabs Allergies Allergy/AdvReac Type Severity Reaction Status Date / Time No Known Allergies Allergy Verified 06/01/24 21:54 [No Known Allergies*] [facility] Past Medical History [facility] Narrative: Social history: He was in his is here in the emergency department with him. He denies tobacco, alcohol and drug use. Medical History (Updated 06/02/24 @ 02:14 by Rashard Lazo MD) BPH (benign prostatic hyperplasia) Pernicious anemia Seasonal allergies History of eye prosthesis Epididymitis History of kidney stones Nocturia Hyperlipidemia HTN (hypertension) Erectile dysfunction BPH w/o urinary obs/LUTS Surgical History H/O colonoscopy History of Darrius fundoplication History of back surgery History of surgery History of extraction of renal calculus Social History Social History Alcohol intake: never Patient Tobacco Use Status: Never used Tobacco Smoked in Last 30 Days: No Use of substances other than those prescribed or required for medical reasons: No Advance Directives: No Advance Directives Information Provided: Yes Do you have a plan to hurt others: No Plan Physical Exam ED Vital Signs: Vital Signs - 24 hr 06/01/24 21:53 06/02/24 01:03 Temperature 99.3 F 98.3 F Pulse Rate 103 H 107 H Respiratory Rate 18 20 Blood Pressure 142/77 H 146/81 H Pulse Oximetry 97 96 Oxygen Delivery Method Room Air Room Air BMI result Body Mass Index 27.4 Vital signs revealed an elevated heart rate of 103 otherwise unremarkable Exam: General: Awake, alert in no distress Head: Normocephalic, atraumatic EENT: Right eye pupil 4 mm reactive, left prosthetic eye, Lids normal, sclera normal, conjunctiva normal, nose normal , ears normal, throat without erythema or exudates Neck: Supple, no adenopathy Lung: breath sounds symmetric, no wheezing, rales or rhonchi Chest: symmetric movement, nontender Heart: regular rate and rhythm, normal S1, S2 no murmurs or rubs Abdomen: soft, non-tender, nondistended, normal bowel sounds Back: no vertebral tenderness, no CVAT Extremities: no deformities, moves all extremities symmetrically Neuro: Awake, alert, oriented, normal speech, cranial nerves intact, moves all extremities symmetrically Psych: Pleasant, cooperative Medications Administered Discontinued Medications Generic Name Dose Route Start Last Admin Trade Name Freq PRN Reason Stop Dose Admin Sodium Chloride 1,000 mls @ 999 mls/hr 06/02/24 02:05 06/02/24 04:13 Ns IV 06/02/24 03:05 Infused .Q1H1M STA Infusion Ketorolac Tromethamine 15 mg 06/02/24 02:05 06/02/24 02:23 Ketorolac Tromethamine 15 Mg/Ml Vial IVPUSH 06/02/24 02:06 15 mg ONCE STA Administration Ondansetron HCl 4 mg 06/02/24 02:05 06/02/24 02:23 Ondansetron Hcl 4 Mg/2 Ml Vial IVPUSH 06/02/24 02:06 4 mg ONCE ONE Administration Medical Decision Making Medical Decision Making MDM Narrative: 69-year-old male with a history diabetes mellitus, hypertension, sciatica who presents emergency department for evaluation of chest pain, nausea, abdominal pain and diarrhea with symptoms beginning 2 hours prior to coming to the emergency department. Patient was having constipation and took MiraLax over the past 3 days. He did have shaking chills, rhinorrhea, myalgias, arthralgias and dizziness. Vital signs revealed an elevated heart rate of 103 otherwise unremarkable. Abdominal exam revealed no tenderness which was reassuring. Differential diagnosis: ?Includes but is not limited to viral syndrome, COVID- 19, influenza, RSV, myocardial infarction, myocardial ischemia, musculoskeletal pain, gastritis, cholecystitis, appendicitis, diverticulitis Course: 02:11 My interpretation patient's laboratory evaluation is as follows: WBC elevated 13,900. BUN elevated 20. Glucose elevated 225. LFTs were normal. High sensitive troponin I was below detectable limits. COVID-19, influenza and RSV were negative Patient was 12 EKG did reveal a sinus tachycardia but otherwise was unremarkable. Chest x-ray revealed no acute disease Patient's presentation is consistent with a viral syndrome. Patient was treated with normal saline IV x1 L, Toradol 15 mg IV and Zofran 4 mg IV. 04:18 Patient was feeling significantly better after the above treatment. He was able to drink a diet milena payam without vomiting. Patient's symptoms are consistent with viral syndrome and I did discuss this with the patient and his . Patient will be discharged with a prescription for Zofran 4 mg ODT every 6-8 hours as needed for nausea vomiting. He was also advised to take Tylenol and ibuprofen for fever and pain. He was given printed and verbal instructions and discharged home. Admission/Observation Consideration of admission/observation: Escalation of care including admission/observation considered (Yes) Lab Data MDM Lab Attestation statement: I reviewed the patient's lab results. 06/01/24 22:11 06/01/24 22:11 Labs: Lab Results 06/01/24 06/01/24 Range/Units 22:11 22:12 WBC 13.9 H (4.8-10.8) X10*3/uL RBC 5.07 (4.60-5.80) X10*6/uL Hgb 14.9 (14.0-18.0) g/dl Hct 41.9 L (42.0-52.0) % MCV 82.6 (80.0-98.0) fL MCH 29.4 (27.0-33.0) pg MCHC 35.6 (31.0-36.0) g/dl RDW 12.4 (11.0-16.0) % Plt Count 191 (160-400) X10*3/uL MPV 9.2 L (9.4-12.4) fL Immature Gran % (Auto) Cancelled Neut % (Auto) Cancelled Lymph % (Auto) Cancelled [place] % (Auto) Cancelled Eos % (Auto) Cancelled Baso % (Auto) Cancelled Lymph # (Auto) Cancelled [place] # (Auto) Cancelled Eos # (Auto) Cancelled Baso # (Auto) Cancelled Abs Immat Gran (auto) Cancelled Absolute Neuts (auto) Cancelled Absolute Nucleated RBC 0.000 (0.0-0.012) X10*3/uL Nucleated RBC % (auto) 0.0 (0.0-0.2) /100WBC Neutrophils % (Manual) 79 H (45-73) % Band Neutrophils % 7 H (3-5) % Lymphocytes % (Manual) 7 L (20-40) % Monocytes % (Manual) 4 (2-11) % Eosinophils % (Manual) 3 (0-4) % Abs Neuts (Manual) 12.0 H (2.0-8.3) X10*3/uL Lymphocytes # (Manual) 1.0 L (1.2-4.9) X10*3/uL Monocytes # (Manual) 0.6 (0.1-1.2) X10*3/uL Eosinophils # (Manual) 0.4 (0.0-0.4) X10*3/uL Toxic Granulation PRESENT Toxic Vacuolation PRESENT Platelet Estimate NORMAL (NORMAL) Plt Morphology Comment NORMAL RBC Morphology NOTED [place] Cells 1+ (0-2) /OIF Smear Tech's Comments MANUAL DIFF Sodium 136 (135-145) mmol/L Potassium 3.7 (3.3-5.1) mmol/L Chloride 104 (96-108) mmol/L Carbon Dioxide 24 (22-29) mmol/L Anion Gap 12 (12-20) BUN 20 H (9-16) mg/dL Creatinine 0.98 (0.5-1.4) mg/dL Estim Creat Clear Calc 67.5 Estimated GFR > 60 Random Glucose 225 H (60-115) mg/dL Calcium 8.5 D (8.4-10.2) mg/dL Total Bilirubin 0.4 (0.0-1.0) mg/dL AST 31 (5-37) U/L ALT 22 (0-40) U/L Alkaline Phosphatase 70 (39-117) U/L Troponin I High Sens < 2.7 (<3.5-35.0) ng/L Total Protein 7.4 (6.5-8.0) g/dL Albumin 4.3 (3.5-5.0) g/dL Influenza Type A (PCR) NEGATIVE (Negative) Influenza Type B (PCR) NEGATIVE (Negative) RSV RNA Qual (PCR) NEGATIVE (Negative) SARS-CoV-2 RNA (RT-PCR) NEGATIVE (Negative) Independent Interpretation I performed an independent interpretation of an: EKG and Plain X-Ray Interpretation: My independent interpretation of the patient's 12 EKG done at 21:50 hours is as follows: Sinus tachycardia with a rate of 105, prolonged TN interval of 206 milliseconds, normal QRS duration and QTC interval, patient has artifact in the baseline which makes the EKG difficult to interpret. No ST segment elevation, no ST segment depression, no significant T-wave abnormalities My independent interpretation patient's chest x-ray is as follows: No acute disease Radiology Impression Discussion of test interpretation with radiology: I have reviewed the radiologist's reading. Radiologist Impression: 1 view chest x-ray Comparison: CT/TN/SR - CT ANGIO CHEST AORTA - 04/22/23 11:45 EST Findings: Prominent gaseous distention of the stomach with asymmetric elevation of the left hemidiaphragm. The lungs and pleural spaces are clear. Heart size normal. Bones intact. IMPRESSION: 1. No acute cardiopulmonary process. Prominent gaseous distention of the stomach with asymmetric elevation of the left hemidiaphragm. This document has been electronically signed by: Willy Trujillo MD on 06/01/2024 22:22:10 Independent Historian Clinical information obtained from an independent historian. History obtained from or confirmed by: Spouse Prescription Management I considered prescription management with: Other (Antiemetic: Zofran ODT) Chronic Conditions Patient?s care impacted by: Diabetes and Hypertension Discharge Plan Discharge Clinical Impression: Viral syndrome, Nausea, Chest pain Abdominal pain Qualifiers: Abdominal location: generalized Qualified Code(s): R10.84 - Generalized abdominal pain Patient Disposition: Home, Self-Care Instructions: Viral Syndrome (ED) Additional Instructions: Your blood work did reveal an elevated white blood cell count and an elevated glucose/sugar otherwise was unremarkable. Your COVID-19, influenza and RSV tests were negative. Your chest x-ray was normal. Your EKG was normal. Your presentation is consistent with a virus which is giving you nausea, diarrhea and abdominal pain. Take Zofran ODT 4 mg pills, 1 pill dissolved in your mouth every 8 hours as needed for nausea and vomiting. Take ibuprofen 200 mg pills, 2 pills every 6 hours as needed for pain or fever. Take Tylenol (acetaminophen) 500 mg pills, 2 pills every 6 hours as needed for pain or fever. Follow-up with your doctor in 2 days. Please return to the emergency department if your symptoms get worse or if you develop any symptoms that are concerning to you. Prescriptions: New ondansetron 4 mg tablet,disintegrating 4 mg PO Q6-8H PRN (Reason: nausea and vomiting) Qty: 14 0RF No Action amlodipine 5 mg tablet 5 mg PO DAILY 90 Days Qty: 90 3RF lidocaine 5 % adhesive patch,medicated 1 patch topical DAILY Qty: 15 0RF Rx Instructions: leave on most painful area for up to 12 hrs naproxen 500 mg tablet 500 mg PO BID PRN (Reason: pain) Qty: 14 0RF cyclobenzaprine 5 mg tablet 5 mg PO TID PRN (Reason: muscle spasm) Qty: 10 0RF cholecalciferol (vitamin D3) 50 mcg (2,000 unit) capsule 0 mcg PO lisinopril 30 mg tablet 30 mg PO DAILY cyanocobalamin (vitamin B-12) 1,000 mcg/mL solution 1,000 mcg IM aspirin 81 mg tablet,delayed release (DR/EC) 81 mg PO DAILY polyethylene glycol 3350 [Miralax] 17 gram/dose powder 17 g PO BID 30 Days Qty: 1020 0RF Rx Instructions: Hold for diarrhea pantoprazole 40 mg tablet,delayed release (DR/EC) 40 mg PO DAILY dicyclomine 10 mg capsule PO loratadine 10 mg tablet 10 mg PO DAILY mirabegron [Myrbetriq] 25 mg tablet extended release 24 hr 25 mg PO DAILY 30 Days Qty: 30 3RF atorvastatin 10 mg tablet 10 mg PO DAILY Qty: 30 11RF Print Language: Mosotho
[2024-06-02] MEDS: Ketorolac Tromethamine 15 MG/ML VIAL IVPUSH (02:23)
[2024-06-02] MEDS: ondansetron HCL 4 MG/2 ML VIAL IVPUSH (02:23)
[2024-06-02] MEDS: 0.9 % Sodium Chloride 1,000 ML 999 ML IV (02:23)
--- NOTE | 2024-06-02 02:31 | PC.NURSE ---
medicated per mar
--- NOTE | 2024-06-02 03:00 | PC.NURSE ---
pt resting in bed with at the bedside, no n/v/d at this time.
[2024-06-02 04:33] VITALS: BP 119/66; PULSE 80; RESP 16; TEMP 36.8; O2SAT 96
--- NOTE | 2024-06-02 04:33 | PC.NURSE ---
pt able to tolerate PO challenge prior to d/c.
== END 2024-06-02 04:37 | disposition home or self-care (01) ==
PROVIDERS: Emergency Provider Emergency Medicine Emergency Medical Services; PCP General Practice
DX: B34.9 Viral infection, unspecified (principal); R07.89 Other chest pain; R11.2 Nausea with vomiting, unspecified; R42 Dizziness and giddiness; R10.2 Pelvic and perineal pain; R10.84 Generalized abdominal pain; Z03.818 Encounter for observation for suspected exposure to other biological agents ruled out; Z79.899 Other long term (current) drug therapy
CPT/HCPCS: 0241U; 71045; 80053; 84484; 85007; 85027; 93005; 96361; 96374; 96375; 99284; 99285; J1885; J2405

== ENCOUNTER → 2024-06-01 21:50 | Outpatient (BNV) | payer OTHER, SELFPAY | PROVIDERS: Emergency Provider Emergency Medicine Emergency Medical Services; PCP General Practice; Visit Provider Internal Medicine Cardiovascular Disease | DX: R00.0 Tachycardia, unspecified (principal) | CPT/HCPCS: 93010 ==

== ENCOUNTER → 2024-06-01 22:04 | Outpatient (BNV) | payer OTHER, SELFPAY | PROVIDERS: PCP General Practice; Visit Provider Radiology Diagnostic Radiology | DX: J98.6 Disorders of diaphragm (principal); R14.0 Abdominal distension (gaseous) | CPT/HCPCS: 71045 ==

== ENCOUNTER 2024-08-05 11:54 | Outpatient (AMB) | payer OTHER, SELFPAY ==
--- NOTE | 2024-08-05 11:58 | A.OFFVIS_ITS ---
Intake Visit Reasons: 1-3 M PVR Intake Note: Patient presents today for a follow-up on: Nocturia, BPH, and Microscopic Hematuria Meds: myrbetriq Allergies to Antibiotic- No Known Allergies Blood Thinner- Aspirin Post Void Residual: 21ml's [employer] Required: Yes [employer] Services: [employer] Present [employer] Name: [id number] Accompanied by: Allergies No Known Allergies [No Known Allergies*] Allergy (Verified 08/05/24 12:23) Medication List - Last Reconciled 08/05/24 by MAURIZIO Quiñonez- amlodipine 5 mg PO DAILY 90 days aspirin 81 mg PO DAILY atorvastatin 10 mg PO DAILY cholecalciferol (vitamin D3) 0 mcg PO cyanocobalamin (vitamin B-12) 1,000 mcg IM cyclobenzaprine 5 mg PO TID PRN dicyclomine mg PO lidocaine 5% 1 patch topical DAILY lisinopril 30 mg PO DAILY loratadine 10 mg PO DAILY mirabegron ER (Myrbetriq) 25 mg PO DAILY 90 days naproxen 500 mg PO BID PRN ondansetron 4 mg PO Q6-8H PRN pantoprazole 40 mg PO DAILY polyethylene glycol 3350 (Miralax) 17 grams PO BID 1 month HPI Comments Details: Jovi is a 69-year-old Slovak-speaking patient of Dr. Staples who was accompanied by his significant other at today's office appointment. He has a past medical history of BPH with prior prostate procedure, pernicious anemia, seasonal allergies, epididymitis, nephrolithiasis, nocturia, hyperlipidemia, hypertension, and erectile dysfunction. He presents to the office today for follow-up of his lower urinary tract symptoms. In discussion with the patient today he reports significantly improvement in lower urinary tract symptoms he had been experiencing. He reports urinary urgency, urinary frequency, and episodes of nocturia he had been experiencing significantly decreased however he believes he might have insurance coverage issues with medication. Patient has previously trialed terazosin, Flomax, and alfuzosin without improvement in lower urinary tract symptoms. He otherwise denies incontinence, nocturia, hematuria, dysuria, foul smelling urine, changes to urinary stream, flank pain, fever, and or chills. In office urinalysis results reviewed with the patient today 2+ microscopic hematuria otherwise within normal limits. PVR 25mL. Urine cytology 02/08 and 08/09, 05/11 Negative for high-grade urothelial carcinoma. Urine cytolo gy 02/09 Atypical urothelial cells. When asked he denies any previous smoking history and or or any known chemical exposure. He otherwise denies any bothersome urinary issues or concerns. PSAs: 01/08 0.8, 02/09 0.8 Lower urinary tract symptoms Longstanding Prior laser prostatectomy Current medications tamsulosin 0.4 mg q.h.s. 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 Erectile dysfunction Not currently a concern [facility] Medical History BPH (benign prostatic hyperplasia) Pernicious anemia Seasonal allergies History of eye prosthesis Epididymitis History of kidney stones Nocturia Hyperlipidemia HTN (hypertension) Erectile dysfunction BPH w/o urinary obs/LUTS Surgical History H/O colonoscopy History of Darrius fundoplication History of back surgery History of surgery History of extraction of renal calculus Social History Alcohol intake: never Patient Tobacco Use Status: Never used Tobacco Review of Systems Const Reports no additional complaints Eyes Reports no additional complaints ENT Reports no additional complaints Card Reports as per HPI Resp Reports no additional complaints GI Reports as per HPI Reports as per HPI Musc Reports as per HPI Neuro Reports no additional complaints Psych Reports no additional complaints Endo Reports no additional complaints Harshal/Lymph Reports no additional complaints Aller/Immun Reports as per HPI Physical Exam Const General: cooperative, healthy appearing, comfortable, no acute distress, well developed, alert and awake Orientation/consciousness: patient oriented x3 Limitations: no limitations HEENT Head: Yes normal to inspection, Yes normocephalic and Yes atraumatic Ears: hearing grossly normal bilaterally Eyes General: appearance normal, both eyes and all related structures Neck Neck: Yes normal visual inspection and Yes trachea midline Chest Chest palpation & inspection: normal inspection of the chest Resp Effort & Inspection: normal respiratory effort and able to speak in complete sentences Cardio Rate: regular rate GI Inspection: Yes normal to inspection General: Yes no CVA tenderness Back/Spine/Pelvis Back: no CVA tenderness Skin General skin exam: no rashes or lesions noted Neuro General: patient oriented x3 Extrem General: Yes normal to inspection Psych Appearance: grossly normal and well kempt Mental Status: mental status grossly normal Speech and movement: Normal speech and movement present and Clear speech present Affect: normal affect Attitude: cooperative Thought process: Normal thought process present Thought content: Normal thought content present Insight: Fair insight present (Psych) Judgement: Fair judgement present (Psych) Office Procedures Post Void Residual Post Residual Void Post Void Residual (PVR): 62499-Cics Void Residual by ultrasound Results AMB Urinalysis, Automated UA Leukoctes 0 Remberto/uL Last Edit by [employer] on 08/05/24 13:56 UA Nitrite Last Edit by [employer] Ignacia on 08/05/24 13:56 UA Urobilinogen 0.2 mg/dL Last Edit by [employer] on 08/05/24 13:56 UA Protein 0 mg/dL Last Edit by [employer] on 08/05/24 13:56 UA pH 7.5 Last Edit by [employer] on 08/05/24 13:56 UA Blood 80 Anshul/uL Last Edit by [employer] on 08/05/24 13:56 UA Specific [place] 1.005 Last Edit by [employer] on 08/05/24 13:56 UA Ketone Negative Last Edit by [employer] on 08/05/24 13:56 UA Bilirubin 0 mg/dL Last Edit by [employer] on 08/05/24 13:56 UA Glucose 0 mg/dL Last Edit by [employer] on 08/05/24 13:56 Results Reviewed Results Reviewed: Laboratory Last Values Urine pH (Auto) 7.5 08/05/24 13:54 Specific [place] (Auto) 1.005 08/05/24 13:54 Urine Protein (Auto) 0 mg/dL 08/05/24 13:54 Glucose (UA)(Auto) 0 mg/dL 08/05/24 13:54 Urine Ketones (Auto) Negative 08/05/24 13:54 Urine Blood (Auto) 80 Anshul/uL 08/05/24 13:54 Urine Bilirubin (Auto) 0 mg/dL 08/05/24 13:54 Urine Urobilinogen (Auto) 0.2 mg/dL 08/05/24 13:54 Leukocyte Esterase (Auto) 0 Remberto/uL 08/05/24 13:54 Assessment & Plan Assessment & Plan (1) Microscopic hematuria: Code(s): R31.29 - Other microscopic hematuria Category: Medical (2) BPH w/o urinary obs/LUTS: Comment: Prior prostate laser Code(s): N40.0 - Benign prostatic hyperplasia without lower urinary tract symptoms Category: Medical (3) Urinary frequency: Code(s): R35.0 - Frequency of micturition Category: Medical (4) Nocturia: Code(s): R35.1 - Nocturia Category: Medical Plan In office urinalysis results reviewed with the patient today; will send for urine cytology. PVR 25 mL Continue Myrbetriq as discussed and prescribed; will assess potential need for prior authorization Discussed continuing to limit fluids 2-3 hours prior to bed to decrease episodes of nocturia. We discussed at length potential causes of lower urinary tract symptoms patient is experiencing. Discussed bladder triggers/irritants. Follow-up in 3 months with PVR; or sooner with any issues, concerns, and or ques tions. Orders: Orders AMB Urinalysis Automated Today Z13.9 - Encounter for screening, unspecified Urine Cytology Today R31.29 - Other microscopic hematuria AMB Post Void Residual by ultrasound Today R35.0 - Frequency of micturition Medications: Changed From mirabegron ER (Myrbetriq) 25 mg PO DAILY 30 days 30 tabs 3RF N30.10 - Interstitial cystitis (chronic) without hematuria, N32.81 - Overactive bladder, R35.1 - Nocturia, R39.15 - Urgency of urination To mirabegron ER (Myrbetriq) 25 mg PO DAILY 90 tabs 1RF 90 days N30.10 - Interstitial cystitis (chronic) without hematuria, N32.81 - Overactive bladder, R35.1 - Nocturia, R39.15 - Urgency of urination Patient Instructions: The patient had an opportunity to ask questions regarding the treatment plan. All questions were answered. Physical exam, labs, and imaging were discussed and reviewed in detail. As well as risks, benefits, and discussion of treatment choices. No major barriers to understanding were identified. The patient expressed understanding and agreement with the above treatment plan. The patient was made aware they should contact our office by phone for worsening of their current condition, the appearance of new symptoms, or with any questions or concerns. Compliance is encouraged with any medications and follow up testing that is ordered. It is a privilege to be allowed the opportunity to participate in? your urological care.? Again, if you have any questions or concerns If you have any questions or concerns please do not hesitate to contact me. The office is [phone]. This note is constructed using voice recognition software. While every effort has been made to ensure accuracy salesperson hosiery errors may have been included. Yours sincerely, SARITA Quiñonez Coding Level of Care Code Est Pt Level 3 (44369) Complex EM visit Add On G2211 Diagnoses Microscopic hematuria R31.29 BPH w/o urinary obs/LUTS N40.0 Urinary frequency R35.0 Nocturia R35.1 CPT Codes Post Residual Void - PVR CPT Code: 25092-Eahm Void Residual by ultrasound ([id number])
--- OUTSIDE RECORDS SUMMARY | 2024-08-05 14:18 | XMS_ITS | Clinical Summary ---
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 Inhale 2 spray by intranasal route every day in each nostril at night. 2 Active amLODIPine (Norvasc) 5 MG tablet TOME KAYY TABLETA TODOS LOS D 3 Active loratadine (Claritin) 10 MG tablet TOME KAYY TABLETA TODOS LOS PINEDO 90 tablet 3 3 Active aspirin (Aspirin Low Dose) 81 MG EC tablet TAKE 1 TABLET BY MOUTH EVERY DAY 90 tablet 3 4 Active cyanocobalamin (Vitamin B-12) 1000 MCG/ML injectionIndica tions:Other vitamin B12 deficiency anemia INJECT 1 ML POR VIA INTRAMUSCULAR EVERY MONTH 3 mL 3 4 Active alfuzosin ER (Uroxatral) 10 MG 24 hr tabletIndicatio ns:Benign prostatic hyperplasia with urinary frequency TOME 1 TABLETA POR V A ORAL TODOS LOS D SAME MEAL EACH DAY 4 Active hydrOXYzine pamoate (Vistaril) 25 MG capsuleIndicati ons:Anxiety state TOME 1 C PSULA POR V A ORAL DOS VECES AL D A CUANDO SEA NECESARIO 4 Active Simethicone (Gas-Ex) 125 MG tablet tabletIndicatio ns:Flatulence, eructation and gas pain Take 1 tablet (125 mg) by mouth every 6 (six) hours if needed (gassiness). 120 tablet 2 4 Active lisinopril 30 MG tablet TAKE 1 TABLET BY MOUTH EVERY DAY 90 tablet 3 4 Active cholecalciferol VITAMIN D (Vitamin D-3) 50 MCG (2000 UT) capsule TAKE 2 CAPSULES BY MOUTH EVERY DAY 180 capsule 4 Active acetaminophen (Tylenol Extra Strength) 500 MG tablet Take 2 tablets (1,000 mg) by mouth every 8 (eight) hours if needed for mild pain or moderate pain. 60 tablet 3 5 025 Active Hospital, Clinic, or Other Facility Administered Medication Ordered Dose Route Frequency Start Date End Date Status cyanocobalamin (Vitamin B-12) injection 1,000 mcgIndications:Vitamin B12 deficiency 1000 mcg IM Every 30 days 03/29/2024 03/24/2025 Active Active Problems Problem Noted Date Diagnosed Date Depression, recurrent 03/13/2024 History of Darrius fundoplication 03/13/2024 Vitamin B12 deficiency 07/02/2023 History of MO (myocardial infarction) 07/02/2023 Assessment & Plan (07/02/2023 10:31 AM EST): Presumed, based on stress test findings, EF 55-60% (03/2022) Optimize cardiac function with ASA, statin, beta blockade F/u with cardiology to review study with them Acid reflux 10/23/2022 Assessment & Plan (10/25/2022 6:10 AM EDT): Continue pantoprazole 40mg daily Lifestyle GERD changes Left upper quadrant pain 07/26/2022 Assessment & Plan (11/03/2023 7:46 AM EDT): Occurs constantly in RUQ and LUQ Imaged 02/2022 with gallstones seen Saw Dr Barreto in general surgery at [facility], no surgery indicated Has trialled bentyl, not helpful Needs constant bowel regimen for constipation Causes him much anxiety Assessment & Plan (07/02/2023 10:32 AM EST): Occurs constantly in RUQ and LUQ Imaged 02/2022 with gallstones seen Seeing Dr Barreto in general surgery at [facility] Has trialled bentyl, not helpful Needs constant bowel regimen for constipation Has CT scan abd/pelvis 10 Jul 2023 Assessment & Plan (07/29/2022 8:20 AM EDT): RUQ and LUQ Imaged 02/2022 with gallstones seen Seeing Dr Barreto in general surgery at [facility] Will trial Bentyl for possible gas pains 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 Constipation 07/26/2022 Ascending aorta dilatation 07/26/2022 Assessment & Plan (11/03/2023 7:46 AM EDT): Will need repeat imaging every year Likely due to hypertensive disease BP control Assessment & Plan (07/29/2022 8:21 AM EDT): Will need repeat imaging Likely due to hypertensive disease Failed back surgical syndrome 04/16/2022 Left lumbar radiculopathy 04/16/2022 Vitamin D deficiency 04/16/2022 Dyslipidemia 12/26/2016 Benign prostatic hyperplasia 06/20/2016 Assessment & Plan (11/03/2023 7:47 AM EDT): On Tamsulosin Also seeing urology for hematuria in addition to BPH Assessment & Plan (03/06/2023 6:20 AM EDT): On two alpha blockers Thinks Tamsulosin works better for him, will discontinue Terasozin Mcguire's esophagus 01/09/2015 Pernicious anemia 01/09/2015 Assessment & Plan (11/03/2023 7:48 AM EDT): Continue Vitamin B12 injections monthly Assessment & Plan (07/29/2022 8:22 AM EDT): Continue Vitamin B12 injections Lumbosacral radiculitis 08/23/2014 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 Impaired fasting glucose 08/27/2012 Hyperlipidemia 08/26/2012 Hypertension 08/26/2012 Assessment & Plan (11/03/2023 7:46 AM EDT): On Amlodipine 5mg and Lisinopril 30mg Controlled at home to <140/90 (JNC-8) He has recent stress test that showed evidence of old infarction, CT coronary arteries with minimal plaque in major arteries On ASA and statin Assessment & Plan (07/29/2022 8:21 AM EDT): On Amlodipine 5mg and Lisinopril 30mg Not controlled to <140/90, but to <150/90 Will continue to try to manage pain and 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 Chronic sinusitis 02/06/2012 Erectile dysfunction 02/06/2012 Anxiety state 11/28/2011 Assessment & Plan (03/06/2023 6:20 AM EDT): Will focus on treatment of anxiety Doxepin 10mg nightly, could take one additional dose during the day Can trial hydroxyzine if this is not helpful Deep, diaphragmatic breathing mentions benzos were helpful in the past, explained risks of long-term benzo use and why it is not first line Assessment & Plan (10/25/2022 6:09 AM EDT): Will focus on treatment of anxiety Doxepin 10mg nightly, could take one additional dose during the day Can trial hydroxyzine if this is not helpful Deep, diaphragmatic breathing mentions benzos were helpful in the past, explained risks of long-term benzo use and why it is not first line Deviated nasal septum 11/28/2011 Flatulence, eructation and gas pain 11/28/2011 Headache 11/28/2011 Hemorrhoids 11/28/2011 Encounters Date Type Department Care Team Description 07/19/2024 1:00 PM EST Nurse Only [facility] [address], [place] [phone] Nanette Cosme LPN B12 deficiency 07/13/2024 Telephone [facility] [address] [place] [address] Romina Staples MD medication sent 07/12/2024 Orders Only [facility] [address] Romina Staples MD 07/09/[address] [address] Romina Staples MD Medication Question 07/09/[address] [facility] [address] [place] [address] Romian Staples MD recall 06/21/2024 1:00 PM EST Nurse Only [facility] [address] Nanette Cosme LPN B12 deficiency 06/21/2024 Travel 06/01/2024 Orders Only GENERIC EXTERNAL DATA DEPARTMENT Provider, Generic External Data 05/24/2024 1:00 PM EST Nurse Only [facility] [place] [address] Nanette Cosme LPN B12 deficiency 05/24/2024 Travel from Last 3 Months Immunizations Name Administration Dates Next Due Influenza High-dose Quadriva lent Preservative Free 02/28/2023,02/28/2022 Influenza injectable quadriv alent IIV4 with preservative 03/08/2019,04/01/2017 Influenza injectable quadriv alent preservative free 06/12/2021 Influenza, High Dose Seasona l, Preservative Free 03/08/2024 Influenza, IIV3, injectable 03/29/2014 Influenza, Split (incl. lang fied surface antigen) 02/16/2013,02/06/2012 Moderna Covid-19 Vaccine 12+ 05/10/2021,10/06/19 21,09/07/2020 Moderna Covid-19 Vaccine 6+ Bivalent 05/29/2022 Pneumococcal Conjugate PCV 20 02/28/2023 TD (adult), 2 Lf tetanus tox oid, preservative free, adsorbed 11/23/2007 Tdap 04/01/2017 Zoster, live 03/29/2014 Social History Tobacco Use Types Packs/Day Years Used Date Smoking Tobacco: Never Smokeless Tobacco: Never Tobacco Cessation:Counseling Given: Not Answered Alcohol Use Standard Drinks/Week Comments Never 0 (1 standard drink = 0.6 oz pur e alcohol) Depression Answer Date Recorded Patient Health Questionnaire-9 Score 5 10/31/2023 Patient Health Questionnaire-9 Score 5 10/31/2023 Last PHQ-9: Questionnaire Data Not on file 0 10/31/2023 Housing Stability Answer Date Recorded What is your housing situation today? I have yang anderson 10/21/[address] you li ve. Do you have problems with any of the following? None of the above 10/21/2023 Food Insecurity Answer Date Recorded Within the past 12 months, y ou worried that your food would run out before you got money to buy more: Never True 10/21/2023 Within the past 12 months,th e food you bought just didn't last and you didn't have enough money to get more: Never True 08/2023 Transportation Answer Date Recorded In the past 12 months, has l ack of transportation kept you from medical appts, meetings, work or from getting things needed for daily living? No 10/21/2023 Utilities Answer Date Recorded In the past 12 months, has t he electric, gas, oil or water company threatened to shut off services in your home? No 10/21/2023 Depression Answer Date Recorded Patient Health Questionnaire-2 Score 2 10/31/2023 Internet Access Answer Date Recorded Internet Access Q1 Yes 03/08/2024 Internet Access Q2 Not on file 03/08/2024 Sex and Gender Information Value Date Recorded Sex Assigned at Male 03/18/2022 10:20 AM EDT Legal Sex Male 10:20 AM EDT Gender Identity Male 03/18/2022 10:20 AM EDT Sexual Orientation Straight 07/26/2022 2: 17 PM EST Last Filed Vital Signs Vital Sign Reading Time Taken Comments Blood Pressure 144/78 03/08/2024 2:32 PM EDT Pulse 64 03/08/2024 2:32 PM EDT Temperature 36.1 ??C (97 ??F) 03/08/2024 2:32 PM EDT Respiratory Rate 20 03/08/2024 2:32 PM EDT Oxygen Saturation 98% 03/08/2024 2:32 PM EDT Inhaled Oxygen Concentration - - Weight 78.7 kg (173 lb 9.6 oz) 03/08/2024 2:32 P M EDT Height 157.5 cm (5' 2 ) 03/08/2024 2:32 PM EDT Body Mass Index 31.75 03/08/2024 2:32 PM EDT Plan of Treatment Upcoming Encounters Date Type Department Care Team (Late st Contact Info) Description 08/19/2024 1:00 PM EDT Nurse Only [facility] [address] [place] [address] 09/24/2024 2:15 PM EDT Office Visit [facility] [address] [place] [address] Romina Staples MD [address] [place] [address] Health Maintenance Due Date Last Done Comments CT Colonography 1955 FIT 1955 Sigmoidoscopy 1955 Alcohol/Substance Use Screening 1965 Hepatitis C Screening 1971 Zoster Vaccines (2 of 3) 05/24/2014 03/29/2014 Dental X-Ray: Full Mouth 12/27/2018 12/27/2015 Dental X-Ray: Bitewings 02/03/2019 02/03/20 18, 07/03/2016, 12/27/2015, Additional history exists Dental Prophylaxis 04/01/2019 09/28/2018, 1 05/30/2017, 09/24/2017, Additional history exists Dental Oral Exam 05/13/2019 11/10/2018, , 02/02/2018, Additional history exists COVID-19 Vaccine ( season) 2024 05/29/2022, 05/10/2021, 10/05/2020, Additional history exists FOBT 05/19/2024 05/19/2023 Depression Screening 10/30/2024 10/31/2023, 10/31/19 24 SDOH Screening 03/08/2025 03/08/2024 Tobacco Screening 03/08/2025 03/08/2024 Colonoscopy 05/20/2025 Colorectal Cancer Screening 05/20/2025 FIT DNA/Cologuard 05/19/2026 05/19/2023 Lipid Panel 08/02/2026 08/02/2021, 04/0 06/2020, 12/17/2019 DTaP/Tdap/Td Vaccines (2 - Td or Tdap) 04/01/2027 04/01/2017, 11/23/2007 RSV Patients and Patients Aged 60 years or older (1 - 1-dose 75+ series) 01/02/2028 Pneumococcal Vaccine: 50+ Years Completed 02/28/2023 Influenza Vaccine Completed 03/08/2024, , 02/28/2022, Additional history exists HIB Vaccines Aged Out No longer eligi ble based on patient's age to complete this topic HPV Vaccines Aged Out No longer eligi ble based on patient's age to complete this topic Hepatitis A Vaccines Aged Out No long er eligible based on patient's age to complete this topic Hepatitis B Vaccines Aged Out No long er eligible based on patient's age to complete this topic IPV Vaccines Aged Out No longer eligi ble based on patient's age to complete this topic Meningococcal Vaccine Aged Out No shruthi daylin eligible based on patient's age to complete this topic RSV under 20 months Aged Out No longe r eligible based on patient's age to complete this topic Rotavirus Vaccines Aged Out No longer eligible based on patient's age to complete this topic Procedures Procedure Name Priority Date/Time Associated Diagnosis Comments XR CHEST 1 VIEW Routine 06/01/2024 10:22 PM EST HIGH SENSITIVITY TROPONIN I Routine 06/01/2024 10:12 PM EST SLIDE REVIEW Routine 06/01/2024 10:11 PM EST COMPLETE BLOOD COUNT MAN DIF Routine 06/01/2024 10:11 PM EST COMPREHENSIVE METABOLIC PANEL Routine 06/01/2024 10:11 PM EST CBC WITH AUTO DIFFERENTIAL Routine 06/01/2024 10:11 PM EST SARS COV2/INFLUENZA A/B AND RSV RNA QL NAAT Routine 06/01/2024 10:11 PM EST HM FIT DNA/COLOGUARD CANCER SCREENING Routine 05/19/2023 LIPID PANEL, STANDARD Routine 08/02/2021 9:31 AM EDT PERIODIC ORAL EVALUATION - ESTABLISHED PATIENT Routine 11/10/2018 12:00 AM EDT PROPHYLAXIS - ADULT Routine 09/28/2018 1 2:00 AM EDT BITEWINGS - 4 RADIOGRAPHIC IMAGES Routine 02/02/2018 12:00 AM EDT INTRAORAL - COMPLETE SERIES OF RADIOGRAPHIC IMAGES Routine 12/27/2015 12:00 AM EDT from Last 3 Months or Most Recently Relevant to Health Maintenance Results * XR Chest 1 View (06/01/2024 10:22 PM EST) Anatomical Region Laterality Modality Chest Radiographic Alecia ging 06/01/2024 10:2 2 PM EST Narrative 06/01/2024 10:23 PM EST ? [facility] ?[address] ?[place] [address] ?XRay Report ? Signed ? Patient: Jovi Mcknight ?MR#: [id number] ?? [id number] ? : 1955 ?Acct:[id number] ? Age/Sex: 69 / M ?ADM Date: 06/01/24 ? Loc: HO.ED ? Attending Dr: ? Ordering Physician: Generic ED Physician ?? Date of Service: 06/01/24 ?? Procedure(s): XR chest 1V ?? Accession Number(s): [id number] ? cc: Generic ED Physician; Romina Staples ? CLINICAL HISTORY: chest pain ? 1 view chest x-ray ? Comparison: CT/TX/SR - CT ANGIO CHEST AORTA - 04/22/23 11:45 EST ? Findings: ?? Prominent gaseous distention of the stomach with asymmetric elevation of ?? the left hemidiaphragm. The lungs and pleural spaces are clear. Heart size ?? normal. Bones intact. ? IMPRESSION: ?? 1. No acute cardiopulmonary process. Prominent gaseous distention of the ?? stomach with asymmetric elevation of the left hemidiaphragm. ? This document has been electronically signed by: Willy Trujillo MD on ?? 06/01/2024 22:22:10 ? Dictated By: ?Willy Trujillo MD ? Signed By: ?<Electronically signed by Willy Trujillo MD in OV> ? 06/01/242222 ? DD/ 21 ? TD/TT: 06/01/242221 ? Kier Tender: ? Procedure Note Donlinda, Image - 06/01/[address] [address] XRay Report Signed Patient: Jovi McknightMR#: [id number] : 1955cct:[id number] Age/Sex: 69 / MADM Date: 06/01/24 Loc: HO.ED Attending Dr: Ordering Physician: Generic ED Physician Date of Service: 06/01/24 Procedure(s): XR chest 1V Accession Number(s): [id number] cc: Generic ED Physician; Romina Staples CLINICAL HISTORY: chest pain 1 view chest x-ray Comparison: CT/TX/SR - CT ANGIO CHEST AORTA - 04/22/23 11:45 EST Findings: Prominent gaseous distention of the stomach with asymmetric elevation of the left hemidiaphragm. The lungs and pleural spaces are clear. Heart size normal. Bones intact. IMPRESSION: 1. No acute cardiopulmonary process. Prominent gaseous distention of the stomach with asymmetric elevation of the left hemidiaphragm. This document has been electronically signed by: Willy Trujillo MD on 06/01/2024 22:22:10 Dictated By: Willy Trujillo MD Signed By: <Electronically signed by Willy Trujillo MD in OV> 06/01/242222 DD/ 21 TD/TT: 06/01/242221 Kier Tender: [facility] External Provider IMG XR PROCEDURES Final Result * High Sensitivity Troponin I (06/01/2024 10:12 PM EST) TROPONIN I HIGH SENSITIVITY <2.7 <3.5 - 35.0 ng/L [facility] Comment:The Higgins high sens itivity Troponin-I results should beused in conjunction with other diagnostic information suchas ECG, clinical observations and information, and patientsymptoms to aid in the diagnosis of MO. 06/01/2024 10:1 2 PM EST 06/01/2024 10:15 PM EST us Generic External Data Provider LAB BLOOD ORDERAB LES Final Result Performing Organization Address [facility]/ZIP Co de Phone Number [facility] [address] [place] [address] [phone] * Slide Review (06/01/2024 10:11 PM EST) Slide Review MANUAL DIFF [facility] 06/01/2024 10:1 1 PM EST 06/01/2024 10:15 PM EST Generic External Data Provider LAB BLOOD ORDERAB LES Final Result Performing Organization Address [facility] Phone Number [facility] [address] [place] [address] [phone] * (ABNORMAL) Complete Blood Count Manual Diff (06/01/2024 10:11 PM EST) White Blood Count 13.9(H) 4.8 - 10.8 X10*3/uL [facility] Red Blood Count 5.07 4.60 - 5.80 X10*6/uL [facility] Hemoglobin 14.9 14.0 - 18.0 g/dl [facility] Hematocrit 41.9(L) 42.0 - 52.0 % [facility] Mean Corpuscular Volume 82.6 80.0 - 98.0 fL [facility] Mean Corpuscular Hemoglobin 29.4 27.0 - 33.0 pg [facility] Mean Corpuscular HGB Conc 35.6 31.0 - 36.0 g/dl [facility] Red Cell Distribution Width 12.4 11.0 - 16.0 % [facility] Platelet Count 191 160 - 400 X10*3/uL [facility] Mean Platelet Volume 9.2(L) 9.4 - 12.4 fL [facility] NRBC Pct Auto 0.0 0.0 - 0.2 /100WBC [facility] NRBC Abs Auto 0.000 0.0 - 0.012 X10*3/uL [facility] Neutrophils % Manual 79(H) 45 - 73 % [facility] Band Neutrophils Percent 7(H) 3 - 5 % [facility] Lymphocytes Percent Manual 7(L) 20 - 40 % [facility] Monocytes Percent Manual 4 2 - 11 % [facility] EOSINOPHILS % MANUAL 3 0 - 4 % [facility] NEUTROPHILS ABSOLUTE MANUAL 12.0(H) 2.0 - 8.3 X10*3/uL [facility] LYMPHOCYTES ABSOLUTE MANUAL 1.0(L) 1.2 - 4.9 X10*3/uL [facility] MONOCYTES ABSOLUTE MANUAL 0.6 0.1 - 1.2 X10*3/uL [facility] EOSINOPHILS ABSOLUTE MANUAL 0.4 0.0 - 0.4 X10*3/uL [facility] Platelet Estimate NORMAL NORMAL [facility] Platelet Morphology Comment NORMAL [facility] RBC Morphology NOTED [facility] Toxic Granulation PRESENT [facility] Toxic Vacuolation PRESENT [facility] Lorain Cells 1+ (0-2) /OIF [facility] 06/01/2024 10:1 1 PM EST 06/01/2024 10:15 PM EST us Generic External Data Provider LAB BLOOD ORDERAB LES Final Result [facility] [address] [place] [address] [phone] * SARS-CoV-2 RNA, Influenza A/B, and RSV RNA, Ql NAAT (06/01/2024 10:11 PM EST) Influenza A PCR NEGATIVE Negative [facility] Influenza B PCR NEGATIVE Negative [facility] Resp Syncy Virus RNA Qual PCR NEGATIVE Negative [facility] SARS COV2 PCR NEGATIVE Negative [facility] Comment:All test results mus t be correlated with clinical findings.Negative results do not preclude SARS-CoV2, influenza Avirus, influenza B virus and/or RSV infectionand should not be used as the sole basis for treatment orother patient management decisions. Negative results must becombined with clinical observations, patient history, andepidemiological information.This test has not been evaluated for monitoring treatment ofinfection.This test has been authorized by the FDA under an EmergencyUse Authorization (EUA) for use by authorized laboratories.Testing performed on the [employer] GeneXpert utilizingreal-time RT-PCR.All SARS CoV2 and positive influenza A/B results arereported to [facility]. 06/01/2024 10:1 1 PM EST 06/01/2024 10:15 PM EST us Generic External Data Provider LAB MICROBIOLOGY - GENERAL ORDERABLES Final Result [facility] [address] [place] [phone] * (ABNORMAL) CBC auto differential (06/01/2024 10:11 PM EST) White Blood Count 13.9(H) 4.8 - 10.8 X10*3/uL [facility] Red Blood Count 5.07 4.60 - 5.80 X10*6/uL [facility] Hemoglobin 14.9 14.0 - 18.0 g/dl [facility] Hematocrit 41.9(L) 42.0 - 52.0 % [facility] Mean Corpuscular Volume 82.6 80.0 - 98.0 fL [facility] Mean Corpuscular Hemoglobin 29.4 27.0 - 33.0 pg [facility] Mean Corpuscular HGB Conc 35.6 31.0 - 36.0 g/dl [facility] Red Cell Distribution Width 12.4 11.0 - 16.0 % [facility] Platelet Count 191 160 - 400 X10*3/uL [facility] Mean Platelet Volume 9.2(L) 9.4 - 12.4 fL [facility] Neutrophils Percent Auto 91.8(H) 45 - 73 % [facility] Imm Gran Pct Auto 0.4 0.0 - 0.4 % [facility] Lymphocytes Percent Auto 3.2(L) 20 - 40 % [facility] Monocytes Percent Auto 3.7 2 - 11 % [facility] Eosinophils Percent Auto 0.8 0 - 4 % [facility] Basophils Percent Auto 0.1 0 - 2 % [facility] NRBC Pct Auto 0.0 0.0 - 0.2 /100WBC [facility] Neutrophils Absolute Auto 12.7(H) 2.0 - 8.3 x10*3/uL [facility] Imm Gran Abs Auto 0.05(H) 0.00 - 0.03 X10*3/uL [facility] Lymphocytes Absolute Auto 0.4(L) 1.2 - 4.9 X10*3/uL [facility] Monocytes Absolute Auto 0.5 0.1 - 1.2 X10*3/uL [facility] Eosinophils Absolute Auto 0.1 0.0 - 0.4 X10*3/uL [facility] Basophils Absolute Auto 0.0 0.0 - 0.2 X10*3/uL [facility] NRBC Abs Auto 0.000 0.0 - 0.012 X10*3/uL [facility] 06/01/2024 10:1 1 PM EST 06/01/2024 10:15 PM EST us Generic External Data Provider LAB BLOOD ORDERAB LES Edited Result - Final [facility] [address] [place] [address] [phone] * (ABNORMAL) Comprehensive Metabolic Panel (06/01/2024 10:11 PM EST) Sodium 136 135 - 145 mmol/L [facility] Potassium 3.7 3.3 - 5.1 mmol/L [facility] Chloride 104 96 - 108 mmol/L [facility] Carbon Dioxide 24 22 - 29 mmol/L [facility] Anion Gap 12 12 - 20 [facility] Urea Nitrogen (BUN) 20(H) 9 - 16 mg/dL [facility] Creatinine, Serum 0.98 0.5 - 1.4 mg/dL [facility] Creatinine Clr Calc Pharmacy 67.5 [facility] Comment:eGFR (calculated fro m the MDRD study equation) and eCrCl(calculated from the Cockcroft-Gault equation) are based ondifferent parameters and may not yield comparable results.If eCrCl result is absurd, please check patient'sheight/weight. Estimated Glomerular Filt Rate >60 [facility] Comment:Chronic Kidney Disea se: Estimated GFR < 60 mL/min/1.12c5Fkxceh Kidney Disease: Estimated GFR < 15 mL/min/1.73m2 Glucose 225(H) 60 - 115 mg/dL [facility] Calcium 8.5 8.4 - 10.2 mg/dL [facility] Bilirubin, Total 0.4 0.0 - 1.0 mg/dL [facility] Aspartate Amino Transferase 31 5 - 37 U/L [facility] Alanine Aminotransferase 22 0 - 40 U/L [facility] Total Protein 7.4 6.5 - 8.0 g/dL [facility] Albumin Level 4.3 3.5 - 5.0 g/dL [facility] Alkaline Phosphatase 70 39 - 117 U/L [facility] 06/01/2024 10:1 1 PM EST 06/01/2024 10:15 PM EST Generic External Data Provider LAB BLOOD ORDERAB LES Final Result [facility] [address] [place] [address] [phone] * FIT DNA/Cologuard Cancer Screening (05/19/2023) Cologuard Cancer Screen Negative Stool 05/19/2023 Historical Provider HEALTH MAINTENANCE Final Result * (ABNORMAL) LIPID PANEL, STANDARD (08/02/2021 9:31 AM EDT) Chol/HDLC Ratio 3.6 <5.0 (calc) [facility] Cholesterol, Total 139 <200 mg/dL [facility] HDL Cholesterol 39(L) > OR = 40 mg/dL [facility] LDL Cholesterol 82 mg/dL (calc) [facility] Comment: Reference range: <100 ?? Desirable range <100 mg/dL for primary prevention; ?? <70 mg/dL for patients with CHD or diabetic patients ?? with > or = 2 CHD risk factors. ?? LDL-C is now calculated using the [place] ?? calculation, which is a validated novel method providing ?? better accuracy than the Friedewald equation in the ?? estimation of LDL-C. ?? Wade ALDANA et al. DAISY. 2013;310(19): 2161-3700 ?? (http://education.VYou.Dials/faq/XTH664) Non-HDL Cholesterol 100 <130 mg/dL (calc) [facility] Comment: For patients with diabetes plus 1 major ASCVD risk ?? factor, treating to a non-HDL-C goal of <100 mg/dL ?? (LDL-C of <70 mg/dL) is considered a therapeutic ?? option. 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
--- OUTSIDE RECORDS SUMMARY | 2024-08-05 14:18 | XMS_ITS | Encounter Summary ---
Author Organization [employer] [facility] Address [address] [place] [address] 7 [place] [address] Care Team Providers Care Tool Trouble Shooter Name Role Phone Romina Staples MD Primary Care Provider [phone] Encounter Details Date Type Department Care Team (Late Contact Info) Description 05/23/2022 Orders Only [facility] MED[facility]INE [address] [place] [phone] Romina Staples MD [address] [place] [phone] Pernicious anemia (Primary Dx) Social History Tobacco Use Types Packs/Day Years Used Date Smoking Tobacco: Never Assessed Sex and Gender Information Value Date Recorded Sex Assigned at Male 03/18/2022 10:20 AM EDT Legal Sex Male 10:20 AM EDT Gender Identity Male 03/18/2022 10:20 AM EDT Sexual Orientation Straight 07/26/2022 2: 17 PM EST COVID-19 Exposure Response Date Recorded In the last 10 days, have yo u been in contact with someone who was confirmed or suspected to have Coronavirus/COVID-19? No / Unsure 05/23/2022 2:04 PM EST documented as of this encounter Plan of Treatment Upcoming Encounters Date Type Department Care Team (Late Contact Info) Description 08/19/2024 1:00 PM EDT Nurse Only [facility] [address] [place] [address] 09/24/2024 2:15 PM EDT Office Visit [facility] [address] [place] [address] [phone] Romina Staples MD [address] [place] [address] documented as of this encounter Visit Diagnoses Diagnosis Pernicious anemia- Primary documented in this encounter Care Teams Tool Trouble Shooter Relationship Specialty Start Date End Date Romina Staples MD [address] [place] [address] PCP - General Family Medicine 05/22/20 documented as of this encounter
--- OUTSIDE RECORDS SUMMARY | 2024-08-05 14:18 | XMS_ITS | Encounter Summary ---
Author Organization [employer] Address [address] [place] [address] 7 [place] [address] Care Team Providers Care Broach Operator Name Role Phone Romina Staples MD Primary Care Provider [phone] Reason for Visit * Reason Onset Date Comments Medication Question 07/09/2024 Encounter Details Date Type Department Care Team ([facility] st Contact Info) Description 07/09/2024 Telephone [facility]INE [address] [place] [address] Romina Staples MD [address] [place] [address] Medication Question Social History Tobacco Use Types Packs/Day Years Used Date Smoking Tobacco: Never Smokeless Tobacco: Never Alcohol Use Standard Drinks/Week Comments Never 0 [...] Orientation Straight 07/26/2022 2: 17 PM EST documented as of this encounter Miscellaneous Notes * Telephone Encounter - Chloé Alvarenga [place] - 07/09/2024 2:26 PM EST T/c to pt to schedule recall appt, and pt expressed needs for Tylenol for body pains. Would like toknow if pcp can send rx. Please advise. documented in this encounter Plan of Treatment Upcoming Encounters Date Type Department Care Team (Late st Contact Info) Description 08/19/2024 1:00 PM EDT Nurse Only [facility] MED[facility]INE [address] [place] [phone] 09/24/2024 2:15 PM EDT Office Visit [facility] [address] [place] [address] Romina Staples MD [address] [place] [address] documented as of this encounter Visit Diagnoses Not on filedocumented in this encounter Additional Health Concerns Assessment Noted Time PHQ-9 Depression Total Score: 5 10/31/19 24 2:06 PM EDT documented as of this encounter Care Teams Broach Operator Relationship Specialty Start Date End Date Romina Staples MD [address] [place] [address] PCP - General Family Medicine 05/22/20 documented as of this encounter
--- OUTSIDE RECORDS SUMMARY | 2024-08-05 14:18 | XMS_ITS | Encounter Summary ---
Author Organization [employer] Address [address] [place] [address] 7t [place] [address] Care Team Providers Care Dry Charge Process Attendant Name Role Phone Romina Staples MD Primary Care Provider [phone] Encounter Details Date Type Department Care Team (Late st Contact Info) Description 07/19/2024 1:00 PM EST Nurse Only [facility] MEDICINE [address] [place] [address] Nanette Cosme LPN B12 deficiency Social History Tobacco Use Types Packs/Day Years [...] PM EST documented as of this encounter Progress Notes * Nanette Cosme LPN - 07/19/2024 1:00 PM EST SUBJECTIVE: Jovi Morrison is a 69 y.o. year old male who presents for No chief complaint on file. Preferred language for medical information: Drafting Teacher needed: Yes Standing Ordered verified: Yes, standing Jovi Morrison denies any difficulties with previous injection that was received. Allergies Allergen Reactions Atenolol Other reaction(s): fatigue Lisinopril Other reaction(s): Rash Oxycodone-Acetaminophen OBJECTIVE: B-12 injection given in Left Deltoid, medication was tolerated well. ASSESSMENT: Vitamin B12 deficiency PLAN: Jovi Morrison will return for next injection on 08/19/2024 . [x] Advised to monitor injection site for any increased redness or swelling [x] Next appointment given Jovi Goodenaballo agrees with plan of care and verbalized understanding of instructions/education. Nanette Cosme LPN documented in this encounter Plan of Treatment Upcoming Encounters Date Type Department Care Team (Late st Contact Info) Description 08/19/2024 1:00 PM EDT Nurse Only [facility] MEDICINE [address] [place] [address] 09/24/2024 2:15 PM EDT Office Visit [facility]INE [address] [place] [address] Romina Staples MD [address] [place] [address] documented as of this encounter Visit Diagnoses Diagnosis B12 deficiency documented in this encounter Administered Medications Active Administered Medications - up to 3 most recent administrations Medication Order MAR Action Action Date Dose Rate Site cyanocobalamin (Vitamin B-12) injection 1,000 mcg 1,000 mcg, Intramuscular, Every 30 days, First dose on Fri03/29/24 at 0900, For 12 dosesIndications:Vitamin B12 deficiency Given 07/19/2024 9:00 AM EST 1,000 mcg Left Deltoid Given 06/27/2024 9:00 AM EST 1,000 mcg Ri ght Deltoid Given 05/24/2024 9:00 AM EST 1,000 mcg Le ft Deltoid documented in this encounter Additional Health Concerns Assessment Noted Time PHQ-9 Depression Total Score: 5 10/31/19 24 2:06 PM EDT documented as of this encounter Care Teams Dry Charge Process Attendant Relationship Specialty Start Date End Date Romina Staples MD [address] [place] [address] PCP - General Family Medicine 05/22/20 documented as of this encounter
--- OUTSIDE RECORDS SUMMARY | 2024-08-05 14:18 | XMS_ITS | Encounter Summary ---
Author Organization [employer] Address [address] [place] [address] 7t [place] [address] Care Team Providers Care Smoke Control Supervisor Name Role Phone Romina Staples MD Primary Care Provider [phone] Encounter Details Date Type Department Care Team (Late st Contact Info) Description 03/31/2024 Orders Only [facility] MEDICINE [address] [place] [address] Romina Staples MD [address] [place] [address] Vitamin B12 deficiency (Primary Dx) Social History Tobacco Use Types [...] Description 08/19/2024 1:00 PM EDT Nurse Only [facility] MEDICINE [address] [place] [address] 09/24/2024 2:15 PM EDT Office Visit [facility] MEDICINE [address] [place] [phone] Romina Staples MD [address] [place] [phone] documented as of this encounter Visit Diagnoses Diagnosis Vitamin B12 deficiency- Primary Other B-complex deficiencies documented in this encounter Additional Health Concerns Assessment Noted Time PHQ-9 Depression Total Score: 5 10/31/19 24 2:06 PM EDT documented as of this encounter Care Teams Smoke Control Supervisor Relationship Specialty Start Date End Date Romina Staples MD [address] [place] [phone] PCP - General Family Medicine 05/22/20 documented as of this encounter
--- OUTSIDE RECORDS SUMMARY | 2024-08-05 14:18 | XMS_ITS | Encounter Summary ---
Author Organization [employer] Address [address] [place] [address] 7t [place] [address] Care Team Providers Care Management Lead Name Role Phone Romina Staples MD Primary Care Provider [phone] Reason for Visit * Reason Comments Med Refill Encounter Details Date Type Department Care Team (Late st Contact Info) Description 12/12/2022 Refill [facility] MEDICINE [address] [place] [address] Maria Guadalupe Carrera MD [address] [place] [address] Social History Tobacco Use Types Packs/Day Years Used Date Smoking Tobacco: Never Smokeless Tobacco: Never Alcohol Use Standard Drinks/Week Comments Never 0 (1 standard drink = 0.6 oz pur e alcohol) PHQ-2 Answer Date Recorded Patient Health Questionnaire-2 Score 0 07/26/2022 Depression Answer Date Recorded Patient Health Questionnaire-2 Score 0 07/26/2022 Sex and Gender Information Value Date Recorded [...] suspected to have Coronavirus/COVID-19? No / Unsure 11/20/2022 9:50 AM EDT documented as of this encounter Plan of Treatment Upcoming Encounters Date Type Department Care Team (Late Contact Info) Description 08/19/2024 1:00 PM EDT Nurse Only [facility] MEDICINE [address] [place] [address] 09/24/2024 2:15 PM EDT Office Visit [facility] MED[facility]INE [address] [place] [address] Romina Staples MD [address] [place] [address] documented as of this encounter Visit Diagnoses Not on filedocumented in this encounter Care Teams Management Lead Relationship Specialty Start Date End Date Romina Staples MD [address] [place] [phone] PCP - General Family Medicine 05/22/20 documented as of this encounter
--- OUTSIDE RECORDS SUMMARY | 2024-08-05 14:18 | XMS_ITS | Encounter Summary ---
Author Organization [employer] Address [address] [place] [address] 7 [place] [address] Care Team Providers Care Oil Heaterman Name Role Phone Romina Staples MD Primary Care Provider [phone] Reason for Visit * Reason Onset Date Comments medication sent 07/13/2024 Encounter Details Date Type Department Care Team ([facility] Contact Info) Description 07/13/2024 Telephone [facility] MEDICINE [address] [place] [address] Romina Staples MD [address] [place] [address] medication sent Social History Tobacco Use Types Packs/Day Years [...] Telephone Encounter - Chloé Alvarenga [place] - 07/13/2024 9:07 AM EST T/c placed to pt to inform pcp has sent over tylenol to [facility]. 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 documented in this encounter Plan of Treatment Upcoming Encounters Date Type Department Care Team (Late st Contact Info) Description 08/19/2024 1:00 PM EDT Nurse Only [facility] MEDICINE [address] [place] [address] 09/24/2024 2:15 PM EDT Office Visit [facility] MEDICINE [address] [place] [address] Romina Staples MD [address] [place] [address] documented as of this encounter Visit Diagnoses Not on filedocumented in this encounter Additional Health Concerns Assessment Noted Time PHQ-9 Depression Total Score: 5 10/31/19 24 2:06 PM EDT documented as of this encounter Care Teams Oil Heaterman Relationship Specialty Start Date End Date Romina Staples MD [address] [place] [phone] PCP - General Family Medicine 05/22/20 documented as of this encounter
--- OUTSIDE RECORDS SUMMARY | 2024-08-05 14:18 | XMS_ITS | Encounter Summary ---
Author Organization [employer] Address [address] [place] [address] 7t [place] [address] Care Team Providers Care Section Chief Name Role Phone Romina Staples MD Primary Care Provider [phone] Encounter Details Date Type Department Care Team (Late st Contact Info) Description 07/03/2023 Abstract [facility]INE [address] [place] [address] Romina Staples MD [address] [place], [place] [phone] Social History Tobacco Use Types Packs/Day Years Used Date Smoking Tobacco: Never Smokeless Tobacco: Never Alcohol Use Standard Drinks/Week Comments Never 0 (1 standard drink = 0.6 oz pur e alcohol) PHQ-2 Answer Date Recorded Patient Health Questionnaire-2 Score 0 07/26/2022 Housing Stability Answer Date Recorded What is your housing situation today? I have yang monica 03/06/[address] you li ve. Do you have problems with any of the following? None of the above 03/06/2023 Food Insecurity Answer Date Recorded Within the past 12 months, y ou worried that your food would run out before you got money to buy more: Never True 03/06/2023 Within the past 12 months,th e food you bought just didn't last and you didn't have enough money to get more: Never True Transportation Answer Date Recorded In the past 12 months, has l ack of transportation kept you from medical appts, meetings, work or from getting things needed for daily living? Yes, it has kept me from medical appointments or getting medications. 02/28/2023 Utilities Answer Date Recorded In the past 12 months, has t he electric, gas, oil or water company threatened to shut off services in your home? No 03/06/2023 Depression Answer Date Recorded Patient Health Questionnaire-2 [...] 08/19/2024 1:00 PM EDT Nurse Only [facility] [address] [place] [address] [phone] 09/24/2024 2:15 PM EDT Office Visit [address] [phone] Romina Staples MD [address] [place] [address] [phone] documented as of this encounter Procedures Procedure Name Priority Date/Time Associated Diagnosis Comments FIT DNA/COLOGUARD CANCER SCREENING Routine 05/19/2023 documented in this encounter Results * FIT DNA/Cologuard Cancer Screening (05/19/2023) Cologuard Cancer Screen Negative Stool 05/19/2023 us Historical Provider HEALTH MAINTENANCE Final Result documented in this encounter Visit Diagnoses Not on filedocumented in this encounter Care Teams Section Chief Relationship Specialty Start Date End Date Romina Staples MD [address] [place] [address] [phone] PCP - General Family Medicine 05/22/20 documented as of this encounter
--- OUTSIDE RECORDS SUMMARY | 2024-08-05 14:18 | XMS_ITS | Encounter Summary ---
Author Organization [employer] [facility] Address [address] [place] [address] 7 [place] [address] Care Team Providers Care Core Cleaner Name Role Phone Romina Staples MD Primary Care Provider [phone] Reason for Visit * Reason Comments Med Refill Encounter Details Date Type Department Care Team (Late st Contact Info) Description 11/30/2022 Refill [facility] MED[facility] [address] [place] [address] Romina Staples MD [address] [place] [address] Social History Tobacco Use Types Packs/Day Years [...] Description 08/19/2024 1:00 PM EDT Nurse Only [facility] MEDICINE [address] [place] [address] 09/24/2024 2:15 PM EDT Office Visit [facility] MEDICINE [address] [place] [address] Romina Staples MD [address] [place] [address] documented as of this encounter Visit Diagnoses Not on filedocumented in this encounter Care Teams Core Cleaner Relationship Specialty Start Date End Date Romina Staples MD [address] [place], [place] [phone] PCP - General Family Medicine 05/22/20 documented as of this encounter
--- OUTSIDE RECORDS SUMMARY | 2024-08-05 14:18 | XMS_ITS ---
Author Organization [facility] Address [address] [place] [address] Care Team Providers Care Healthcare Consulting Manager Name Role Phone Romina Staples M.D. Primary Care Provider Nicola Cheng Jr [phone] Allergies No Known Allergies REASON FOR VISIT Patient presents today for gerd Medications Medication SIG (Take, Route, Frequency, Duration) Notes Start Date End Date Status Fluticasone Propionate Active Vitamin D3 Active Cyanocobalamin Activ e amLODIPine Besylate Active Esomeprazole Magnesium 40 MG 1 capsule Orally Once a day for 30 day(s) 10/10/2022 Not-Taking Tamsulosin HCl Activ e Loratadine Active Protonix 40 MG 1 tablet Orally Once a day for 30 day(s) 10/09/2023 Active Levbid 0.375 MG 1 tablet Orally ever y 12 hrs for 30 day(s) 10/09/2023 Active Flomax 0.4 MG 1 capsule 30 minutes after the same meal each day Orally Once a day Active Aspir-81 81 MG 1 tablet Orally Once a day Active Lisinopril 20 MG 1 Orally QD A ctive Pravastatin Sodium 40 MG 1 tablet Orally Once a day Active LORazepam 0.5 MG 1 tablet at bedtime as needed Orally Once a day Active Vital Signs Temperature 98.2 degrees Fahrenheit 10/09/19 24 Blood pressure systolic 000 mm Hg 10/09/19 24 Blood pressure diastolic 00 mm Hg 024 Height 67 in 10/09/2023 Weight 170 lb 8 oz lbs 10/09/2023 BMI 26.70 kg/m2 10/09/2023 Encounters Encounter Location Date Provider Diagnosis [facility] [address] [place] [address] 10/09/2023 Nicola Nolasco Jr Abdominal pain, unspecified abdominal location R10.9 and Gastro-esophageal reflux disease without esophagitis K21.9 Assessments Encounter Date Diagnosis (ICD Code) Assessment Notes Treatment Notes Treatment Clinical Notes Section Notes 10/09/2023 Abdominal pain, unspecified abdominal location (ICD-10 - R10.9) Botulism material was printed At this time, we recommended discontinuation of dicyclomine since it does not appear to benefit his symptoms. A prescription for hyoscyamine sent to his pharmacy, and she will try this for a month and let us know how he's doing. Reflux symptoms need better control coma and pantoprazole will be used for this. We discussed diet, lifestyle modifications, and weight loss regarding the treatment of reflux. One year office visit. 10/09/2023 Gastro-esophage al reflux disease without esophagitis (ICD-10 - K21.9) At this time, we recommended discontinuation of dicyclomine since it does not appear to benefit his symptoms. A prescription for hyoscyamine sent to his pharmacy, and she will try this for a month and let us know how he's doing. Reflux symptoms need better control coma and pantoprazole will be used for this. We discussed diet, lifestyle modifications, and weight loss regarding the treatment of reflux. One year office visit. Plan Of Treatment Medication Medication Name Sig Start Date Stop Date Notes Esomeprazole Magnesium 20 MG TOME 2 CAPS ULAS POR VIA ORAL TODOS LOS PINEDO Protonix 40 MG 1 tablet Orally Once a day for 30 day(s) 10/09/2023 Levbid 0.375 MG 1 tablet Orally ever y 12 hrs for 30 day(s) 10/09/2023 Dicyclomine HCl 10 MG 2 capsules Orally Three times a day Treatment Notes Assessment Notes Abdominal pain, unspecified abdominal lo cation Botulism material was printed Next Appt Details Follow Up: 1 Year, Reason: Provider Name:Nicola suazo Jr, 04/21/2025 01:15:00 PM, [address], [address], [place], [address], Progress Notes * VIDAL BAXTEROB: (68 yo M)Acc No.[id number]:10/09/2023 Progress Notes Patient:?RA RUSH BAXTER Provider:?Nicola Nolasco MD :1955???Age:68 Y???Sex:Male Antoni e:10/09/2023 Address:[address] [place] [address] Pcp:Romina Staples M.D. Subjective: * Chief Complaints: * ???1. Patient presents today for gerd. * HPI: ???New symptom(s):? The patient is a pleasant 68-year-old man who seen today in followup of gastroesophageal reflux disease and irritable bowel syndrome. Since we saw him last in April, he's had CT scanning which showed no GI abnormalities of any significance. There were some kidney findings that he has been following up with his PCP and urology. ?Today, he complains of a burning pain on both sides of the upper abdomen below the rib cage. The pain is brought on by eating, but is not specific for any type of food. There is no radiation of the pain. There were no other precipitating or relieving factors. The quality of the abdomen pain is twisting and squeezing. ?He has been using dicyclomine without much relief of symptoms. He stopped taking esomeprazole at some point but does not recall when. He does complain of some reflux symptoms. He perceives the reflux symptoms were worsened by esomeprazole. He reports a stable weight and appetite. * Medical History:?Colonoscopy 08/14/18, normal, ten-year followup, Hypertension, Hyperlipidemia, Seasonal allergies, gastroesophageal reflux disease with small area of Mcguire's esophagus, EGD 09/08, no Mcguire's esophagus on biopsy, five-year followup, pernicious anemia diagnosed summer 2019, on B12 injections, BPH, Abdominal pain. * Surgical History:?prostate 2 008, left eye prosthesis , laparoscopic Darrius fundoplication , Implants 2020, back surgery 2021. * Hospitalization/Major Diagno stic Procedure:?abdominal pain x 2 times in hospital @ [facility] . * Family History:?Father: dece ased.?Mother: , diagnosed with HTN (hypertension), Diabetes.? no family hx of colorectal,polyps or liver ds. * Social History:?Tobacco Use:?Tobacco Use/Smoking?Patient is a: nonsmoker.?Drugs/Alcohol:?Alcohol Screen?Points: 0, Interpretation: Negative.?Miscellaneous:?Marital status: . 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 ???no alcohol after 1999. * Medications:?Taking LORazepa m 0.5 MG Tablet 1 tablet at bedtime as needed Orally Once a day, Taking Pravastatin Sodium 40 MG Tablet 1 tablet Orally Once a day, Taking Lisinopril 20 MG Tablet 1 Orally QD, Taking Aspir-81 81 MG Tablet Delayed Release 1 tablet Orally Once a day, Taking Flomax 0.4 MG Capsule Extended Release 24 Hour 1 capsule 30 minutes after the same meal each day Orally Once a day, Taking Loratadine , Taking Tamsulosin HCl , Taking amLODIPine Besylate , Taking Cyanocobalamin , Taking Vitamin D3 , Taking Fluticasone Propionate , Taking Dicyclomine HCl 10 MG Capsule 2 capsules Orally Three times a day, Taking Esomeprazole Magnesium 20 MG Capsule Delayed Release TOME 2 CAPSULAS POR VIA ORAL TODOS LOS PINEDO , Not-Taking/PRN Esomeprazole Magnesium 40 MG Capsule Delayed Release 1 capsule Orally Once a day, Medication List reviewed and reconciled with the patient * Allergies:?N.K.D.A. Objective: * Vitals:?Wt: 170 lb 8 oz, Ht: 67 in, BMI:26.70 Index, BP: 000/00 mm Hg, Temp: 98.2. * Examination: ???General Examination: ???On examination today, he appears well. Skin is anicteric. Lungs are clear. Shows regular rate and rhythm. Abdomen is soft without focal mass or tenderness. Extremities are without edema. Assessment: * Assessment: 1.?Abdominal pain, unspecifi ed abdominal location - R10.9 (Primary)?2.?Gastro-esophageal reflux disease without esophagitis - K21.9? At this time, we recommended discontinuation of dicyclomine since it does not appear to benefit his symptoms. A prescription for hyoscyamine sent to his pharmacy, and she will try this for a month and let us know how he's doing. Reflux symptoms need better control coma and pantoprazole will be used for this. We discussed diet, lifestyle modifications, and weight loss regarding the treatment of reflux. One year office visit. Plan: * Treatment: * Procedure Codes:?3017F COLOR ECTAL CA SCREEN DOC REV, G9902 Pt scrn tbco and id as user, G9744 PATIENT NOT ELIG D/T ACTIVE DX HTN * Preventive Medicine:? ??Counseling:?Care goal follow-up plan:?Above Normal BMI Follow-up?Giving encouragement to exercise,?BMI management provided?Yes.? * Follow Up:?1 Year * * Sign off status: Completed true * Provider:?Nicola Nolasco MD Date:?0 10/09/2023 Generated for Tweet[employer] hale/Jasmine/Jeffreysmitting on:?08/05/2024 02:18 PM EDT History and Physical Notes * HPI (History of Present Illness) Category Sub-Category Detail Notes Category Not es New symptom(s) The patient is a pleasant 68-year-old man who seen today in followup of gastroesophageal reflux disease and irritable bowel syndrome. Since we saw him last in April, he's had CT scanning which showed no GI abnormalities of any significance. There were some kidney findings that he has been following up with his PCP and urology. Today, he complains of a burning pain on both sides of the upper abdomen below the rib cage. The pain is brought on by eating, but is not specific for any type of food. There is no radiation of the pain. There were no other precipitating or relieving factors. The quality of the abdomen pain is twisting and squeezing. He has been using dicyclomine without much relief of symptoms. He stopped taking esomeprazole at some point but does not recall when. He does complain of some reflux symptoms. He perceives the reflux symptoms were worsened by esomeprazole. He reports a stable weight and appetite. Examination Category Sub-Category Detail Notes Category Not es General Examination On exami nation today, he appears well. Skin is anicteric. Lungs are clear. Shows regular rate and rhythm. Abdomen is soft without focal mass or tenderness. Extremities are without edema.
--- OUTSIDE RECORDS SUMMARY | 2024-08-05 14:18 | XMS_ITS | Encounter Summary ---
Author Organization [facility] Address [address] [place] [address] 7 [place] [address] Care Team Providers Care Title I Teacher Name Role Phone Romina Staples MD Primary Care Provider [phone] Reason for Visit * Reason Comments Med Refill Encounter Details Date Type Department Care Team (Late st Contact Info) Description 11/11/2022 Refill [facility] MEDICINE [address] [place] [address] Liana Catherine DO [address] [place] [address] Social History Tobacco Use Types Packs/Day Years [...] suspected to have Coronavirus/COVID-19? No / Unsure 10/22/2022 1:33 PM EDT documented as of this encounter Plan of Treatment Upcoming Encounters Date Type Department Care Team (Late st Contact Info) Description 08/19/2024 1:00 PM EDT Nurse Only [facility] MEDICINE [address] [place] [address] 09/24/2024 2:15 PM EDT Office Visit [facility] [address] [place] [address] Romina Staples MD [address] [place] [address] documented as of this encounter Visit Diagnoses Not on filedocumented in this encounter Care Teams Title I Teacher Relationship Specialty Start Date End Date Romina Staples MD [address] [place] [phone] PCP - General Family Medicine 05/22/20 documented as of this encounter
--- OUTSIDE RECORDS SUMMARY | 2024-08-05 14:18 | XMS_ITS | Encounter Summary ---
Author Organization [facility] Address [address] [place] [address] 7 [place] [address] Care Team Providers Care Plant Scientist Name Role Phone Romina Staples MD Primary Care Provider [phone] Reason for Visit * Reason Comments Med Refill Encounter Details Date Type Department Care Team (Late st Contact Info) Description 02/08/2023 Refill [facility] MEDICINE [address] [place] [phone] Maria Guadalupe Carrera MD [address] [place] [address] Social History Tobacco Use Types Packs/Day Years [...] Nurse Only [facility] MEDICINE [address] [place] [address] 09/24/2024 2:15 PM EDT Office Visit [facility] MEDICINE [address] [place] [phone] Romina Staples MD [address] [place] [address] documented as of this encounter Visit Diagnoses Not on filedocumented in this encounter Care Teams Plant Scientist Relationship Specialty Start Date End Date Romina Staples MD [address] [place] [address] PCP - General Family Medicine 05/22/20 documented as of this encounter
--- OUTSIDE RECORDS SUMMARY | 2024-08-05 14:18 | XMS_ITS | Encounter Summary ---
Author Organization [facility] Address [address] [place] [address] 7t [place] [address] Care Team Providers Care Business Education Professor Name Role Phone Romina Staples MD Primary Care Provider [phone] Encounter Details Date Type Department Care Team (Late st Contact Info) Description 03/13/[address] [facility] MEDICINE [address] [place], [place] [phone] Liana Catherine DO [address] [place] [address] Pernicious anemia (Primary Dx) Social History Tobacco Use Types Packs/Day Years Used Date Smoking Tobacco: Never Smokeless Tobacco: Never Alcohol Use Standard Drinks/Week Comments Never 0 (1 standard drink = 0.6 oz pur e alcohol) PHQ-2 Answer Date Recorded Patient Health Questionnaire-2 Score 0 07/26/2022 Housing Stability Answer Date Recorded What is your housing situation today? I have yang anderson 03/06/[address] you li [...] Description 08/19/2024 1:00 PM EDT Nurse Only [facility] [address] [place] [address] 09/24/2024 2:15 PM EDT Office Visit [address] [address] Romina Staples MD [address] [place] [address] documented as of this encounter Visit Diagnoses Diagnosis Pernicious anemia- Primary documented in this encounter Care Teams Business Education Professor Relationship Specialty Start Date End Date Romina Staples MD [address] [place] [phone] PCP - General Family Medicine 05/22/20 documented as of this encounter
--- OUTSIDE RECORDS SUMMARY | 2024-08-05 14:18 | XMS_ITS | Clinical Summary ---
Author Organization [facility] Address [address] [place] [address] Care Team Providers Care Test Data Developer Name Role Phone Unavailable Primary Care Provider Unavailabl e Social History Tobacco Use Types Packs/Day Years Used Date Smoking Tobacco: Never Assessed Sex and Gender Information Value Date Recorded Sex Assigned at Not on file Legal Sex Male 3:01 AM EST Gender Identity Not on file Sexual Orientation Not on file Plan of Treatment Health Maintenance Due Date Last Done Comments DTaP,Tdap,and Td Vaccines (1 - Tdap) 01/02/1972 Pneumococcal Vaccine: 50+ Ye ars (1 of 1 - PCV) 2003 Zoster Vaccines (1 of 2) 2003 Abdominal Aortic Aneurysm (A AA) Screen 04/21/2022 Cholesterol Screening (Lipid Panel) 04/21/2022 Colorectal Cancer Screening: Colonoscopy 04/21/2022 Depression Screening 04/21/2022 Falls Risk Assessment 04/21/2022 Hepatitis C Screening 04/21/2022 Social Influencers of Health Screening 04/21/2022 COVID-19 Vaccine ( - 2023-2 5 season) 2024 Influenza Vaccine (#1) 2024 RSV Immunization Patients 60 + Years Old (1 - 1-dose 75+ series) 01/02/2028 HIB Vaccines Aged Out No longer eligi [...] on patient's age to complete this topic MMR Vaccines Aged Out No longer eligi ble based on patient's age to complete this topic Meningococcal ACWY Vaccine Aged Out N o longer eligible based on patient's age to complete this topic Meningococcal B Vacine Aged Out No lo nger eligible based on patient's age to complete this topic RSV Immunization Patients Un axel 20 months Aged Out No longer eligible b ased on patient's age to complete this topic Varicella Vaccines Aged Out No longer eligible based on patient's age to complete this topic
--- OUTSIDE RECORDS SUMMARY | 2024-08-05 14:18 | XMS_ITS ---
Author Organization [facility] Address [address] [place] [address] Care Team Providers Care Gear Lapper Name Role Phone Romina Staples M.D. Primary Care Provider Diaz Nolasco Jr, Nicola Wells REASON FOR VISIT CAT scan Encounters Encounter Location Date Provider Diagnosis [facility] [address] [place] [address] 07/17/2023 Nicola Nolasco Jr Plan Of Treatment Next Appt Details Provider Name:Nicola suazo Jr, 04/21/2025 01:15:00 PM, [address], [address], [place], [address], Progress Notes * VIDAL BAXTEROB: (68 yo M)Acc No.[id number]:07/17/2023 Patient:?RA RUSH BAXTER :1955???Age:68 Y???Sex:Male Address:[address] [place] [address], [place] [address] * true * Date:? Generated for Printi geoffrey/Jasmine/eTransmitting on:?08/05/2024 02:18 PM EDT
--- OUTSIDE RECORDS SUMMARY | 2024-08-05 14:18 | XMS_ITS | Patient Health Record ---
Author Organization [facility] Address [address] [place] [address] Care Team Providers Care Clinical Nurse Occupational Medicine Name Role Phone Romina Staples M.D. Primary Care Provider Nicola Cheng Jr Unavailable [phone] Allergies No Known Allergies Reason For Referral No Information Medications Medication SIG (Take, Route, Frequency, Duration) Notes Start Date End Date Status Lisinopril 20 MG 1 Orally QD A ctive Aspir-81 81 MG 1 tablet Orally Once a day Active Pravastatin Sodium 40 MG 1 tablet Orally Once a day Active Fluticasone Propionate Active Pantoprazole Sodium 40 MG TOME 1 TABLETA POR VIA ORAL TODOS LOS PINEDO FOR 30 DAYS for 90 Active LORazepam 0.5 MG 1 tablet at bedtime as needed Orally Once a day Active Esomeprazole Magnesium 40 MG 1 capsule Orally Once a day for 30 day(s) 10/10/2022 Not-Taking Tamsulosin HCl Activ e amLODIPine Besylate Active Cyanocobalamin Activ e Vitamin D3 Active Immunizations Vaccine Route Administration Date Status Comme nts Influenza Unknown 04/08/2023 Administered Influenza Unknown 05/07/2018 Refused Influenza Unknown 05/31/2020 Refused Influenza Unknown 08/19/2022 Refused Problems Problem Type SNOMED Code ICD Code Onset Dates Problem Status W/U Status Risk Notes Problem 313615266 Colon cancer screening (Z12.11) Active confirmed Problem 295809555 Gastro-esophagea l reflux disease without esophagitis (K21.9) Active confirmed Problem 280992883 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) Active confirmed Problem 622992782 Right upper quad rant pain (R10.11) Active confirmed Problem 908981013 Left upper quadr ant pain (R10.12) Active confirmed Problem 536440697 Generalized abdominal pain (R10.84) Active confirmed Problem 006882490 Gastroesophageal reflux disease without esophagitis (K21.9) Active confirmed Problem 482185977 Barretts esophag us without dysplasia (K22.70) Active confirmed Problem 03273903 Constipation, unspecified constipation type (K59.00) Active confirmed Problem 14189593 Abdominal pain, unspecified abdominal location (R10.9) Active confirmed Problem 450954408 Irritable bowel syndrome with constipation (K58.1) Active confirmed Problem 685960898 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 Vital Signs Temperature 98.2 degrees Fahrenheit 10/09/2023 Blood pressure diastolic 00 mm Hg 04/22/2024 Height 67 in 04/22/2024 Blood pressure systolic 00 mm Hg 04/22/2024 Weight 163 lbs 04/22/2024 BMI 25.53 kg/m2 04/22/2024 Encounters Encounter Location Date Provider Diagnosis [facility] [address] [place] [address] 10/09/2023 Nicola Nolasco Jr Abdominal pain, unspecified abdominal location R10.9 and Gastro-esophageal reflux disease without esophagitis K21.9 [facility] [address] [place] [address] 04/22/2024 Nicola Nolasco Jr Gastroesophageal reflux disease without esophagitis K21.9 and Irritable bowel syndrome with constipation K58.1 Assessments Encounter Date Diagnosis (ICD Code) Assessment Notes Treatment Notes Treatment Clinical Notes Section Notes 10/09/2023 Gastro-esophageal reflux disease without esophagitis (ICD-10 - K21.9) At this time, meli montse recommended discontinuation of dicyclomine since it does [...] of reflux. One year office visit. 10/09/2023 Abdominal pain, unspecified abdominal location (ICD-10 [...] treatment of reflux. One year office visit. 04/22/2024 Gastroesophageal reflux disease without esophagitis (ICD-10 - K21.9) Gastroesophageal reflux - discharge material was printed We discussed gastroesophageal reflux disease today. He will continue pantoprazole. For his constipation, we recommended MiraLax and simethicone for gas. He did complain of some perianal irritation and he can use hydrocortisone cream [id number] for this. He is up-to-date on colorectal cancer screening. Followup will be in one year. 04/22/2024 Irritable bowel syndrome with constipation (ICD-10 - K58.1) We discussed gastroesophageal reflux disease today. He will continue pantoprazole. For his constipation, we recommended MiraLax and simethicone for gas. He did complain of some perianal irritation and he can use hydrocortisone cream [id number] for this. He is up-to-date on colorectal cancer screening. Followup will be in one year. Plan Of Treatment Pending Test Test Name Order Date BUN 04/21/2023 BUN 06/10/2023 CREATININE 04/21/2023 CREATININE 06/10/2023 LIVER PROFILE 05/31/2020 LIVER PROFILE 03/20/2023 LIVER PROFILE 04/21/2023 LIPASE 05/31/2020 LIPASE 03/20/2023 LIPASE 04/21/2023 CBC w/o DIFF 05/31/2020 CBC w/o DIFF 03/20/2023 CBC w/o DIFF 04/21/2023 URINALYSIS (UA) 05/06/2023 CT ABD & PELVIS WITH CONTRAST 04/21/2023 XR GI SERIES 01/31/2022 Future Test Test Name Order Date UPPER GI ENDOSCOPY 05/07/2018 COLONOSCOPY 05/07/2018 UPPER GI ENDOSCOPY 08/19/2022 Next Appt Details Provider Name:Nicola suazo Jr, 04/21/2025 01:15:00 PM, [address] [place] [address], [address], [place], [address], Insurance Providers Payer Name Payer Address Payer Phone Subscriber Number Group Number Insured Name Patient Relationship to Insured Coverage Start Date Coverage End Date [facility] [address] Attn Claims LETICIA Flores [phone] [id number] MASON GAR Self - patient is the insured MEDICAID OF [employer] [address] [place] [phone] [id number] [place]ON GAR Self - patient is the insured Medical (General) History Medical History History ICD Code colonoscopy 08/14/18, normal, ten-year fo llowup hypertension hyperlipidemia seasonal allergies gastroesophageal reflux dise ase with small area of Mcguire's esophagus, EGD 09/08, no Mcguire's esophagus on biopsy, five-year followup pernicious anemia diagnosed summer 2019, on B12 injections BPH abdominal pain Surgical History Surgery Date(Month/Year) prostate 2007 left eye prosthesis laparoscopic Darrius fundoplication back surgery 2021 Hospitalization History Reason Date(Month/Year)
--- OUTSIDE RECORDS SUMMARY | 2024-08-05 14:18 | XMS_ITS ---
Author Organization [facility] Address [address] [place] [address] Care Team Providers Care Clinical Resource Manager Name Role Phone Jhoan Medina, Romina Primary Care Provider Nicola Cheng Jr [phone] Allergies No Known Allergies REASON FOR VISIT Patient presents today for gerd,abdominal pain Medications Medication SIG (Take, Route, Frequency, Duration) Notes Start Date End Date Status Esomeprazole Magnesium 40 MG 1 capsule Orally Once a day for 30 day(s) 10/10/2022 Not-Taking Fluticasone Propionate Active Pantoprazole Sodium 40 MG TOME 1 TABLETA POR VIA ORAL TODOS [place] PIN[place] FOR 30 DAYS for 90 Active amLODIPine Besylate Active Cyanocobalamin Activ e Vitamin D3 Active Lisinopril 20 MG 1 Orally QD A ctive Aspir-81 81 MG 1 tablet Orally Once a day Active Pravastatin Sodium 40 MG 1 tablet Orally Once a day Active LORazepam 0.5 MG 1 tablet at bedtime as needed Orally Once a day Active Tamsulosin HCl Activ e Problems Problem Type SNOMED Code ICD Code Onset Dates Problem Status W/U Status Risk Notes Problem [id number] Irritable bowel syndrome with constipation (K58.1) Active confirmed Vital Signs Blood pressure systolic 00 mm Hg 04/22/20 24 Blood pressure diastolic 00 mm Hg 024 Height 67 in 04/22/2024 Weight 163 lbs 04/22/2024 BMI 25.53 kg/m2 04/22/2024 Encounters Encounter Location Date Provider Diagnosis [facility] [address] [place] [address] 04/22/2024 Nicola Nolasco Jr Gastroesophageal reflux disease without esophagitis K21.9 and Irritable bowel syndrome with constipation K58.1 Assessments Encounter Date Diagnosis (ICD Code) Assessment Notes Treatment Notes Treatment Clinical Notes Section Notes 04/22/2024 Gastroesophageal reflux disease without esophagitis (ICD-10 - K21.9) Gastroesophageal reflux - discharge material was printed We discussed gastroesophageal reflux disease today. He will continue pantoprazole. For his constipation, we recommended MiraLax and simethicone for gas. He did complain of some perianal irritation and he can use hydrocortisone cream [id number] for this. He is up-to-date on colorectal cancer screening. Followup will be in one year. 04/22/2024 Irritable bowel syndrome with constipation (ICD-10 - K58.1) We discussed gastroesophageal reflux disease today. He will continue pantoprazole. For his constipation, we recommended MiraLax and simethicone for gas. He did complain of some perianal irritation and he can use hydrocortisone cream [id number] for this. He is up-to-date on colorectal cancer screening. Followup will be in one year. Plan Of Treatment Treatment Notes Assessment Notes Gastroesophageal reflux dise ase without esophagitis Gastroesophageal reflux - discharge material was printed Next Appt Details Follow Up: 1 Year, Reason: Provider Name:Nicola suazo , 04/21/2025 01:15:00 PM, [address] [place] [address], Suite [facility], [place], [address], Progress Notes * VIDAL BAXTEROB: (69 yo M)Acc No.[id number]:04/22/2024 Progress Notes Patient:?RA RUSH BAXTER Provider:?Nicola Nolasco MD :1955???Age:69 Y???Sex:Male Antoni e:04/22/2024 Address:[address] [place] [address] Pcp:Romina Staples M.D. Subjective: * Chief Complaints: * ???1. Patient presents today for gerd,abdominal pain. * HPI: ???New symptom(s):? The patient is a 69-year-old man seen today in followup of gastroesophageal reflux disease and irritable bowel syndrome. She reports reflux symptoms are generally well-controlled on pantoprazole 40 mg daily. He has no dysphagia, hematemesis, or melena. He did not notice any benefit from antispasmodics and has stopped this. He does complain of upper intestinal gas around the rib cage. * Medical History:?Colonoscopy 08/14/18, normal, ten-year followup, Hypertension, Hyperlipidemia, Seasonal allergies, gastroesophageal reflux disease with small area of Mcguire's esophagus, EGD 09/08, no Mcguire's esophagus on biopsy, five-year followup, pernicious anemia diagnosed summer 2019, on B12 injections, BPH, Abdominal pain. * Surgical History:?prostate 2 008, left eye prosthesis , laparoscopic Darrius fundoplication , back surgery 2021. * Family History:?Father: dece ased.?Mother: , diagnosed [...] 1 tablet Orally Once a day, Taking Tamsulosin HCl , Taking amLODIPine Besylate , Taking Cyanocobalamin , Taking Vitamin D3 , Taking Fluticasone Propionate , Taking Pantoprazole Sodium 40 MG Tablet Delayed Release TOME 1 TABLETA POR VIA ORAL TODOS [place] PINEDO FOR 30 DAYS , Not-Taking/PRN Esomeprazole Magnesium 40 MG Capsule Delayed Release 1 capsule Orally Once a day, Discontinued Dicyclomine HCl 10 MG Capsule Oral , Discontinued Levbid 0.375 MG Tablet Extended Release 12 Hour 1 tablet Orally every 12 hrs, Discontinued Flomax 0.4 MG Capsule Extended Release 24 Hour 1 capsule 30 minutes after the same meal each day Orally Once a day, Discontinued Loratadine , Medication List reviewed and reconciled with the patient * Allergies:?N.K.D.A. Objective: * Vitals:?Wt: 163 lbs, Ht: 67 in, BMI:25.53 Index, BP: 00/00 mm Hg. * Examination: ???General Examination: ???On examination today, he appears well. Skin is anicteric. Lungs are clear. Heart shows regular rate and rhythm. Abdomen is soft no focal masses or tenderness. Extremities are without edema. Assessment: * Assessment: 1.?Gastroesophageal reflux d isease without esophagitis - K21.9 (Primary)?2.?Irritable bowel syndrome with constipation - K58.1? We discussed gastroesophagea l reflux disease today. He will continue pantoprazole. For his constipation, we recommended MiraLax and simethicone for gas. He did complain of some perianal irritation and he can use hydrocortisone cream [id number] for this. He is up-to-date on colorectal cancer screening. Followup will be in one year. Plan: * Treatment: * Procedure Codes:?3017F COLOR ECTAL CA SCREEN DOC REV, G9903 Pt scrn tbco id as non user, G9744 PATIENT NOT ELIG D/T ACTIVE DX HTN * Preventive Medicine:? ??Counseling:?Care goal follow-up plan:?Above Normal BMI Follow-up?Giving encouragement to exercise,?BMI management provided?Yes.? ??Screenings:?Fall Risk Screening?Fall Risk Assessment:?No falls in the past year,?Screening:?No falls in the past year,?Assessment:?Not performed, no reason specified,?Plan of Care:?Not documented, no reason specified.? * Follow Up:?1 Year * * Sign off status: Completed true * Provider:?Nicola Nolasco MD Date:?1 06/23/2023 Generated for Cande hale/Jasmine/Angel on:?08/05/2024 02:18 PM EDT History and Physical Notes * HPI (History of Present Illness) Category Sub-Category Detail Notes Category Not es New symptom(s) The patient i s a 69-year-old man seen today in followup of gastroesophageal reflux disease and irritable bowel syndrome. She reports reflux symptoms are generally well-controlled on pantoprazole 40 mg daily. He has no dysphagia, hematemesis, or melena. He did not notice any benefit from antispasmodics and has stopped this. He does complain of upper intestinal gas around the rib cage. Examination Category Sub-Category Detail Notes Category Not es General Examination On exami nation today, he appears well. Skin is anicteric. Lungs are clear. Heart shows regular rate and rhythm. Abdomen is soft no focal masses or tenderness. Extremities are without edema.
--- OUTSIDE RECORDS SUMMARY | 2024-08-05 14:18 | XMS_ITS | Encounter Summary ---
Author Organization [employer] Address [address] [place] [address] 7 [place] [address] Care Team Providers Care Air Launch Weapons Technician Name Role Phone Romina Staples MD Primary Care Provider [phone] Reason for Visit * Reason Onset Date Comments recall 07/09/2024 Encounter Details Date Type Department Care Team ([facility] st Contact Info) Description 07/09/2024 Telephone [facility] MED[facility]INE [address] [place] [address] Romina Staples MD [address] [place] [address] recall Social History Tobacco Use Types Packs/Day Years [...] Encounter - Chloé Alvarenga [place] - 07/09/2024 2:21 PM EST Telephone call to patient to schedule the following recall: Visit type: Office visit Appointment notes: heartburn Patient agree to appointment on 09/24/24 at 2:15 PM with Jhoan. documented in this encounter Plan of Treatment Upcoming Encounters Date Type Department Care Team (Late st Contact Info) Description 08/19/2024 1:00 PM EDT Nurse Only [facility] MEDICINE [address] [place] [address] 09/24/2024 2:15 PM EDT Office Visit [facility] [address] [place] [phone] Romina Staples MD [address] [place] [address] documented as of this encounter Visit Diagnoses Not on filedocumented in this encounter Additional Health Concerns Assessment Noted Time PHQ-9 Depression Total Score: 5 10/31/19 24 2:06 PM EDT documented as of this encounter Care Teams Air Launch Weapons Technician Relationship Specialty Start Date End Date Romina Staples MD [address] [place] [phone] PCP - General Family Medicine 05/22/20 documented as of this encounter
--- OUTSIDE RECORDS SUMMARY | 2024-08-05 14:18 | XMS_ITS | Encounter Summary ---
Author Organization [employer] Address [address] [place] [address] [address] [place] [address] Care Team Providers Care Health Management Consultant Name Role Phone Romina Staples MD Primary Care Provider [phone] Encounter Details Date Type Department Care Team (Late st Contact Info) Description 07/12/2024 Orders Only [facility] MEDICINE [address] [place], [place] [phone] Romina Staples MD [address] [place] [address] Social History Tobacco Use Types Packs/Day Years [...] [facility] [address] [place] [address] 09/24/2024 2:15 PM EDT Office Visit [facility] MED[facility]INE [address] [place] [phone] Romina Staples MD [address] [place] [address] documented as of this encounter Visit Diagnoses Not on filedocumented in this encounter Additional Health Concerns Assessment Noted Time PHQ-9 Depression Total Score: 5 10/31/19 24 2:06 PM EDT documented as of this encounter Care Teams Health Management Consultant Relationship Specialty Start Date End Date Romina Staples MD [address] [place] [address] PCP - General Family Medicine 05/22/20 documented as of this encounter
--- OUTSIDE RECORDS SUMMARY | 2024-08-05 14:18 | XMS_ITS | Encounter Summary ---
Author Organization [employer] [facility] Address [address] [place] [address] 7 [place] [address] Care Team Providers Care Mixed Crop And Livestock Farm Worker Name Role Phone Romina Staples MD Primary Care Provider [phone] Encounter Details Date Type Department Care Team (Late Contact Info) Description 01/16/2023 Abstract [facility] MEDICINE [address] [place] [phone] Romina Staples MD [address] [place] [phone] Social History Tobacco Use Types Packs/Day Years [...] Description 08/19/2024 1:00 PM EDT Nurse Only [facility] [address] [place] [phone] 09/24/2024 2:15 PM EDT Office Visit [facility] [address] [place] [phone] Romina Staples MD [address] [place] [address] documented as of this encounter Visit Diagnoses Not on filedocumented in this encounter Care Teams Mixed Crop And Livestock Farm Worker Relationship Specialty Start Date End Date Romina Staples MD [address] [place] [address] PCP - General Family Medicine 05/22/20 documented as of this encounter
--- OUTSIDE RECORDS SUMMARY | 2024-08-05 14:19 | XMS_ITS | Encounter Summary ---
Author Organization [employer] [facility] Address [address] [place] [address] [address] [place] [address] Care Team Providers Care Licensed Investment Sales Assistant Name Role Phone Romina Staples MD Primary Care Provider [phone] Encounter Details Date Type Department Care Team (Latest Contact Info) Description 09/28/2018 Abstract [facility] CONVERSIONS Dental, Provider, DDS Social History Tobacco Use Types Packs/Day Years [...] Upcoming Encounters Date Type Department Care Team ( st Contact Info) Description 08/19/2024 1:00 PM EDT Nurse Only [facility] MEDICINE [address] [place] [phone] 09/24/2024 2:15 PM EDT Office Visit [facility] MEDICINE [address] [place] [phone] Romina Staples MD [address] [place] [address] documented as of this encounter Visit Diagnoses Not on filedocumented in this encounter Care Teams Licensed Investment Sales Assistant Relationship Specialty Start Date End Date Romina Staples MD [address] [place] [phone] PCP - General Family Medicine 05/22/20 documented as of this encounter
== END 2024-08-05 12:23 | disposition home or self-care (01) ==
LOC: HO.HUSH 11:55
PROVIDERS: PCP General Practice; Visit Provider Nurse Practitioner Family
DX: R31.29 Other microscopic hematuria (principal); N40.0 Benign prostatic hyperplasia without lower urinary tract symptoms; R35.0 Frequency of micturition; R35.1 Nocturia; Z13.9 Encounter for screening, unspecified
CPT/HCPCS: 99213; G2211

== ENCOUNTER 2024-08-05 11:54 | Outpatient (REF) | payer OTHER, SELFPAY ==
[2024-08-05 17:56] LABS: Urine Cytology See Pathology rpt
== END 2024-08-05 11:55 | disposition home or self-care (01) ==
LOC: HO.LNP 11:54
PROVIDERS: PCP General Practice; Visit Provider Nurse Practitioner Family
DX: R31.29 Other microscopic hematuria (principal); N40.0 Benign prostatic hyperplasia without lower urinary tract symptoms; R35.0 Frequency of micturition; R35.1 Nocturia
CPT/HCPCS: 51798; 81003; 88112; 99212

== ENCOUNTER 2024-11-02 11:10 | Outpatient (REF) | payer OTHER, SELFPAY ==
--- OUTSIDE RECORDS SUMMARY | 2024-11-02 12:47 | XMS_ITS | Clinical Summary ---
Author Organization [employer] Address [address] [place] [address] [address] [place] [address] Care Team Providers Care Compensation And Benefits Advisor Name Role Phone Romina Staples MD Primary Care Provider [phone] Allergies Active Allergy Reactions Criticality Noted Date Comments Atenolol 05/15/2010 Other reaction(s): fatigue Lisinopril 07/23/2016 Other reaction(s): Rash Oxycodone-Acetaminophen 10/23/2022 Medications fluticasone (Flonase Allergy Relief) 50 MCG/ACT nasal spray Administer 2 sprays into each nostril 1 (one) time each day. Inhale 2 spray by intranasal route every day in each nostril at night. 022 Active loratadine (Claritin) 10 MG tablet TOME KAYY TABLETA TODOS [place] PINED[place] 90 tablet 3 023 Active cyanocobalamin (Vitamin B-12) 1000 MCG/ML injectionIndicati ons:Other vitamin B12 deficiency anemia INJECT 1 ML POR VIA INTRAMUSCULAR EVERY MONTH 3 mL 3 024 Active hydrOXYzine pamoate (Vistaril) 25 MG capsuleIndication s:Anxiety state TOME 1 C PSULA POR V A ORAL DOS VECES AL D A CUANDO SEA NECESARIO 024 Active Simethicone (Gas-Ex) 125 MG tablet tabletIndications :Flatulence, eructation and gas pain Take 1 tablet (125 mg) by mouth every 6 (six) hours if needed (gassiness). 120 tablet 2 024 Active lisinopril 30 MG tablet TAKE 1 TABLET BY MOUTH EVERY DAY 90 tablet 3 024 Active cholecalciferol VITAMIN D (Vitamin D-3) 50 MCG (1999 UT) capsule TOME 2 CAPSULAS POR VIA ORAL TODOS [place] 180 capsule 025 Active dicyclomine (Bentyl) 10 MG capsule TOME 2 C PSULAS POR V A ORAL REEMA VECES AL D A 025 Active Myrbetriq 25 MG 24 hr tablet 0 Refills, Maintenance, 09/06/24 10:58:00 AM EDT, Partial fill upon patient request if the prescription is for a schedule II opioid drug. 025 Active ondansetron ODT (Zofran-ODT) 4 MG disintegrating tablet TAKE 1 TAB ORALLY EVERY 6 TO 8 HOURS NEEDED FOR NAUSEA AND VOMITING 025 Active pantoprazole (ProtoNix) 40 MG EC tablet TOME 1 TABLETA POR VIA ORAL TODOS [place] FOR 30 DAYS 90 Active GAS RELIEF 125 MG capsule TAKE 1 TABLET (125 MG) BY MOUTH EVERY 6 (SIX) HOURS IF NEEDED (GASSINESS). 024 Active amLODIPine (Norvasc) 10 MG tablet Take 1 tablet (10 mg) by mouth Once per day. 90 tablet 3 025 2025 Active aspirin (Aspirin Low Dose) 81 MG EC tablet TAKE 1 TABLET BY MOUTH EVERY DAY 90 tablet 3 025 Active polyethylene glycol, PEG, 3350 (GaviLAX) 17 GM/SCOOP powder TAKE 17 G BY MOUTH ONCE PER DAY FOR 14 DAYS. 510 g 1 025 Active aspirin (Aspirin Low Dose) 81 MG EC tablet TAKE 1 TABLET BY MOUTH EVERY DAY 90 tablet 3 024 2024 Discontinued polyethylene glycol, PEG, 3350 (MiraLax) 17 GM/SCOOP powder Take 17 g by mouth Once per day for 14 days. 527 g 025 2024 Discontinued Hospital, Clinic, or Other Facility Administered Medication Ordered Dose Route Frequency Start Date End Date Status cyanocobalamin (Vitamin B-12) injection 1,000 mcgIndications:Vitamin B12 deficiency 1000 mcg IM Every 30 days 03/29/2024 03/24/2025 Active Active Problems Problem Noted Date Diagnosed Date Irritable bowel syndrome with constipation 09/24 Abdominal pain 09/06/2024 Post-nasal drip 09/06/2024 Depression, recurrent 03/13/2024 History of Darrius fundoplication 03/13/2024 Vitamin B12 deficiency 07/02/2023 History of MA (myocardial infarction) 07/02/2023 Assessment & Plan (07/02/2023 [...] Saw Dr Barreto in general surgery at [facility], no surgery indicated Has trialled bentyl, not helpful Needs constant bowel regimen for constipation Causes him much anxiety Assessment & Plan (07/02/2023 10:32 AM EST): Occurs constantly in RUQ and LUQ Imaged 02/2022 with gallstones seen Seeing Dr Barreto in general surgery at [facility] Has trialled bentyl, not helpful Needs constant bowel regimen for constipation Has CT scan abd/pelvis 10 Jul 2023 Assessment & Plan (07/29/2022 8:20 AM EDT): RUQ and LUQ Imaged 02/2022 with gallstones seen Seeing Dr Barreto in general surgery at [facility] Will trial Bentyl for possible gas pains [...] Hyperlipidemia 08/26/2012 Hypertension 08/26/2012 Assessment & Plan (09/28/2024 1:00 PM EDT): On Amlodipine 10 mg and Lisinopril 30mg Not controlled at home and in clinic to <140/90 (JNC-8) He has recent stress test that showed evidence of old infarction, CT coronary arteries with minimal plaque in major arteries On ASA and statin Follow up with the Nurse for blood pressure check in 2 weeks. Continue with a low sodium diet and regular exercise as tolerated. For BP < or = to 139/89 (or 129/79 for diabetic patients) continue current medication regimen and follow up with PCP in 8 weeks. For BP > or = to 140/90 (or 130/80 for diabetic patients) increase Start new medication Nifedipine 30 mg once a day (Amlodipine is currently being held) Follow up with the Nurse for second blood pressure check in 2 weeks. Assessment & Plan (11/03/2023 7:46 AM EDT): [...] pain and see if this is a bottom hoop driver of his increasing blood pressure Chronic [...] Encounters Date Type Department Care Team Description 10/22/2024 Refill [facility] [address] [place] [address] Romina Staples MD 10/14/2024 2:00 PM EDT Clinical Support [facility] [address] [place] [address] Leila Mario RN Vitamin B12 deficiency 10/14/2024 Travel 10/13/2024 Refill [facility] [address] [place] [address] Romina Staples MD 09/27/[address] [address] Romina Staples MD Medication Question 09/24/2024 2:15 PM EDT Office Visit [address] [address] Romina Staples MD Pain of upper abdomen (Primary Dx); Dietary counseling; Exercise counseling; Overweight; Constipation, unspecified constipation type; Vitamin B12 deficiency; History of MA (myocardial infarction); Depression, recurrent (CMS/HCC); Primary hypertension 09/24/2024 Travel 09/23/[address] [address] Romina Staples MD chart prep 09/20/2024 Patient Outreach [address] [address] Romina Staples MD Pre-visit Planning (SDOH screening negative and Tobacco screening negative) 09/17/[address] [address] Romina Staples MD Call Back Request 09/16/2024 1:00 PM EDT Nurse Only [address] [address] Nanette Cosme LPN B12 deficiency 09/16/2024 Travel 08/23/[address] [address] Sharla Macario MD 08/19/2024 1:00 PM EDT Nurse Only [address] [address] Delicia Ramirez RN B12 deficiency 08/05/2024 Orders Only GENERIC EXTERNAL DATA DEPARTMENT Provider, Generic External Data from Last 3 Months Immunizations Immunization Administration Dates Next Due Influenza High-dose Quadriva [...] Packs/Day Years Used Date Smoking Tobacco: Never Passive Smoke Exposure: Never Smokeless Tobacco: Never Tobacco Cessation:Counseling Given: Not Answered Alcohol Use Standard Drinks/Week Comments Never 0 (1 standard drink = 0.6 oz pur e alcohol) Depression Answer Date Recorded Patient Health Questionnaire-9 Score 0 09/24/2024 Patient Health Questionnaire-9 Score 0 09/24/2024 Last PHQ-9: Questionnaire Data Not on file 0 09/24/2024 Housing Stability Answer Date Recorded What is [...] Date Recorded Patient Health Questionnaire-2 Score 0 09/24/2024 Internet Access Answer Date Recorded Internet Access [...] Sign Reading Time Taken Comments Blood Pressure 159/89 09/24/2024 1:17 PM EDT Pulse 65 09/24/2024 1:17 PM EDT Temperature 37 ??C (98.6 ??F) 09/24/2024 1:17 PM EDT Respiratory Rate 20 09/24/2024 1:17 PM EDT Oxygen Saturation 98% 03/08/2024 2:32 PM EDT Inhaled Oxygen Concentration - - Weight 74.2 kg (163 lb 9.6 oz) 09/24/2024 1:17 P M EDT Height 157.5 cm (5' 2 ) 09/24/2024 1:17 PM EDT Body Mass Index 29.92 09/24/2024 1:17 PM EDT Plan of Treatment Upcoming Encounters Date Type Department Care Team (Late st Contact Info) Description 11/15/2024 2:00 PM EDT Clinical Support [facility] [address] [place] [address] [phone] Health Maintenance Due Date Last Done Comments CT Colonography 1955 FIT 1955 Sigmoidoscopy 1955 Hepatitis C Screening 1971 RSV Patients and Patients Aged 60 years or older (1 - Risk 60-74 years 1-dose series) 2013 Zoster Vaccines (2 of 3) 05/24/2014 03/29/2014 Dental X-Ray: Full Mouth 12/27/2018 12/27/2015 Dental X-Ray: Bitewings 02/03/2019 02/03/20 18, 07/03/2016, 12/27/2015, Additional history exists Dental Prophylaxis 04/01/2019 09/28/2018, 1 05/30/2017, 09/24/2017, Additional history exists Dental Oral Exam 05/13/2019 11/10/2018, , 02/02/2018, Additional history exists COVID-19 Vaccine ( season) 2024 05/29/2022, 05/10/2021, 10/05/2020, Additional history exists FOBT 05/19/2024 05/19/2023 Colonoscopy 05/20/2025 Colorectal Cancer Screening 05/20/2025 SDOH Screening 09/20/2025 09/20/2024 Alcohol/Substance Use Screening 09/24/2025 09/24/2024 Depression Screening 09/24/2025 09/24/2024, 09/25/19 25 Tobacco Screening 09/28/2025 09/28/2024 FIT DNA/Cologuard 05/19/2026 05/19/2023 Lipid Panel 08/02/2026 08/02/2021, 04/0 06/2020, 12/17/2019 DTaP/Tdap/Td Vaccines (2 - Td or Tdap) 04/01/2027 04/01/2017, 11/23/2007 Pneumococcal Vaccine: 50+ Years Completed 02/28/2023 Influenza [...] age to complete this topic Meningococcal B Vaccine Aged Out No l onger eligible based on patient's age to complete [...] Procedure Name Priority Date/Time Associated Diagnosis Comments CYTOPATH-CELL ENHANCED Routine 08/05/2024 5:54 PM EDT HM FIT DNA/COLOGUARD CANCER SCREENING Routine 05/19/2023 [...] Recently Relevant to Health Maintenance Results * Cytopath-cell enhanced (08/05/2024 5:54 PM EDT) 08/05/2024 5:54 PM EDT 08/06/2024 6:00 AM EDT [facility] - 08/09/2024 2:48 PM EDT ----- ------- Name: Jovi Mcknight ? Age/Sex: 69/M ? : 1955 Unit#: [id number] ?? Attend Dr: Maggi Strickland [facility] ?Re08/05/24 ?Status: DEP REF ? Location: HO.LNP ?Disch: ? ----- ------- SPEC : [id number] ? RECD: 08/06/24 ? STATUS: ??SOUT ? REQ NUM: [id number] ? TAMAR: 08/05/24 ? SUBM DR: Maggi Strickland [facility] LINER-BC ? ENTERED: ??08/06/24 ?SP TYPE: Cytology ? OTHR DR: Romina Staples ? ORDERED: ??Cyto-enhanced ? Diagnosis ?? Urine: ??Negative for high-grade urothelial carcinoma. ??See comment. ? COMMENT: Cellular specimen consisting of a few groups of urothelial cells, which are ?? small/medium in size and have variable chromatin. ??The background has single urothelial ?? cells without atypia, squamous cells, lymphocytes and red blood cells. ??The differential ?? diagnosis for these types of groups of urothelial cells includes infection, trauma (e.g. ?? stones) and other types of urothelial neoplasms. ?Clinical History Microscopic hematuria ? Material Received ?? Urine ? Gross Description Received is 50 cc of clear yellow fluid from which a ThinPrep slide is prepared. Copies To: ?? Romina Staples ?? [address] ?? [place] Rent[place] ?? [phone] ?? Maggi Strickland [facility]-BC ?? [facility] U[facility] Services ?? [address] [place] [address] [address] ?? [place] Rent[place] ?? [phone] ?? [email or web address] ----- ------- Signed (signature on file) Nikso Carson MD 08/09/24 1448 ? ----- ------- ? END OF REPORT ? us Generic External Data Provider LAB CYTOLOGY STELLA GUNN Final Result [facility] [address] [place] [address] [phone] * FIT DNA/Cologuard Cancer Screening (05/19/2023) [facility] Cologuard Cancer Screen Negative Stool 05/19/2023 Historical Provider HEALTH MAINTENANCE Final Result * (ABNORMAL) LIPID PANEL, STANDARD (08/02/2021 9:31 AM EDT) [facility] Chol/HDLC Ratio 3.6 <5.0 (calc) [facility] Cholesterol, Total 139 <200 mg/dL [facility] HDL Cholesterol 39(L) > OR [...] ?? Wade ALDANA et al. DAISY. 2013;310(19): 0292-0099 ?? (http://education.[employer]um[employer]/faq/XOI544) Non-HDL Cholesterol 100 <130 mg/dL (calc) [facility] Comment: For patients with diabetes plus 1 major ASCVD risk ?? factor, treating to a non-HDL-C goal of <100 mg/dL ?? (LDL-C of <70 mg/dL) is considered a therapeutic ?? option. Triglycerides 90 <150 mg/dL [facility] 08/02/2021 9:31 AM EDT us Romina Staples MD LAB BLOOD ORDERABLES Final Res ult [facility] [address] from Last 3 Months or Most Recently Relevant to Health Maintenance Insurance [facility] [employer] OPTIONS (HMO D-SNP) LETICIA RIVERO [id number] D[facility]AL - [facility] Care Teams Compensation And Benefits Advisor Relationship Specialty Start Date End Date Romina Staples MD [address] [place] [address] PCP - General Family Medicine 05/22/20
[2024-11-02 13:45] LABS: Prostate Specific Antigen 0.84 ng/mL (<0.05-4.0)
== END 2024-11-02 11:11 | disposition home or self-care (01) ==
LOC: HO.10HDL 11:10
PROVIDERS: Visit Provider Nurse Practitioner Family
DX: R35.0 Frequency of micturition (principal); R35.1 Nocturia; N40.0 Benign prostatic hyperplasia without lower urinary tract symptoms; Z12.5 Encounter for screening for malignant neoplasm of prostate
CPT/HCPCS: 36415; 84153

== ENCOUNTER 2024-11-10 13:22 | Outpatient (AMB) | payer OTHER, SELFPAY ==
--- NOTE | 2024-11-10 13:56 | A.OFFVIS_ITS ---
Intake Visit Reasons: 3m/PSA/PVR Intake Note: Patient presents today for a follow-up on: Nocturia, BPH, and Microscopic Hematuria Meds: myrbetriq Allergies to Antibiotic- No Known Allergies Blood Thinner- Aspirin Post Void Residual: 19ml's Project Development Coordinator Required: Yes Project Development Coordinator Services: Project Development Coordinator Present Project Development Coordinator Name: MADIHA CASTAÑEDASLADE Accompanied by: Allergies No Known Allergies (No Known Allergies*) Allergy (Verified 11/10/24 15:23) Medication List - Last Reconciled 11/10/24 by MAURIZIO Quiñonez- amlodipine 5 mg PO DAILY 90 days aspirin 81 mg PO DAILY atorvastatin 10 mg PO DAILY cholecalciferol (vitamin D3) 0 mcg PO cyanocobalamin (vitamin B-12) 1,000 mcg IM cyclobenzaprine 5 mg PO TID PRN dicyclomine mg PO lidocaine 5% 1 patch topical DAILY lisinopril 30 mg PO DAILY loratadine 10 mg PO DAILY mirabegron ER (Myrbetriq) 25 mg PO DAILY 90 days naproxen 500 mg PO BID PRN ondansetron 4 mg PO Q6-8H PRN pantoprazole 40 mg PO DAILY polyethylene glycol 3350 (Miralax) 17 grams PO BID 1 month HPI Comments Details: Jovi is a 69-year-old Slovenian-speaking patient of Dr. Staples who was accompanied by his significant other at today's office appointment. He has a past medical history of BPH with prior prostate procedure, pernicious anemia, seasonal allergies, epididymitis, nephrolithiasis, nocturia, hyperlipidemia, hypertension, and erectile dysfunction. He presents to the office today for follow-up of his lower urinary tract symptoms. In discussion with the patient today he reports significantly improvement in lower urinary tract symptoms he had been experiencing with compliance and Myrbetriq as prescribed. He reports urinary urgency, urinary frequency, and episodes of nocturia he had been experiencing significantly decreased. Patient has previously trialed terazosin, Flomax, and alfuzosin without improvement in lower urinary tract symptoms. He otherwise denies incontinence, nocturia, hematuria, dysuria, foul smelling urine, changes to urinary stream, flank pain, fever, and or chills. In office urinalysis results reviewed with the patient today. 2+ microscopic hematuria otherwise within normal limits. PVR 19mL. Urine cytology 02/08 and 08/09, 05/11, 08/10 Negative for high-grade urothelial carcinoma. Urine cytology 02/09 Atypical urothelial cells. When asked he denies any previous smoking history and or or any known chemical exposure. He otherwise denies any bothersome urinary issues or concerns. Recent PSA results reviewed with the patient today as noted and trended below: PSAs: 01/08 0.8, 02/09 0.8, 11/10 0.8 Lower urinary tract symptoms Longstanding Prior laser prostatectomy Current medications tamsulosin 0.4 mg q.h.s. 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 Erectile dysfunction Not currently a concern [facility] Medical History BPH (benign prostatic hyperplasia) Pernicious anemia Seasonal allergies History of eye prosthesis Epididymitis History of kidney stones Nocturia Hyperlipidemia HTN (hypertension) Erectile dysfunction BPH w/o urinary obs/LUTS Surgical History H/O colonoscopy History of Darrius fundoplication History of back surgery History of surgery History of extraction of renal calculus Social History Alcohol intake: never Patient Tobacco Use Status: Never used Tobacco Review of Systems Const Reports no additional complaints Eyes Reports no additional complaints ENT Reports no additional complaints Card Reports as per HPI Resp Reports no additional complaints GI Reports as per HPI Reports as per HPI Musc Reports as per HPI Neuro Reports no additional complaints Psych Reports no additional complaints Endo Reports no additional complaints Harshal/Lymph Reports no additional complaints Aller/Immun Reports as per HPI Physical Exam Const General: cooperative, healthy appearing, comfortable, no acute distress, well developed, alert and awake Orientation/consciousness: patient oriented x3 Limitations: language barrier HEENT Head: Yes normal to inspection, Yes normocephalic and Yes atraumatic Ears: hearing grossly normal bilaterally Eyes General: appearance normal, both eyes and all related structures Neck Neck: Yes normal visual inspection and Yes trachea midline Chest Chest palpation & inspection: normal inspection of the chest Resp Effort & Inspection: normal respiratory effort and able to speak in complete sentences Cardio Rate: regular rate GI Inspection: Yes normal to inspection General: Yes no CVA tenderness Back/Spine/Pelvis Back: no CVA tenderness Skin General skin exam: no rashes or lesions noted Neuro General: patient oriented x3 Extrem General: Yes normal to inspection Psych Appearance: grossly normal and well kempt Mental Status: mental status grossly normal Speech and movement: Normal speech and movement present and Clear speech present Affect: normal affect Attitude: cooperative Thought process: Normal thought process present Thought content: Normal thought content present Insight: Fair insight present (Psych) Judgement: Fair judgement present (Psych) Office Procedures Post Void Residual Post Residual Void Post Void Residual (PVR): 19 32430-Ysyh Void Residual by ultrasound Results AMB Urinalysis, Automated UA Leukoctes 0 Remberto/uL Last Edit by Jh Deras [facility] on 11/10/24 14:16 UA Nitrite Last Edit by Jh Deras [facility] on 11/10/24 14:16 UA Urobilinogen 0.2 mg/dL Last Edit by Jh Deras [facility] on 11/10/24 14:1 6 UA Protein 15 mg/dL Last Edit by Jh Deras [facility] on 11/10/24 14:16 UA pH 8.5 Last Edit by Jh Deras [facility] on 11/10/24 14:16 UA Blood 80 Anshul/uL Last Edit by Jh Deras [facility] on 11/10/24 14:16 UA Specific [place] 1.005 Last Edit by Jh Deras [facility] on 11/10/24 14: 16 UA Ketone Last Edit by Jh Deras [facility] on 11/10/24 14:16 UA Bilirubin 0 mg/dL Last Edit by Jh Deras [facility] on 11/10/24 14:16 UA Glucose 0 mg/dL Last Edit by Jh Deras [facility] on 11/10/24 14:16 Results Reviewed Results Reviewed: Laboratory Last Values Urine pH (Auto) 8.5 11/10/24 14:15 Specific [place] (Auto) 1.005 11/10/24 14:15 Urine Protein (Auto) 15 mg/dL 11/10/24 14:15 Glucose (UA)(Auto) 0 mg/dL 11/10/24 14:15 Urine Blood (Auto) 80 Anshul/uL 11/10/24 14:15 Urine Bilirubin (Auto) 0 mg/dL 11/10/24 14:15 Urine Urobilinogen (Auto) 0.2 mg/dL 11/10/24 14:15 Leukocyte Esterase (Auto) 0 Remberto/uL 11/10/24 14:15 Assessment & Plan Assessment & Plan (1) Microscopic hematuria: Code(s): R31.29 - Other microscopic hematuria Category: Medical (2) BPH w/o urinary obs/LUTS: Comment: Prior prostate laser Code(s): N40.0 - Benign prostatic hyperplasia without lower urinary tract symptoms Category: Medical (3) Urinary frequency: Code(s): R35.0 - Frequency of micturition Category: Medical (4) Nocturia: Code(s): R35.1 - Nocturia Category: Medical Plan In office urinalysis results reviewed with the patient today; will send for urine cytology. PVR 19 mL Continue Myrbetriq as discussed and prescribed. Recent PSA results reviewed with the patient today; as noted above. He currently denies any bothersome urinary issues or concerns. He reports be happy with current voiding parameters on Myrbetriq will continue We discussed at length potential causes of lower urinary tract symptoms patient was experiencing. Discussed bladder triggers/irritants. Follow-up in one year with PVR and PSA; or sooner with any issues, concerns, and or questions. Orders: Orders AMB Urinalysis Automated Today Z13.9 - Encounter for screening, unspecified AMB Post Void Residual by ultrasound Today R35.0 - Frequency of micturition Prostate Specific Antigen 1 Year N40.0 - Benign prostatic hyperplasia without lower urinary tract symptoms, R35.0 - Frequency of micturition Patient Instructions: The patient had an opportunity to ask questions regarding the treatment plan. All questions were answered. Physical exam, labs, and imaging were discussed and reviewed in detail. As well as risks, benefits, and discussion of treatment choices. No major barriers to understanding were identified. The patient expressed understanding and agreement with the above treatment plan. The patient was made aware they should contact our office by phone for worsening of their current condition, the appearance of new symptoms, or with any questions or concerns. Compliance is encouraged with any medications and follow up testing that is ordered. It is a privilege to be allowed the opportunity to participate in? your urological care.? Again, if you have any questions or concerns If you have any questions or concerns please do not hesitate to contact me. The office is [phone]. This note is constructed using voice recognition software. While every effort has been made to ensure accuracy outsole beveler errors may have been included. Yours sincerely, SARITA Quiñonez Coding Level of Care Code Est Pt Level 3 (09167) Complex EM visit Add On G2211 Diagnoses Microscopic hematuria R31.29 BPH w/o urinary obs/LUTS N40.0 Urinary frequency R35.0 Nocturia R35.1 CPT Codes Post Residual Void - PVR CPT Code: 56339-Wjad Void Residual by ultrasound ([id number])
--- OUTSIDE RECORDS SUMMARY | 2024-11-10 15:44 | XMS_ITS | Clinical Summary ---
Author Organization [facility] ity Address [address] [place] [address] Care Team Providers Care Hand Embroiderer Name Role Phone Unavailable Primary Care Provider [...] - 2023-2 5 season) 2024 Influenza Vaccine (Season Ended) 2025 RSV Immunization Adult Patie nts (1 - 1-dose 75+ series) 01/02/2028 HIB [...]
== END 2024-11-10 14:25 | disposition home or self-care (01) ==
LOC: HO.HUSH 13:22
PROVIDERS: PCP General Practice; Visit Provider Nurse Practitioner Family
DX: R31.29 Other microscopic hematuria (principal); N40.0 Benign prostatic hyperplasia without lower urinary tract symptoms; R35.0 Frequency of micturition; R35.1 Nocturia; Z13.9 Encounter for screening, unspecified
CPT/HCPCS: 99213; G2211

== ENCOUNTER 2024-11-10 13:22 | Outpatient (REF) | payer OTHER, SELFPAY ==
[2024-11-10 16:27] LABS: Urine Cytology See Pathology rpt
== END 2024-11-10 13:23 | disposition home or self-care (01) ==
LOC: HO.LNP 13:22
PROVIDERS: PCP General Practice; Visit Provider Nurse Practitioner Family
DX: R31.29 Other microscopic hematuria (principal); R35.0 Frequency of micturition; N40.0 Benign prostatic hyperplasia without lower urinary tract symptoms; R35.1 Nocturia
CPT/HCPCS: 51798; 81003; 88112; 99212

== ENCOUNTER 2024-11-17 14:02 | Outpatient (REF) | payer OTHER, SELFPAY ==
--- OUTSIDE RECORDS SUMMARY | 2024-11-17 14:38 | XMS_ITS | Clinical Summary ---
Author Organization [facility] ity Address [address] [place] [address] Care Team Providers Care Tannery Gummer Name Role Phone Unavailable Primary Care Provider [...]
== END 2024-11-17 14:03 | disposition home or self-care (01) ==
LOC: HO.LAB 14:02
PROVIDERS: PCP General Practice; Visit Provider Nurse Practitioner Family
DX: R31.29 Other microscopic hematuria (principal); R89.6 Abnormal cytological findings in specimens from other organs, systems and tissues
CPT/HCPCS: 88112

== ENCOUNTER → 2025-04-18 12:31 | Outpatient (REF) | payer OTHER, SELFPAY ==
--- OUTSIDE RECORDS SUMMARY | 2025-04-18 11:00 | XMS_ITS | Encounter Summary ---
Author Organization [employer] Address [address] [place] [address] 7[address] [place] [address] Care Team Providers Care Tattooer Name Role Phone Romina Staples MD Primary Care Provider Reason for Visit * Reason Comments B12 Injection Encounter Details Date Type Department Care Team ([facility] Contact Info) Description 04/18/2025 11:00 AM EST Nurse Only [facility] MED[facility]INE [address] [place] [address] Leila Mario RN [address] [place] [address] Vitamin B12 deficiency Social History Tobacco Use Types Packs/Day Years Used Date Smoking Tobacco: Never Passive Smoke Exposure: Never Smokeless Tobacco: Never Alcohol Use Standard [...] as of this encounter Progress Notes * Leila Mario RN - 04/18/2025 11:00 AM EST S: Pt here for nurse visit B12 injection, today B12 standing order verified (04/18/25). Pt denies any difficulties with previous injection received. O: Cyanocobalamin 1,000mcg/ML, 1mL given on left deltoid muscle, pt tolerated well. A: Vitamin B12 Deficiency P: Pt may go home and return for next B12 injection, and bring Vitamin B12 vial to next appt. Advised to monitor injection site for any increased redness or swelling and follow up with PCP as needed.Pt agrees with plan and verbalized understanding documented in this encounter Plan of Treatment Upcoming Encounters Date Type Department Care Team (Late st Contact Info) Description 05/23/2025 11:00 AM EST Nurse Only [facility] [address] [place] [address] documented as of this encounter Visit Diagnoses Diagnosis Vitamin B12 deficiency Other B-complex deficiencies documented in this encounter Administered Medications Active Administered Medications - up to 3 most recent administrations Medication Order MAR Action Action Date Dose Rate Site cyanocobalamin (Vitamin B-12) injection 1,000 mcg 1,000 mcg, Intramuscular, Every 30 days, First dose on Fri04/18/25 at 1330, For 12 dosesIndications:Vitamin B12 deficiency Given 04/18/2025 1:30 PM EST 1,000 mcg Left Deltoid documented in this encounter Additional Health Concerns Assessment Noted Time PHQ-9 Depression Total Score: 0 09/25/19 25 1:17 PM EDT documented as of this encounter Care Teams Tattooer Relationship Specialty Start Date End Date Romina Staples MD [address] [place] [address] PCP - General Family Medicine 05/22/20 documented as of this encounter
--- NOTE | 2025-04-18 12:34 | CA_ITS ---
Transthoracic Echocardiogram Patient (Last, First, Middle): Jovi Mcknight, Gender: M Date of : 1955 Age: 70 Procedure Date: 04/18/2025 Procedure Type: Transthoracic Echocardiogram Location: OP Height: 167.64 cm Weight: 72.58 kg BSA: 1.82 m2 Heart Rate: 57 bpm BP: 125 / 60 mmHg Distillation Operator: ÁNGELA Referring MD: Isaac Zamorano MD Symptoms: I71.20 - Thoracic aortic aneurysm, without rupture, unspecified Study Quality: Adequate ECG Rhythm: Bradycardia Conclusions: - The left ventricular systolic function is normal. The calculated ejection fraction is 62% by biplane method. - No obvious valvular pathology seen on this study. - There is mild dilatation of the ascending aorta measuring 4.30 cm. Findings Left Ventricle Normal left ventricular cavity size. There is normal left ventricular wall thickness. The left ventricular systolic function is normal. The calculated ejection fraction is 62% by biplane method. There is no evidence of regional wall motion abnormalities. Diastolic function is normal for age. Right Ventricle Normal right ventricular cavity size and systolic function. Atria Both atria are normal in size. Aortic Valve There is a normal trileaflet aortic valve. There is no aortic valve stenosis. There is trace (trivial) aortic valve regurgitation. Mitral Valve The mitral valve appears normal. There is no mitral valve regurgitation. There is no mitral valve stenosis. Pulmonic Valve The pulmonic valve is likely normal. Tricuspid Valve Normal tricuspid valve structure. There is mild tricuspid valve regurgitation. There is no evidence of pulmonary hypertension. Great Vessels The aortic arch is normal in size. There is mild dilatation of the ascending aorta measuring 4.30 cm. Venous The inferior vena cava was not well visualized. Pericardium/Pleural There is no evidence of pericardial effusion. Prior Study Comparison No significant change compared to prior study dated: 04/13/2024. Recommendations, Care & Conclusions No obvious valvular pathology seen on this study. Measurements 2D Linear Measurements IVSd: 0.73 0.6-0.9/0.6-1.0 cm LVIDd: 3.96 3.9-5.3/4.2-5.9 cm LVIDd Index: 2.18 2.4-3.2/2.2-3.1 cm/m2 LVIDs: 2.85 2.0-3.6 cm LVPWd: 0.97 0.7-1.1 cm LA Diam: 2.90 2.7-3.8/3.0-4.0 cm LAIDs Index: 1.59 1.5-2.3 cm/m2 LV Mass: 124.09 67-162/88-224 g LV Mass Index: 68.18 43-95/49-115 g/m2 LVOT Diam: 2.00 3.0+(-)1.3 cm 2D Systolic Function EF 4C: 61.80 >55% EF 2C: 60.10 >55% EF BiP: 62.00 >55% Mitral Valve MV Pk E: 0.80 MV PK A: 0.95 MV Decel Time: 301.00 E/A: 0.80 E'Lateral: 8.81 E'Medial: 5.87 E/E' Med: 13.60 E/E' Lat: 9.00 PHT: 88.00 MVA PHT: 2.50 Decel Crenshaw: 2.65 Aortic Valve AoV Pk Jerzy: 1.56 AoV Mn Jerzy: 1.11 AoV VTI: 0.37 AoV Pk Grad: 10.00 Aov Mn Grad: 5.00 LEVI Cont.VTI: 2.30 AI Pk Jerzy: 3.41 AI Crenshaw: 1.30 LVOT LVOT Pk Jerzy: 1.18 LVOT Mn Jerzy: 0.86 LVOT VTI: 0.27 LVOT Pk Grad: 6.00 LVOT Mn Grad: 3.00 LVOT Diam: 2.00 LVOT Area: 3.14 Diastolic Function MV Pk E: 0.80 MV Pk A: 0.95 E/A: 0.80 E'Medial: 5.87 E/E' Med: 13.60 E' Laterial: 8.81 E/E' Lat: 9.00 Right Ventricle TAPSE (mm): 22.10 TVS' Jerzy: 11.40 Tricuspid Valve TR Pk Jerzy: 2.30 TR Pk Grad: 21.00 Great Vessels Aorta Sinus of Valsalva: 3.80 2.0-3.5 cm Ao Asc: 4.30 2.1-3.4 cm Ao Arch: 2.70 Pulmonary Veins Pulm Vein S/D 1.90 Pulmonary Valve PV Pk Jerzy: 1.24 Peak PV Grad: 6.00 Updated in Other Vendor System with Status of Final Kalyan Pittman MD electronically signed on 04/19/2025 2:42:41 PM with status of Final
--- OUTSIDE RECORDS SUMMARY | 2025-04-18 16:10 | XMS_ITS | Encounter Summary ---
Author Organization [employer] Address [address] [place] [address] [address] [place] [address] Care Team Providers Care Senior Marketing Data Analyst Name Role Phone Romina Staples MD Primary Care Provider [phone] Encounter Details Date Type Department Care Team ([facility] st Contact Info) Description 07/12/2024 Orders Only [facility] MEDICINE [address] [place] [address] Romina Staples MD [address] [place] [address] Social History Tobacco Use Types Packs/Day Years [...] Description 05/23/2025 11:00 AM EST Nurse Only [facility]INE [address] [place] [address] documented as of this encounter Visit Diagnoses Not on filedocumented in this encounter Additional Health Concerns Assessment Noted Time PHQ-9 Depression Total Score: 5 10/31/19 24 2:06 PM EDT documented as of this encounter Care Teams Senior Marketing Data Analyst Relationship Specialty Start Date End Date Romina Staples MD [address] [place] [address] PCP - General Family Medicine 05/22/20 documented as of this encounter
--- OUTSIDE RECORDS SUMMARY | 2025-04-18 16:10 | XMS_ITS | Encounter Summary ---
Author Organization [employer] Address [address] [place] [address] [address]t [place] [address] Care Team Providers Care Visitor Services Information Assistant Name Role Phone Romina Staples MD Primary Care Provider [phone] Encounter Details Date Type Department Care Team (Late Contact Info) Description 01/16/2023 Abstract [facility] MEDICINE [address] [place] [id number] Romina Staples MD [address] [place] [id number] Social History Tobacco Use Types Packs/Day Years [...] Department Care Team (Late Contact Info) Description 05/23/2025 11:00 AM EST Nurse Only [facility] MEDICINE [address] [place] [id number] documented as of this encounter Visit Diagnoses Not on filedocumented in this encounter Care Teams Visitor Services Information Assistant Relationship Specialty Start Date End Date Romina Staples MD [address] [place] [address] PCP - General Family Medicine 05/22/20 documented as of this encounter
--- OUTSIDE RECORDS SUMMARY | 2025-04-18 16:10 | XMS_ITS | Encounter Summary ---
Author Organization [employer] Address [address] [place] [address] 7t [place] [address] Care Team Providers Care Reservation Sales Agent Name Role Phone Romina Staples MD Primary Care Provider [phone] Encounter Details Date Type Department Care Team (Latest Contact Info) Description 04/18/2025 Travel Social History Tobacco Use Types Packs/Day Years [...] Description 05/23/2025 11:00 AM EST Nurse Only [facility] MEDICINE [address] [place] [address] documented as of this encounter Visit Diagnoses Not on filedocumented in this encounter Additional Health Concerns Assessment Noted Time PHQ-9 Depression Total Score: 0 09/25/19 25 1:17 PM EDT documented as of this encounter Care Teams Reservation Sales Agent Relationship Specialty Start Date End Date Romina Staples MD [address] [place] [address] PCP - General Family Medicine 05/22/20 documented as of this encounter
--- OUTSIDE RECORDS SUMMARY | 2025-04-18 16:10 | XMS_ITS | Encounter Summary ---
Author Organization [employer] Address [address] [place] [address] 7t [place] [address] Care Team Providers Care Early Education Teacher Name Role Phone Romina Staples MD Primary Care Provider [phone] Reason for Visit * Reason Comments Med Refill Encounter Details Date Type Department Care Team (Late st Contact Info) Description 11/30/2022 Refill [facility] MEDICINE [address] [place] [address] Romina Staples MD [address] [place] [address] Social History Tobacco Use Types Packs/Day Years [...] Description 05/23/2025 11:00 AM EST Nurse Only [facility] [address] [place] [address] documented as of this encounter Visit Diagnoses Not on filedocumented in this encounter Care Teams Early Education Teacher Relationship Specialty Start Date End Date Romina Staples MD [address] [place] [address] PCP - General Family Medicine 05/22/20 documented as of this encounter
--- OUTSIDE RECORDS SUMMARY | 2025-04-18 16:10 | XMS_ITS | Encounter Summary ---
Author Organization [employer] Address [address] [place] [address] [address]t [place] [address] Care Team Providers Care Clinical Data Research Name Role Phone Romina Staples MD Primary Care Provider [phone] Reason for Visit * Reason Comments Med Refill Encounter Details Date Type Department Care Team (Late st Contact Info) Description 11/11/2022 Refill [facility] MEDICINE [address] [place] [address] Liana Catherine DO [address] [place] [address] Social History Tobacco Use Types Packs/Day Years [...] Description 05/23/2025 11:00 AM EST Nurse Only [facility] [address] [place] [address] documented as of this encounter Visit Diagnoses Not on filedocumented in this encounter Care Teams Clinical Data Research Relationship Specialty Start Date End Date Romina Staples MD [address] [place] [address] PCP - General Family Medicine 05/22/20 documented as of this encounter
--- OUTSIDE RECORDS SUMMARY | 2025-04-18 16:10 | XMS_ITS | Clinical Summary ---
Author Organization [facility] Address [address] [place] [address] Care Team Providers Care Steam Tank Operator Name Role Phone Unavailable Primary Care Provider [...] 2003 Zoster Vaccines (1 of 2) 2003 Depression Screening 05/19/2024 COVID-19 Vaccine (1 - 2024-2 6 season) 2025 Influenza Vaccine (#1) 2025 RSV Immunization Adult Patie nts (1 [...]
--- OUTSIDE RECORDS SUMMARY | 2025-04-18 16:10 | XMS_ITS | Encounter Summary ---
Author Organization [employer] Address [address] [place] [address] [address]t [place] [address] Care Team Providers Care Plycor Operator Name Role Phone Romina Staples MD Primary Care Provider [phone] Encounter Details Date Type Department Care Team ([facility] st Contact Info) Description 03/13/2023 Orders Only [facility] MEDICINE [address] [place] [address] Liana Catherine DO [address] [place] [address] Pernicious anemia (Primary Dx) Social History Tobacco [...] Description 05/23/2025 11:00 AM EST Nurse Only [facility] MEDICINE [address] [place] [address] documented as of this encounter Visit Diagnoses Diagnosis Pernicious anemia- Primary documented in this encounter Care Teams Plycor Operator Relationship Specialty Start Date End Date Romina Staples MD [address] [place] [address] PCP - General Family Medicine 05/22/20 documented as of this encounter
--- OUTSIDE RECORDS SUMMARY | 2025-04-18 16:10 | XMS_ITS | Encounter Summary ---
Author Organization [employer] Address [address] [place] [address] [address] [place] [address] Care Team Providers Care Builder Beam Name Role Phone Romina Staples MD Primary Care Provider [phone] Encounter Details Date Type Department Care Team ([facility] st Contact Info) Description 04/18/2025 Orders Only [facility] MEDICINE [address] [place] [address] Romina Staples MD [address] [place] [address] Vitamin B12 deficiency (Primary Dx) Social History [...] Description 05/23/2025 11:00 AM EST Nurse Only [facility] MEDICINE [address] [place] [address] documented as of this encounter Visit Diagnoses Diagnosis Vitamin B12 deficiency- Primary Other B-complex deficiencies documented in this encounter Additional Health Concerns Assessment Noted Time PHQ-9 Depression Total Score: 0 09/25/19 25 1:17 PM EDT documented as of this encounter Care Teams Builder Beam Relationship Specialty Start Date End Date Romina Staples MD [address] [place] [address] PCP - General Family Medicine 05/22/20 documented as of this encounter
--- OUTSIDE RECORDS SUMMARY | 2025-04-18 16:10 | XMS_ITS | Encounter Summary ---
Author Organization [employer] Address [address] [place] [address] [address]t [place] [address] Care Team Providers Care Supervisor Vendor Quality Name Role Phone Romina Staples MD Primary Care Provider [phone] Reason for Visit * Reason Comments Med Refill Encounter Details Date Type Department Care Team (Late Contact Info) Description 02/08/2023 Refill [facility] MEDICINE [address] [place] [address] Maria Guadalupe Carrera MD [address] [place] [address] Social History Tobacco Use Types Packs/Day Years [...] 10:20 AM EDT Sexual Orientation Straight 07/26/2022 2 :17 PM EST documented as of this encounter Plan of Treatment Upcoming Encounters Date Type Department Care Team (Late Contact Info) Description 05/23/2025 11:00 AM EST Nurse Only [facility] MEDICINE [address] [place] [id number] documented as of this encounter Visit Diagnoses Not on filedocumented in this encounter Care Teams Supervisor Vendor Quality Relationship Specialty Start Date End Date Romina Staples MD [address] [place] [address] PCP - General Family Medicine 05/22/20 documented as of this encounter
--- OUTSIDE RECORDS SUMMARY | 2025-04-18 16:10 | XMS_ITS | Encounter Summary ---
Author Organization [employer] Address [address] [place] [address] [address] [place] [address] Care Team Providers Care Tester Wafer Substrate Name Role Phone Romina Staples MD Primary Care Provider [phone] Reason for Visit * Reason Comments Med Refill Encounter Details Date Type Department Care Team (Late Contact Info) Description 12/12/2022 Refill [facility] MEDICINE [address] [place] [address] Maria Guadalupe Carrera MD [address] [place] [address] Social History Tobacco Use Types Packs/Day Years [...] Description 05/23/2025 11:00 AM EST Nurse Only [facility] MEDICINE [address] [place] [address] documented as of this encounter Visit Diagnoses Not on filedocumented in this encounter Care Teams Tester Wafer Substrate Relationship Specialty Start Date End Date Romina Staples MD [address] [place] [address] PCP - General Family Medicine 05/22/20 documented as of this encounter
--- OUTSIDE RECORDS SUMMARY | 2025-04-18 16:11 | XMS_ITS | Encounter Summary ---
Author Organization [employer] Address [address] [place] [address] [address]t [place] [address] Care Team Providers Care Planning Intern Name Role Phone Romina Staples MD Primary Care Provider [phone] Encounter Details Date Type Department Care Team ([facility] st Contact Info) Description 03/31/2024 Orders Only [facility] MEDICINE [address] [place] [address] Romina Staples MD [address] [place] [address] Vitamin B12 deficiency (Primary Dx) Social History [...] Description 05/23/2025 11:00 AM EST Nurse Only [facility] MEDICINE [address] [place] [address] documented as of this encounter Visit Diagnoses Diagnosis Vitamin B12 deficiency- Primary Other B-complex deficiencies documented in this encounter Additional Health Concerns Assessment Noted Time PHQ-9 Depression Total Score: 5 10/31/19 24 2:06 PM EDT documented as of this encounter Care Teams Planning Intern Relationship Specialty Start Date End Date Romina Staples MD [address] [place] [address] PCP - General Family Medicine 05/22/20 documented as of this encounter
--- OUTSIDE RECORDS SUMMARY | 2025-04-18 16:11 | XMS_ITS | Clinical Summary ---
Author Organization [employer] Address [address] [place] [address] 7t [place] [address] Care Team Providers Care Magnetic Tape Composer Operator Name Role Phone Romina Staples MD Primary Care Provider [phone] Allergies Active Allergy Reactions Criticality Noted Date [...] LOS PINEDO 90 tablet 3 023 Active hydrOXYzine pamoate (Vistaril) 25 MG capsuleIndication s:Anxiety state TOME 1 C PSULA POR V A ORAL DOS VECES AL D A CUANDO SEA NECESARIO 024 Active Simethicone (Gas-Ex) 125 MG tablet tabletIndications :Flatulence, eructation and gas pain Take 1 tablet (125 mg) by mouth every 6 (six) hours if needed (gassiness). 120 tablet 2 024 Active dicyclomine (Bentyl) 10 MG capsule TOME [...] 8 HOURS NEEDED FOR NAUSEA AND VOMITING Active pantoprazole (ProtoNix) 40 MG EC tablet TOME 1 TABLETA POR VIA ORAL TODOS [place] PIN[place] FOR 30 DAYS 90 Active GAS RELIEF 125 MG capsule TAKE 1 TABLET (125 MG) BY MOUTH EVERY 6 (SIX) HOURS IF NEEDED (GASSINESS). 024 Active aspirin (Aspirin Low Dose) 81 MG EC tablet TAKE 1 TABLET BY MOUTH EVERY DAY 90 tablet 3 025 Active cyanocobalamin (Vitamin B-12) 1000 MCG/ML injectionIndicati ons:Other vitamin B12 deficiency anemia INJECT 1 ML POR VIA INTRAMUSCULAR EVERY MONTH 3 mL 3 025 Active amLODIPine (Norvasc) 5 MG tabletIndications :Primary hypertension Take 1 tablet (5 mg) by mouth Once per day. 90 tablet 3 025 2025 Active GaviLAX 17 GM/SCOOP powder MIX 17 GRAMS INTO LIQUID AND DRINK BY MOUTH ONCE PER DAY FOR 14 DAYS. 510 g 1 025 Active cholecalciferol VITAMIN D (Vitamin D-3) 50 MCG (2000 UT) capsule Take 1 capsule (50 mcg) by mouth Once per day. 90 capsule 3 025 Active lisinopril 30 MG tablet TAKE 1 TABLET BY MOUTH EVERY DAY 90 tablet 3 025 Active lisinopril 30 MG tablet TAKE 1 TABLET BY MOUTH EVERY DAY 90 tablet 3 024 2024 Discontinued Hospital, Clinic, or Other Facility Administered Medication Ordered Dose Route Frequency Start Date End Date Status cyanocobalamin (Vitamin B-12) injection 1,000 mcgIndications:Vitamin B12 deficiency 1000 mcg IM Every 30 days 04/18/2025 04/13/2026 Active cyanocobalamin (Vitamin B-12) injection 1,000 mcgIndications:Vitamin B12 deficiency 1000 mcg IM Every 30 days 03/29/2024 03/24/2025 Ended Active Problems Problem Noted Date Diagnosed Date Irritable bowel syndrome with constipation 09/24 Abdominal pain 09/06/2024 Post-nasal drip 09/06/2024 Depression, recurrent 03/13/2024 History of Darrius fundoplication 03/13/2024 Vitamin B12 deficiency 07/02/2023 History of VT (myocardial infarction) 07/02/2023 Assessment & Plan (07/02/2023 [...] Saw Dr Barreto in general surgery at [facility], no surgery indicated Has trialled bentyl, not helpful Needs constant bowel regimen for constipation Causes him much anxiety Assessment & Plan (07/02/2023 10:32 AM EST): Occurs constantly in RUQ and LUQ Imaged 02/2022 with gallstones seen Seeing Dr Barreto in general surgery at [facility] Has trialled bentyl, not helpful Needs constant bowel regimen for constipation Has CT scan abd/pelvis 10 Jul 2023 Assessment & Plan (07/29/2022 8:20 AM EDT): RUQ and LUQ Imaged 02/2022 with gallstones seen Seeing Dr Barreto in general surgery at [facility] Will trial Bentyl for possible [...] pain and see if this is a city driver of his increasing blood pressure Chronic [...] Encounters Date Type Department Care Team Description 04/18/2025 11:00 AM EST Nurse Only [facility] [place] [facility] [place] [address] Leila Mario RN Vitamin B12 deficiency 04/18/2025 Orders Only [facility] [address] [facility] [place] [address] Romina Staples MD Vitamin B12 deficiency (Primary Dx) 04/18/2025 Travel 04/07/2025 Refill [facility] [address] [place] [address] DoreneLiana 03/17/2025 1:00 PM EDT Nurse Only [facility]INE [address] [place] [address] Natalia Vazquez, RUDOLPH Vitamin B12 deficiency 03/17/2025 Travel 03/03/2025 Refill [facility] [address] [place] [address] KandiyohiLeonor FNP 02/27/2025 Refill [facility] [address] [place], [place] [phone] Romina Staples MD 02/14/2025 1:00 PM EDT Clinical Support [facility] [address] [place], [place] [phone] Leila Mario, RUDOLPH B12 deficiency 02/14/2025 Travel from Last 3 Months Immunizations Immunization Administration [...] 65 09/24/2024 1:17 PM EDT Temperature 37 C (98.6 F) 09/24/2024 1:17 PM EDT Respiratory Rate 20 [...] Description 05/23/2025 11:00 AM EST Nurse Only [facility] [address] [place] [address] Health Maintenance Due Date Last Done Comments CT Colonography 1953 Colonoscopy 1953 FIT 1955 Sigmoidoscopy 1953 Hepatitis C Screening 1971 RSV Patients and Patients Aged 60 years or older (1 - Risk 50-74 years 1-dose series) 2003 Zoster Vaccines (2 of 3) 05/24/2014 03/29/2014 Dental X-Ray: Full Mouth 12/27/2018 12/27/2015 Dental X-Ray: Bitewings 02/03/2019 02/03/20 18, 07/03/2016, 12/27/2015, Additional history exists Dental Prophylaxis 04/01/2019 09/28/2018, 1 05/30/2017, 09/24/2017, Additional history exists Dental Oral Exam 05/13/2019 11/10/2018, , 02/02/2018, Additional history exists FOBT 05/19/2024 05/19/2023 COVID-19 Vaccine ( season) 2025 05/29/2022, 05/10/2021, 10/05/2020, Additional history exists Influenza Vaccine (#1) 2025 , 02/28/2023, 02/28/2022, Additional history exists SDOH Screening 09/20/2025 09/20/2024 Alcohol/Substance Use Screening 09/24/2025 09/24/2024 Depression Screening 09/24/2025 09/24/2024, 09/25/19 25 Tobacco Screening 09/28/2025 09/28/2024 Colorectal Cancer Screening 05/19/2026 FIT DNA/Cologuard 05/19/2026 05/19/2023 Lipid Panel 08/02/2026 08/02/2021, 04/0 06/2020, 12/17/2019 DTaP/Tdap/Td Vaccines (2 - Td or Tdap) 04/01/2027 04/01/2017, 11/23/2007 Pneumococcal Vaccine: 50+ Years Completed 02/28/2023 HIB Vaccines Aged Out No longer eligi [...] Procedure Name Priority Date/Time Associated Diagnosis Comments HM FIT DNA/COLOGUARD CANCER SCREENING Routine 05/19/2023 [...] Recently Relevant to Health Maintenance Results * FIT DNA/Cologuard Cancer Screening (05/19/2023) Pathologist [facility] Cologuard Cancer Screen Negative Stool 05/19/2023 us Historical Provider HEALTH MAINTENANCE Final Result * (ABNORMAL) LIPID PANEL, STANDARD (08/02/2021 9:31 AM EDT) [facility] Chol/HDLC Ratio 3.6 <5.0 (calc) [facility] Cholesterol, Total 139 <200 mg/dL [facility] HDL Cholesterol 39(L) > OR = 40 mg/dL [facility] LDL Cholesterol 82 mg/dL (calc) [facility] Comment: Reference range: <100 Desirable range <100 mg/dL for primary prevention; <70 mg/dL for patients with CHD or diabetic patients with > or = 2 CHD risk factors. LDL-C is now calculated using the [place] calculation, which is a validated novel method providing better accuracy than the Friedewald equation in the estimation of LDL-C. Wade ALDANA et al. DAISY. 2013;310(19): 0641-7054 (http://education.Genmab.TEXbase/faq/NLJ123) Non-HDL Cholesterol 100 <130 mg/dL (calc) [facility] Comment: For patients with diabetes plus 1 major ASCVD risk factor, treating to a non-HDL-C goal of <100 mg/dL (LDL-C of <70 mg/dL) is considered a therapeutic option. Triglycerides 90 <150 mg/dL [facility] 08/02/2021 9:31 AM EDT us Romina Staples MD LAB BLOOD ORDERABLES Final Res ult [facility] [address] from Last 3 Months or Most Recently Relevant to Health Maintenance Insurance [facility] [employer] OPT[employer] (HMO D-SNP) * Guarantor: Jovi Mcknight Account Type Relation to Patient Date of Phone Billing Address Personal/Family Self [address] Care Teams Magnetic Tape Composer Operator Relationship Specialty Start Date End Date Romina Staples MD [address] [place] [phone] PCP - General Family Medicine 05/22/20
--- OUTSIDE RECORDS SUMMARY | 2025-04-18 16:11 | XMS_ITS | Encounter Summary ---
Author Organization [employer] Address [address] [facility] 7t [place] [address] Care Team Providers Care Hairspring Fabrication Supervisor Name Role Phone Romina Staples MD Primary Care Provider [phone] Encounter Details Date Type Department Care Team ([facility] st Contact Info) Description 07/03/2023 Abstract [facility] MEDICINE 230 [place] [address] Romina Staples MD 230 [place] [address] Social History Tobacco Use Types Packs/Day Years [...] Description 05/23/2025 11:00 AM EST Nurse Only [facility] MEDICINE 230 [place] [address] documented as of this encounter Procedures Procedure Name Priority Date/Time Associated Diagnosis Comments HM FIT DNA/COLOGUARD CANCER SCREENING Routine 05/19/2023 documented in this encounter Results * FIT DNA/Cologuard Cancer Screening (05/19/2023) Cologuard Cancer Screen Negative Stool 05/19/2023 us Historical Provider HEALTH MAINTENANCE Final Result documented in this encounter Visit Diagnoses Not on filedocumented in this encounter Care Teams Hairspring Fabrication Supervisor Relationship Specialty Start Date End Date Romina Staples MD [address] [place] [address] PCP - General Family Medicine 05/22/20 documented as of this encounter
--- OUTSIDE RECORDS SUMMARY | 2025-04-18 16:11 | XMS_ITS | Encounter Summary ---
Author Organization [employer] Address [address] [place] [address] 7t [place] [address] Care Team Providers Care Correctional Program Officer Name Role Phone Romina Staples MD Primary Care Provider [phone] Encounter Details Date Type Department Care Team (Latest Contact Info) Description 09/28/2018 Abstract [facility] CONVERSIONS Dental, Provider, DDS Social History Tobacco [...] Care Team ( st Contact Info) Description 05/23/2025 11:00 AM EST Nurse Only [facility] MEDICINE 230 [place] [address] documented as of this encounter Visit Diagnoses Not on filedocumented in this encounter Care Teams Correctional Program Officer Relationship Specialty Start Date End Date Romina Staples MD 230 [place] [address] PCP - General Family Medicine 05/22/20 documented as of this encounter
--- OUTSIDE RECORDS SUMMARY | 2025-04-18 16:11 | XMS_ITS | Encounter Summary ---
Author Organization [employer] Address [address] [place] [address] 7t [place] [address] Care Team Providers Care Veterinary Poultry Inspector Name Role Phone Romina Staples MD Primary Care Provider [phone] Encounter Details Date Type Department Care Team ([facility] Contact Info) Description 05/23/2022 Orders Only [facility] MEDICINE [address] [place] [phone] Romina Staples MD [address] [place] [address] [phone] Pernicious anemia (Primary Dx) Social History Tobacco [...] 11:00 AM EST Nurse Only [facility] MEDICINE [address] [place] [address] documented as of this encounter Visit Diagnoses Diagnosis Pernicious anemia- Primary documented in this encounter Care Teams Veterinary Poultry Inspector Relationship Specialty Start Date End Date Romina Staples MD 230 [place] [address] PCP - General Family Medicine 05/22/20 documented as of this encounter
== END ==
LOC: HO.CARD 12:31
PROVIDERS: PCP General Practice; Visit Provider Internal Medicine Cardiovascular Disease
DX: I71.20 Thoracic aortic aneurysm, without rupture, unspecified (principal)
CPT/HCPCS: 93306

== ENCOUNTER → 2025-04-18 12:34 | Outpatient (BNV) | payer OTHER, SELFPAY | PROVIDERS: PCP General Practice; Visit Provider Internal Medicine | DX: I71.21 Aneurysm of the ascending aorta, without rupture (principal); I36.1 Nonrheumatic tricuspid (valve) insufficiency | CPT/HCPCS: 93306 ==

== ENCOUNTER 2025-05-03 11:57 | Outpatient (REF) | payer OTHER, SELFPAY ==
[2025-05-03 12:47] LABS: Cholesterol 141 mg/dL (<200); HDL Cholesterol 37 mg/dL (>40); Triglycerides 123 mg/dL (<150)
--- OUTSIDE RECORDS SUMMARY | 2025-05-03 15:50 | XMS_ITS | Encounter Summary ---
Author Organization [employer] Address [address] [place] [address] 7t [place] [address] Care Team Providers Care Measuring Clerk Name Role Phone Romina Staples MD Primary Care Provider [phone] Reason for Visit * Reason Comments Med Refill Encounter Details Date Type Department Care Team (Late Contact Info) Description 02/08/2023 Refill [facility] MEDICINE 230 [place] [address] Maria Guadalupe Carrera MD 230 [place] [address] Social History Tobacco Use Types Packs/Day Years [...] Description 05/23/2025 11:00 AM EST Nurse Only [facility] MEDICINE [address] [place] [address] documented as of this encounter Visit Diagnoses Not on filedocumented in this encounter Care Teams Measuring Clerk Relationship Specialty Start Date End Date Romina Staples MD [address] [place] [address] PCP - General Family Medicine 05/22/20 documented as of this encounter
--- OUTSIDE RECORDS SUMMARY | 2025-05-03 15:50 | XMS_ITS | Encounter Summary ---
Author Organization [employer] Address [address] [facility] 7t [place] [address] Care Team Providers Care Under Cutter Name Role Phone Romina Staples MD Primary Care Provider [phone] Encounter Details Date Type Department Care Team ([facility] st Contact Info) Description 07/03/2023 Abstract [facility] MEDICINE 230 [place] [address] Romina Staples MD 230 [place] [address] Social History Tobacco Use Types Packs/Day Years [...] Description 05/23/2025 11:00 AM EST Nurse Only [facility] MEDICINE 230 [place] [address] documented as of this encounter Procedures Procedure Name Priority Date/Time Associated Diagnosis Comments HM FIT DNA/COLOGUARD CANCER SCREENING Routine 05/19/2023 documented in this encounter Results * FIT DNA/Cologuard Cancer Screening (05/19/2023) Cologuard Cancer Screen Negative Stool 05/19/2023 us Historical Provider HEALTH MAINTENANCE Final Result documented in this encounter Visit Diagnoses Not on filedocumented in this encounter Care Teams Under Cutter Relationship Specialty Start Date End Date Romina Staples MD 230 [place] [address] PCP - General Family Medicine 05/22/20 documented as of this encounter
--- OUTSIDE RECORDS SUMMARY | 2025-05-03 15:50 | XMS_ITS | Encounter Summary ---
Author Organization [employer] Address [address] [place] [address] 7t [place] [address] Care Team Providers Care Economic Historian Name Role Phone Romina Staples MD Primary Care Provider [phone] Encounter Details Date Type Department Care Team ([facility] Contact Info) Description 05/23/2022 Orders Only [facility] MEDICINE [address] [place] [address] Romina Staples MD [address] [place] [address] [phone] Pernicious anemia (Primary Dx) Social History Tobacco [...] Description 05/23/2025 11:00 AM EST Nurse Only [facility] MEDICINE [address] [place] [address] documented as of this encounter Visit Diagnoses Diagnosis Pernicious anemia- Primary documented in this encounter Care Teams Economic Historian Relationship Specialty Start Date End Date Romina Staples MD 230 [place] [address] PCP - General Family Medicine 05/22/20 documented as of this encounter
--- OUTSIDE RECORDS SUMMARY | 2025-05-03 15:50 | XMS_ITS | Encounter Summary ---
Author Organization [employer] Address [address] [place] [address] 7t [place] [address] Care Team Providers Care Printmaker Name Role Phone Romina Staples MD Primary Care Provider [phone] Encounter Details Date Type Department Care Team (Latest Contact Info) Description 09/28/2018 Abstract [facility] CONVERSIONS Dental, Provider, DDS Social History Tobacco [...] [facility] 230 [place] [address] documented as of this encounter Visit Diagnoses Not on filedocumented in this encounter Care Teams Printmaker Relationship Specialty Start Date End Date Romina Staples MD 230 [place] [address] PCP - General Family Medicine 05/22/20 documented as of this encounter
--- OUTSIDE RECORDS SUMMARY | 2025-05-03 15:50 | XMS_ITS | Encounter Summary ---
Author Organization [employer] Address [address] [place] [address] 7t [place] [address] Care Team Providers Care Store Clerk Cashier Name Role Phone Romina Staples MD Primary Care Provider [phone] Encounter Details Date Type Department Care Team ([facility] st Contact Info) Description 07/12/2024 Orders Only [facility] MEDICINE 230 [place] [address] Romina Staples MD [address] [place] [address] Social History Tobacco Use Types Packs/Day Years [...] Description 05/23/2025 11:00 AM EST Nurse Only [facility]ICINE [address] [place] [address] documented as of this encounter Visit Diagnoses Not on filedocumented in this encounter Additional Health Concerns Assessment Noted Time PHQ-9 Depression Total Score: 5 10/31/19 24 2:06 PM EDT documented as of this encounter Care Teams Store Clerk Cashier Relationship Specialty Start Date End Date Romina Staples MD [address] [place] [address] PCP - General Family Medicine 05/22/20 documented as of this encounter
--- OUTSIDE RECORDS SUMMARY | 2025-05-03 15:50 | XMS_ITS | Encounter Summary ---
Author Organization [employer] Address [address] [place] [address] 7t [place] [address] Care Team Providers Care Administrative Receptionist Name Role Phone Romina Staples MD Primary Care Provider [phone] Encounter Details Date Type Department Care Team ([facility] st Contact Info) Description 05/03/2025 Orders Only [facility] EXTERNAL DATA DEPARTMENT Provider, Generic External Data Social History Tobacco Use Types Packs/Day Years [...] Description 05/23/2025 11:00 AM EST Nurse Only [facility] MEDICINE 230 [place] [address] documented as of this encounter Procedures Procedure Name Priority Date/Time Associated Diagnosis Comments LIPID PANEL, STANDARD Routine 05/03/2025 12:06 PM EST documented in this encounter Results * (ABNORMAL) Lipid Panel, Standard (05/03/2025 12:06 PM EST) Triglycerides 123 <150 mg/dL [facility] Comment:Desirable Triglyceri de: less than 150 mg/dLBorderline High Triglyceride 150-199 mg/dLHigh Triglyceride: 200-499 mg/dLVery High Triglyceride: greater than or equal to 5OO mg/dL Cholesterol 141 <200 mg/dL [facility] Comment:Desirable Cholestero l: less than 200 mg/dLBorderline High Cholesterol: 200-239 mg/dLHigh Cholesterol: greater than 239 mg/dL LDL Cholesterol Calculated 80 <100 mg/dL [facility] Comment:Desirable LDL: less than 100 mg/dLNear Optimal/Above Optimal LDL: 110- 129 mg/dLBorderline High LDL: 130-159 mg/dLHigh LDL: 160-189 mg/dLVery High LDL: greater than or equal to 190 mg/dL HDL Cholesterol 37(L) >40 mg/dL [facility] Comment:Desirable HDL: great er than 40 mg/dL Note: This HDL assay may give artificially low results in patients with liver disease. 05/03/2025 12:0 6 PM EST 05/03/2025 12:06 PM EST us Generic External Data Provider LAB BLOOD ORDERAB LES Final Result [facility] [address] [place] [address] [phone] documented in this encounter Visit Diagnoses Not on filedocumented in this encounter Additional Health Concerns Assessment Noted Time PHQ-9 Depression Total Score: 0 09/25/19 25 1:17 PM EDT documented as of this encounter Care Teams Administrative Receptionist Relationship Specialty Start Date End Date Romina Staples MD 230 [place] [address] PCP - General Family Medicine 05/22/20 documented as of this encounter
--- OUTSIDE RECORDS SUMMARY | 2025-05-03 15:50 | XMS_ITS | Encounter Summary ---
Author Organization [employer] Address [address] [place] [address] [address]t [place] [address] Care Team Providers Care Casing Material Weigher Name Role Phone Romina Staples MD Primary Care Provider [phone] Reason for Visit * Reason Comments Med Refill Encounter Details Date Type Department Care Team (Late Contact Info) Description 12/12/[address] [facility] MEDICINE [address] [place] [address] Maria Guadalupe Carrera MD [address] [place] [address] Social History Tobacco Use Types Packs/Day Years [...] EST Nurse Only [facility] MEDICINE [address] [place] [address] documented as of this encounter Visit Diagnoses Not on filedocumented in this encounter Care Teams Casing Material Weigher Relationship Specialty Start Date End Date Romina Staples MD [address] [place] [address] PCP - General Family Medicine 05/22/20 documented as of this encounter
--- OUTSIDE RECORDS SUMMARY | 2025-05-03 15:50 | XMS_ITS | Encounter Summary ---
Author Organization [employer] Address [address] [place] [address] [address]t [place] [address] Care Team Providers Care Head Greenskeeper Name Role Phone Romina Staples MD Primary Care Provider [phone] Reason for Visit * Reason Comments Med Refill Encounter Details Date Type Department Care Team (Late st Contact Info) Description 11/11/2022 Refill [facility] MEDICINE [address] [place] [address] Liana Catherine DO [address] [place] [address] Social History Tobacco Use Types Packs/Day Years [...] Description 05/23/2025 11:00 AM EST Nurse Only [facility] MEDICINE [address] [place] [address] documented as of this encounter Visit Diagnoses Not on filedocumented in this encounter Care Teams Head Greenskeeper Relationship Specialty Start Date End Date Romina Staples MD [address] [place] [address] PCP - General Family Medicine 05/22/20 documented as of this encounter
--- OUTSIDE RECORDS SUMMARY | 2025-05-03 15:50 | XMS_ITS | Encounter Summary ---
Author Organization [employer] Address [address] [place] [address] 7t [place] [address] Care Team Providers Care Dice Table Operator Name Role Phone Romina Staples MD Primary Care Provider [phone] Encounter Details Date Type Department Care Team ([facility] st Contact Info) Description 04/18/2025 Orders Only [facility] MEDICINE 230 [place] [address] Romina Staples MD 230 [place] [address] Vitamin B12 deficiency (Primary Dx) Social History [...] Description 05/23/2025 11:00 AM EST Nurse Only [facility] MEDICINE 230 [place] [address] documented as of this encounter Visit Diagnoses Diagnosis Vitamin B12 deficiency- Primary Other B-complex deficiencies documented in this encounter Additional Health Concerns Assessment Noted Time PHQ-9 Depression Total Score: 0 09/25/19 25 1:17 PM EDT documented as of this encounter Care Teams Dice Table Operator Relationship Specialty Start Date End Date Romina Staples MD 230 [place] [address] PCP - General Family Medicine 05/22/20 documented as of this encounter
--- OUTSIDE RECORDS SUMMARY | 2025-05-03 15:50 | XMS_ITS | Encounter Summary ---
Author Organization [employer] Address [address] [place] [address] 7t [place] [address] Care Team Providers Care Stationary Engineer Apprentice Name Role Phone Romina Staples MD Primary Care Provider [phone] Encounter Details Date Type Department Care Team ([facility] st Contact Info) Description 03/31/2024 Orders Only [facility] MEDICINE [address] [place] [address] Romina Staples MD [address] [place] [address] Vitamin B12 deficiency (Primary Dx) Social History [...] Description 05/23/2025 11:00 AM EST Nurse Only [facility] MEDICINE [address] [place] [address] documented as of this encounter Visit Diagnoses Diagnosis Vitamin B12 deficiency- Primary Other B-complex deficiencies documented in this encounter Additional Health Concerns Assessment Noted Time PHQ-9 Depression Total Score: 5 10/31/19 24 2:06 PM EDT documented as of this encounter Care Teams Stationary Engineer Apprentice Relationship Specialty Start Date End Date Romina Staples MD [address] [place] [address] PCP - General Family Medicine 05/22/20 documented as of this encounter
--- OUTSIDE RECORDS SUMMARY | 2025-05-03 15:50 | XMS_ITS | Clinical Summary ---
Author Organization [facility] ity Address [address] [place] [address] Care Team Providers Care Cloth Wire Weaver Name Role Phone Unavailable Primary Care Provider [...]
--- OUTSIDE RECORDS SUMMARY | 2025-05-03 15:50 | XMS_ITS | Encounter Summary ---
Author Organization [employer] Address [address] [place] [address] 7t [place] [address] Care Team Providers Care Medical Sales Associate Name Role Phone Romina Staples MD Primary Care Provider [phone] Reason for Visit * Reason Comments Med Refill Encounter Details Date Type Department Care Team (Late st Contact Info) Description 11/30/2022 Refill [facility] MEDICINE [address] [place] [address] Romina Staples MD [address] [place] [address] Social History Tobacco Use Types Packs/Day Years [...] AM EST Nurse Only [facility] [address] [place] [address] documented as of this encounter Visit Diagnoses Not on filedocumented in this encounter Care Teams Medical Sales Associate Relationship Specialty Start Date End Date Romina Staples MD [address] [place] [address] PCP - General Family Medicine 05/22/20 documented as of this encounter
--- OUTSIDE RECORDS SUMMARY | 2025-05-03 15:50 | XMS_ITS | Encounter Summary ---
Author Organization [employer] Address [address] [place] [address] 7t [place] [address] Care Team Providers Care Gem Cutter Name Role Phone Romina Staples MD Primary Care Provider [phone] Encounter Details Date Type Department Care Team (Late Contact Info) Description 01/16/2023 Abstract [facility] MEDICINE [address] [place] [address] Romina Staples MD [address] [place] [address] Social History Tobacco Use Types Packs/Day Years [...] Description 05/23/2025 11:00 AM EST Nurse Only [facility] MED[facility]INE [address] [place] [address] documented as of this encounter Visit Diagnoses Not on filedocumented in this encounter Care Teams Gem Cutter Relationship Specialty Start Date End Date Romina Staples MD [address] [place] [address] PCP - General Family Medicine 05/22/20 documented as of this encounter
--- OUTSIDE RECORDS SUMMARY | 2025-05-03 15:50 | XMS_ITS | Clinical Summary ---
Author Organization [employer] Address [address] [place] [address] 7t [place] [address] Care Team Providers Care Supervisor Electric Name Role Phone Romina Staples MD Primary Care Provider [phone] Allergies Active Allergy Reactions Criticality Noted Date [...] is for a schedule II opioid drug. Active ondansetron ODT (Zofran-ODT) 4 MG disintegrating [...] BY MOUTH EVERY DAY 90 tablet 3 Active cyanocobalamin (Vitamin B-12) 1000 MCG/ML injectionIndicati [...] DAY FOR 14 DAYS. 510 g 1 Active cholecalciferol VITAMIN D (Vitamin D-3) 50 MCG (2000 UT) capsule Take 1 capsule (50 mcg) by mouth Once per day. 90 capsule 3 Active lisinopril 30 MG tablet TAKE 1 [...] IM Every 30 days 04/18/2025 04/13/2026 Active Active Problems Problem Noted Date Diagnosed Date Irritable bowel syndrome with constipation 09/24 Abdominal pain 09/06/2024 Post-nasal drip 09/06/2024 Depression, recurrent 03/13/2024 History of Darrius fundoplication 03/13/2024 Vitamin B12 deficiency 07/02/2023 History of PR (myocardial infarction) 07/02/2023 Assessment & Plan (07/02/2023 [...] Saw Dr Barre[place] in [place] [facility] indicated Has trialled bentyl, not helpful Needs constant bowel regimen for constipation Causes him much anxiety Assessment & Plan (07/02/2023 10:32 AM EST): Occurs constantly in RUQ and LUQ Imaged 02/2022 with gallstones seen Seeing Dr Barreto in general surgery at [facility] Has trialled bentyl, not helpful Needs constant bowel regimen for constipation Has CT scan abd/pelvis 10 Jul 2023 Assessment & Plan (07/29/2022 8:20 AM EDT): RUQ and LUQ Imaged 02/2022 with gallstones seen Seeing Dr Barreto in general surgery at [facility] Will trial Bentyl for possible gas pains [...] pain and 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 increasing 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 pressure Chronic [...] Encounters Date Type Department Care Team Description 05/03/2025 Orders Only GENERIC EXTERNAL DATA DEPARTMENT Provider, Generic External Data 04/18/2025 11:00 AM EST Nurse Only [facility] [place] [address] Leila Mario, RUDOLPH Vitamin B12 deficiency 04/18/2025 Orders Only [facility] MEDICINE [address] [place] [address] Romina Staples MD Vitamin B12 deficiency (Primary Dx) 04/18/2025 Travel 04/07/2025 Refill [facility] [address] [facility] [place] [address] Liana Catherine DO 03/17/2025 1:00 PM EDT Nurse Only [facility] [address] [place] [address] Natalia Vazquez, RUDOLPH Vitamin B12 deficiency 03/17/2025 Travel 03/03/2025 Refill [facility] 230 [place] [address] Leonor Lantigua FNP 02/27/2025 Refill [facility] [address] [place], [place] [phone] Romina Staples MD 02/14/2025 1:00 PM EDT Clinical Support [facility] [address] [place] [address] Leila Mario, RUDOLPH B12 deficiency 02/14/2025 Travel [...] your housing situation today? I have yang sing 10/21/[address] you li [...] AM EST Nurse Only [facility] [address] [place] [address] Health Maintenance Due Date Last Done Comments [...] Cancer Screening 05/19/2026 FIT DNA/Cologuard 05/19/2026 05/19/2023 DTaP/Tdap/Td Vaccines (2 - Td or Tdap) 04/01/2027 04/01/2017, 11/23/2007 Lipid Panel 05/03/2030 05/03/2025, 07/17, 08/18/2020, Additional history exists Pneumococcal Vaccine: 50+ Years Completed 02/28/2023 HIB [...] PANEL, STANDARD Routine 05/03/2025 12:06 PM EST HM FIT DNA/COLOGUARD CANCER SCREENING Routine 05/19/2023 PERIODIC ORAL EVALUATION - ESTABLISHED PATIENT Routine 11/10/2018 12:00 AM EDT PROPHYLAXIS - ADULT Routine 09/28/2018 1 2:00 AM EDT BITEWINGS - 4 RADIOGRAPHIC IMAGES Routine 02/02/2018 12:00 AM EDT INTRAORAL - COMPLETE SERIES OF RADIOGRAPHIC IMAGES Routine 12/27/2015 12:00 AM EDT from Last 3 Months or Most Recently Relevant to Health Maintenance Results * (ABNORMAL) Lipid Panel, Standard (05/03/2025 12:06 PM EST) Triglycerides 123 <150 mg/dL [facility] Comment:Desirable Triglyceri de: less than 150 mg/dLBorderline High Triglyceride 150-199 mg/dLHigh Triglyceride: 200-499 mg/dLVery High Triglyceride: greater than or equal to 5OO mg/dL Cholesterol 141 <200 mg/dL [facility] Comment:Desirable Cholestero l: less than 200 mg/dLBorderline High Cholesterol: 200-239 mg/dLHigh Cholesterol: greater than 239 mg/dL LDL Cholesterol Calculated 80 <100 mg/dL [facility] Comment:Desirable LDL: less than 100 mg/dLNear Optimal/Above Optimal LDL: 110- 129 mg/dLBorderline High LDL: 130-159 mg/dLHigh LDL: 160-189 mg/dLVery High LDL: greater than or equal to 190 mg/dL HDL Cholesterol 37(L) >40 mg/dL [facility] Comment:Desirable HDL: great er than 40 mg/dL Note: This HDL assay may give artificially low results in patients with liver disease. 05/03/2025 12:0 6 PM EST 05/03/2025 12:06 PM EST Generic External Data Provider LAB BLOOD ORDERAB LES Final Result [facility] [address] [place] [address] [phone] * FIT DNA/Cologuard Cancer Screening (05/19/2023) Cologuard Cancer Screen Negative Stool 05/19/2023 Historical Provider MD HEALTH MAINTENANCE Final Result from Last 3 Months or Most Recently Relevant to Health Maintenance Insurance [facility] [employer] (O D-SNP) LETICIA RIVERO [id number] * Guarantor: Jovi Mcknight Account Type Relation to Patient Date of Phone Billing Address Personal/Family [address] [address] Care Teams Supervisor Electric Relationship Specialty Start Date End Date Romina Staples MD [address] [place] [address] PCP - General Family Medicine 05/22/20
--- OUTSIDE RECORDS SUMMARY | 2025-05-03 15:50 | XMS_ITS | Encounter Summary ---
Author Organization [employer] Address [address] [place] [address] 7t [place] [address] Care Team Providers Care Product Applications Engineer Name Role Phone Romina Staples MD Primary Care Provider [phone] Encounter Details Date Type Department Care Team ([facility] st Contact Info) Description 03/13/2023 Orders Only [facility] MEDICINE [address] [place] [address] Liana Catherine DO [address] [place] [address] Pernicious anemia (Primary Dx) Social History Tobacco [...] Description 05/23/2025 11:00 AM EST Nurse Only [facility] MEDICINE [address] [place] [address] documented as of this encounter Visit Diagnoses Diagnosis Pernicious anemia- Primary documented in this encounter Care Teams Product Applications Engineer Relationship Specialty Start Date End Date Romina Staples MD [address] [place] [address] PCP - General Family Medicine 05/22/20 documented as of this encounter
== END 2025-05-03 11:58 | disposition home or self-care (01) ==
LOC: HO.LAB 11:57
PROVIDERS: PCP General Practice; Visit Provider Internal Medicine Cardiovascular Disease
DX: E78.5 Hyperlipidemia, unspecified (principal)
CPT/HCPCS: 36415; 80061

== ENCOUNTER 2025-05-06 13:44 | Outpatient (AMB) | payer OTHER, SELFPAY ==
--- NOTE | 2025-05-06 13:45 | MHC.OFFVIS ---
Vital Signs 05/06/25 13:47 Height 5 ft 6 in Weight 163 lb 2.273 oz BMI 26.3 BP 130/68 Blood Pressure Location Lt brachial Position Sitting Pulse 57 Pulse Source Monitor Intake Visit Reasons: 1 year f/up echo , lipids Educational Technician Required: Yes Educational Technician Services: Educational Technician Offered & Declined Accompanied by: Spouse Allergies No Known Allergies (No Known Allergies*) Allergy (Verified 05/06/25 13:50) Medication List - Last Reconciled 05/06/25 by Magnus Warren NP amlodipine 5 mg PO DAILY 90 days aspirin 81 mg PO DAILY atorvastatin 10 mg PO DAILY cholecalciferol (vitamin D3) 0 mcg PO cyanocobalamin (vitamin B-12) 1,000 mcg IM cyclobenzaprine 5 mg PO TID PRN dicyclomine mg PO lisinopril 30 mg PO DAILY loratadine 10 mg PO DAILY mirabegron ER (Myrbetriq) 25 mg PO DAILY 90 days naproxen 500 mg PO BID PRN HPI Comments Details: This is a 70-year-old male patient coming in for a follow-up visit, accompanied by his who helps interpretation throughout the visit. Patient was previously seen in the office back in 2022 for chest discomfort for which patient underwent a myocardial perfusion study showing mixed findings and therefore underwent a coronary CTA showing mild coronary artery disease. Patient with a history of hypertension, hyperlipidemia, and thoracic aortic aneurysm. Today, patient is reporting feeling well overall without any cardiac symptoms of exertional chest pain, shortness of breath, palpitations, dizziness, orthopnea, PND, leg edema, presyncope or syncope. Patient is reporting compliance with all his medications. Most recently patient underwent an echo and repeat lipid profile. [facility] Medical History Abnormal nuclear stress test BPH (benign prostatic hyperplasia) Pernicious anemia Seasonal allergies History of eye prosthesis Epididymitis History of kidney stones Nocturia Hyperlipidemia HTN (hypertension) Erectile dysfunction BPH w/o urinary obs/LUTS Surgical History H/O colonoscopy History of Darrius fundoplication History of back surgery History of surgery History of extraction of renal calculus Social History Alcohol intake: never Patient Tobacco Use Status: Never used Tobacco Review of Systems Const Denies daytime sleepiness, Denies difficulty sleeping, Denies snoring, Denies stops breathing during sleep and Denies weakness Card Reports chest pain, Denies rapid heart rate, Denies irregular heart rhythm, Denies claudication, Denies leg edema, Denies lightheadedness, Denies palpitations, Denies dyspnea, Denies dyspnea on exertion, Denies orthopnea, Denies paroxysmal nocturnal dyspnea and Denies slow heart rate Resp Denies cough, Denies dyspnea, Denies dyspnea on exertion and Denies snoring GI Reports no additional complaints, Denies hematochezia, Denies change in stool character and Denies dyspepsia Musc Denies abnormal gait, Denies muscle weakness and Denies numbness Neuro Denies abnormal gait, Denies numbness and Denies weakness Endo Denies palpitations Physical Exam Vital Signs: Last Vital Signs Pulse 57 05/06/25 13:47 BP 130/68 05/06/25 13:47 BMI result Body Mass Index 26.3 Const General: cooperative, healthy appearing, comfortable and no acute distress Orientation/consciousness: patient oriented x3 HEENT Head: Yes normal to inspection Neck Neck: Yes normal visual inspection, Yes trachea midline and Yes supple Chest Chest palpation & inspection: normal inspection of the chest Resp Effort & Inspection: normal respiratory effort Auscultation: clear to auscultation bilaterally, no crackles, no rales, no rhonchi and no wheezes Cardio Jugular venous distension: no JVD Palpation: normal PMI Rate: regular rate Rhythm: regular rhythm Heart sounds: S1 normal heart sound present, S2 normal heart sound present, no click, no gallops, no murmurs and no rubs Peripheral pulses: Peripheral pulses 2+ throughout GI Inspection: Yes normal to inspection Palpation (GI): Soft to palpation Auscultation: normal bowel sounds Skin General skin exam: no rashes or lesions noted Neuro General: patient oriented x3 Extrem General: Yes normal to inspection, No no pedal edema and No calf tenderness Psych Appearance: grossly normal Mental Status: mental status grossly normal Speech and movement: Normal speech and movement present Office Procedures EKG Details: EKG today showed sinus bradycardia with a first-degree AV block, rate 57 beats per minute, minimal voltage for LVH, nonspecific T-wave changes, [place] TX, [place]. [id number], Complete Assessment & Plan Assessment & Plan (1) Mild CAD: Code(s): I25.10 - Atherosclerotic heart disease of [place] coronary artery without angina pectoris Category: Medical Plan: 06/25/2023- myocardial perfusion study showed mixed finding of ischemia/infarct in the basal inferoseptal/inferior wall. 10/16/2023-patient underwent a coronary CTA for further evaluation showing mild coronary disease. Clinically stable and without any cardiac symptoms. Continue aspirin therapy. Most recent LDL at 80. We will increase atorvastatin to 20 mg for an LDL goal less than 70. Patient understanding of plan. (2) Thoracic aortic aneurysm: Code(s): I71.20 - Thoracic aortic aneurysm, without rupture, unspecified Category: Medical Plan: 04/18/2025-echo study showed a normal LV systolic function with the ejection fraction at 62% with mild dilation of ascending aorta at 4.3 cm. We will continue to monitor this closely with periodic echo. (3) HTN (hypertension): Code(s): I10 - Essential (primary) hypertension Category: Medical Plan: Blood pressure today is well-controlled. Continue current regimen with a blood pressure goal less than 130/80. Advised on low-salt diet. (4) Hyperlipidemia: Code(s): E78.5 - Hyperlipidemia, unspecified Category: Medical Plan: As above. Advised on heart healthy diet, regular exercise, med compliance, and management of vascular risk factors. Follow up in 1 year, sooner if needed. In the interim, patient will call the office with any concerns or change in symptoms. Orders: Orders Lipid Panel 1 Year I25.10 - Atherosclerotic heart disease of [place] coronary artery without angina pectoris CA echo transthoracic complete 1 Year I71.20 - Thoracic aortic aneurysm, without rupture, unspecified AMB EKG-In Office Today I25.10 - Atherosclerotic heart disease of [place] coronary artery without angina pectoris Medications: New atorvastatin (Lipitor) 20 mg PO DAILY 90 tabs 3RF Discontinued atorvastatin Discontinued Reason: Doctor's Order 10 mg PO DAILY 90 tabs 3RF E78.5 - Hyperlipidemia, unspecified Coding Level of Care Code Est Pt Level 4 (34090) Add On Problem Visit Only Diagnoses Mild CAD I25.10 Thoracic aortic aneurysm I71.20 HTN (hypertension) I10 Hyperlipidemia E78.5 CPT Codes EKG - CPT: 93326-[id number], Complete ([id number]) Time Spent (min) 32 Comment Time spent in reviewing the chart, test results, assessment, counseling and documentation.
[2025-05-06 13:47] VITALS: BP 130/68; PULSE 57; BMI 26.3
--- OUTSIDE RECORDS SUMMARY | 2025-05-06 15:24 | XMS_ITS | Encounter Summary ---
Author Organization [employer] Address [address] [place] [address] 7t [place] [address] Care Team Providers Care Call Center Team Leader Name Role Phone Romina Staples MD Primary Care Provider [phone] Encounter Details Date Type Department Care Team (Late Contact Info) Description 01/16/2023 Abstract [facility] MEDICINE [address] [place] [address] Romina Staples MD [address] [place] [address] [phone] Social History Tobacco Use Types Packs/Day Years [...] Department Care Team (Late Contact Info) Description 05/11/2025 3:30 PM EST Office Visit [facility] [address] [place] [address] [phone] Romina Staples MD [address] [place] [address] [phone] 05/23/2025 11:00 AM EST Nurse Only [facility] [address] [place] [address] documented as of this encounter Visit Diagnoses Not on filedocumented in this encounter Care Teams Call Center Team Leader Relationship Specialty Start Date End Date Romina Staples MD [address] [place] [address] PCP - General Family Medicine 05/22/20 documented as of this encounter
--- OUTSIDE RECORDS SUMMARY | 2025-05-06 15:24 | XMS_ITS | Clinical Summary ---
Author Organization [facility] ity Address [address] [place] [address] Care Team Providers Care Animal Ride Manager Name Role Phone Unavailable Primary Care Provider [...]
--- OUTSIDE RECORDS SUMMARY | 2025-05-06 15:24 | XMS_ITS | Encounter Summary ---
Author Organization [employer] Address [address] [place] [address] 7t [place] [address] Care Team Providers Care Homeworker Name Role Phone Romina Staples MD Primary Care Provider [phone] Encounter Details Date Type Department Care Team ([facility] st Contact Info) Description 04/18/2025 Orders Only [facility] MEDICINE [address] [place] [address] Romina Staples MD [address] [place] [address] Vitamin B12 deficiency (Primary Dx) Social History [...] Care Team (Late st Contact Info) Description 05/11/2025 3:30 PM EST Office Visit [facility] MEDICINE [address] [place] [address] Romina Staples MD [address] [place] [address] 05/23/2025 11:00 AM EST Nurse Only [facility] MEDICINE [address] [place] [address] documented as of this encounter Visit Diagnoses Diagnosis Vitamin B12 deficiency- Primary Other B-complex deficiencies documented in this encounter Additional Health Concerns Assessment Noted Time PHQ-9 Depression Total Score: 0 09/25/19 25 1:17 PM EDT documented as of this encounter Care Teams Homeworker Relationship Specialty Start Date End Date Romina Staples MD [address] [place] [address] PCP - General Family Medicine 05/22/20 documented as of this encounter
--- OUTSIDE RECORDS SUMMARY | 2025-05-06 15:24 | XMS_ITS | Encounter Summary ---
Author Organization [employer] Address [address] [place] [address] [address]t [place] [address] Care Team Providers Care Fruit Trimmer Name Role Phone Romina Staples MD Primary Care Provider [phone] Encounter Details Date Type Department Care Team ([facility] st Contact Info) Description 03/31/2024 Orders Only [facility] MEDICINE [address] [place] [address] Romina Staples MD [address] [place] [address] Vitamin B12 deficiency (Primary Dx) Social History [...] Description 05/11/2025 3:30 PM EST Office Visit [facility] [address] [place] [address] Romina Staples MD [address] [place] [address] 05/23/2025 11:00 AM EST Nurse Only [facility] [address] [place] [address] documented as of this encounter Visit Diagnoses Diagnosis Vitamin B12 deficiency- Primary Other B-complex deficiencies documented in this encounter Additional Health Concerns Assessment Noted Time PHQ-9 Depression Total Score: 5 10/31/19 24 2:06 PM EDT documented as of this encounter Care Teams Fruit Trimmer Relationship Specialty Start Date End Date Romnia Staples MD [address] [place] [address] PCP - General Family Medicine 05/22/20 documented as of this encounter
--- OUTSIDE RECORDS SUMMARY | 2025-05-06 15:24 | XMS_ITS | Encounter Summary ---
Author Organization [employer] Address [address] [place] [address] [address]t [place] [address] Care Team Providers Care Membership Solicitor Name Role Phone Romina Staples MD Primary Care Provider [phone] Encounter Details Date Type Department Care Team ([facility] st Contact Info) Description 07/12/2024 Orders Only [facility] MEDICINE [address] [place] [address] Romina Staples MD [address] [place] [address] Social History Tobacco Use Types Packs/Day Years [...] Description 05/11/2025 3:30 PM EST Office Visit [facility] MEDICINE [address] [place] [address] Romina Staples MD [address] [place] [address] 05/23/2025 11:00 AM EST Nurse Only [address] [address] documented as of this encounter Visit Diagnoses Not on filedocumented in this encounter Additional Health Concerns Assessment Noted Time PHQ-9 Depression Total Score: 5 10/31/19 24 2:06 PM EDT documented as of this encounter Care Teams Membership Solicitor Relationship Specialty Start Date End Date Romina Staples MD [address] [place] [phone] PCP - General Family Medicine 05/22/20 documented as of this encounter
--- OUTSIDE RECORDS SUMMARY | 2025-05-06 15:24 | XMS_ITS | Encounter Summary ---
Author Organization [employer] Address [address] [place] [address] 7t [place] [address] Care Team Providers Care Tablet Machine Operator Name Role Phone Romina Staples MD Primary Care Provider [phone] Encounter Details Date Type Department Care Team ([facility] st Contact Info) Description 03/13/2023 Orders Only [facility] [address] [place] [address] Liana Catherine DO 230 [place] [address] Pernicious anemia (Primary Dx) Social History Tobacco [...] Description 05/11/2025 3:30 PM EST Office Visit [facility] [address] [place] [address] Romina Staples MD [address] [place] [address] 05/23/2025 11:00 AM EST Nurse Only [facility] [address] [place] [address] documented as of this encounter Visit Diagnoses Diagnosis Pernicious anemia- Primary documented in this encounter Care Teams Tablet Machine Operator Relationship Specialty Start Date End Date Romina Staples MD [address] [place] [address] PCP - General Family Medicine 05/22/20 documented as of this encounter
--- OUTSIDE RECORDS SUMMARY | 2025-05-06 15:24 | XMS_ITS | Encounter Summary ---
Author Organization [employer] Address [address] [facility] 7t [place] [address] Care Team Providers Care Metal Leaf Layer Name Role Phone Romina Staples MD Primary Care Provider [phone] Encounter Details Date Type Department Care Team ([facility] st Contact Info) Description 07/03/2023 Abstract [facility] [address] [place] [address] Romina Staples MD 230 [place] [address] Social History Tobacco Use Types Packs/Day Years [...] Description 05/11/2025 3:30 PM EST Office Visit [address] [phone] Romina Staples MD [address] [place] [address] 05/23/2025 11:00 AM EST Nurse Only [address] [address] documented as of this encounter Procedures Procedure Name Priority Date/Time Associated Diagnosis Comments HM FIT DNA/COLOGUARD CANCER SCREENING Routine 05/19/2023 documented in this encounter Results * FIT DNA/Cologuard Cancer Screening (05/19/2023) Pathologist [facility] Cologuard Cancer Screen Negative Stool 05/19/2023 Historical Provider HEALTH MAINTENANCE Final Result documented in this encounter Visit Diagnoses Not on filedocumented in this encounter Care Teams Metal Leaf Layer Relationship Specialty Start Date End Date Romina Staples MD [address] [place] [address] [phone] PCP - General Family Medicine 05/22/20 documented as of this encounter
--- OUTSIDE RECORDS SUMMARY | 2025-05-06 15:24 | XMS_ITS | Encounter Summary ---
Author Organization [employer] Address [address] [place] [address] 7 [place] [address] Care Team Providers Care Broomcorn Press Feeder Name Role Phone Romina Staples MD Primary Care Provider [phone] Reason for Visit * Reason Comments Med Refill Encounter Details Date Type Department Care Team (Late st Contact Info) Description 02/08/2023 Refill [facility] [address] [place] [address] Maria Guadalupe Carrera MD [address] [place] [address] Social History Tobacco Use Types Packs/Day Years [...] Description 05/11/2025 3:30 PM EST Office Visit [facility] [address] [place] [address] Romina Staples MD [address] [place] [address] 05/23/2025 11:00 AM EST Nurse Only [facility] 230 [place], [place] [phone] documented as of this encounter Visit Diagnoses Not on filedocumented in this encounter Care Teams Broomcorn Press Feeder Relationship Specialty Start Date End Date Romina Staples MD 230 [place] [address] PCP - General Family Medicine 05/22/20 documented as of this encounter
--- OUTSIDE RECORDS SUMMARY | 2025-05-06 15:24 | XMS_ITS | Encounter Summary ---
Author Organization [employer] Address [address] [place] [address] 7t [place] [address] Care Team Providers Care Application Systems Architect Name Role Phone Romina Staples MD Primary Care Provider [phone] Encounter Details Date Type Department Care Team (Latest Contact Info) Description 05/04/2025 Travel Social History Tobacco Use Types Packs/Day [...] Description 05/11/2025 3:30 PM EST Office Visit [facility] [address] [place] [address] Romina Staples MD [address] [place] [address] 05/23/2025 11:00 AM EST Nurse Only [facility] [address] [place] [address] documented as of this encounter Visit Diagnoses Not on filedocumented in this encounter Additional Health Concerns Assessment Noted Time PHQ-9 Depression Total Score: 0 09/25/19 25 1:17 PM EDT documented as of this encounter Care Teams Application Systems Architect Relationship Specialty Start Date End Date Romina Staples MD [address] [place] [address] PCP - General Family Medicine 05/22/20 documented as of this encounter
--- OUTSIDE RECORDS SUMMARY | 2025-05-06 15:24 | XMS_ITS | Clinical Summary ---
Author Organization [employer] Address [address] [place] [address] 7t [place] [address] Care Team Providers Care Veterans Adviser Name Role Phone Romina Staples MD Primary Care Provider [phone] Allergies Active Allergy Reactions Criticality Noted Date [...] 03/13/2024 Vitamin B12 deficiency 07/02/2023 History of ID (myocardial infarction) 07/02/2023 Assessment & Plan (07/02/2023 [...] Dr Barreto in general surgery at [facility], no surgery indicated Has trialled bentyl, not helpful Needs constant bowel regimen for constipation Causes him much anxiety Assessment & Plan (07/02/2023 10:32 AM EST): Occurs constantly in RUQ and LUQ Imaged 02/2022 with gallstones seen Seeing Dr Barreto in general surgery at [facility] Has trialled bentyl, not helpful Needs constant bowel regimen for constipation Has CT scan abd/pelvis 10 Jul 2023 Assessment & Plan (07/29/2022 8:20 AM EDT): RUQ and LUQ Imaged 02/2022 with gallstones seen Seeing Dr Barreto in general surgery at [facility] Will trial Bentyl for possible [...] 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 Chronic [...] Encounters Date Type Department Care Team Description 05/04/2025 Travel 05/03/2025 Orders Only GENERIC EXTERNAL DATA DEPARTMENT Provider, Generic External Data 04/18/2025 11:00 AM EST Nurse Only [facility] [address] [place] [address] Leila Mario, RUDOLPH Vitamin B12 deficiency 04/18/2025 Orders Only [facility] [address] [facility] [place] [address] Romina Staples MD Vitamin B12 deficiency (Primary Dx) 04/18/2025 Travel 04/07/2025 Refill [facility] [address] [facility] [place] [address] Liana Catherine DO 03/17/2025 1:00 PM EDT Nurse Only [facility] 230 [place] [address] Natalia Vazquez, RUDOLPH Vitamin B12 deficiency 03/17/2025 Travel 03/03/2025 Refill [facility] 230 [place] [address] Lenoor Lantigua FNP 02/27/2025 Refill [facility] [address] [place] [address] Romina Staples MD 02/14/2025 1:00 PM EDT Clinical Support [facility] [address] [place] [address] Leila Mario, RUDOLPH B12 deficiency 02/14/2025 Travel [...] Description 05/11/2025 3:30 PM EST Office Visit [facility] [address] [place] [address] Rmoina Staples MD 230 [place] [address] 05/23/2025 11:00 AM EST Nurse Only [facility] 230 [place] [address] Health Maintenance Due Date Last Done Comments [...] 09/24/2025 09/24/2024 Depression Screening 09/24/2025 09/24/2024, 09/25/19 Tobacco Screening 09/28/2025 09/28/2024 Colorectal Cancer Screening [...] 12:06 PM EST) Triglycerides 123 <150 mg/dL [facility] Comment:Desirable Triglyceri de: less than 150 mg/dLBorderline High Triglyceride 150-199 mg/dLHigh Triglyceride: 200-499 mg/dLVery High Triglyceride: greater than or equal to 5OO mg/dL Cholesterol 141 <200 mg/dL [facility] Comment:Desirable Cholestero l: less than 200 mg/dLBorderline High Cholesterol: 200-239 mg/dLHigh Cholesterol: greater than 239 mg/dL LDL Cholesterol Calculated 80 <100 mg/dL [facility] Comment:Desirable LDL: less than 100 mg/dLNear Optimal/Above Optimal LDL: 110- 129 mg/dLBorderline High LDL: 130-159 mg/dLHigh LDL: 160-189 mg/dLVery High LDL: greater than or equal to 190 mg/dL HDL Cholesterol 37(L) >40 mg/dL [facility] Comment:Desirable HDL: great er than 40 mg/dL Note: This HDL assay may give artificially low results in patients with liver disease. 05/03/2025 12:0 6 PM EST 05/03/2025 12:06 PM EST Generic External Data Provider LAB BLOOD ORDERAB LES Final Result [facility] [address] [place] [address] [phone] * FIT DNA/Cologuard Cancer Screening (05/19/2023) Cologuard Cancer Screen Negative Stool 05/19/2023 Historical Provider HEALTH MAINTENANCE Final Result from Last 3 Months or Most Recently Relevant to Health Maintenance Insurance [facility] OPTIONS (HMO D-SNP) LETICIA RIVERO [id number] D[facility]AL - [facility] Care Teams Veterans Adviser Relationship Specialty Start Date End Date Romina Staples MD [address] [place] [address] PCP - General Family Medicine 05/22/20
--- OUTSIDE RECORDS SUMMARY | 2025-05-06 15:24 | XMS_ITS | Encounter Summary ---
Author Organization [employer] Address [address] [place] [address] 7t [place] [address] Care Team Providers Care Health Promotion Educator Name Role Phone Romina Staples MD Primary Care Provider [phone] Encounter Details Date Type Department Care Team ([facility] st Contact Info) Description 05/03/2025 Orders Only [...] Description 05/11/2025 3:30 PM EST Office Visit [facility] [address] [place] [address] Romina Staples MD [address] [place] [address] 05/23/2025 11:00 AM EST Nurse Only [facility] [address] [place] [address] documented as of this encounter Procedures Procedure Name Priority Date/Time Associated Diagnosis Comments LIPID PANEL, STANDARD Routine 05/03/2025 12:06 PM EST documented in this encounter Results * (ABNORMAL) Lipid Panel, Standard (05/03/2025 12:06 PM EST) Triglycerides 123 <150 mg/dL [facility] Comment:Desirable Triglyceri de: less than 150 mg/dLBorderline High Triglyceride 150-199 mg/dLHigh Triglyceride: 200-499 mg/dLVery High Triglyceride: greater than or equal to 5OO mg/dL Cholesterol 141 <200 mg/dL [facility] Comment:Desirable Cholestero l: less than 200 mg/dLBorderline High Cholesterol: 200-239 mg/dLHigh Cholesterol: greater than 239 mg/dL LDL Cholesterol Calculated 80 <100 mg/dL [facility] Comment:Desirable LDL: less than 100 mg/dLNear Optimal/Above Optimal LDL: 110- 129 mg/dLBorderline High LDL: 130-159 mg/dLHigh LDL: 160-189 mg/dLVery High LDL: greater than or equal to 190 mg/dL HDL Cholesterol 37(L) >40 mg/dL [facility] Comment:Desirable HDL: great er than 40 mg/dL Note: This HDL assay may give artificially low results in patients with liver disease. 05/03/2025 12:0 6 PM EST 05/03/2025 12:06 PM EST us Generic External Data Provider LAB BLOOD ORDERAB LES Final Result Performing Organization Address City/State/RUST Co de Phone Number [facility] [address] [place] [address] [phone] documented in this encounter Visit Diagnoses Not on filedocumented in this encounter Additional Health Concerns Assessment Noted Time PHQ-9 Depression Total Score: 0 09/25/19 25 1:17 PM EDT documented as of this encounter Care Teams Health Promotion Educator Relationship Specialty Start Date End Date Romina Staples MD [address] [place] [phone] PCP - General Family Medicine 05/22/20 documented as of this encounter
--- OUTSIDE RECORDS SUMMARY | 2025-05-06 15:24 | XMS_ITS | Encounter Summary ---
Author Organization [employer] Address [address] [place] [address] 7t [place] [address] Care Team Providers Care Orthopedic Assistant Name Role Phone Romina Staples MD Primary Care Provider [phone] Reason for Visit * Reason Comments Med Refill Encounter Details Date Type Department Care Team (Late st Contact Info) Description 11/30/2022 Refill [facility] [address] [place] [address] Romina Staples MD 230 [place] [address] Social History Tobacco Use Types Packs/Day Years [...] Description 05/11/2025 3:30 PM EST Office Visit [facility] [address] [place] [address] Romina Staples MD 230 [place] [address] 05/23/2025 11:00 AM EST Nurse Only [address] [address] documented as of this encounter Visit Diagnoses Not on filedocumented in this encounter Care Teams Orthopedic Assistant Relationship Specialty Start Date End Date Romina Staples MD [address] [place] [phone] PCP - General Family Medicine 05/22/20 documented as of this encounter
--- OUTSIDE RECORDS SUMMARY | 2025-05-06 15:24 | XMS_ITS | Encounter Summary ---
Author Organization [employer] Address [address] [place] [address] 7t [place] [address] Care Team Providers Care Llama Farmer Name Role Phone Romina Staples MD Primary Care Provider [phone] Reason for Visit * Reason Comments Med Refill Encounter Details Date Type Department Care Team (Late st Contact Info) Description 11/11/2022 Refill [facility] [address] [place] [address] Liana Catherine DO [address] [place] [address] Social History Tobacco Use Types Packs/Day Years [...] Description 05/11/2025 3:30 PM EST Office Visit [facility] [address] [place] [address] Romina Staples MD 230 [place] [address] 05/23/2025 11:00 AM EST Nurse Only [address] [address] documented as of this encounter Visit Diagnoses Not on filedocumented in this encounter Care Teams Llama Farmer Relationship Specialty Start Date End Date Romina Staples MD [address] [place] [phone] PCP - General Family Medicine 05/22/20 documented as of this encounter
--- OUTSIDE RECORDS SUMMARY | 2025-05-06 15:24 | XMS_ITS | Encounter Summary ---
Author Organization [employer] Address [address] [place] [address] 7t [place] [address] Care Team Providers Care Helper Marble Finisher Name Role Phone Romina Staples MD Primary Care Provider [phone] Encounter Details Date Type Department Care Team (Late st Contact Info) Description 05/23/2022 Orders Only [facility] [address] [place] [address] [phone] Romina Staples MD [address] [place] [address] [phone] Pernicious anemia (Primary Dx) Social History Tobacco [...] Description 05/11/2025 3:30 PM EST Office Visit [facility] [address] [place] [address] [phone] Romina Staples MD [address] [place] [address] [phone] 05/23/2025 11:00 AM EST Nurse Only [facility] [address] [place] [address] documented as of this encounter Visit Diagnoses Diagnosis Pernicious anemia- Primary documented in this encounter Care Teams Helper Marble Finisher Relationship Specialty Start Date End Date Romina Staples MD 230 [place] [address] PCP - General Family Medicine 05/22/20 documented as of this encounter
--- OUTSIDE RECORDS SUMMARY | 2025-05-06 15:24 | XMS_ITS | Encounter Summary ---
Author Organization [employer] Address [address] [place] [address] 7t [place] [address] Care Team Providers Care Apricot Packer Name Role Phone Romina Staples MD Primary Care Provider [phone] Reason for Visit * Reason Comments Med Refill Encounter Details Date Type Department Care Team (Late Contact Info) Description 12/12/2022 Refill [facility] [address] [place] [address] Maria Guadalupe Carrera MD [address] [place] [address] Social History Tobacco Use Types Packs/Day Years [...] Description 05/11/2025 3:30 PM EST Office Visit [facility] [address] [place] [address] Romina Staples MD [address] [place] [address] 05/23/2025 11:00 AM EST Nurse Only [address] [address] documented as of this encounter Visit Diagnoses Not on filedocumented in this encounter Care Teams Apricot Packer Relationship Specialty Start Date End Date Romina Staples MD [address] [place] [phone] PCP - General Family Medicine 05/22/20 documented as of this encounter
--- OUTSIDE RECORDS SUMMARY | 2025-05-06 15:25 | XMS_ITS | Encounter Summary ---
Author Organization [employer] Address [address] [place] [address] 7t [place] [address] Care Team Providers Care Foot Doctor Name Role Phone Romina Staples MD Primary Care Provider Encounter Details Date Type Department Care Team (Latest Contact Info) Description 09/28/2018 Abstract [facility] CONVERSIONS Dental, Provider, DDS Social History Tobacco [...] Care Team ( st Contact Info) Description 05/11/2025 3:30 PM EST Office Visit [facility] [address] [place] [address] Romina Staples MD [address] [place] [address] 05/23/2025 11:00 AM EST Nurse Only [facility] MED[facility]INE [address] [place] [address] documented as of this encounter Visit Diagnoses Not on filedocumented in this encounter Care Teams Foot Doctor Relationship Specialty Start Date End Date Romina Staples MD [address] [place] [address] PCP - General Family Medicine 05/22/20 documented as of this encounter
== END 2025-05-06 14:21 | disposition home or self-care (01) ==
LOC: HO.HCS 13:45
PROVIDERS: PCP General Practice
DX: I25.10 Atherosclerotic heart disease of native coronary artery without angina pectoris (principal); I71.20 Thoracic aortic aneurysm, without rupture, unspecified; I10 Essential (primary) hypertension; E78.5 Hyperlipidemia, unspecified
CPT/HCPCS: 93010; 99214; G2211

== ENCOUNTER → 2025-05-06 13:44 | Outpatient (BNVA) | payer OTHER, SELFPAY | PROVIDERS: PCP General Practice | DX: I25.10 Atherosclerotic heart disease of native coronary artery without angina pectoris (principal); I71.20 Thoracic aortic aneurysm, without rupture, unspecified; I10 Essential (primary) hypertension; E78.5 Hyperlipidemia, unspecified; Z79.82 Long term (current) use of aspirin | CPT/HCPCS: 93005; 99212 ==

== ENCOUNTER 2025-05-16 08:34 | Outpatient (REF) | payer OTHER, SELFPAY ==
--- OUTSIDE RECORDS SUMMARY | 2025-05-11 13:00 | XMS_ITS | Encounter Summary ---
Author Organization [employer] Address [address] [place] [address] 7 [place] [address] Care Team Providers Care It Application Development Manager Name Role Phone Romina Staples MD Primary Care Provider Reason for Visit * Reason Comments Follow-up Encounter Details Date Type Department Care Team ([facility] Contact Info) Description 05/11/2025 1:00 PM EST Office Visit [facility] [address] [place] [address] Romina Staples MD 230 [place] [address] Primary hypertension (Primary Dx) Social History Tobacco Use Types [...] PM EST documented as of this encounter Last Filed Vital Signs Vital Sign Reading Time Taken Comments Blood Pressure 124/60 05/11/2025 12:49 PM EST Pulse 60 05/11/2025 12:49 PM EST Temperature 36.2 C (97.2 F) 05/11/2025 12:49 PM EST Respiratory Rate 19 05/11/2025 12:4 9 PM EST Oxygen Saturation 99% 05/11/2025 12: 49 PM EST Inhaled Oxygen Concentration - - Weight 74.3 kg (163 lb 12.8 oz) 025 12:49 PM EST Height 170.2 cm (5' 7 ) 05/11/2025 12:4 9 PM EST Body Mass Index 25.65 05/11/2025 12:49 PM EST documented in this encounter Plan of Treatment Upcoming Encounters Date Type Department Care Team (Late st Contact Info) Description 05/23/2025 11:00 AM EST Nurse Only [facility] [address] [place] [address] Scheduled Orders Name Type Priority Associated Diagnoses Orde r Schedule Lipid Panel, Standard Lab Routine Primary hypertension Expected: 05/11/2025 (Approximate), Expires: 05/11/2026 Comprehensive Metabolic Panel Lab Routine Primary hypertension Expected: 05/11/2025 (Approximate), Expires: 05/11/2026 CBC auto differential Lab Routine Primary hypertension Expected: 05/11/2025 (Approximate), Expires: 05/11/2026 documented as of this encounter Procedures Procedure Name Priority Date/Time Associated Diagnosis Comments POCT URINALYSIS DIPSTICK Routine 05/11/2025 1:24 PM EST Primary hypertension documented in this encounter Results * (ABNORMAL) POCT Urinalysis (05/11/2025 1:24 PM EST) Color, UA Yellow Clarity, UA Clear Glucose, UA Negative Bilirubin, UA Negative Ketones, UA Negative Spec Grav, UA 1.015 Blood, UA Positive(A) Negative, None Detected Comment:moderate pH, UA 7.5 Protein, UA Negative Urobilinogen, UA 0.2 Leukocytes, UA Negative Negative, Rare, Trace, 1+ (17), 2+ (35), 3+ (70), Trace (15) Nitrite, UA Negative Negative, None Detected QC Media Lot # [id number] Lot# Expiration Date [id number] Urine (Urine, Random) 05/11/2025 1:24 PM EST Romina Staples MD POINT OF CARE TEST ENTER/EDIT ORDERABLES Final Result documented in this encounter Visit Diagnoses Diagnosis Primary hypertension- Primary Unspecified essential hypertension documented in this encounter Additional Health Concerns Assessment Noted Time PHQ-9 Depression Total Score: 0 09/25/19 25 1:17 PM EDT documented as of this encounter Care Teams It Application Development Manager Relationship Specialty Start Date End Date Romina Staples MD [address] [place] [address] PCP - General Family Medicine 05/22/20 documented as of this encounter
--- OUTSIDE RECORDS SUMMARY | 2025-05-16 08:38 | XMS_ITS | Encounter Summary ---
Author Organization [employer] Address [address] [place] [address] 7t [place] [address] Care Team Providers Care Inspector Hairspring Truing Name Role Phone Romina Staples MD Primary Care Provider [phone] Encounter Details Date Type Department Care Team ([facility] st Contact Info) Description 04/18/2025 Orders Only [facility] 230 [place] [address] Romina Staples MD [address] [place] [address] Vitamin B12 deficiency (Primary Dx) Social History [...] Description 05/23/2025 11:00 AM EST Nurse Only [facility] [address] [place] [address] documented as of this encounter Visit Diagnoses Diagnosis Vitamin B12 deficiency- Primary Other B-complex deficiencies documented in this encounter Additional Health Concerns Assessment Noted Time PHQ-9 Depression Total Score: 0 09/25/19 25 1:17 PM EDT documented as of this encounter Care Teams Inspector Hairspring Truing Relationship Specialty Start Date End Date Romina Staples MD [address] [place] [address] PCP - General Family Medicine 05/22/20 documented as of this encounter
--- OUTSIDE RECORDS SUMMARY | 2025-05-16 08:38 | XMS_ITS | Encounter Summary ---
Author Organization [employer] Address [address] [facility] 7t [place] [address] Care Team Providers Care Bow Stapler Name Role Phone Romina Staples MD Primary Care Provider [phone] Encounter Details Date Type Department Care Team ([facility] st Contact Info) Description 07/03/2023 Abstract [facility] [address] [place] [address] Romina Staples MD 230 [place] [address] Social History Tobacco Use Types Packs/Day Years [...] Description 05/23/2025 11:00 AM EST Nurse Only [facility] 230 [place] [address] documented as of this encounter Procedures Procedure Name Priority Date/Time Associated Diagnosis Comments HM FIT DNA/COLOGUARD CANCER SCREENING Routine 05/19/2023 documented in this encounter Results * FIT DNA/Cologuard Cancer Screening (05/19/2023) Cologuard Cancer Screen Negative Stool 05/19/2023 us Historical Provider HEALTH MAINTENANCE Final Result documented in this encounter Visit Diagnoses Not on filedocumented in this encounter Care Teams Bow Stapler Relationship Specialty Start Date End Date Romina Staples MD 230 [place] [address] PCP - General Family Medicine 05/22/20 documented as of this encounter
--- OUTSIDE RECORDS SUMMARY | 2025-05-16 08:38 | XMS_ITS | Encounter Summary ---
Author Organization [employer] Address [address] [place] [address] 7t [place] [address] Care Team Providers Care Tester Food Products Name Role Phone Romina Staples MD Primary Care Provider [phone] Encounter Details Date Type Department Care Team ([facility] st Contact Info) Description 03/31/2024 Orders Only [facility] MEDICINE [address] [place] [address] Romina Staples MD [address] [place] [address] Vitamin B12 deficiency (Primary Dx) Social History [...] your housing situation today? I have yang andesron 10/21/[address] you li [...] Description 05/23/2025 11:00 AM EST Nurse Only [facility] [address] [place] [address] documented as of this encounter Visit Diagnoses Diagnosis Vitamin B12 deficiency- Primary Other B-complex deficiencies documented in this encounter Additional Health Concerns Assessment Noted Time PHQ-9 Depression Total Score: 5 10/31/19 24 2:06 PM EDT documented as of this encounter Care Teams Tester Food Products Relationship Specialty Start Date End Date Romina Staples MD [address] [place] [address] PCP - General Family Medicine 05/22/20 documented as of this encounter
--- OUTSIDE RECORDS SUMMARY | 2025-05-16 08:38 | XMS_ITS | Encounter Summary ---
Author Organization [employer] Address [address] [place] [address] 7t [place] [address] Care Team Providers Care Aviation Program Manager Name Role Phone Romina Staples MD Primary Care Provider [phone] Encounter Details Date Type Department Care Team (Latest Contact Info) Description 05/11/2025 Travel Social History Tobacco Use Types Packs/Day [...] Description 05/23/2025 11:00 AM EST Nurse Only [facility] MED[facility]INE [address] [place] [address] documented as of this encounter Visit Diagnoses Not on filedocumented in this encounter Additional Health Concerns Assessment Noted Time PHQ-9 Depression Total Score: 0 09/25/19 25 1:17 PM EDT documented as of this encounter Care Teams Aviation Program Manager Relationship Specialty Start Date End Date Romina Staples MD [address] [place] [address] PCP - General Family Medicine 05/22/20 documented as of this encounter
--- OUTSIDE RECORDS SUMMARY | 2025-05-16 08:38 | XMS_ITS | Encounter Summary ---
Author Organization [employer] Address [address] [place] [address] 7t [place] [address] Care Team Providers Care Gummed Tape Press Operator Name Role Phone Romina Staples MD Primary Care Provider [phone] Reason for Visit * Reason Comments Med Refill Encounter Details Date Type Department Care Team (Late Contact Info) Description 12/12/2022 Refill [facility] MEDICINE [address] [place] [address] Maria Guadalupe Carrera MD [address] [place] [address] Social History Tobacco Use Types Packs/Day Years [...] [facility] [address] [place] [address] documented as of this encounter Visit Diagnoses Not on filedocumented in this encounter Care Teams Gummed Tape Press Operator Relationship Specialty Start Date End Date Romina Staples MD [address] [place] [address] PCP - General Family Medicine 05/22/20 documented as of this encounter
--- OUTSIDE RECORDS SUMMARY | 2025-05-16 08:38 | XMS_ITS | Encounter Summary ---
Author Organization [employer] Address [address] [place] [address] 7t [place] [address] Care Team Providers Care Tonsorial Artist Name Role Phone Romina Staples MD Primary Care Provider [phone] Encounter Details Date Type Department Care Team (Late Contact Info) Description 01/16/2023 Abstract [facility] MEDICINE [address] [place] [address] Romina Staples MD [address] [place] [address] Social History Tobacco Use Types Packs/Day Years [...] Description 05/23/2025 11:00 AM EST Nurse Only [facility] MEDICINE [address] [place] [address] documented as of this encounter Visit Diagnoses Not on filedocumented in this encounter Care Teams Tonsorial Artist Relationship Specialty Start Date End Date Romina Staples MD [address] [place] [address] PCP - General Family Medicine 05/22/20 documented as of this encounter
--- OUTSIDE RECORDS SUMMARY | 2025-05-16 08:38 | XMS_ITS | Encounter Summary ---
Author Organization [employer] Address [address] [place] [address] 7t [place] [address] Care Team Providers Care Health And Safety Coordinator Name Role Phone Romina Staples MD Primary Care Provider [phone] Encounter Details Date Type Department Care Team ([facility] st Contact Info) Description 07/12/2024 Orders Only [facility] MEDICINE [address] [place] [address] Romina Staples MD [address] [place] [address] Social History Tobacco Use Types Packs/Day Years [...] 11:00 AM EST Nurse Only [facility] MEDICINE [address] [place] [address] documented as of this encounter Visit Diagnoses Not on filedocumented in this encounter Additional Health Concerns Assessment Noted Time PHQ-9 Depression Total Score: 5 10/31/19 24 2:06 PM EDT documented as of this encounter Care Teams Health And Safety Coordinator Relationship Specialty Start Date End Date Romina Staples MD [address] [place] [address] PCP - General Family Medicine 05/22/20 documented as of this encounter
--- OUTSIDE RECORDS SUMMARY | 2025-05-16 08:38 | XMS_ITS | Encounter Summary ---
Author Organization [employer] Address [address] [place] [address] 7t [place] [address] Care Team Providers Care Marriage Therapist Name Role Phone Romina Staples MD Primary Care Provider [phone] Reason for Visit * Reason Comments Med Refill Encounter Details Date Type Department Care Team (Late st Contact Info) Description 11/11/2022 Refill [facility] MEDICINE [address] [place] [address] Liana Catherine DO [address] [place] [address] Social History Tobacco Use Types Packs/Day Years [...] Description 05/23/2025 11:00 AM EST Nurse Only [facility] MEDICINE [address] [place] [address] documented as of this encounter Visit Diagnoses Not on filedocumented in this encounter Care Teams Marriage Therapist Relationship Specialty Start Date End Date Romina Staples MD [address] [place] [address] PCP - General Family Medicine 05/22/20 documented as of this encounter
--- OUTSIDE RECORDS SUMMARY | 2025-05-16 08:38 | XMS_ITS | Encounter Summary ---
Author Organization [employer] Address [address] [place] [address] 7t [place] [address] Care Team Providers Care Developer Advisor Name Role Phone Romina Staples MD Primary Care Provider [phone] Encounter Details Date Type Department Care Team ([facility] st Contact Info) Description 03/13/2023 Orders Only [facility] MEDICINE [address] [place] [address] Liana Catherine DO [address] [place] [address] Pernicious anemia (Primary Dx) Social History Tobacco [...] Description 05/23/2025 11:00 AM EST Nurse Only [facility] MEDICINE [address] [place] [address] documented as of this encounter Visit Diagnoses Diagnosis Pernicious anemia- Primary documented in this encounter Care Teams Developer Advisor Relationship Specialty Start Date End Date Romina Staples MD [address] [place] [address] PCP - General Family Medicine 05/22/20 documented as of this encounter
--- OUTSIDE RECORDS SUMMARY | 2025-05-16 08:38 | XMS_ITS | Clinical Summary ---
Author Organization [employer] Address [address] [place] [address] 7t [place] [address] Care Team Providers Care Grain Cleaner And Transfer Operator Name Role Phone Romina Staples MD Primary Care Provider [phone] Allergies Active Allergy Reactions Criticality Noted Date [...] 14 DAYS. 510 g 1 025 Active lisinopril 30 MG tablet TAKE 1 TABLET BY MOUTH EVERY DAY 90 tablet 3 025 Active Acetaminophen Extra Strength 500 MG tablet TAKE 2 TABLETS (1,000 MG) BY MOUTH EVERY 8 (EIGHT) HOURS IF NEEDED FOR MILD PAIN OR MODERATE PAIN. 025 Active atorvastatin (Lipitor) 20 MG tablet 025 Active Gas Relief Extra Strength 125 MG chewable tablet TAKE 1 TAB POR V A ORAL AFTER MEALS AND AT BEDTIME NEEDED ORALLY 4 TIMES A DAY Active cholecalciferol VITAMIN D (Vitamin D-3) 50 MCG (1999 UT) capsule Take 1 capsule (50 mcg) by mouth Once per day. 90 capsule 3 025 Active ammonium lactate (Lac-Hydrin) 12 % lotion Apply topically if needed for dry skin. 225 g 1 025 2025 Active cholecalciferol VITAMIN D (Vitamin D-3) 50 MCG (1999 UT) capsule Take 1 capsule (50 mcg) by mouth Once per day. 90 capsule 3 025 2024 Discontinued(R eorder (will not trigger notification to Pharmacy)) Hospital, Clinic, or Other Facility Administered Medication Ordered Dose Route Frequency Start Date End Date Status cyanocobalamin (Vitamin B-12) injection 1,000 mcgIndications:Vitamin B12 deficiency 1000 mcg IM Every 30 days 04/18/2025 04/13/2026 Active Active Problems Problem Noted Date Diagnosed Date GERD (gastroesophageal reflux disease) Gastritis 05/11/2025 Sciatica of left side 05/11/2025 Nocturia more than twice per night 05/11/2025 Calculus of gallbladder 05/11/2025 Irritable bowel syndrome with constipation 09/24 Abdominal pain 09/06/2024 Post-nasal drip 09/06/2024 Depression, recurrent 03/13/2024 History of Darrius fundoplication 03/13/2024 Vitamin B12 deficiency 07/02/2023 History of SC (myocardial infarction) 07/02/2023 Assessment & Plan (07/02/2023 [...] Saw Dr Barreto in general surgery at [facility], no surgery indicated Has trialled bentyl, not helpful Needs constant bowel regimen for constipation Causes him much anxiety Assessment & Plan (07/02/2023 10:32 AM EST): Occurs constantly in RUQ and LUQ Imaged 02/2022 with gallstones seen Seeing Dr Barreto in general surgery at [facility] Has trialled bentyl, not helpful Needs constant bowel regimen for constipation Has CT scan abd/pelvis 10 Jul 2023 Assessment & Plan (07/29/2022 8:20 AM EDT): RUQ and LUQ Imaged 02/2022 with gallstones seen Seeing Dr Barreto in general surgery at [facility] Will trial Bentyl for possible gas pains [...] pain 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 Chronic [...] Encounters Date Type Department Care Team Description 05/11/2025 1:00 PM EST Office Visit [facility] [place] [address] Romina Staples MD Primary hypertension (Primary Dx) 05/11/2025 Travel 05/10/2025 Telephone [facility] [place] [address] Romina Staples MD chart prep 05/04/2025 Travel 05/03/2025 Orders Only GENERIC EXTERNAL DATA DEPARTMENT Provider, Generic External Data 04/18/2025 11:00 AM EST Nurse Only [facility] [place] [address] Leila Mario RN Vitamin B12 deficiency 04/18/2025 Orders Only [facility] [place] [address] Romina Staples MD Vitamin B12 deficiency (Primary Dx) 04/18/2025 Travel 04/07/2025 Refill [facility] [place] [address] Liana Catherine DO 03/17/2025 1:00 PM EDT Nurse Only [facility] [place] [address] Natalia Vazquez, RUDOLPH Vitamin B12 deficiency 03/17/2025 Travel 03/03/2025 Refill [facility] [place] [address] [place] 02/27/2025 Refill [facility] [place] [address] Romina Staples MD 02/14/2025 1:00 PM EDT Clinical Support [facility] [place] [address] Leila Mario, RN B12 deficiency 02/14/2025 Travel from Last 3 Months Immunizations Immunization Administration Dates Next Due Influenza High-dose Quadriva lent Preservative Free 02/28/2023,02/28/2022 Influenza injectable quadriv alent IIV4 with preservative 03/08/2019,04/01/2017 Influenza injectable quadriv alent preservative free 06/12/2021 Influenza, High Dose Seasona l, Preservative Free 03/08/2024 Influenza, IIV3, injectable 03/29/2014 Influenza, Split (incl. lang fied surface antigen) 02/16/2013,02/06/2012 Moderna Covid-19 Vaccine 12+ 05/10/2021,10/06/19,09/07/2020 Moderna Covid-19 Vaccine 6+ Bivalent 05/29/2022 Pneumococcal [...] Mass Index 25.65 05/11/2025 12:49 PM EST Plan of Treatment Upcoming Encounters Date Type Department Care Team (Late st Contact Info) Description 05/23/2025 11:00 AM EST Nurse Only [facility] MEDICINE [address] [place] [address] Health Maintenance Due Date Last Done Comments [...] Depression Screening 09/24/2025 09/24/2024, 09/25/19 Tobacco Screening 05/11/2026 05/11/2025 Colorectal Cancer Screening 05/19/2026 FIT DNA/Cologuard 05/19/2026 [...] Routine 05/11/2025 1:24 PM EST Primary hypertension LIPID PANEL, STANDARD Routine 05/03/2025 12:06 PM [...] Relevant to Health Maintenance Results * (ABNORMAL) POCT Urinalysis (05/11/2025 1:24 [...] OF CARE TEST ENTER/EDIT ORDERABLES Final Result * (ABNORMAL) Lipid Panel, Standard (05/03/2025 12:06 PM EST) Triglycerides 123 <150 mg/dL [facility] Comment:Desirable Triglyceri de: less than 150 mg/dLBorderline High Triglyceride 150-199 mg/dLHigh Triglyceride: 200-499 mg/dLVery High Triglyceride: greater than or equal to 5OO mg/dL Cholesterol 141 <200 mg/dL [facility] Comment:Desirable Cholestero l: less than 200 mg/dLBorderline High Cholesterol: 200-239 mg/dLHigh Cholesterol: greater than 239 mg/dL LDL Cholesterol Calculated 80 <100 mg/dL [facility] Comment:Desirable LDL: less than 100 mg/dLNear Optimal/Above Optimal LDL: 110- 129 mg/dLBorderline High LDL: 130-159 mg/dLHigh LDL: 160-189 mg/dLVery High LDL: greater than or equal to 190 mg/dL HDL Cholesterol 37(L) >40 mg/dL [facility] Comment:Desirable HDL: great er than 40 mg/dL Note: This HDL assay may give artificially low results in patients with liver disease. 05/03/2025 12:0 6 PM EST 05/03/2025 12:06 PM EST us Generic External Data Provider LAB BLOOD ORDERAB LES Final Result [facility] [address] [place] [address] [phone] * FIT DNA/Cologuard Cancer Screening (05/19/2023) Cologuard Cancer Screen Negative Stool 05/19/2023 Historical Provider HEALTH MAINTENANCE Final Result from Last 3 Months or Most Recently Relevant to Health Maintenance Insurance [facility] INTERMEDIATE OPTIONS (HMO D-SNP) LETICIA RIVERO [id number] [facility] - [facility] Care Teams Grain Cleaner And Transfer Operator Relationship Specialty Start Date End Date Romina Staples MD [address] [place] [address] PCP - General Family Medicine 05/22/20
--- OUTSIDE RECORDS SUMMARY | 2025-05-16 08:38 | XMS_ITS | Encounter Summary ---
Author Organization [employer] Address [address] [place] [address] 7t [place] [address] Care Team Providers Care Antique Finisher Name Role Phone Romina Staples MD Primary Care Provider [phone] Encounter Details Date Type Department Care Team (Latest Contact Info) Description 09/28/2018 Abstract [facility] CONVERSIONS Dental, Provider, DDS Social [...] Description 05/23/2025 11:00 AM EST Nurse Only [facility] MEDICINE [address] [place] [address] documented as of this encounter Visit Diagnoses Not on filedocumented in this encounter Care Teams Antique Finisher Relationship Specialty Start Date End Date Romina Staples MD [address] [place] [address] PCP - General Family Medicine 05/22/20 documented as of this encounter
--- OUTSIDE RECORDS SUMMARY | 2025-05-16 08:38 | XMS_ITS | Encounter Summary ---
Author Organization [employer] Address [address] [place] [address] 7t [place] [address] Care Team Providers Care Primary Health Care Nurse Name Role Phone Romina Staples MD Primary Care Provider [phone] Encounter Details Date Type Department Care Team ([facility] Contact Info) Description 05/23/2022 Orders Only [facility] MEDICINE [address] [place] [address] Romina Staples MD [address] [place] [phone] Pernicious anemia (Primary Dx) Social History Tobacco [...] 11:00 AM EST Nurse Only [facility] MEDICINE [address] [place] [address] documented as of this encounter Visit Diagnoses Diagnosis Pernicious anemia- Primary documented in this encounter Care Teams Primary Health Care Nurse Relationship Specialty Start Date End Date Romina Staples MD [address] [place] [address] PCP - General Family Medicine 05/22/20 documented as of this encounter
--- OUTSIDE RECORDS SUMMARY | 2025-05-16 08:38 | XMS_ITS | Encounter Summary ---
Author Organization [employer] Address [address] [place] [address] 7t [place] [address] Care Team Providers Care Records Supervisor Name Role Phone Romina Staples MD Primary Care Provider [phone] Reason for Visit * Reason Comments Med Refill Encounter Details Date Type Department Care Team (Late Contact Info) Description 02/08/2023 Refill [facility] MEDICINE [address] [place] [address] Maria Guadalupe Carrera MD [address] [place] [address] Social History Tobacco Use Types Packs/Day Years [...] Description 05/23/2025 11:00 AM EST Nurse Only [facility] MEDICINE [address] [place] [address] documented as of this encounter Visit Diagnoses Not on filedocumented in this encounter Care Teams Records Supervisor Relationship Specialty Start Date End Date Romina Staples MD [address] [place] [address] PCP - General Family Medicine 05/22/20 documented as of this encounter
--- OUTSIDE RECORDS SUMMARY | 2025-05-16 08:38 | XMS_ITS | Clinical Summary ---
Author Organization [facility] Address [address] [place] [address] Care Team Providers Care Transportation Planning Engineer Name Role Phone Unavailable Primary Care Provider [...]
--- OUTSIDE RECORDS SUMMARY | 2025-05-16 08:38 | XMS_ITS | Encounter Summary ---
Author Organization [employer] Address [address] [place] [address] 7t [place] [address] Care Team Providers Care Operations General Agent Name Role Phone Romina Staples MD Primary Care Provider [phone] Reason for Visit * Reason Comments Med Refill Encounter Details Date Type Department Care Team (Late st Contact Info) Description 11/30/[address] [facility] MEDICINE [address] [place] [address] Romina Staples MD [address] [place] [address] Social History Tobacco Use Types Packs/Day Years [...] AM EST Nurse Only [facility]ICINE [address] [place] [address] documented as of this encounter Visit Diagnoses Not on filedocumented in this encounter Care Teams Operations General Agent Relationship Specialty Start Date End Date Romina Staples MD [address] [place] [address] PCP - General Family Medicine 05/22/20 documented as of this encounter
[2025-05-16 11:14] LABS: MANUAL DIFF FLAG NO
[2025-05-16 11:17] LABS: Hematocrit 43.5 % (42.0-52.0); Hemoglobin 14.6 g/dl (14.0-18.0); Imm Gran Abs Auto 0.03 X10*3/uL (0.00-0.03); Imm Gran Pct Auto 0.4 % (0.0-0.4); Lymphocytes Absolute Auto 2.3 X10*3/uL (1.2-4.9); Mean Corpuscular HGB Conc 33.6 g/dl (31.0-36.0); Mean Corpuscular Hemoglobin 29.4 pg (27.0-33.0); Mean Corpuscular Volume 87.5 fL (80.0-98.0); NRBC Abs Auto 0.000 X10*3/uL (0.0-0.012); NRBC Pct Auto 0.0 /100WBC (0.0-0.2); Platelet Count 206 X10*3/uL (160-400); Red Blood Count 4.97 X10*6/uL (4.60-5.80); White Blood Count 7.3 X10*3/uL (4.8-10.8)
[2025-05-16 11:33] LABS: Alanine Aminotransferase 26 U/L (0-40); Albumin Level 4.7 g/dL (3.5-5.0); Alkaline Phosphatase 67 U/L (39-117); Anion Gap 9 (12-20); Aspartate Amino Transferase 34 U/L (5-37); Blood Urea Nitrogen 14 mg/dL (9-16); Calcium 9.1 mg/dL (8.4-10.2); Carbon Dioxide 31 mmol/L (22-29); Chloride 107 mmol/L (96-108); Cholesterol 139 mg/dL (<200); Estimated Glomerular Filt Rate > 60; HDL Cholesterol 43 mg/dL (>40); Potassium 3.4 mmol/L (3.3-5.1); Sodium 144 mmol/L (135-145); Total Protein 7.4 g/dL (6.5-8.0); Triglycerides 97 mg/dL (<150)
== END 2025-05-16 08:35 | disposition home or self-care (01) ==
LOC: HO.HHCL 08:34
PROVIDERS: PCP General Practice; Visit Provider General Practice
DX: I10 Essential (primary) hypertension (principal)
CPT/HCPCS: 36415; 80053; 80061; 85025